=== PATIENT | male | born 1945 | race Caucasian/White ===

== ENCOUNTER 2017-05-12 12:16 | Emergency (ER) | payer MEDICARE, MEDICAID ==
[~2017-05-12] VITALS: Ht 167.6 cm; Wt 90.7 kg
[~2017-05-12 12:16] MED LIST: AMLO5TAB2 PO; CLOP75TA PO; LISI1TAB10 PO; LSNP20T PO; METO100T5 PO; NIA500ERT PO; SIMV40TA4 PO
--- OUTSIDE RECORDS SUMMARY | 2017-05-12 12:23 | XMS REPORT | Continuity of Care Document ---
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 05/07/2008 RHONA PETERSON MD 382.01 OTITIS MEDIA ACUTE WITH SPONTANEOUS RUPTURE EARDRUM 05/07/2008 RHONA PETERSON MD 401.1 ESSENTIAL HYPERTENSION BENIGN 05/07/2008 RHONA PETERSON MD 414.01 CORONARY ARTERY STENOSIS MULTI-VESSEL 05/07/2008 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 05/07/2008 382.01 OTITIS MEDIA ACUTE WITH SPONTANEOUS RUPTURE EARDRUM 05/07/2008 401.1 ESSENTIAL HYPERTENSION BENIGN 05/07/2008 414.01 CORONARY ARTERY STENOSIS MULTI-VESSEL 09/09/2008 RHONA PETERSON MD 703.9 NAIL DISEASE UNSPEC 09/09/2008 RHONA PETERSON MD 786.2 COUGH 09/09/2008 703.9 NAIL DISEASE UNSPEC 09/09/2008 786.2 COUGH 06/19/2009 RHONA PETERSON MD 729.5 PAIN IN LIMB 06/19/2009 RHONA PETERSON MD 735.2 HALLUX RIGIDUS 06/19/2009 729.5 PAIN IN LIMB 06/19/2009 735.2 HALLUX RIGIDUS 11/04/2009 RHONA PETERSON MD 278.00 OBESITY 11/04/2009 278.00 OBESITY 03/24/2010 RHONA PETERSON MD 682.3 OTHER CELLULITIS AND ABSCESS, UPPER ARM AND FOREARM 03/24/2010 682.3 OTHER CELLULITIS AND ABSCESS, UPPER ARM AND FOREARM 03/29/2010 RHONA PETERSON MD 923.20 CONTUSION OF, HAND(S) 03/29/2010 923.20 CONTUSION OF, HAND(S) 12/10/2010 RHONA PETERSON MD 272.4 DYSLIPIDEMIA 12/10/2010 272.4 DYSLIPIDEMIA 10/27/2011 RHONA PETERSON MD 401.9 HYPERTENSION (SYSTEMIC) 10/27/2011 RHONA PETERSON MD 414.00 CORONARY ARTERY DISEASE 10/27/2011 RHONA PETERSON MD 433.10 CAROTID ARTERY STENOSIS 10/27/2011 RHONA PETERSON MD 786.09 difficulty breathing (dyspnea) 10/27/2011 401.9 HYPERTENSION (SYSTEMIC) 10/27/2011 414.00 CORONARY ARTERY DISEASE 10/27/2011 433.10 CAROTID ARTERY STENOSIS 10/27/2011 786.09 difficulty breathing (dyspnea) 12/23/2014 KERON PLAZA PROCESSING SPECIALIST Ot 414.00 12/23/2014 KERON PLAZAP Ot 416.8 12/23/2014 KERON PLAZA Ot 785.1 12/23/2014 KERON PLAZAP Ot 786.05 12/23/2014 CANDICE DOMINGUEZ MD Ot 782.3 12/23/2014 CANDICE DOMINGUEZ MD T Ot 989.5 12/23/2014 CANDICE DOMINGUEZ MD T Ot E000.8 12/23/2014 CANDICE DOMINGUEZ MD T Ot E849.0 12/23/2014 CANDICE DOMINGUEZ MD Ot E905.3 Procedures Results Encounters ACCT No. Visit Date/Time Discharge Status Pt. Type Provider Facility Loc./Unit Complaint [id number] 10/27/2011 15:51:00 10/27/2011 23: 59:59 CLS Outpatient RHONA PETERSON MD [id number] 10/27/2011 15:51:00 10/27/2011 23: 59:59 CLS Outpatient [id number] 12/23/2014 19:13:00 2014 20:47:00 DIS Emergency CANDICE DOMINGUEZ MD [facility] [id number] 09/27/2013 10:36:00 2013 23:59:59 CLS Outpatient KERON PLAZA [facility] CARD
--- NOTE | 2017-05-12 12:40 | ED Lower Extremity ---
General Stated Complaint: FALL/LEFT HIP PAIN Source: patient Exam Limitations: no limitations History of Present Illness Time seen by provider: 12:38 Initial Comments To ER with left hip pain. This began after he fell 2 days ago. Minimal pain initially and was ambulatory the rest of that day and all of yesterday. He states that he did a lot of walking yesterday and cleaned out his truck. This morning he awakened with severe pain to the anterior left hip. He did not injure himself anywhere else during that fall. Primary care is Dr. Hernan Cunningham in [place] and outdoor adventure instructor Dr. Santana. 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 He does drink 3-4 beers per night. Onset: other Severity: moderate Pain/Injury Location: left hip Method of Injury: fell Modifying Factors: Worse With Movement Allergies and Home Medications Allergies Coded Allergies: No Known Drug Allergies (Unverified , 12/23/14) Home Medications Amlodipine Besylate 5 Mg Tablet, 5 MG PO DAILY, (Reported) Clopidogrel Bisulfate 75 Mg Tablet, 1 EACH PO DAILY, (Reported) Hctz/Lisinopril 1 Tab Tablet, 1 EACH PO DAILY, (Reported) Hydrocodone/Acetaminophen 1 Each Tablet, 1 EACH PO Q4H PRN for PAIN-MODERATE TO SEVERE, #20 Prescribed by: ESA MORRIS on 05/12/17 1413 Lisinopril 20 Mg Tab, 20 MG PO DAILY, (Reported) Metoprolol Succinate 100 Mg Tab.sr.24h, 1 EACH PO BID, (Reported) Niacin 500 Mg Tablet.sa, 500 MG PO DAILY, (Reported) Simvastatin 40 Mg Tablet, 40 MG PO DAILY, (Reported) Constitutional: see HPI EENTM: see HPI Respiratory: no symptoms reported Cardiovascular: no symptoms reported Genitourinary: no symptoms reported Musculoskeletal: no symptoms reported Skin: no symptoms reported Psychiatric/Neurological: No Symptoms Reported Past Qdplvsw-Swvcit-Ukuiwz Hx Patient Social History Recent Foreign Travel: No Contact w/Someone Who Travel: No Immunizations Up To Date Tetanus Booster (TDap): Unknown Surgeries Surgeries: CABG, Vascular Surgery Cardiovascular Cardiac Disorders: Coronary Artery Disease, Heart Attack, Hypertension Reproductive System Hx Reproductive Disorders: No Sexually Transmitted Disease: No HIV/AIDS: No Blood Transfusions Adverse Reaction to a Blood Tr: No Physical Exam Vital Signs Vital Sign - Last 12Hours 05/12/17 12:30 Temp 98.4 Pulse 74 Resp 20 B/P (MAP) 151/111 Pulse Ox 98 O2 Delivery Room Air Capillary Refill : General Appearance: WD/WN, no apparent distress HEENT: PERRL/EOMI, normal ENT inspection Neck: non-tender, full range of motion Respiratory: no respiratory distress, no accessory muscle use Gastrointestinal: normal bowel sounds, non tender Hips: right hip non-tender, left hip normal inspection, left hip normal range of motion, left hip pain Legs: bilateral leg non-tender, bilateral leg normal inspection, bilateral leg normal range of motion Knees: bilateral knee non-tender, bilateral knee normal inspection, bilateral knee normal range of motion Ankles: bilateral ankle non-tender, bilateral ankle normal inspection, bilateral ankle normal range of motion Feet: bilateral foot non-tender, bilateral foot normal inspection, bilateral foot normal range of motion Neurologic/Psychiatric: alert, normal mood/affect, oriented x 3 Skin: normal color, warm/dry Progress/Results/Core Measures Results/Orders Lab Results Laboratory Tests Test 05/12/17 13:28 Range/Units White Blood Count 11.6 H 4.3-11.0 10^3/uL Red Blood Count 3.93 L 4.35-5.85 10^6/uL Hemoglobin 12.3 L 13.3-17.7 G/DL Hematocrit 37 L 40-54 % Mean Corpuscular Volume 93 80-99 FL Mean Corpuscular Hemoglobin 31 25-34 PG Mean Corpuscular Hemoglobin Concent 34 32-36 G/DL Red Cell Distribution Width 13.0 10.0-14.5 % Platelet Count 294 130-400 10^3/uL Mean Platelet Volume 9.5 7.4-10.4 FL Neutrophils (%) (Auto) 83 H 42-75 % Lymphocytes (%) (Auto) 8 L 12-44 % Monocytes (%) (Auto) 9 0-12 % Eosinophils (%) (Auto) 0 0-10 % Basophils (%) (Auto) 0 0-10 % Neutrophils # (Auto) 9.7 H 1.8-7.8 X 10^3 Lymphocytes # (Auto) 0.9 L 1.0-4.0 X 10^3 Monocytes # (Auto) 1.0 0.0-1.0 X 10^3 Eosinophils # (Auto) 0.0 0.0-0.3 10^3/uL Basophils # (Auto) 0.0 0.0-0.1 10^3/uL Prothrombin Time 13.2 12.2-14.7 SEC INR Comment 1.0 0.8-1.4 Sodium Level 133 L 135-145 MMOL/L Potassium Level 3.9 3.6-5.0 MMOL/L Chloride Level 99 98-107 MMOL/L Carbon Dioxide Level 23 21-32 MMOL/L Anion Gap 11 5-14 MMOL/L Blood Urea Nitrogen 9 7-18 MG/DL Creatinine 0.84 0.60-1.30 MG/DL Estimat Glomerular Filtration Rate > 60 BUN/Creatinine Ratio 11 Glucose Level 96 70-105 MG/DL Calcium Level 9.0 8.5-10.1 MG/DL Total Bilirubin 0.8 0.1-1.0 MG/DL Aspartate Amino Transf (AST/SGOT) 28 5-34 U/L Alanine Aminotransferase (ALT/SGPT) 16 0-55 U/L Alkaline Phosphatase 73 40-136 U/L B-Type Natriuretic Peptide 280.5 H <100.0 PG/ML Total Protein 6.8 6.4-8.2 GM/DL Albumin 4.0 3.2-4.5 GM/DL My Orders Orders - ESA MORRIS APRN Cbc With Automated Diff (05/12/17 12:37) Comprehensive Metabolic Panel (05/12/17 12:37) Chest 1 View, Ap/Pa Only (05/12/17 12:37) BNP (05/12/17 12:37) Hip, Left, 2 Views (05/12/17 12:37) Ct Extremity Lower Left Wo (05/12/17 12:37) Saline Lock/Iv-Start (05/12/17 12:37) Protime With Inr (05/12/17 12:37) Fentanyl Injection (Sublimaze Injection (05/12/17 12:45) Ketorolac Injection (Toradol Injection) (05/12/17 12:45) Lorazepam Injection (Ativan Injection) (05/12/17 13:30) Ketorolac Injection (Toradol Injection) (05/12/17 14:15) Medications Given in ED Current Medications Medications Dose Ordered Sig/Mary Route Start Time Stop Time Status Last Admin Dose Admin Fentanyl Citrate 50 mcg ONCE ONCE IVP 05/12/17 12:45 05/12/17 12:46 DC 05/12/17 13:30 50 MCG Vital Signs/I&O Vital Sign - Last 12Hours 05/12/17 12:30 Temp 98.4 Pulse 74 Resp 20 B/P (MAP) 151/111 Pulse Ox 98 O2 Delivery Room Air Diagnostic Imaging Diagonstic Imaging: Xray, CT Comments NAME: CARLOS [facility] REC#: [id number] PT STATUS: REG ER : 1945 PHYSICIAN: ESA MORRIS APRN ADMIT DATE: 05/12/17/ER Draft Date of Exam:05/12/17 HIP, LEFT, 2 VIEWS INDICATION: Left hip pain. AP and oblique views of the left hip are obtained. FINDINGS: There is an advanced degenerative change of the left hip with severe joint space narrowing with ikkb-zw-myyq contact and some subchondral sclerosis as well as subchondral geode formation. There is chronic deformity of the femoral head and neck. There is no acute fracture visualized. IMPRESSION: Advanced degenerative change of the left hip joint as described above with no acute-appearing bony abnormality. Dictated on workstation # [id number] Dict: 05/12/17 1406 Trans: 05/12/17 1409 [facility] [id number] Interpreted by: DENA CHICAS MD Electronically signed by: Departure Communication (Admissions) Progress Notes After a few moments in the room patient felt as though he wasn't doing x-rays quickly enough and demanded to leave. He called his son. His son showed up and convince him to stay. Patient states "my nerves can't handle sitting here doing nothing". NAME: CARLOS ADDISON [facility] REC#: [id number] PT STATUS: REG ER : 1945 PHYSICIAN: ESA MORRIS APRN ADMIT DATE: 05/12/17/ER Draft Date of Exam:05/12/17 CT EXTREMITY LOWER LEFT WO INDICATION: Left hip pain. CT of the left hip obtained with axial slices without contrast and sagittal and coronal reconstructions. Soft tissue windows demonstrated no overt mass or hematoma. There are some vascular calcifications noted in the common femoral artery. There are degenerative changes in the facets in the lower lumbar spine as visualized. There is some degenerative change of the left SI joint. There is advanced degenerative change of the left hip joint with severe joint space narrowing and subchondral geode formation on both sides of the joint. There is chronic left femoral head deformity. There is no acute fracture visualized. IMPRESSION: Advanced degenerative change in the left hip joint with severe joint space narrowing with kibc-bb-lzkn contact and subchondral geode formation on both sides of the joint space. There is underlying chronic deformity of the femoral neck and head. There is no acute fracture visualized. There is no other acute finding. Dictated on workstation # [id number] Dict: 05/12/17 1423 Trans: 05/12/17 1429 [id number] Interpreted by: DENA CHICAS MD Electronically signed by: Impression Impression: Primary Impression: Arthritis of left hip Disposition: 01 HOME, SELF-CARE Condition: Stable Departure-Patient Inst. Decision time for Depature: 14:11 Referrals: HERNAN CUNNINGHAM DO (PCP/Family) Primary Care Physician Patient Instructions: Arthritis and Exercise Add. Discharge Instructions: 1. Call orthopedic surgeon of your choosing for follow-up to further evaluate the left hip. This is rather advanced appearing arthritis of the hip and at some point you may benefit from a hip replacement. This would be worth discussing with orthopedic surgeon 2. Return to ER for any intolerable pain or other concerns 3. Take pain medication as directed. Beware this may be a little sedating and it may constipate use a do not drive after taking it and take an over-the- counter stool softener such as Colace as needed. Scripts Hydrocodone/Acetaminophen ([place] 5-325 Tablet) 1 Each Tablet 1 EACH PO Q4H Y for PAIN-MODERATE TO SEVERE, #20 TAB Prov: ESA MORRIS [facility] PRESIDENT 05/12/17 ESA MORRIS APRN May 12, 2017 12:40
[2017-05-12] MEDS ORDERED: KETOROLAC 60 MG/2 ML VIAL IM ONE (12:45)
[2017-05-12] MEDS ORDERED: fentaNYL INJECTION 100 MCG/2 ML AMP IVP ONE (12:45)
[2017-05-12] MEDS ORDERED: LORazepam INJ 2 MG/ML (ATIVAN) VIAL IVP ONE (13:30)
[2017-05-12 13:48] LABS: BASOPHILS % (AUTO) 0 % (0-10); EOSINOPHILS % (AUTO) 0 % (0-10); LYMPHOCYTES # (AUTO) 0.9 X 10^3 (1.0-4.0); LYMPHOCYTES % (AUTO) 8 % (12-44); MEAN CORPUSCULAR HEMOGLOBIN 31 PG (25-34); MEAN CORPUSCULAR HGB CONC 34 G/DL (32-36); MEAN CORPUSCULAR VOLUME 93 FL (80-99); MEAN PLATELET VOLUME 9.5 FL (7.4-10.4); MONOCYTES % (AUTO) 9 % (0-12); NEUTROPHILS # (AUTO) 9.7 X 10^3 (1.8-7.8); NEUTROPHILS % (AUTO) 83 % (42-75); PLATELET COUNT 294 10^3/uL (130-400); RED BLOOD COUNT 3.93 10^6/uL (4.35-5.85); WHITE BLOOD COUNT 11.6 10^3/uL (4.3-11.0)
[2017-05-12 13:58] LABS: PROTHROMBIN TIME PATIENT 13.2 SEC (12.2-14.7)
[2017-05-12 14:09] LABS: ALANINE AMINOTRANSFERASE 16 U/L (0-55); ANION GAP 11 MMOL/L (5-14); ASPARTATE AMINO TRANSFERASE 28 U/L (5-34); BILIRUBIN,TOTAL 0.8 MG/DL (0.1-1.0); BLOOD UREA NITROGEN 9 MG/DL (7-18); BUN/CREATININE RATIO 11; CARBON DIOXIDE 23 MMOL/L (21-32); CHLORIDE 99 MMOL/L (98-107); CREATININE SERUM 0.84 MG/DL (0.60-1.30); GFR ESTIMATED > 60; GLUCOSE 96 MG/DL (70-105); POTASSIUM 3.9 MMOL/L (3.6-5.0); SODIUM 133 MMOL/L (135-145); TOTAL PROTEIN 6.8 GM/DL (6.4-8.2)
--- NOTE | 2017-05-12 14:09 | Diagnostic Imaging Report ---
INDICATION: Left hip pain. AP and oblique views of the left hip are obtained. FINDINGS: There is an advanced degenerative change of the left hip with severe joint space narrowing with xhep-cl-koqi contact and some subchondral sclerosis as well as subchondral geode formation. There is chronic deformity of the femoral head and neck. There is no acute fracture visualized. IMPRESSION: Advanced degenerative change of the left hip joint as described above with no acute-appearing bony abnormality. Dictated by: Dictated on workstation # [id number]
[2017-05-12] MEDS ORDERED: HYDR-757 PO (14:13)
[2017-05-12] MEDS ORDERED: KETOROLAC 30 MG/ML VIAL IVP ONE (14:15)
--- NOTE | 2017-05-12 14:15 | Diagnostic Imaging Report ---
INDICATION: Fall. Shortness of air. No priors. FINDINGS: Lungs are free of infiltrate although hyperexpanded suggestive of air trapping. Some chronic osseous and soft tissue calcifications about the presumed chronically right AC joint noted. An acute chest wall abnormality is not found. Sternal wires midline. No failure, effusion, or pneumothorax. 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 Clear hyperexpanded lungs with no acute chest pathology evident. Dictated by: Dictated on workstation # [id number]
--- NOTE | 2017-05-12 14:30 | Diagnostic Imaging Report ---
INDICATION: Left hip pain. CT of the left hip obtained with axial slices without contrast and sagittal and coronal reconstructions. Soft tissue windows demonstrated no overt mass or hematoma. There are some vascular calcifications noted in the common femoral artery. There are degenerative changes in the facets in the lower lumbar spine as visualized. There is some degenerative change of the left SI joint. There is advanced degenerative change of the left hip joint with severe joint space narrowing and subchondral geode formation on both sides of the joint. There is chronic left femoral head deformity. There is no acute fracture visualized. IMPRESSION: Advanced degenerative change in the left hip joint with severe joint space narrowing with dwjo-ns-uwyi contact and subchondral geode formation on both sides of the joint space. There is underlying chronic deformity of the femoral neck and head. There is no acute fracture visualized. There is no other acute finding. Dictated by: Dictated on workstation # [id number]
[2017-05-12 15:05] VITALS: BP 151/111
== END 2017-05-12 15:05 | disposition home or self-care (01) ==
LOC: EDUNIT# 12:16 → ER 12:20
DX: M16.12 Unilateral primary osteoarthritis, left hip (principal); I25.10 Atherosclerotic heart disease of native coronary artery without angina pectoris; I25.2 Old myocardial infarction; I10 Essential (primary) hypertension; Z95.1 Presence of aortocoronary bypass graft; Z79.82 Long term (current) use of aspirin; Z79.02 Long term (current) use of antithrombotics/antiplatelets
CPT/HCPCS: 36415; 71010; 73502; 73700; 80053; 83880; 85025; 85610

== ENCOUNTER 2017-11-28 10:23 | Emergency (ER) | payer MEDICARE, MEDICAID ==
[~2017-11-28] VITALS: Ht 170.2 cm; Wt 77.1 kg
[~2017-11-28 10:23] MED LIST changes: +HYDR-757 PO
--- NOTE | 2017-11-28 11:46 | Diagnostic Imaging Report ---
INDICATION: Chest pain. COMPARISON: 05/12/2017 FINDINGS: Single frontal radiographic view of the chest was obtained and demonstrates interval development of moderate enlargement of the cardiac silhouette. Pulmonary vasculature, however, is within normal limits. Sternotomy wires and calcified aortic atherosclerosis are noted. Lungs are clear and show no focal consolidations, large effusion, nor pneumothoraces. Bony structures show no gross acute abnormalities. IMPRESSION: 1. Interval development of moderate enlargement of the cardiac silhouette. While findings may be on the basis of interval development of cardiomegaly, underlying pericardial effusion should also be considered. 2. No evidence of failure or focal infiltrate. Dictated by: Dictated on workstation # [id number]
[2017-11-28] MEDS ORDERED: NS IV 1000 ML 1,000 ML IV ONE (11:58)
[2017-11-28] MEDS ORDERED: ASPIRIN 81 MG CHEW (CHILDREN'S ASA) PO ONE (12:00)
[2017-11-28] MEDS ORDERED: LORazepam INJ 2 MG/ML (ATIVAN) VIAL IVP ONE ×2 (12:00→16:30)
[2017-11-28 12:05] LABS: BASOPHILS % (AUTO) 0 % (0-10); EOSINOPHILS % (AUTO) 1 % (0-10); HEMATOCRIT 37 % (40-54); HEMOGLOBIN 12.1 G/DL (13.3-17.7); LYMPHOCYTES # (AUTO) 0.7 X 10^3 (1.0-4.0); LYMPHOCYTES % (AUTO) 13 % (12-44); MEAN CORPUSCULAR HEMOGLOBIN 31 PG (25-34); MEAN CORPUSCULAR HGB CONC 33 G/DL (32-36); MEAN CORPUSCULAR VOLUME 96 FL (80-99); MEAN PLATELET VOLUME 9.4 FL (7.4-10.4); MONOCYTES # (AUTO) 0.6 X 10^3 (0.0-1.0); MONOCYTES % (AUTO) 10 % (0-12); NEUTROPHILS # (AUTO) 4.4 X 10^3 (1.8-7.8); NEUTROPHILS % (AUTO) 76 % (42-75); PLATELET COUNT 220 10^3/uL (130-400); RED BLOOD COUNT 3.87 10^6/uL (4.35-5.85); RED CELL DISTRIBUTION WIDTH 13.7 % (10.0-14.5); WHITE BLOOD COUNT 5.8 10^3/uL (4.3-11.0)
[2017-11-28 12:17] LABS: INR 1.1 (0.8-1.4); PROTHROMBIN TIME PATIENT 14.7 SEC (12.2-14.7)
[2017-11-28 12:25] LABS: ALANINE AMINOTRANSFERASE 22 U/L (0-55); ALBUMIN 3.6 GM/DL (3.2-4.5); ALKALINE PHOSPHATASE 58 U/L (40-136); BILIRUBIN,TOTAL 0.5 MG/DL (0.1-1.0); BUN/CREATININE RATIO 15; CALCIUM 8.5 MG/DL (8.5-10.1); CARBON DIOXIDE 25 MMOL/L (21-32); CHLORIDE 105 MMOL/L (98-107); CREATINE KINASE 104 U/L (30-200); CREATININE SERUM 0.86 MG/DL (0.60-1.30); GFR ESTIMATED > 60; GLUCOSE 91 MG/DL (70-105); MAGNESIUM 1.6 MG/DL (1.8-2.4); POTASSIUM 3.7 MMOL/L (3.6-5.0); SODIUM 140 MMOL/L (135-145); TOTAL PROTEIN 6.1 GM/DL (6.4-8.2)
[2017-11-28 12:32] LABS: CREATINE KINASE MB 3.1 NG/ML (<6.6); MYOGLOBIN SERUM 58.1 NG/ML (10.0-92.0)
--- NOTE | 2017-11-28 12:52 | ED Cardiac General ---
History of Present Illness General Chief Complaint: Cardiac/General Problems Stated Complaint: CP,ANKLES SWELLING Nursing Triage Note: PT STATES HE HAS BEEN HAVING SOB THAT COMES AND GOES AND EDEMA TO BOTH ANKLES. PT IS UNSURE HOW LONG HE HAS BEEN EXPERIENCING SYMPTOMS. PT CAME TO ED TODAY BECAUSE SYMPTOMS HAVE BECOME WORSE. Source: patient Exam Limitations: no limitations History of Present Illness Date Seen by Provider: November 28, 2017 Time Seen by Provider: 12:52 Allergies and Home Medications Allergies Coded Allergies: No Known Drug Allergies (Unverified , 12/23/14) Home Medications Amlodipine Besylate 5 Mg Tablet, 5 MG PO DAILY, (Reported) Clopidogrel Bisulfate 75 Mg Tablet, 1 EACH PO DAILY, (Reported) Clopidogrel Bisulfate 75 Mg Tablet, 75 MG PO DAILY Prescribed by: MARI TABOR on 11/28/171917 Furosemide 40 Mg Tablet, 40 MG PO BID Prescribed by: MARI TABOR on 11/28/171919 Hctz/Lisinopril 1 Tab Tablet, 1 EACH PO DAILY, (Reported) Hydrocodone/Acetaminophen 1 Each Tablet, 1 EACH PO Q4H PRN for PAIN-MODERATE TO SEVERE Prescribed by: ESA MORRIS on 05/12/17 1413 Lisinopril 20 Mg Tab, 20 MG PO DAILY, (Reported) Magnesium Oxide 500 Mg Capsule, 500 MG PO BID Prescribed by: MARI TABOR on 11/28/171919 Metoprolol Succinate 100 Mg Tab.sr.24h, 1 EACH PO BID, (Reported) Metoprolol Tartrate 100 Mg Tablet, 100 MG PO BID Prescribed by: MARI TABOR on 11/28/171917 Niacin 500 Mg Tablet.sa, 500 MG PO DAILY, (Reported) Nitroglycerin 0.4 Mg Tab.subl, 0.4 MG SL UD PRN for CHEST PAIN 1 tab SL q5 min prn chest pain (max 3 doses). Prescribed by: MARI TABOR on 11/28/171917 Potassium Chloride 20 Meq Tablet.er, 20 MEQ PO BID Prescribed by: MARI TABOR on 11/28/171919 Simvastatin 40 Mg Tablet, 40 MG PO DAILY, (Reported) Tamsulosin HCl 0.4 Mg Cap.er.24h, 0.4 MG PO DAILY Prescribed by: MARI TABOR on 11/28/171917 Past Fllrxze-Tafzep-Zhqvfe Hx Patient Social History Alcohol Use: Occasionally Uses Number of Drinks Today: AA Alcohol Beverage of Choice: Beer Recreational Drug Use: No Smoking Status: Former Smoker Type Used: Cigarettes 2nd Hand Smoke Exposure: No Recent Foreign Travel: No Contact w/Someone Who Travel: No Recent Infectious Disease Expo: No Recent Hopitalizations: No Physical Abuse: No Sexual Abuse: No Immunizations Up To Date Tetanus Booster (TDap): Unknown Seasonal Allergies Seasonal Allergies: No Past Medical History Surgeries: Yes (BYPASS, CAROTID ARTERY.) CABG, Vascular Surgery Respiratory: Yes (Chronic shortness of air) Cardiac: Yes Coronary Artery Disease, Heart Attack, Hypertension Neurological: No Reproductive Disorders: No Sexually Transmitted Disease: No HIV/AIDS: No Gastrointestinal: No Musculoskeletal: No Endocrine: No Cancer: No Psychosocial: No Nursing Suicide Risk Score: 0 Integumentary: No Blood Disorders: No Adverse Reaction/Blood Tranf: No Physical Exam Vital Signs Vital Signs - First Documented 11/28/17 10:25 Temp 98.4 Pulse 83 Resp 18 B/P (MAP) 168/99 (122) O2 Delivery Room Air Capillary Refill : Greater Than 3 Seconds Progress/Results/Core Measures Results/Orders Lab Results Laboratory Tests Test 11/28/17 11:57 11/28/17 14:30 11/28/17 17:14 Range/Units White Blood Count 5.8 4.3-11.0 10^3/uL Red Blood Count 3.87 L 4.35-5.85 10^6/uL Hemoglobin 12.1 L 13.3-17.7 G/DL Hematocrit 37 L 40-54 % Mean Corpuscular Volume 96 80-99 FL Mean Corpuscular Hemoglobin 31 25-34 PG Mean Corpuscular Hemoglobin Concent 33 32-36 G/DL Red Cell Distribution Width 13.7 10.0-14.5 % Platelet Count 220 130-400 10^3/uL Mean Platelet Volume 9.4 7.4-10.4 FL Neutrophils (%) (Auto) 76 H 42-75 % Lymphocytes (%) (Auto) 13 12-44 % Monocytes (%) (Auto) 10 0-12 % Eosinophils (%) (Auto) 1 0-10 % Basophils (%) (Auto) 0 0-10 % Neutrophils # (Auto) 4.4 1.8-7.8 X 10^3 Lymphocytes # (Auto) 0.7 L 1.0-4.0 X 10^3 Monocytes # (Auto) 0.6 0.0-1.0 X 10^3 Eosinophils # (Auto) 0.0 0.0-0.3 10^3/uL Basophils # (Auto) 0.0 0.0-0.1 10^3/uL Prothrombin Time 14.7 12.2-14.7 SEC INR Comment 1.1 0.8-1.4 Activated Partial Thromboplast Time 28 24-35 SEC D-Dimer 2.33 H 0.00-0.49 UG/ML Sodium Level 140 135-145 MMOL/L Potassium Level 3.7 3.6-5.0 MMOL/L Chloride Level 105 98-107 MMOL/L Carbon Dioxide Level 25 21-32 MMOL/L Anion Gap 10 5-14 MMOL/L Blood Urea Nitrogen 13 7-18 MG/DL Creatinine 0.86 0.60-1.30 MG/DL Estimat Glomerular Filtration Rate > 60 BUN/Creatinine Ratio 15 Glucose Level 91 70-105 MG/DL Calcium Level 8.5 8.5-10.1 MG/DL Magnesium Level 1.6 L 1.8-2.4 MG/DL Total Bilirubin 0.5 0.1-1.0 MG/DL Aspartate Amino Transf (AST/SGOT) 34 5-34 U/L Alanine Aminotransferase (ALT/SGPT) 22 0-55 U/L Alkaline Phosphatase 58 40-136 U/L Total Creatine Kinase 104 30-200 U/L Creatine Kinase MB 3.1 <6.6 NG/ML Myoglobin 58.1 10.0-92.0 NG/ML Troponin I < 0.30 < 0.30 <0.30 NG/ML B-Type Natriuretic Peptide 1247.3 H <100.0 PG/ML Total Protein 6.1 L 6.4-8.2 GM/DL Albumin 3.6 3.2-4.5 GM/DL TSH [place] Testing 1.13 0.35-4.94 UIU/ML Serum Alcohol < 10 <10 MG/DL Urine Color YELLOW Urine Clarity CLEAR Urine pH 6.5 5-9 Urine Specific [place] 1.010 L 1.016-1.022 Urine Protein NEGATIVE NEGATIVE Urine Glucose (UA) NEGATIVE NEGATIVE Urine Ketones NEGATIVE NEGATIVE Urine Nitrite NEGATIVE NEGATIVE Urine Bilirubin NEGATIVE NEGATIVE Urine Urobilinogen NORMAL NORMAL MG/DL Urine Leukocyte Esterase NEGATIVE NEGATIVE Urine RBC (Auto) NEGATIVE NEGATIVE Urine RBC RARE /HPF Urine WBC NONE /HPF Urine Squamous Epithelial Cells NONE /HPF Urine Crystals NONE /LPF Urine Bacteria NEGATIVE /HPF Urine Casts NONE /LPF Urine Mucus NEGATIVE /LPF Urine Culture Indicated NO Urine Opiates Screen NEGATIVE NEGATIVE Urine Oxycodone Screen NEGATIVE NEGATIVE Urine Methadone Screen NEGATIVE NEGATIVE Urine Propoxyphene Screen NEGATIVE NEGATIVE Urine Barbiturates Screen NEGATIVE NEGATIVE Ur Tricyclic Antidepressants Screen NEGATIVE NEGATIVE Urine Phencyclidine Screen NEGATIVE NEGATIVE Urine Amphetamines Screen NEGATIVE NEGATIVE Urine Methamphetamines Screen NEGATIVE NEGATIVE Urine Benzodiazepines Screen NEGATIVE NEGATIVE Urine Cocaine Screen NEGATIVE NEGATIVE Urine Cannabinoids Screen NEGATIVE NEGATIVE My Orders Orders - MARI TABOR PA Cbc With Automated Diff (11/28/17 11:22) Magnesium (11/28/17 11:22) Chest 1 View, Ap/Pa Only (11/28/17 11:22) Ekg Tracing (11/28/17 11:22) Cardiac Profile 1 (11/28/17 11:22) Comprehensive Metabolic Panel (11/28/17 11:22) Myoglobin Serum (11/28/17 11:22) Protime With Inr (11/28/17 11:22) Partial Thromboplastin Time (11/28/17 11:22) O2 (11/28/17 11:22) Monitor-Rhythm Ecg Trace Only (11/28/17 11:22) Lipid Panel (11/29/17 06:00) Saline Lock/Iv-Start (11/28/17 11:22) Creatine Kinase (11/28/17 11:22) Creatine Kinase Mb (11/28/17 11:22) BNP (11/28/17 11:22) Fibrin Degradation Products (11/28/17 11:22) Lorazepam Injection (Ativan Injection) (11/28/17 12:00) Ns Iv 1000 Ml (Sodium Chloride 0.9%) (11/28/17 11:58) Aspirin Chewable Tablet (Baby Aspirin Ch (11/28/17 12:00) Ct Angio Chest W (11/28/17 12:40) Iohexol Injection (Omnipaque 350 Mg/Ml 1 (11/28/17 13:00) Ns (Ivpb) (Sodium Chloride 0.9%) (11/28/17 13:00) Alcohol (11/28/17 14:32) Drug Screen Stat (Urine) (11/28/17 14:32) Thyroid Analyzer (11/28/17 14:32) Ua Culture If Indicated (11/28/17 14:32) Furosemide Injection (Lasix Injection) (11/28/17 14:45) Troponin I (11/28/17 16:24) Ekg Tracing (11/28/17 16:24) Lorazepam Injection (Ativan Injection) (11/28/17 16:30) Metoprolol Tartrate (Ir) Tab (Lopressor (11/28/17 16:30) Medications Given in ED Current Medications Medications Dose Ordered Sig/Mary Route Start Time Stop Time Status Last Admin Dose Admin Aspirin 324 mg ONCE ONCE PO 11/28/17 12:00 11/28/17 12:01 DC 11/28/17 12:25 324 MG Furosemide 40 mg ONCE ONCE IVP 11/28/17 14:45 11/28/17 14:46 DC 11/28/17 14:51 40 MG Lorazepam 1 mg ONCE ONCE IVP 11/28/17 12:00 11/28/17 12:01 DC 11/28/17 12:20 1 MG Lorazepam 1 mg ONCE ONCE IVP 11/28/17 16:30 11/28/17 16:31 DC 11/28/17 16:55 1 MG Metoprolol Tartrate 100 mg ONCE ONCE PO 11/28/17 16:30 11/28/17 16:31 DC 11/28/17 17:11 100 MG Sodium Chloride 1,000 ml @ 0 mls/hr Q0M ONCE IV 11/28/17 11:58 11/28/17 12:01 DC 11/28/17 12:25 1,000 MLS/HR Vital Signs/I&O 11/28/17 10:25 Temp 98.4 Pulse 83 Resp 18 B/P (MAP) 168/99 (122) O2 Delivery Room Air Blood Pressure Mean: 122 Diagnostic Imaging Diagonstic Imaging: Xray Plain Films/CT/US/NM/MRI: chest Comments CHEST 1 VIEW, AP/PA ONLY INDICATION: Chest pain. COMPARISON: 05/12/2017 FINDINGS : Single frontal radiographic view of the chest was obtained and demonstrates interval development of moderate enlargement of the cardiac silhouette. Pulmonary vasculature, however, is within normal limits. Sternotomy wires and calcified aortic atherosclerosis are noted. Lungs are clear and show no focal consolidations, large effusion, nor pneumothoraces. Bony structures show no gross acute abnormalities. IMPRESSION: 1. Interval development of moderate enlargement of the cardiac silhouette. While findings may be on the basis of interval development of cardiomegaly, underlying pericardial effusion should also be considered. 2. No evidence of failure or focal infiltrate. Dictated on workstation # [id number] Reviewed: Reviewed by Me (radiology report reviewed by me) Diagonstic Imaging: CT Comments CT ANGIO CHEST W PROCEDURE: CT angiography of the chest with contrast. TECHNIQUE : Multiple contiguous axial images were obtained through the chest after uneventful bolus administration of intravenous contrast. Reconstructed CTA MIP acquisitions were also performed. INDICATION: Shortness of breath, intermittent , edema in the bilateral lower extremities. COMPARISON: None. FINDINGS: The pulmonary arteries are diagnostic to the segmental level. No pulmonary emboli are seen. The heart is upper normal in size. There is calcification of the aortic valve. Coronary atherosclerosis is present. There is mild aortic atherosclerosis. There is groundglass and interstitial opacity in the lung bases bilaterally. Similar findings are seen in the anterior left upper lobe. There is a 6 mm nodule in the right middle lobe which appears to have solid and groundglass components (image 81 series 2). No pleural effusion or pneumothorax is seen. The mediastinum demonstrates an enlarged right lower paratracheal lymph node measuring 1.2 cm in short axis. There is also an enlarged left paratracheal lymph node measuring 1.4 x 1.4 cm in size. No acute osseous abnormality is seen. There are degenerative changes in the spine. No acute abnormality is seen in the upper abdomen. IMPRESSION: 1. No pulmonary embolus seen. 2. Part solid and groundglass 6 mm nodule in the right middle lobe. Consider CT followup in 3-6 months. 3. Groundglass and interstitial opacities in the lung bases and the anterior left upper lobe may represent an atypical infectious or inflammatory process. Dictated on workstation # [id number] Reviewed: Reviewed by Me (radiology report reviewed by me) Departure Impression Primary Impression: New onset atrial fibrillation Additional Impressions: Congestive heart failure Hypomagnesemia Depression Alcohol dependence Disposition: 07 AGAINST MEDICAL ADVICE Condition: Against Medical Advice Departure-Patient Inst. Decision time for Depature: 19:10 Referrals: HERNAN CUNNINGHAM DO (PCP) Primary Care Physician SHERRY RODRIGUEZ MD FACP FAC CCDS Long MCCARTY MD, BASHAR J MD Patient Instructions: Alcohol Abuse and Alcoholism (DC), Alcohol Use - When Is Drinking a Problem?, Alcohol Withdrawal, Atrial Fibrillation (DC), Chest Pain ( DC), Heart Failure, Adult (DC) Add. Discharge Instructions: All discharge instructions reviewed with patient and/or family. Voiced understanding. -Medications as instructed. -Continue usual home medications. -You do need anticoagulation for the atrial fibrillation. Due to not being monitored in the hospital, we are unable to start the anticoagulation at this time. -Continue the plavix and aspirin as instructed by Dr. Santana and Dr. Cunningham at [place]. -Follow-up with Dr. Cunningham this week as an outpatient for recheck and for discussion of alcohol detox/rehab. -Follow-up with Dr. Santana at [facility] or the after school program coordinator of your choice as an outpatient within the next 2-3 days for recheck and further evaluation/management of the atrial fibrillation and CHF. Call tomorrow morning for appointment time. -Return immediately to the emergency department for worsened symptoms, chest pain, shortness of air, dizziness, changes in behavior, headache, numbness, weakness, facial droop, slurred speech, or any other concerns. -For any thoughts of harming yourself or others contact the Crisis line ([phone]), call [phone], contact the police department, or return to the emergency department immediately. -Follow-up with mental health this week for intake and treatment. Call for an appointment time tomorrow morning. Scripts Potassium Chloride (Potassium Chloride) 20 Meq Tablet.er 20 MEQ PO BID, #6 TAB 0 Refills Prov: MARI TABOR 11/28/17 Furosemide (Lasix) 40 Mg Tablet 40 MG PO BID, #6 TAB 0 Refills Prov: MARI TABOR 11/28/17 Magnesium Oxide (Magnesium Oxide) 500 Mg Capsule 500 MG PO BID, #14 CAP 0 Refills Prov: MARI TABOR 11/28/17 Clopidogrel Bisulfate (Clopidogrel) 75 Mg Tablet 75 MG PO DAILY, #30 TAB 0 Refills Prov: MARI TABOR 11/28/17 Metoprolol Tartrate (Metoprolol Tartrate) 100 Mg Tablet 100 MG PO BID, #60 TAB 0 Refills Prov: MARI TABOR 11/28/17 Nitroglycerin (Nitroglycerin) 0.4 Mg Tab.subl 0.4 MG SL UD PRN for CHEST PAIN, #30 TAB 0 Refills 1 tab SL q5 min prn chest pain (max 3 doses). Prov: MARI TABOR 11/28/17 Tamsulosin HCl (Tamsulosin HCl) 0.4 Mg Cap.er.24h 0.4 MG PO DAILY, #30 CAP 0 Refills Prov: MARI TABOR 11/28/17 Work/School Note: Local [employer] Listing MARI TABOR November 28, 2017 12:52
[2017-11-28] MEDS ORDERED: IOHEXOL 350 MG/ML 150 ML (OMNIPAQUE 350) VIAL IV ONE (13:00)
[2017-11-28] MEDS ORDERED: NS 250 ML (IVPB) BAG IV ONE (13:00)
--- NOTE | 2017-11-28 13:32 | Diagnostic Imaging Report ---
PROCEDURE: CT angiography of the chest with contrast. TECHNIQUE: Multiple contiguous axial images were obtained through the chest after uneventful bolus administration of intravenous contrast. Reconstructed CTA MIP acquisitions were also performed. INDICATION: Shortness of breath, intermittent, edema in the bilateral lower extremities. COMPARISON: None. FINDINGS: The pulmonary arteries are diagnostic to the segmental level. No pulmonary emboli are seen. The heart is upper normal in size. There is calcification of the aortic valve. Coronary atherosclerosis is present. There is mild aortic atherosclerosis. There is groundglass and interstitial opacity in the lung bases bilaterally. Similar findings are seen in the anterior left upper lobe. There is a 6 mm nodule in the right middle lobe which appears to have solid and groundglass components (image 81 series 2). No pleural effusion or pneumothorax is seen. The mediastinum demonstrates an enlarged right lower paratracheal lymph node measuring 1.2 cm in short axis. There is also an enlarged left paratracheal lymph node measuring 1.4 x 1.4 cm in size. No acute osseous abnormality is seen. There are degenerative changes in the spine. No acute abnormality is seen in the upper abdomen. IMPRESSION: 1. No pulmonary embolus seen. 2. Part solid and groundglass 6 mm nodule in the right middle lobe. Consider CT followup in 3-6 months. 3. Groundglass and interstitial opacities in the lung bases and the anterior left upper lobe may represent an atypical infectious or inflammatory process. Dictated by: Dictated on workstation # [id number]
[2017-11-28 14:43] LABS: BILIRUBIN,URINE NEGATIVE (NEGATIVE); CLARITY,URINE CLEAR; COLOR,URINE YELLOW; GLUCOSE, URINE (UA) NEGATIVE (NEGATIVE); KETONES,URINE NEGATIVE (NEGATIVE); LEUKOCYTE ESTERASE ,URINE NEGATIVE (NEGATIVE); NITRITE,URINE NEGATIVE (NEGATIVE); PH,URINE 6.5 (5-9); PROTEIN,URINE NEGATIVE (NEGATIVE); UROBILINOGEN,URINE NORMAL (NORMAL)
[2017-11-28] MEDS ORDERED: FUROSEMIDE 40 MG/4 ML INJ (LASIX) IVP ONE (14:45)
[2017-11-28 14:50] LABS: BACTERIA,URINE NEGATIVE /HPF; RBC,URINE RARE /HPF
[2017-11-28 14:55] LABS: AMPHETAMINE SCREEN, URINE NEGATIVE (NEGATIVE); BARBITURATE SCREEN URINE NEGATIVE (NEGATIVE); BENZODIAZEPINES SCREEN URINE NEGATIVE (NEGATIVE); CANNABINOID SCREEN, URINE NEGATIVE (NEGATIVE); COCAINE SCREEN URINE NEGATIVE (NEGATIVE); METHADONE STAT NEGATIVE (NEGATIVE); METHAMPHETAMINE SCREEN URINE S NEGATIVE (NEGATIVE); OPIATE SCREEN URINE NEGATIVE (NEGATIVE); OXYCODONE STAT NEGATIVE (NEGATIVE); PROPOXYPHENE STAT NEGATIVE (NEGATIVE); TRICYCLIC ANTIDEPRESSANTS SCRE NEGATIVE (NEGATIVE)
[2017-11-28 15:33] LABS: TSH (THYROID ANALYZER) 1.13 UIU/ML (0.35-4.94)
[2017-11-28] MEDS ORDERED: meTOprolol TARTRATE 50 MG (LOPRESSOR) TAB PO ONE (16:30)
[2017-11-28] MEDS ORDERED: NITR0.4T39 SL ×2 (19:18→19:32)
[2017-11-28] MEDS ORDERED: TAMS0.4C2 PO ×2 (19:18→19:32)
[2017-11-28] MEDS ORDERED: METO100T12 PO ×2 (19:18→19:32)
[2017-11-28] MEDS ORDERED: CLOP75TA28 PO ×2 (19:18→19:32)
[2017-11-28] MEDS ORDERED: POTA-51 PO ×2 (19:20→19:32)
[2017-11-28] MEDS ORDERED: FURO-124 PO ×2 (19:20→19:32)
[2017-11-28] MEDS ORDERED: MAGN500C16 PO ×2 (19:20→19:32)
[2017-11-28 19:50] VITALS: BP 116/99
== END 2017-11-28 19:50 | disposition left against medical advice (07) ==
LOC: EDUNIT# 10:23 → ER 10:25
DX: I48.91 Unspecified atrial fibrillation (principal); I11.0 Hypertensive heart disease with heart failure; I50.9 Heart failure, unspecified; F32.9 Major depressive disorder, single episode, unspecified; F10.20 Alcohol dependence, uncomplicated; E83.42 Hypomagnesemia; I25.10 Atherosclerotic heart disease of native coronary artery without angina pectoris; I25.2 Old myocardial infarction; Z79.02 Long term (current) use of antithrombotics/antiplatelets; Z87.891 Personal history of nicotine dependence; Z95.1 Presence of aortocoronary bypass graft
CPT/HCPCS: 36415; 71045; 71275; 80053; 80306; 80320; 81000; 82550; 82553; 83735; 83874; 83880; 84443; 84484; 85025; 85379; 85610; 85730; 93005; 93041; 96361; 96374; 96375; 96376

== ENCOUNTER 2018-01-14 12:51 | Emergency (ER) | payer MEDICARE, MEDICAID ==
[~2018-01-14] VITALS: Ht 170.2 cm; Wt 68.0 kg
[~2018-01-14 12:51] MED LIST changes: +CLOP75TA28 PO; +FURO-124 PO; +MAGN500C16 PO; +METO100T12 PO; +NITR0.4T39 SL; +POTA-51 PO; +TAMS0.4C2 PO
[2018-01-14 13:05] VITALS: BP 133/75
[2018-01-14] MEDS ORDERED: LIDOCAINE 1% INJ 20 ML 20 ML VIAL ONE (13:05)
--- NOTE | 2018-01-14 13:25 | ED Upper Extremity ---
General Chief Complaint: Laceration Stated Complaint: CUT RIGHT ELBOW ON GLASS THIS AM Source: patient Exam Limitations: no limitations History of Present Illness Date Seen by Provider: Jan 14, 2018 Time Seen by Provider: 13:19 Initial Comments The patient is a 72-year-old white male who presents with a complaint of a laceration over his right elbow. This was inflicted when he knelt down on the carpet and placed his elbow on the floor. He had previously broken a jar a week or 2 ago and apparently had missed some of the shards. This bled vigorously. Onset: just prior to arrival Pain/Injury Location: right elbow Method of Injury: incised Allergies and Home Medications Allergies Coded Allergies: No Known Drug Allergies (Unverified , 12/23/14) Home Medications Amlodipine Besylate 5 Mg Tablet, 5 MG PO DAILY, (Reported) Clopidogrel Bisulfate 75 Mg Tablet, 1 EACH PO DAILY, (Reported) Clopidogrel Bisulfate 75 Mg Tablet, 75 MG PO DAILY Prescribed by: MARI TABOR on 11/28/171931 Furosemide 40 Mg Tablet, 40 MG PO BID Prescribed by: MARI TABOR on 11/28/171931 Hctz/Lisinopril 1 Tab Tablet, 1 EACH PO DAILY, (Reported) Hydrocodone/Acetaminophen 1 Each Tablet, 1 EACH PO Q4H PRN for PAIN-MODERATE TO SEVERE Prescribed by: ESA MORRIS on 05/12/17 141 Lisinopril 20 Mg Tab, 20 MG PO DAILY, (Reported) Magnesium Oxide 500 Mg Capsule, 500 MG PO BID Prescribed by: MARI TABOR on 11/28/171931 Metoprolol Succinate 100 Mg Tab.sr.24h, 1 EACH PO BID, (Reported) Metoprolol Tartrate 100 Mg Tablet, 100 MG PO BID Prescribed by: MARI TABOR on 11/28/171931 Niacin 500 Mg Tablet.sa, 500 MG PO DAILY, (Reported) Nitroglycerin 0.4 Mg Tab.subl, 0.4 MG SL UD PRN for CHEST PAIN 1 tab SL q5 min prn chest pain (max 3 doses). Prescribed by: MARI TABOR on 11/28/171931 Potassium Chloride 20 Meq Tablet.er, 20 MEQ PO BID Prescribed by: MARI TABOR on 11/28/171931 Simvastatin 40 Mg Tablet, 40 MG PO DAILY, (Reported) Tamsulosin HCl 0.4 Mg Cap.er.24h, 0.4 MG PO DAILY Prescribed by: MARI TABOR on 11/28/171931 Patient Home Medication List Home Medication List Reviewed: Yes Constitutional: see HPI EENTM: no symptoms reported Respiratory: no symptoms reported Cardiovascular: no symptoms reported Gastrointestinal: no symptoms reported Genitourinary: no symptoms reported Musculoskeletal: no symptoms reported Skin: see HPI Psychiatric/Neurological: No Symptoms Reported Past Gbuicpg-Axxmhx-Srfqyd Hx Patient Social History Alcohol Use: Occasionally Uses Number of Drinks Today: AA Alcohol Beverage of Choice: Beer Recreational Drug Use: No Type Used: Cigarettes 2nd Hand Smoke Exposure: No Recent Foreign Travel: No Contact w/Someone Who Travel: No Recent Hopitalizations: No Physical Abuse: No Sexual Abuse: No Immunizations Up To Date Tetanus Booster (TDap): Unknown Seasonal Allergies Seasonal Allergies: No Past Medical History Surgeries: Yes (BYPASS, CAROTID ARTERY.) CABG, Vascular Surgery Respiratory: Yes (Chronic shortness of air) Cardiac: Yes Coronary Artery Disease, Heart Attack, Hypertension Neurological: No Reproductive Disorders: No Sexually Transmitted Disease: No HIV/AIDS: No Genitourinary: No Gastrointestinal: No Musculoskeletal: No Endocrine: No HEENT: No Cancer: No Psychosocial: No Nursing Suicide Risk Score: 0 Integumentary: No Blood Disorders: No Adverse Reaction/Blood Tranf: No Physical Exam Vital Signs Vital Signs - First Documented 01/14/18 13:05 Temp 99.5 Pulse 107 Resp 16 B/P (MAP) 133/75 (94) Pulse Ox 94 O2 Delivery Room Air Capillary Refill : Less Than 3 Seconds General Appearance: WD/WN, no apparent distress, other (garrulous) HEENT: normal ENT inspection Neck: non-tender, full range of motion, supple, normal inspection Cardiovascular: normal peripheral pulses, regular rate, rhythm, no edema, no gallop, no JVD, no murmur Respiratory: chest non-tender, lungs clear, normal breath sounds, no respiratory distress, no accessory muscle use Comments There is a 5 cm slightly arcuate laceration with some under catch to the proximal direction. This is just distal to the olecranon Procedures/Interventions Wound Location: Upper Extremities Wound Length (cm): 5 Wound's Depth, Shape: flap Betadine Prep?: Yes Wound Debrided: the wound was slightly undercut. The border was elevated with a tweezer and the wound explored. There is no evidence of retained foreign bodies Staple Repair: Stapler 35W, Stapler Skin Precise Sterile Dressing Applied?: Yes Progress/Results/Core Measures Results/Orders My Orders Orders - SHANKAR KAUR MD Lidocaine 1% Inj 20 Ml (Xylocaine 1% Inj (01/14/18 13:05) Vital Signs/I&O 01/14/18 13:05 Temp 99.5 Pulse 107 Resp 16 B/P (MAP) 133/75 (94) Pulse Ox 94 O2 Delivery Room Air Blood Pressure Mean: 94 Departure Impression Primary Impression: laceration right elbow Disposition: 01 HOME, SELF-CARE Condition: Stable/Unchanged Departure-Patient Inst. Decision time for Depature: 13:26 Referrals: HERNAN MONIQUE DO (PCP) Primary Care Physician Patient Instructions: Laceration Repair With Amadeo (DC) Add. Discharge Instructions: All discharge instructions reviewed with patient and/or family. Voiced understanding. Keep elbow clean and dry. Avoid full flexion of the elbow Return in 10-14 days for staple removal SHANKAR KAUR MD Jan 14, 2018 13:25
[2018-01-14] MEDS ORDERED: TETANUS,DIPTH,PERTUSS P/F (BOOSTRIX) 0.5 ML VIAL IM ONE (13:30)
[2018-01-14 13:45] VITALS: BP 133/75
== END 2018-01-14 13:57 | disposition home or self-care (01) ==
LOC: EDUNIT# 12:51 → ER 12:54
DX: S51.011A Laceration without foreign body of right elbow, initial encounter (principal); I25.10 Atherosclerotic heart disease of native coronary artery without angina pectoris; I25.2 Old myocardial infarction; I10 Essential (primary) hypertension; Z79.02 Long term (current) use of antithrombotics/antiplatelets; Z91.5 Personal history of self-harm; W26.8XXA Contact with other sharp object(s), not elsewhere classified, initial encounter
CPT/HCPCS: 12002; 90471; 90715

== ENCOUNTER 2018-01-18 10:47 | Emergency (ER) | payer MEDICARE, MEDICAID ==
[~2018-01-18] VITALS: Ht 170.2 cm; Wt 68.0 kg
[2018-01-18 11:12] VITALS: BP 160/104
== END 2018-01-18 11:09 | disposition home or self-care (01) ==
LOC: EDUNIT# 10:47 → ER 10:49
DX: S51.011D Laceration without foreign body of right elbow, subsequent encounter (principal); X58.XXXD Exposure to other specified factors, subsequent encounter

== ENCOUNTER 2018-01-29 14:42 | Emergency (ER) | payer MEDICARE, MEDICAID ==
[~2018-01-29] VITALS: Ht 165.1 cm; Wt 65.8 kg
--- NOTE | 2018-01-29 15:19 | ED Upper Extremity ---
General Chief Complaint: Upper Extremity Stated Complaint: LEFT THUMB INJURY Source: patient Exam Limitations: no limitations History of Present Illness Date Seen by Provider: Jan 29, 2018 Time Seen by Provider: 15:17 Initial Comments to [facility] private vehicle with reports of left thumb pain that began 2 days ago. No known injury, he believes he may have jammed it but does not recall any particular injury that would've caused this. He denies fevers or chills. He notices some swelling and pain over the thenar eminence of the left hand Onset: other Severity: moderate Pain/Injury Location: left hand Modifying Factors: Worse With Movement Allergies and Home Medications Allergies Coded Allergies: No Known Drug Allergies (Unverified , 12/23/14) Home Medications Amlodipine Besylate 5 Mg Tablet, 5 MG PO DAILY, (Reported) Clopidogrel Bisulfate 75 Mg Tablet, 1 EACH PO DAILY, (Reported) Clopidogrel Bisulfate 75 Mg Tablet, 75 MG PO DAILY Prescribed by: MARI TABOR on 11/28/171931 Furosemide 40 Mg Tablet, 40 MG PO BID Prescribed by: MARI TABOR on 11/28/171931 Hctz/Lisinopril 1 Tab Tablet, 1 EACH PO DAILY, (Reported) Hydrocodone/Acetaminophen 1 Each Tablet, 1 EACH PO Q4H PRN for PAIN-MODERATE TO SEVERE Prescribed by: ESA MORRIS on 05/12/17 1413 Lisinopril 20 Mg Tab, 20 MG PO DAILY, (Reported) Magnesium Oxide 500 Mg Capsule, 500 MG PO BID Prescribed by: MARI TABOR on 11/28/171931 Metoprolol Succinate 100 Mg Tab.sr.24h, 1 EACH PO BID, (Reported) Metoprolol Tartrate 100 Mg Tablet, 100 MG PO BID Prescribed by: MARI TABOR on 11/28/171931 Niacin 500 Mg Tablet.sa, 500 MG PO DAILY, (Reported) Nitroglycerin 0.4 Mg Tab.subl, 0.4 MG SL UD PRN for CHEST PAIN 1 tab SL q5 min prn chest pain (max 3 doses). Prescribed by: MARI TABOR on 11/28/171931 Potassium Chloride 20 Meq Tablet.er, 20 MEQ PO BID Prescribed by: MARI TABOR on 11/28/171931 Simvastatin 40 Mg Tablet, 40 MG PO DAILY, (Reported) Tamsulosin HCl 0.4 Mg Cap.er.24h, 0.4 MG PO DAILY Prescribed by: MARI TABOR on 11/28/171931 Patient Home Medication List Home Medication List Reviewed: Yes Constitutional: see HPI; No chills EENTM: see HPI Respiratory: no symptoms reported Cardiovascular: no symptoms reported Genitourinary: no symptoms reported Musculoskeletal: no symptoms reported Skin: no symptoms reported Psychiatric/Neurological: No Symptoms Reported Past Nzbjndp-Qkgypk-Ttpttf Hx Patient Social History Alcohol Beverage of Choice: Beer Type Used: Cigarettes 2nd Hand Smoke Exposure: No Recent Foreign Travel: No Contact w/Someone Who Travel: No Recent Hopitalizations: No Immunizations Up To Date Tetanus Booster (TDap): Unknown Seasonal Allergies Seasonal Allergies: No Past Medical History Surgeries: Yes (BYPASS, CAROTID ARTERY.) CABG, Vascular Surgery Respiratory: Yes (Chronic shortness of air) Cardiac: Yes Coronary Artery Disease, Heart Attack, Hypertension Neurological: No Reproductive Disorders: No Sexually Transmitted Disease: No HIV/AIDS: No Genitourinary: No Gastrointestinal: No Musculoskeletal: No Endocrine: No HEENT: No Cancer: No Psychosocial: No Integumentary: No Blood Disorders: No Adverse Reaction/Blood Tranf: No Physical Exam Vital Signs Vital Signs - First Documented 01/29/18 15:05 Temp 98.0 Pulse 96 Resp 18 B/P (MAP) 148/85 (106) Pulse Ox 97 Capillary Refill : Height, Weight, BMI Height: 5'7.00" Weight: 150lbs. oz. 68.431262rp; 21.09 BMI Method:Stated General Appearance: WD/WN, no apparent distress HEENT: PERRL/EOMI, normal ENT inspection Neck: non-tender, full range of motion Respiratory: no respiratory distress, no accessory muscle use Gastrointestinal: normal bowel sounds, non tender Shoulder: normal inspection, non-tender Elbow/Forearm: normal inspection, non-tender Wrist: Yes normal inspection, Yes non-tender Hand: Left, soft tissue tenderness, swelling (there is some erythema over the thenar eminence of the hand and first metacarpal..There is some lymphangitis extending proximally up the radial side of the arm terminating at the elbow) Neurologic/Psychiatric: alert, normal mood/affect, oriented x 3 Skin: normal color, warm/dry Progress/Results/Core Measures Results/Orders Lab Results Laboratory Tests Test 01/29/18 15:35 Range/Units White Blood Count 10.0 4.3-11.0 10^3/uL Red Blood Count 3.59 L 4.35-5.85 10^6/uL Hemoglobin 11.7 L 13.3-17.7 G/DL Hematocrit 34 L 40-54 % Mean Corpuscular Volume 96 80-99 FL Mean Corpuscular Hemoglobin 33 25-34 PG Mean Corpuscular Hemoglobin Concent 34 32-36 G/DL Red Cell Distribution Width 13.4 10.0-14.5 % Platelet Count 235 130-400 10^3/uL Mean Platelet Volume 9.5 7.4-10.4 FL Neutrophils (%) (Auto) 85 H 42-75 % Lymphocytes (%) (Auto) 5 L 12-44 % Monocytes (%) (Auto) 9 0-12 % Eosinophils (%) (Auto) 0 0-10 % Basophils (%) (Auto) 0 0-10 % Neutrophils # (Auto) 8.6 H 1.8-7.8 X 10^3 Lymphocytes # (Auto) 0.5 L 1.0-4.0 X 10^3 Monocytes # (Auto) 0.9 0.0-1.0 X 10^3 Eosinophils # (Auto) 0.0 0.0-0.3 10^3/uL Basophils # (Auto) 0.0 0.0-0.1 10^3/uL Neutrophils % (Manual) 83 % Lymphocytes % (Manual) 10 % Monocytes % (Manual) 7 % Eosinophils % (Manual) 0 % Basophils % (Manual) 0 % Band Neutrophils 0 % Blood Morphology Comment NORMAL Sodium Level 132 L 135-145 MMOL/L Potassium Level 3.8 3.6-5.0 MMOL/L Chloride Level 100 98-107 MMOL/L Carbon Dioxide Level 23 21-32 MMOL/L Anion Gap 9 5-14 MMOL/L Blood Urea Nitrogen 11 7-18 MG/DL Creatinine 0.86 0.60-1.30 MG/DL Estimat Glomerular Filtration Rate > 60 BUN/Creatinine Ratio 13 Glucose Level 131 H 70-105 MG/DL Calcium Level 9.0 8.5-10.1 MG/DL C-Reactive Protein High Sensitivity 7.73 H 0.00-0.50 MG/DL My Orders Orders - ESA MORRIS APRN Cbc With Automated Diff (01/29/18 15:16) Basic Metabolic Panel (01/29/18 15:16) Hs C Reactive Protein (01/29/18 15:16) Hand, Left, 3 Views (01/29/18 15:16) Manual Differential (01/29/18 15:35) Ceftriaxone Injection (Rocephin Injectio (01/29/18 16:15) Vital Signs/I&O 01/29/18 15:05 Temp 98.0 Pulse 96 Resp 18 B/P (MAP) 148/85 (106) Pulse Ox 97 Diagnostic Imaging Diagonstic Imaging: Xray Comments NAME: CARLOS ADDISON [facility] REC#: [id number] PT STATUS: REG ER : 1945 PHYSICIAN: ESA MORRIS APRN ADMIT DATE: 01/29/18/ER Draft Date of Exam:01/29/18 HAND, LEFT, 3 VIEWS INDICATION: Left hand and thumb pain. TECHNIQUE: AP, oblique, and lateral views of the left hand were obtained. COMPARISON: 08/24/2007. FINDINGS: There is no acute fracture or acute bony abnormality. There is advanced osteoarthritic change of the first carpal/metacarpal joint with joint space narrowing, subchondral sclerosis, and heterotopic bone formation. There is diffuse degenerative change throughout the interphalangeal joints as well as of the first through fourth MCP joints. There are vascular calcifications noted. IMPRESSION: Multifocal osteoarthritic changes as described above, most prominent at the first carpal/metacarpal joint. There is no acute fracture or acute bony abnormality. The arthritic changes have progressed compared to 08/24/2007. Dictated on workstation # [id number] Dict: 01/29/18 1613 Trans: 01/29/18 1617 [id number] Interpreted by: DENA CHICAS MD Electronically signed by: Departure Impression Primary Impression: Cellulitis of right hand excluding fingers and thumb Additional Impression: Lymphangitis Disposition: 01 HOME, SELF-CARE Condition: Stable Departure-Patient Inst. Decision time for Depature: 16:39 Referrals: NO,LOCAL PHYSICIAN (PCP/Family) Primary Care Physician Patient Instructions: Cellulitis (Skin Infection), Adult (DC) Add. Discharge Instructions: 1. Return to ER for any concerns 2.All discharge instructions reviewed with patient and/or family. Voiced understanding. Scripts Amoxicillin/Potassium Clav (Augmentin 875-125 Tablet) 1 Each Tablet 1 EACH PO BID, #14 TAB Prov: ESA MORRIS APRN 01/29/18 ESA MORRIS APRN Jan 29, 2018 15:19
[2018-01-29 15:40] LABS: BASOPHILS % (AUTO) 0 % (0-10); EOSINOPHILS % (AUTO) 0 % (0-10); HEMATOCRIT 34 % (40-54); HEMOGLOBIN 11.7 G/DL (13.3-17.7); LYMPHOCYTES # (AUTO) 0.5 X 10^3 (1.0-4.0); LYMPHOCYTES % (AUTO) 5 % (12-44); MEAN CORPUSCULAR HEMOGLOBIN 33 PG (25-34); MEAN CORPUSCULAR HGB CONC 34 G/DL (32-36); MEAN CORPUSCULAR VOLUME 96 FL (80-99); MEAN PLATELET VOLUME 9.5 FL (7.4-10.4); MONOCYTES # (AUTO) 0.9 X 10^3 (0.0-1.0); MONOCYTES % (AUTO) 9 % (0-12); NEUTROPHILS # (AUTO) 8.6 X 10^3 (1.8-7.8); NEUTROPHILS % (AUTO) 85 % (42-75); PLATELET COUNT 235 10^3/uL (130-400); RED BLOOD COUNT 3.59 10^6/uL (4.35-5.85); RED CELL DISTRIBUTION WIDTH 13.4 % (10.0-14.5)
[2018-01-29 15:54] LABS: BAND NEUTROPHILS 0 %; BASOPHILS % (MANUAL) 0 %; EOSINOPHILS % (MANUAL) 0 %; LYMPHOCYTES % (MANUAL) 10 %; MONOCYTES % (MANUAL) 7 %; NEUTROPHILS % (MANUAL) 83 %; RBC MORPH NORMAL
[2018-01-29 15:59] LABS: BUN/CREATININE RATIO 13; CARBON DIOXIDE 23 MMOL/L (21-32); CHLORIDE 100 MMOL/L (98-107); CREATININE SERUM 0.86 MG/DL (0.60-1.30); GFR ESTIMATED > 60; GLUCOSE 131 MG/DL (70-105); POTASSIUM 3.8 MMOL/L (3.6-5.0); SODIUM 132 MMOL/L (135-145)
[2018-01-29] MEDS ORDERED: cefTRIAXone INJECTION 1,000 MG in NS (IVPB) 50 ML IV ONE (16:15)
--- NOTE | 2018-01-29 16:17 | Diagnostic Imaging Report ---
INDICATION: Left hand and thumb pain. TECHNIQUE: AP, oblique, and lateral views of the left hand were obtained. COMPARISON: 08/24/2007. FINDINGS: There is no acute fracture or acute bony abnormality. There is advanced osteoarthritic change of the first carpal/metacarpal joint with joint space narrowing, subchondral sclerosis, and heterotopic bone formation. There is diffuse degenerative change throughout the interphalangeal joints as well as of the first through fourth MCP joints. There are vascular calcifications noted. IMPRESSION: Multifocal osteoarthritic changes as described above, most prominent at the first carpal/metacarpal joint. There is no acute fracture or acute bony abnormality. The arthritic changes have progressed compared to 08/24/2007. Dictated by: Dictated on workstation # [id number]
[2018-01-29] MEDS ORDERED: AMOX-358 PO (16:42)
[2018-01-29] MEDS ORDERED: cefTRIAXone 1 GM (ROCEPHIN) VIAL IM ONE (16:45)
[2018-01-29] MEDS ORDERED: LIDOCAINE 1% INJ 20 ML 20 ML VIAL INJ ONE (16:45)
[2018-01-29 17:00] VITALS: BP 148/85
== END 2018-01-29 17:00 | disposition home or self-care (01) ==
LOC: EDUNIT# 14:42 → ER 14:45
DX: L03.113 Cellulitis of right upper limb (principal); I89.1 Lymphangitis; I25.10 Atherosclerotic heart disease of native coronary artery without angina pectoris; I25.2 Old myocardial infarction; I10 Essential (primary) hypertension; Z95.1 Presence of aortocoronary bypass graft
CPT/HCPCS: 36415; 73130; 80048; 85007; 85025; 85027; 86141; 96372

== ENCOUNTER 2018-03-20 12:27 | Emergency (ER) | payer MEDICARE, MEDICAID ==
[~2018-03-20] VITALS: Ht 165.1 cm; Wt 72.6 kg
[~2018-03-20 12:27] MED LIST changes: +AMOX-358 PO; +HYDR-4226 PO; -HYDR-757 PO
--- OUTSIDE RECORDS SUMMARY | 2018-03-20 12:33 | XMS REPORT | Continuity of Care Document ---
Author Author [facility] Address Unknown Phone Unavailable Allergies Active Description Code Type Severity Reaction Onset Reported/Identified Relationship to Patient Clinical Status Yes No Known Drug Allergies [id number] Drug Allergy Unknown N/A 12/23/2014 Medications There is no data. Problems Date Dx Coded Attending Type Code [...] 923.20 CONTUSION OF, HAND(S) 03/29/2010 923.20 CONTUSION OF , HAND(S) 12/10/2010 RHONA PETERSON MD 272.4 DYSLIPIDEMIA 12/10/2010 272.4 DYSLIPIDEMIA 10/27/2011 RHONA PETERSON MD 401.9 HYPERTENSION (SYSTEMIC) 10/27/2011 RHONA PETERSON MD 414.00 CORONARY ARTERY DISEASE 10/27/2011 RHONA PETERSON MD 433.10 CAROTID ARTERY STENOSIS 10/27/2011 RHONA PETERSON MD 786.09 difficulty breathing (dyspnea) 10/27/2011 401.9 HYPERTENSION ( SYSTEMIC) 10/27/2011 414.00 CORONARY ARTERY DISEASE 10/27/2011 433.10 CAROTID ARTERY STENOSIS 10/27/2011 786.09 difficulty breathing (dyspnea) 12/23/2014 KERON PLAZA Ot 414.00 12/23/2014 KERON PLAZA Ot 416.8 12/23/2014 KERON PLAZA Ot 785.1 12/23/2014 KERON PLAZAP Ot 786.05 12/23/2014 CANDICE DOMINGUEZ MD Ot 782.3 EDEMA 12/23/2014 CANDICE DOMINGUEZ MD Ot 989.5 TOXIC EFFECT VENOM 12/23/2014 CANDICE DOMINGUEZ MD Ot E000.8 OTHER EXTERNAL CAUSE STATUS 12/23/2014 CANDICE DOMINGUEZ MD Ot E849.0 ACCIDENT IN HOME 12/23/2014 CANDICE DOMINGUEZ MD Ot E905.3 HORNET/WASP/BEE STING 05/12/2017 KERON PLAZA Ot 414.00 CORON ATHEROSCLER NOS TYPE VESSEL, NATIV 05/12/2017 KERON PLAZA Ot 416.8 CHR PULMON HEART DIS NEC 05/12/2017 KERON PLAZA Ot 785.1 PALPITATIONS 05/12/2017 KERON PLAZA Ot 786.05 SHORTNESS OF BREATH 05/12/2017 ESA MORRIS APRN Ot I10 ESSENTIAL (PRIMARY) HYPERTENSION 05/12/2017 ESA MORRIS APRN Ot I25.10 ATHSCL HEART DISEASE OF [place] CORONARY 05/12/2017 ESA MORRIS APRN Ot I25.2 OLD MYOCARDIAL INFARCTION 05/12/2017 ESA MORRIS APRN Ot M16.12 UNILATERAL PRIMARY OSTEOARTHRITIS, LEFT 05/12/2017 ESA MORRIS APRN Ot M25.552 PAIN IN LEFT HIP 05/12/2017 ESA MORRIS APRN Ot Z79.02 ORDER DETAILER (CURRENT) USE OF ANTITHROMBOTI 05/12/2017 ESA MORRIS STOCK HANGER Ot Z79.82 CUSTODIAL (CURRENT) USE OF ASPIRIN 05/12/2017 ESA MORRIS APRN Ot Z95.1 PRESENCE OF AORTOCORONARY BYPASS GRAFT 05/15/2017 ESA MORRIS APRN Ot I10 ESSENTIAL (PRIMARY) HYPERTENSION 05/15/2017 ESA MORRIS APRN Ot I25.10 ATHSCL HEART DISEASE OF [place] CORONARY 05/15/2017 ESA MORRIS APRN Ot I25.2 OLD MYOCARDIAL INFARCTION 05/15/2017 ESA MORRIS APRN Ot M16.12 UNILATERAL PRIMARY OSTEOARTHRITIS, LEFT 05/15/2017 ESA MORRIS APRN Ot M25.552 PAIN IN LEFT HIP 05/15/2017 ESA MORRIS APRN Ot Z79.02 CUSTODIAL (CURRENT) USE OF ANTITHROMBOTI 05/15/2017 ESA MORRIS APRN Ot Z79.82 CUSTODIAL (CURRENT) USE OF ASPIRIN 05/15/2017 ESA MORRIS APRN Ot Z95.1 PRESENCE OF AORTOCORONARY BYPASS GRAFT 11/28/2017 KERON PLAZA PAIRING MACHINE OPERATOR Ot 414.00 CORON ATHEROSCLER NOS TYPE VESSEL, NATIV 11/28/2017 KERON PLAZA PAIRING MACHINE OPERATOR Ot 416.8 CHR PULMON HEART DIS NEC 11/28/2017 KERON PLAZA PAIRING MACHINE OPERATOR Ot 785.1 PALPITATIONS 11/28/2017 KERON PLAZA PAIRING MACHINE OPERATOR Ot 786.05 SHORTNESS OF BREATH 11/28/2017 MARI DRAPER Ot E83.42 HYPOMAGNESEMIA 11/28/2017 MARI DRAPER Ot F10.20 ALCOHOL DEPENDENCE, UNCOMPLICATED 11/28/2017 MARI DRAPER Ot F32.9 MAJOR DEPRESSIVE DISORDER, SINGLE EPISOD 11/28/2017 MARI DRAPER Ot I11.0 HYPERTENSIVE HEART DISEASE WITH HEART FA 11/28/2017 MARI DRAPER Ot I25.10 ATHSCL HEART DISEASE OF [place] CORONARY 11/28/2017 MARI DRAPER Ot I25.2 OLD MYOCARDIAL INFARCTION 11/28/2017 MARI DRAPER Ot I48.91 UNSPECIFIED ATRIAL FIBRILLATION 11/28/2017 MARI DRAPER Ot I50.9 HEART FAILURE, UNSPECIFIED 11/28/2017 MARI DRAPER Ot R06.02 SHORTNESS OF BREATH 11/28/2017 MARI DRAPER Ot Z79.02 ORDER DETAILER (CURRENT) USE OF ANTITHROMBOTI 11/28/2017 MARI DRAPER Ot Z87.891 PERSONAL HISTORY OF NICOTINE DEPENDENCE 11/28/2017 MARI DRAPER Ot Z95.1 PRESENCE OF AORTOCORONARY BYPASS GRAFT 11/30/2017 MARI DRAPER Ot E83.42 HYPOMAGNESEMIA 11/30/2017 MARI DRAPER Ot F10.20 ALCOHOL DEPENDENCE, UNCOMPLICATED 11/30/2017 MARI DRAPER Ot F32.9 MAJOR DEPRESSIVE DISORDER, SINGLE EPISOD 11/30/2017 MARI DRAPER Ot I11.0 HYPERTENSIVE HEART DISEASE WITH HEART FA 11/30/2017 MARI DRAPER Ot I25.10 ATHSCL HEART DISEASE OF [place] CORONARY 11/30/2017 MARI DRAPER Ot I25.2 OLD MYOCARDIAL INFARCTION 11/30/2017 MARI DRAPER Ot I48.91 UNSPECIFIED ATRIAL FIBRILLATION 11/30/2017 MARI DRAPER Ot I50.9 HEART FAILURE, UNSPECIFIED 11/30/2017 MARI DRAPER Ot R06.02 SHORTNESS OF BREATH 11/30/2017 MARI DRAPER Ot Z79.02 CUSTODIAL (CURRENT) USE OF ANTITHROMBOTI 11/30/2017 MARI DRAPER Ot Z87.891 PERSONAL HISTORY OF NICOTINE DEPENDENCE 11/30/2017 MARI DRAPER Ot Z95.1 PRESENCE OF AORTOCORONARY BYPASS GRAFT 01/14/2018 SHANKAR KAUR MD Ot I10 ESSENTIAL (PRIMARY) HYPERTENSION 01/14/2018 SHANKAR KAUR MD Ot I25.10 ATHSCL HEART DISEASE OF [place] CORONARY 01/14/2018 SHANKAR KAUR MD Ot I25.2 OLD MYOCARDIAL INFARCTION 01/14/2018 ODGERS MD, SHANKAR K Ot S51.011A LACERATION WITHOUT FOREIGN BODY OF RIGHT 01/14/2018 SHANKAR KAUR MD Ot W26.8XXA CONTACT WITH OTHER SHARP OBJECT(S), NEC, 01/14/2018 SHANKAR KAUR MD Ot Z79.02 CUSTODIAL (CURRENT) USE OF ANTITHROMBOTI 01/14/2018 SHANKAR KAUR MD Ot Z91.5 PERSONAL HISTORY OF SELF-HARM 01/16/2018 SHANKAR KAUR MD Ot I10 ESSENTIAL (PRIMARY) HYPERTENSION 01/16/2018 SHANKAR KAUR MD Ot I25.10 ATHSCL HEART DISEASE OF [place] CORONARY 01/16/2018 SHANKAR KAUR MD Ot I25.2 OLD MYOCARDIAL INFARCTION 01/16/2018 SHANKAR KAUR MD Ot S51.011A LACERATION WITHOUT FOREIGN BODY OF RIGHT 01/16/2018 SHANKAR KAUR MD Ot W26.8XXA CONTACT WITH OTHER SHARP OBJECT(S), NEC, 01/16/2018 SHANKAR KAUR MD Ot Z79.02 CUSTODIAL (CURRENT) USE OF ANTITHROMBOTI 01/16/2018 SHANKAR KAUR MD Ot Z91.5 PERSONAL HISTORY OF SELF-HARM 01/16/2018 SHANKAR KAUR MD Ot I10 ESSENTIAL (PRIMARY) HYPERTENSION 01/16/2018 SHANKAR KAUR MD Ot I25.10 ATHSCL HEART DISEASE OF [place] CORONARY 01/16/2018 SHANKAR KAUR MD Ot I25.2 OLD MYOCARDIAL INFARCTION 01/16/2018 SHANKAR KAUR MD Ot S51.011A LACERATION WITHOUT FOREIGN BODY OF RIGHT 01/16/2018 SHANKAR KAUR MD Ot W26.8XXA CONTACT WITH OTHER SHARP OBJECT(S), NEC, 01/16/2018 SHANKAR KAUR MD Ot Z79.02 CUSTODIAL (CURRENT) USE OF ANTITHROMBOTI 01/16/2018 SHANKAR KAUR MD Ot Z91.5 PERSONAL HISTORY OF SELF-HARM 01/18/2018 KERON PLAZA Ot 414.00 CORON ATHEROSCLER NOS TYPE VESSEL, NATIV 01/18/2018 KERON PLAZAP Ot 416.8 CHR PULMON HEART DIS NEC 01/18/2018 KERON PLAZAP Ot 785.1 PALPITATIONS 01/18/2018 KERON PLAZA PAIRING MACHINE OPERATOR Ot 786.05 SHORTNESS OF BREATH 01/22/2018 SHANKAR KAUR MD Ot S51.011D LACERATION WITHOUT FOREIGN BODY OF RIGHT 01/22/2018 SHANKAR KAUR MD Ot X58.XXXD EXPOSURE TO OTHER SPECIFIED FACTORS, SUB 01/31/2018 ESA MORRIS APRN Ot I10 ESSENTIAL (PRIMARY) HYPERTENSION 01/31/2018 ESA MORRIS APRN Ot I25.10 ATHSCL HEART DISEASE OF [place] CORONARY 01/31/2018 ESA MORRIS APRN Ot I25.2 OLD MYOCARDIAL INFARCTION 01/31/2018 ESA MORRIS APRN Ot I89.1 LYMPHANGITIS 01/31/2018 ESA MORRIS APRN Ot L03.113 CELLULITIS OF RIGHT UPPER LIMB 01/31/2018 ESA MORRIS APRN Ot M79.642 PAIN IN LEFT HAND 01/31/2018 ESA MORRIS APRN Ot Z95.1 PRESENCE OF AORTOCORONARY BYPASS GRAFT Procedures There is no data. Results Test Result Range Complete blood count (CBC) with automated white blood cell (WBC) differential - 05/12/17 13:28 Blood leukocytes automated count (number/volume) 11.6 10*3/uL 4.3-11.0 Blood erythrocytes automated count (number/volume) 3.93 10*6/uL 4.35-5.85 Venous blood hemoglobin measurement (mass/volume) 12.3 g/dL 13.3-17.7 Blood hematocrit (volume fraction) 37 % 40-54 Automated erythrocyte mean corpuscular volume 93 [foz_us] 80-99 Automated erythrocyte mean corpuscular hemoglobin (mass per erythrocyte) 31 pg 25-34 Automated erythrocyte mean corpuscular hemoglobin concentration measurement ( mass/volume) 34 g/dL 32-36 Automated erythrocyte distribution width ratio 13.0 % 10.0-14.5 Automated blood platelet count (count/volume) 294 10*3/uL 130-400 Automated blood platelet mean volume measurement 9.5 [foz_us] 7.4-10.4 Automated blood neutrophils/100 leukocytes 83 % 42-75 Automated blood lymphocytes/100 leukocytes 8 % 12-44 Blood monocytes/100 leukocytes 9 % 0-12 Automated blood eosinophils/100 leukocytes 0 % 0-10 Automated blood basophils/100 leukocytes 0 % 0-10 Blood neutrophils automated count (number/volume) 9.7 10*3 1.8-7.8 Blood lymphocytes automated count (number/volume) 0.9 10*3 1.0-4.0 Blood monocytes automated count (number/volume) 1.0 10*3 0.0-1.0 Automated eosinophil count 0.0 10*3/uL 0.0-0.3 Automated blood basophil count (count/volume) 0.0 10*3/uL 0.0-0.1 PT panel in platelet poor plasma by coagulation assay - 05/12/17 13:28 Prothrombin time (PT) in platelet poor plasma by coagulation assay 13.2 s 12.2-14.7 INR in platelet poor plasma or blood by coagulation assay 1.0 0.8-1.4 Comprehensive metabolic panel - 05/12/17 13:28 Serum or plasma sodium measurement (moles/volume) 133 mmol/L 135-145 Serum or plasma potassium measurement (moles/volume) 3.9 mmol/L 3.6-5.0 Serum or plasma chloride measurement (moles/volume) 99 mmol/L 98-107 Carbon dioxide 23 mmol/L 21-32 Serum or plasma anion gap determination (moles/volume) 11 mmol/L 5-14 Serum or plasma urea nitrogen measurement (mass/volume) 9 mg/dL 7-18 Serum or plasma creatinine measurement (mass/volume) 0.84 mg/dL 0.60-1.30 Serum or plasma urea nitrogen/creatinine mass ratio 11 NRG Serum or plasma creatinine measurement with calculation of estimated glomerular filtration rate > NRG Serum or plasma glucose measurement (mass/volume) 96 mg/dL 70-105 Serum or plasma calcium measurement (mass/volume) 9.0 mg/dL 8.5-10.1 Serum or plasma total bilirubin measurement (mass/volume) 0.8 mg/dL 0.1-1.0 Serum or plasma alkaline phosphatase measurement (enzymatic activity/volume) 73 U/L 40-136 Serum or plasma aspartate aminotransferase measurement (enzymatic activity/ volume) 28 U/L 5-34 Serum or plasma alanine aminotransferase measurement (enzymatic activity/volume ) 16 U/L 0-55 Serum or plasma protein measurement (mass/volume) 6.8 g/dL 6.4-8.2 Serum or plasma albumin measurement (mass/volume) 4.0 g/dL 3.2-4.5 Serum or plasma lithium measurement (moles/volume) - 05/12/17 13:28 BNP level 280.5 pg/mL <100.0 Complete blood count (CBC) with automated white blood cell (WBC) differential - 11/28/17 11:57 Blood leukocytes automated count (number/volume) 5.8 10*3/uL 4.3-11.0 Blood erythrocytes automated count (number/volume) 3.87 10*6/uL 4.35-5.85 Venous blood hemoglobin measurement (mass/volume) 12.1 g/dL 13.3-17.7 Blood hematocrit (volume fraction) 37 % 40-54 Automated erythrocyte mean corpuscular volume 96 [foz_us] 80-99 Automated erythrocyte mean corpuscular hemoglobin (mass per erythrocyte) 31 pg 25-34 Automated erythrocyte mean corpuscular hemoglobin concentration measurement ( mass/volume) 33 g/dL 32-36 Automated erythrocyte distribution width ratio 13.7 % 10.0-14.5 Automated blood platelet count (count/volume) 220 10*3/uL 130-400 Automated blood platelet mean volume measurement 9.4 [foz_us] 7.4-10.4 Automated blood neutrophils/100 leukocytes 76 % 42-75 Automated blood lymphocytes/100 leukocytes 13 % 12-44 Blood monocytes/100 leukocytes 10 % 0-12 Automated blood eosinophils/100 leukocytes 1 % 0-10 Automated blood basophils/100 leukocytes 0 % 0-10 Blood neutrophils automated count (number/volume) 4.4 10*3 1.8-7.8 Blood lymphocytes automated count (number/volume) 0.7 10*3 1.0-4.0 Blood monocytes automated count (number/volume) 0.6 10*3 0.0-1.0 Automated eosinophil count 0.0 10*3/uL 0.0-0.3 Automated blood basophil count (count/volume) 0.0 10*3/uL 0.0-0.1 PT panel in platelet poor plasma by coagulation assay - 11/28/17 11:57 Prothrombin time (PT) in platelet poor plasma by coagulation assay 14.7 s 12.2-14.7 INR in platelet poor plasma or blood by coagulation assay 1.1 0.8-1.4 Activated partial thromboplastin time (aPTT) in platelet poor plasma bycoagulation assay - 11/28/17 11:57 Activated partial thromboplastin time (aPTT) in platelet poor plasma bycoagulation assay 28 s 24-35 Fibrin D-dimer FEU measurement in platelet poor plasma (mass/volume) - 11:57 Fibrin D-dimer FEU measurement in platelet poor plasma (mass/volume) 2.33 ug/mL 0.00-0.49 Comprehensive metabolic panel - 11/28/17 11:57 Serum or plasma sodium measurement (moles/volume) 140 mmol/L 135-145 Serum or plasma potassium measurement (moles/volume) 3.7 mmol/L 3.6-5.0 Serum or plasma chloride measurement (moles/volume) 105 mmol/L 98-107 Carbon dioxide 25 mmol/L 21-32 Serum or plasma anion gap determination (moles/volume) 10 mmol/L 5-14 Serum or plasma urea nitrogen measurement (mass/volume) 13 mg/dL 7-18 Serum or plasma creatinine measurement (mass/volume) 0.86 mg/dL 0.60-1.30 Serum or plasma urea nitrogen/creatinine mass ratio 15 NRG Serum or plasma creatinine measurement with calculation of estimated glomerular filtration rate > NRG Serum or plasma glucose measurement (mass/volume) 91 mg/dL 70-105 Serum or plasma calcium measurement (mass/volume) 8.5 mg/dL 8.5-10.1 Serum or plasma total bilirubin measurement (mass/volume) 0.5 mg/dL 0.1-1.0 Serum or plasma alkaline phosphatase measurement (enzymatic activity/volume) 58 U/L 40-136 Serum or plasma aspartate aminotransferase measurement (enzymatic activity/ volume) 34 U/L 5-34 Serum or plasma alanine aminotransferase measurement (enzymatic activity/volume ) 22 U/L 0-55 Serum or plasma protein measurement (mass/volume) 6.1 g/dL 6.4-8.2 Serum or plasma albumin measurement (mass/volume) 3.6 g/dL 3.2-4.5 Magnesium - 11/28/17 11:57 Magnesium 1.6 mg/dL 1.8-2.4 Serum or plasma creatine kinase measurement (enzymatic activity/volume) - 11/28 11:57 Serum or plasma creatine kinase measurement (enzymatic activity/volume) 104 U/L 30-200 Serum or plasma creatine kinase MB measurement (enzymatic activity/volume) - 11:57 Serum or plasma creatine kinase MB measurement (enzymatic activity/volume) 3.1 ng/mL <6.6 Serum or plasma troponin i.cardiac measurement (mass/volume) - 11/28/17 11:57 Serum or plasma troponin i.cardiac measurement (mass/volume) < ng/ mL <0.30 Serum or plasma lithium measurement (moles/volume) - 11/28/17 11:57 BNP level 1247.3 pg/mL <100.0 Myoglobin, serum - 11/28/17 11:57 Myoglobin, serum 58.1 ng/mL 10.0-92.0 Serum or plasma thyrotropin measurement by detection limit <=0.05 miu/l (units/ volume) - 11/28/17 11:57 Serum or plasma thyrotropin measurement by detection limit <=0.05 miu/l (units/ volume) 1.13 u[iU]/mL 0.35-4.94 Serum or plasma ethanol measurement (mass/volume) - 11/28/17 11:57 Serum or plasma ethanol measurement (mass/volume) < mg/dL <10 Complete urinalysis with reflex to culture - 11/28/17 14:30 Urine color determination YELLOW NRG Urine clarity determination CLEAR NRG Urine pH measurement by test strip 6.5 5-9 Specific gravity of urine by test strip 1.010 1.016- 1.022 Urine protein assay by test strip, semi-quantitative NEGATIVE NEGATIVE Urine glucose detection by automated test strip NEGATIVE NEGATIVE Erythrocytes detection in urine sediment by light microscopy NEGATIVE NEGATIVE Urine ketones detection by automated test strip NEGATIVE NEGATIVE Urine nitrite detection by test strip NEGATIVE NEGATIVE Urine total bilirubin detection by test strip NEGATIVE NEGATIVE Urine urobilinogen measurement by automated test strip (mass/volume) NORMAL NORMAL Urine leukocyte esterase detection by dipstick NEGATIVE NEGATIVE Automated urine sediment erythrocyte count by microscopy (number/high power field) RARE NRG Automated urine sediment leukocyte count by microscopy (number/high power field ) NONE NRG Bacteria detection in urine sediment by light microscopy NEGATIVE NRG Squamous epithelial cells detection in urine sediment by light microscopy NONE NRG Crystals detection in urine sediment by light microscopy NONE NRG Casts detection in urine sediment by light microscopy NONE NRG Mucus detection in urine sediment by light microscopy NEGATIVE NRG Complete urinalysis with reflex to culture NO NRG Urine drug screening test - 11/28/17 14:30 Urine phencyclidine detection by screening method NEGATIVE NEGATIVE Urine benzodiazepines detection by screening method NEGATIVE NEGATIVE Urine cocaine detection NEGATIVE NEGATIVE Urine amphetamines detection by screening method NEGATIVE NEGATIVE Urine methamphetamine detection by screening method NEGATIVE NEGATIVE Urine cannabinoids detection by screening method NEGATIVE NEGATIVE Urine opiates detection by screening method NEGATIVE NEGATIVE Urine barbiturates detection NEGATIVE NEGATIVE Screening urine tricyclic antidepressants detection NEGATIVE NEGATIVE Urine methadone detection by screening method NEGATIVE NEGATIVE Urine oxycodone detection NEGATIVE NEGATIVE Urine propoxyphene detection NEGATIVE NEGATIVE Serum or plasma troponin i.cardiac measurement (mass/volume) - 11/28/17 17:14 Serum or plasma troponin i.cardiac measurement (mass/volume) < ng/ mL <0.30 Complete blood count (CBC) with automated white blood cell (WBC) differential - 01/29/18 15:35 Blood leukocytes automated count (number/volume) 10.0 10*3/uL 4.3-11.0 Blood erythrocytes automated count (number/volume) 3.59 10*6/uL 4.35-5.85 Venous blood hemoglobin measurement (mass/volume) 11.7 g/dL 13.3-17.7 Blood hematocrit (volume fraction) 34 % 40-54 Automated erythrocyte mean corpuscular volume 96 [foz_us] 80-99 Automated erythrocyte mean corpuscular hemoglobin (mass per erythrocyte) 33 pg 25-34 Automated erythrocyte mean corpuscular hemoglobin concentration measurement ( mass/volume) 34 g/dL 32-36 Automated erythrocyte distribution width ratio 13.4 % 10.0-14.5 Automated blood platelet count (count/volume) 235 10*3/uL 130-400 Automated blood platelet mean volume measurement 9.5 [foz_us] 7.4-10.4 Automated blood neutrophils/100 leukocytes 85 % 42-75 Automated blood lymphocytes/100 leukocytes 5 % 12-44 Blood monocytes/100 leukocytes 9 % 0-12 Automated blood eosinophils/100 leukocytes 0 % 0-10 Automated blood basophils/100 leukocytes 0 % 0-10 Blood neutrophils automated count (number/volume) 8.6 10*3 1.8-7.8 Blood lymphocytes automated count (number/volume) 0.5 10*3 1.0-4.0 Blood monocytes automated count (number/volume) 0.9 10*3 0.0-1.0 Automated eosinophil count 0.0 10*3/uL 0.0-0.3 Automated blood basophil count (count/volume) 0.0 10*3/uL 0.0-0.1 Blood manual differential performed detection - 01/29/18 15:35 Blood monocytes/100 leukocytes 7 % NRG Manual blood segmented neutrophils/100 leukocytes 83 % NRG Blood band neutrophils/100 leukocytes 0 % NRG Manual blood lymphocytes/100 leukocytes 10 % NRG Manual eosinophils/100 leukocytes in nose 0 % NRG Manual blood basophils/100 leukocytes 0 % NRG Blood erythrocyte morphology finding identification NORMAL NRG Whole blood basic metabolic panel - 01/29/18 15:35 Serum or plasma sodium measurement (moles/volume) 132 mmol/L 135-145 Serum or plasma potassium measurement (moles/volume) 3.8 mmol/L 3.6-5.0 Serum or plasma chloride measurement (moles/volume) 100 mmol/L 98-107 Carbon dioxide 23 mmol/L 21-32 Serum or plasma anion gap determination (moles/volume) 9 mmol/L 5-14 Serum or plasma urea nitrogen measurement (mass/volume) 11 mg/dL 7-18 Serum or plasma creatinine measurement (mass/volume) 0.86 mg/dL 0.60-1.30 Serum or plasma urea nitrogen/creatinine mass ratio 13 NRG Serum or plasma creatinine measurement with calculation of estimated glomerular filtration rate > NRG Serum or plasma glucose measurement (mass/volume) 131 mg/dL 70-105 Serum or plasma calcium measurement (mass/volume) 9.0 mg/dL 8.5-10.1 Serum or plasma C reactive protein measurement (mass/volume) - 01/29/18 15:35 Serum or plasma C reactive protein measurement (mass/volume) 7.73 mg /dL 0.00-0.50 Encounters ACCT No. Visit Date/Time Discharge Status Pt. Type Provider Facility Loc./Unit Complaint [id number] 10/27/2011 15:51:00 10/27/2011 23:59:59 CLS Outpatient RHONA PETERSON MD [id number] 10/27/2011 15:51:00 10/27/2011 23:59:59 CLS Outpatient [id number] 01/29/2018 14:45:00 01/29/2018 17:00:00 DIS Outpatient ESA MORRIS APRN [facility] ER LEFT THUMB INJURY [id number] 01/18/2018 10:49:00 01/18/2018 11:09:00 DIS Outpatient NATASHA YANCEY, SHANKAR Becerril [facility] ER STAPLE REMOVAL [id number] 01/14/2018 12:54:00 01/14/2018 13:57:00 DIS Emergency NATASHA YANCEY, SHANKAR Becerril [facility] ER CUT RIGHT ELBOW ON GLASS THIS AM [id number] 11/28/2017 10:25:00 11/28/2017 19:50:00 DIS Emergency MARI DRAPER [facility] ER CP,ANKLES SWELLING [id number] 05/12/2017 12:20:00 05/12/2017 15:05:00 DIS Emergency ESA MORRIS APRN [facility] ER FALL/LEFT HIP PAIN [id number] 12/23/2014 19:13:00 12/23/2014 20:47:00 DIS Emergency ALBERTO YANCEY, CANDICE Tovar [facility] ER ALLERGIC REACTION WASP STING,FACIAL SWELLING [id number] 09/27/2013 10:36:00 09/27/2013 23:59:59 CLS Outpatient KERON PLAZA [facility] CARD CAD,PALPITATIONS, SOB
--- NOTE | 2018-03-20 12:48 | ED Fall/Injury ---
General Chief Complaint: Trauma-Non Activation Stated Complaint: FALL-LEFT RIB PAIN Source: patient Exam Limitations: no limitations History of Present Illness Date Seen by Provider: Mar 20, 2018 Time Seen by Provider: 12:39 Initial Comments Patient presents to ER by private conveyance with chief complaint that just prior to arrival he was walking out of the diner and tripped on a bit of sidewalk that was sticking out of the ground and landed with his left wrist against the left anterior rib cage. He does not really having any pain in his left wrist is having pain in his left ribs. No difficulty breathing coughing hemoptysis nausea vomiting. He does have a history of 5 bypasses and is on blood thinners. He did not strike his head nor lose consciousness is not having any nausea. He is not any fevers or chills. No pain anywhere else. Prior to coming in he had to ibuprofen. He can tolerate the pain now. Allergies and Home Medications Allergies Coded Allergies: No Known Drug Allergies (Unverified , 12/23/14) Home Medications Amlodipine Besylate 5 Mg Tablet, 5 MG PO DAILY, (Reported) Clopidogrel Bisulfate 75 Mg Tablet, 1 EACH PO DAILY, (Reported) Clopidogrel Bisulfate 75 Mg Tablet, 75 MG PO DAILY Prescribed by: MARI TABOR on 11/28/171931 Furosemide 40 Mg Tablet, 40 MG PO BID Prescribed by: MARI TABOR on 11/28/171931 Hctz/Lisinopril 1 Tab Tablet, 1 EACH PO DAILY, (Reported) Hydrocodone/Acetaminophen 1 Each Tablet, 1 EACH PO Q4H PRN for PAIN-MODERATE TO SEVERE Prescribed by: ESA MORRIS on 05/12/17 1413 Lisinopril 20 Mg Tab, 20 MG PO DAILY, (Reported) Magnesium Oxide 500 Mg Capsule, 500 MG PO BID Prescribed by: MARI TABOR on 11/28/171931 Metoprolol Succinate 100 Mg Tab.sr.24h, 1 EACH PO BID, (Reported) Metoprolol Tartrate 100 Mg Tablet, 100 MG PO BID Prescribed by: MARI TABOR on 11/28/171931 Niacin 500 Mg Tablet.sa, 500 MG PO DAILY, (Reported) Nitroglycerin 0.4 Mg Tab.subl, 0.4 MG SL UD PRN for CHEST PAIN 1 tab SL q5 min prn chest pain (max 3 doses). Prescribed by: MARI TABOR on 11/28/171931 Potassium Chloride 20 Meq Tablet.er, 20 MEQ PO BID Prescribed by: MARI TABOR on 11/28/171931 Simvastatin 40 Mg Tablet, 40 MG PO DAILY, (Reported) Tamsulosin HCl 0.4 Mg Cap.er.24h, 0.4 MG PO DAILY Prescribed by: MARI TABOR on 11/28/171931 Patient Home Medication List Home Medication List Reviewed: Yes Review of Systems Review of Systems Constitutional: No chills, No diaphoresis Eyes: Denies Blindness, Denies Blurred Vision Ears, Nose, Mouth, Throat: denies ear pain, denies ear discharge Respiratory: No cough, No dyspnea on exertion Cardiovascular: No chest pain; Hx of Intervention Gastrointestinal: No abdominal pain, No nausea Past Zdjsgkg-Tcwqho-Hswqpn Hx Patient Social History Alcohol Use: Occasionally Uses Number of Drinks Today: AA Alcohol Beverage of Choice: Beer Recreational Drug Use: No Smoking Status: Former Smoker Type Used: Cigarettes 2nd Hand Smoke Exposure: No Recent Foreign Travel: No Contact w/Someone Who Travel: No Recent Hopitalizations: No Immunizations Up To Date Tetanus Booster (TDap): Unknown Seasonal Allergies Seasonal Allergies: No Past Medical History Surgeries: Yes (BYPASS, CAROTID ARTERY.) CABG, Vascular Surgery Respiratory: Yes (Chronic shortness of air) Cardiac: Yes Coronary Artery Disease, Heart Attack, Hypertension Neurological: No Reproductive Disorders: No Sexually Transmitted Disease: No HIV/AIDS: No Genitourinary: No Gastrointestinal: No Musculoskeletal: No Endocrine: No HEENT: No Cancer: No Psychosocial: No Integumentary: No Blood Disorders: No Adverse Reaction/Blood Tranf: No Physical Exam Vital Signs Vital Signs - First Documented 03/20/18 12:31 Temp 98.0 Pulse 81 Resp 18 B/P (MAP) 114/92 (99) Pulse Ox 99 O2 Delivery Room Air Capillary Refill : Height, Weight, BMI Height: 5'5.00" Weight: 145lbs. 0oz. 65.836472pv; 21.09 BMI Method:Stated General Appearance: WD/WN, no apparent distress HEENT: PERRL/EOMI, normal ENT inspection, TMs normal, pharynx normal, other ( atraumatic head without Calix sign, raccoon eyes or hemotympanum) Neck: non-tender, full range of motion, normal inspection Cardiovascular: normal peripheral pulses, regular rate, rhythm Respiratory: lungs clear, normal breath sounds, no respiratory distress, no accessory muscle use, other (tenderness to anterior left ribs.) Gastrointestinal: normal bowel sounds, non tender, soft Progress/Results/Core Measures Results/Orders My Orders Orders - MAUREEN DAS Ct Head Wo (03/20/18 12:45) Ribs, Left 2-3 Views (03/20/18 12:45) Vital Signs/I&O 03/20/18 12:31 Temp 98.0 Pulse 81 Resp 18 B/P (MAP) 114/92 (99) Pulse Ox 99 O2 Delivery Room Air Progress Progress Note : Time: 12:47 Progress Note We discussed the workup and the patient has agreed to do CT of the head to rule out intracranial hemorrhage and x-ray of the rib cage. His wrist is nontender full range of motion. Diagnostic Imaging Diagonstic Imaging: Xray Plain Films/CT/US/NM/MRI: chest (ribs left) Comments No acute cardiopulmonary processes. No rib fractures noted. [facility] [place] [place] NAME[facility] REC#: [id number] PT STATUS: REG ER : 1945 PHYSICIAN: MAUREEN DAS MD ADMIT DATE: 03/20/18/ER Draft Date of Exam:03/20/18 RIBS, LEFT 2-3 VIEWS INDICATION: Fall with left rib pain. TIME OF EXAM: 01:52 p.m. FINDINGS: Three views of the left ribs were obtained. No displaced rib fracture is identified. No definite parenchymal contusion, effusion, or pneumothorax is seen. IMPRESSION: No displaced rib fracture is detected. Dictated on workstation # [id number] Dict: 03/20/18 1343 Trans: 03/20/18 1347 [id number] Interpreted by: VADIM GARCIA MD Electronically signed by: Reviewed: Reviewed by Me Diagonstic Imaging: CT Plain Films/CT/US/NM/MRI: head (C/O) Comments No acute intracranial hemorrhage or fracture. [facility] [place] [place] NAME: CARLOS [facility] REC#: [id number] PT STATUS: REG ER : 1945 PHYSICIAN: MAUREEN DAS MD ADMIT DATE: 03/20/18/ER Draft Date of Exam:03/20/18 CT HEAD WO PROCEDURE: CT head without contrast. TECHNIQUE: Multiple contiguous axial images were obtained through the brain without the use of intravenous contrast. INDICATION: Fall. COMPARISON: Comparison is made with prior head CT from 10/29/2008. FINDINGS: Ventricles and sulci appear stable and consistent with the patient's age. No sulcal effacement, midline shift or hemorrhage is detected. The cisterns are patent. The visualized paranasal sinuses are clear. IMPRESSION: No acute intracranial process is detected. Dictated on workstation # [id number] Dict: 03/20/18 1353 Trans: 03/20/18 1358 [facility] [id number] Interpreted by: VADIM GARCIA MD Electronically signed by: Reviewed: Reviewed by Me Departure Impression Primary Impression: Fall Qualified Codes: W19.XXXA - Unspecified fall, initial encounter Additional Impression: Rib sprain Qualified Codes: S23.41XA - Sprain of ribs, initial encounter Disposition: 01 HOME, SELF-CARE Condition: Stable Departure-Patient Inst. Decision time for Depature: 14:11 Referrals: NO,LOCAL PHYSICIAN (PCP/Family) Primary Care Physician Patient Instructions: RIB CONTUSION Add. Discharge Instructions: Ice pack every 4 hours as needed for the first 3 days. You can use heating pads as well as muscle rub such as icy hot or Biofreeze. Tylenol 1000 mg every 8 hours as needed for pain. All discharge instructions reviewed with patient and/or family. Voiced understanding. MAUREEN DAS Mar 20, 2018 12:48
--- NOTE | 2018-03-20 13:47 | Diagnostic Imaging Report ---
INDICATION: Fall with left rib pain. TIME OF EXAM: 01:52 p.m. FINDINGS: Three views of the left ribs were obtained. No displaced rib fracture is identified. No definite parenchymal contusion, effusion, or pneumothorax is seen. IMPRESSION: No displaced rib fracture is detected. Dictated by: Dictated on workstation # [id number]
--- NOTE | 2018-03-20 13:59 | Diagnostic Imaging Report ---
PROCEDURE: CT head without contrast. TECHNIQUE: Multiple contiguous axial images were obtained through the brain without the use of intravenous contrast. INDICATION: Fall. COMPARISON: Comparison is made with prior head CT from 10/29/2008. FINDINGS: Ventricles and sulci appear stable and consistent with the patient's age. No sulcal effacement, midline shift or hemorrhage is detected. The cisterns are patent. The visualized paranasal sinuses are clear. IMPRESSION: No acute intracranial process is detected. Dictated by: Dictated on workstation # [id number]
[2018-03-20 14:15] VITALS: BP 114/92
== END 2018-03-20 14:16 | disposition home or self-care (01) ==
LOC: EDUNIT# 12:27 → ER 12:29
DX: S23.41XA Sprain of ribs, initial encounter (principal); R07.81 Pleurodynia; I25.10 Atherosclerotic heart disease of native coronary artery without angina pectoris; I25.2 Old myocardial infarction; I10 Essential (primary) hypertension; Z79.02 Long term (current) use of antithrombotics/antiplatelets; Z87.891 Personal history of nicotine dependence; Z95.1 Presence of aortocoronary bypass graft; W01.0XXA Fall on same level from slipping, tripping and stumbling without subsequent striking against object, initial encounter
CPT/HCPCS: 70450; 71100

== ENCOUNTER → 2018-05-17 | Outpatient (CLI) | payer MEDICARE, MEDICAID ==
--- NOTE | 2018-05-17 14:09 | Diagnostic Imaging Report ---
PROCEDURE: CT head without contrast. TECHNIQUE: Multiple contiguous axial images were obtained through the brain without the use of intravenous contrast. INDICATION: Dementia. COMPARISON: Comparison is made with prior CT from 03/20/2018. FINDINGS: Ventricles and sulci are prominent and similar to prior exam suggestive of cerebral atrophy. No sulcal effacement is seen. There is no midline shift. No acute intra-axial or extra-axial hemorrhage is seen. The cisterns are patent. The visualized paranasal sinuses are clear. IMPRESSION: Stable noncontrast head CT demonstrating cerebral atrophy. No acute intracranial process is detected. Dictated by: Dictated on workstation # [id number]
== END ==
LOC: RAD 13:40
PROVIDERS: ATTEND Family Medicine
DX: F03.90 Unspecified dementia, unspecified severity, without behavioral disturbance, psychotic disturbance, mood disturbance, and anxiety (principal)
CPT/HCPCS: 70450

== ENCOUNTER 2018-08-19 10:57 | Emergency (ER) | payer MEDICARE, MEDICAID ==
[~2018-08-19] VITALS: Ht 162.6 cm; Wt 77.1 kg
--- OUTSIDE RECORDS SUMMARY | 2018-08-19 11:03 | XMS REPORT | Continuity of Care Document ---
Author Author [facility] Address Unknown Phone Unavailable Allergies Active Description Code Type Severity Reaction Onset Reported/Identified Relationship to Patient Clinical Status Yes No Known Drug Allergies [id number] Drug Allergy Unknown N/A 12/23/2014 Medications There [...] APRN Ot I25.10 ATHSCL HEART DISEASE OF [place] CORONARY 05/12/2017 ESA MORRIS APRN Ot I25.2 OLD MYOCARDIAL INFARCTION 05/12/2017 ESA MORRIS APRN Ot M16.12 UNILATERAL PRIMARY OSTEOARTHRITIS, LEFT 05/12/2017 ESA MORRIS APRN Ot M25.552 PAIN IN LEFT HIP 05/12/2017 ESA MORRIS APRN Ot Z79.02 WANIGAN CLERK (CURRENT) USE OF ANTITHROMBOTI 05/12/2017 ESA MORRIS CONTINUOUS CONVEYOR SCREEN DRIER Ot Z79.82 HALF-WAY (CURRENT) USE OF ASPIRIN 05/12/2017 ESA MORRIS APRN Ot Z95.1 PRESENCE OF AORTOCORONARY BYPASS GRAFT 05/15/2017 ESA MORRIS APRN Ot I10 ESSENTIAL (PRIMARY) HYPERTENSION 05/15/2017 ESA MORRIS APRN Ot I25.10 ATHSCL HEART DISEASE OF [place] CORONARY 05/15/2017 ESA MORRIS APRN Ot I25.2 OLD MYOCARDIAL INFARCTION 05/15/2017 ESA MORRIS APRN Ot M16.12 UNILATERAL PRIMARY OSTEOARTHRITIS, LEFT 05/15/2017 ESA MORRIS APRN Ot M25.552 PAIN IN LEFT HIP 05/15/2017 ESA MORRIS APRN Ot Z79.02 HALF-WAY (CURRENT) USE OF ANTITHROMBOTI 05/15/2017 ESA MORRIS APRN Ot Z79.82 HALF-WAY (CURRENT) USE OF ASPIRIN 05/15/2017 ESA MORRIS APRN Ot Z95.1 PRESENCE OF AORTOCORONARY BYPASS GRAFT 11/28/2017 KERON PLAZA RANCH HELPER Ot 414.00 CORON ATHEROSCLER NOS TYPE VESSEL, NATIV 11/28/2017 KERON PLAZA RANCH HELPER Ot 416.8 CHR PULMON HEART DIS NEC 11/28/2017 KERON PLAZA RANCH HELPER Ot 785.1 PALPITATIONS 11/28/2017 KERON PLAZA RANCH HELPER Ot 786.05 SHORTNESS OF BREATH 11/28/2017 MARI DRAPER Ot E83.42 HYPOMAGNESEMIA 11/28/2017 MARI DRAPER Ot F10.20 ALCOHOL DEPENDENCE, UNCOMPLICATED 11/28/2017 MARI DRAPER Ot F32.9 MAJOR DEPRESSIVE DISORDER, SINGLE EPISOD 11/28/2017 MARI DRAPER Ot I11.0 HYPERTENSIVE HEART DISEASE WITH HEART FA 11/28/2017 MARI DRAPER Ot I25.10 ATHSCL HEART DISEASE OF [place] CORONARY 11/28/2017 MARI DRAPER Ot I25.2 OLD MYOCARDIAL INFARCTION 11/28/2017 MARI DRAPER Ot I48.91 UNSPECIFIED ATRIAL FIBRILLATION 11/28/2017 MARI DRAPER Ot I50.9 HEART FAILURE, UNSPECIFIED 11/28/2017 MARI DRAPER Ot R06.02 SHORTNESS OF BREATH 11/28/2017 MARI DRAPER Ot Z79.02 WANIGAN CLERK (CURRENT) USE OF ANTITHROMBOTI 11/28/2017 MRAI DRAPER Ot Z87.891 PERSONAL HISTORY OF NICOTINE DEPENDENCE 11/28/2017 MARI DRAPER Ot Z95.1 PRESENCE OF AORTOCORONARY BYPASS GRAFT 11/30/2017 MARI DRAPER Ot E83.42 HYPOMAGNESEMIA 11/30/2017 MARI DRAPER Ot F10.20 ALCOHOL DEPENDENCE, UNCOMPLICATED 11/30/2017 MARI DRAPER Ot F32.9 MAJOR DEPRESSIVE DISORDER, SINGLE EPISOD 11/30/2017 MARI DRAPER Ot I11.0 HYPERTENSIVE HEART DISEASE WITH HEART FA 11/30/2017 MARI DRAPER Ot I25.10 ATHSCL HEART DISEASE OF [place] CORONARY 11/30/2017 MARI DRAPER Ot I25.2 OLD MYOCARDIAL INFARCTION 11/30/2017 MARI DRAPER Ot I48.91 UNSPECIFIED ATRIAL FIBRILLATION 11/30/2017 MARI DRAPER Ot I50.9 HEART FAILURE, UNSPECIFIED 11/30/2017 MARI DRAPER Ot R06.02 SHORTNESS OF BREATH 11/30/2017 MARI DRAPER Ot Z79.02 HALF-WAY (CURRENT) USE OF ANTITHROMBOTI 11/30/2017 MARI DRAPER Ot Z87.891 PERSONAL HISTORY OF NICOTINE DEPENDENCE 11/30/2017 MARI DRAPER Ot Z95.1 PRESENCE OF AORTOCORONARY BYPASS GRAFT 01/14/2018 SHANKAR KAUR MD Ot I10 ESSENTIAL (PRIMARY) HYPERTENSION 01/14/2018 SHANKAR KAUR MD Ot I25.10 ATHSCL HEART DISEASE OF [place] CORONARY 01/14/2018 SHANKAR KAUR MD Ot I25.2 OLD MYOCARDIAL INFARCTION 01/14/2018 ODGERS MD, SHANKAR K Ot S51.011A LACERATION WITHOUT FOREIGN BODY OF RIGHT 01/14/2018 SHANKAR KAUR MD Ot W26.8XXA CONTACT WITH OTHER SHARP OBJECT(S), NEC, 01/14/2018 SHANKAR KAUR MD Ot Z79.02 HALF-WAY (CURRENT) USE OF ANTITHROMBOTI 01/14/2018 SHANKAR KAUR MD Ot Z91.5 PERSONAL HISTORY OF SELF-HARM 01/16/2018 SHANKAR KAUR MD Ot I10 ESSENTIAL (PRIMARY) HYPERTENSION 01/16/2018 SHANKAR KAUR MD Ot I25.10 ATHSCL HEART DISEASE OF [place] CORONARY 01/16/2018 SHANKAR KAUR MD Ot I25.2 OLD MYOCARDIAL INFARCTION 01/16/2018 SHANKAR KAUR MD Ot S51.011A LACERATION WITHOUT FOREIGN BODY OF RIGHT 01/16/2018 SHANKAR KAUR MD Ot W26.8XXA CONTACT WITH OTHER SHARP OBJECT(S), NEC, 01/16/2018 SHANKAR KAUR MD Ot Z79.02 HALF-WAY (CURRENT) USE OF ANTITHROMBOTI 01/16/2018 SHANKAR KAUR MD Ot Z91.5 PERSONAL HISTORY OF SELF-HARM 01/16/2018 SHANKAR KAUR MD Ot I10 ESSENTIAL (PRIMARY) HYPERTENSION 01/16/2018 SHANKAR KAUR MD Ot I25.10 ATHSCL HEART DISEASE OF [place] CORONARY 01/16/2018 SHANKAR KAUR MD Ot I25.2 OLD MYOCARDIAL INFARCTION 01/16/2018 SHANKAR KAUR MD Ot S51.011A LACERATION WITHOUT FOREIGN BODY OF RIGHT 01/16/2018 SHANKAR KAUR MD Ot W26.8XXA CONTACT WITH OTHER SHARP OBJECT(S), NEC, 01/16/2018 SHANKAR KAUR MD Ot Z79.02 HALF-WAY (CURRENT) USE OF ANTITHROMBOTI 01/16/2018 SHANKAR KAUR MD Ot Z91.5 PERSONAL HISTORY OF SELF-HARM 01/18/2018 KERON PLAZA Ot 414.00 CORON ATHEROSCLER NOS TYPE VESSEL, NATIV 01/18/2018 KERON PLAZAP Ot 416.8 CHR PULMON HEART DIS NEC 01/18/2018 PLAZA, KERON M RANCH HELPER Ot 785.1 PALPITATIONS 01/18/2018 KERON PLAZA RANCH HELPER Ot 786.05 SHORTNESS OF BREATH 01/18/2018 SHANKAR KAUR MD Ot S51.011D LACERATION WITHOUT FOREIGN BODY OF RIGHT 01/18/2018 SHANKAR KAUR MD Ot X58.XXXD EXPOSURE TO OTHER SPECIFIED FACTORS, SUB 01/22/2018 SHANKAR KAUR MD Ot S51.011D LACERATION WITHOUT FOREIGN BODY OF RIGHT 01/22/2018 SHANKAR KAUR MD Ot X58.XXXD EXPOSURE TO OTHER SPECIFIED FACTORS, SUB 01/29/2018 ESA MORRIS APRN Ot I10 ESSENTIAL (PRIMARY) HYPERTENSION 01/29/2018 ESA MORRIS APRN Ot I25.10 ATHSCL HEART DISEASE OF [place] CORONARY 01/29/2018 ESA MORRIS APRN Ot I25.2 OLD MYOCARDIAL INFARCTION 01/29/2018 ESA MORRIS APRN Ot I89.1 LYMPHANGITIS 01/29/2018 ESA MORRIS APRN Ot L03.113 CELLULITIS OF RIGHT UPPER LIMB 01/29/2018 ESA MORRIS APRN Ot M79.642 PAIN IN LEFT HAND 01/29/2018 ESA MORRIS APRN Ot Z95.1 PRESENCE OF AORTOCORONARY BYPASS GRAFT 01/31/2018 ESA MORRIS APRN Ot I10 ESSENTIAL (PRIMARY) HYPERTENSION 01/31/2018 ESA MORRIS APRN Ot I25.10 ATHSCL HEART DISEASE OF [place] CORONARY 01/31/2018 ESA MORRIS APRN Ot I25.2 OLD MYOCARDIAL INFARCTION 01/31/2018 ESA MORRIS APRN Ot I89.1 LYMPHANGITIS 01/31/2018 ESA MORRIS APRN Ot L03.113 CELLULITIS OF RIGHT UPPER LIMB 01/31/2018 ESA MORRIS APRN Ot M79.642 PAIN IN LEFT HAND 01/31/2018 ESA MORRIS APRN Ot Z95.1 PRESENCE OF AORTOCORONARY BYPASS GRAFT 03/20/2018 MAUREEN DAS MD Ot I10 ESSENTIAL (PRIMARY) HYPERTENSION 03/20/2018 MAUREEN DAS MD Ot I25.10 ATHSCL HEART DISEASE OF [place] CORONARY 03/20/2018 MAUREEN DAS MD Ot I25.2 OLD MYOCARDIAL INFARCTION 03/20/2018 MAUREEN DAS MD Ot R07.81 PLEURODYNIA 03/20/2018 MAUREEN DAS MD Ot S23.41XA SPRAIN OF RIBS, INITIAL ENCOUNTER 03/20/2018 MAUREEN DAS MD Ot W01.0XXA FALL SAME LEV FROM SLIP/TRIP W/O STRIKE 03/20/2018 MAUREEN DAS MD Ot Z79.02 HALF-WAY (CURRENT) USE OF ANTITHROMBOTI 03/20/2018 MAUREEN DAS MD Ot Z87.891 PERSONAL HISTORY OF NICOTINE DEPENDENCE 03/20/2018 MAUREEN DAS MD Ot Z95.1 PRESENCE OF AORTOCORONARY BYPASS GRAFT 03/22/2018 MAUREEN DAS MD Ot I10 ESSENTIAL (PRIMARY) HYPERTENSION 03/22/2018 MAUREEN DAS MD Ot I25.10 ATHSCL HEART DISEASE OF [place] CORONARY 03/22/2018 MAUREEN DAS MD Ot I25.2 OLD MYOCARDIAL INFARCTION 03/22/2018 MAUREEN DAS MD Ot R07.81 PLEURODYNIA 03/22/2018 MAUREEN DAS MD Ot S23.41XA SPRAIN OF RIBS, INITIAL ENCOUNTER 03/22/2018 MAUREEN DAS MD Ot W01.0XXA FALL SAME LEV FROM SLIP/TRIP W/O STRIKE 03/22/2018 MAUREEN DAS MD Ot Z79.02 HALF-WAY (CURRENT) USE OF ANTITHROMBOTI 03/22/2018 MAUREEN DAS MD Ot Z87.891 PERSONAL HISTORY OF NICOTINE DEPENDENCE 03/22/2018 MAUREEN DAS MD Ot Z95.1 PRESENCE OF AORTOCORONARY BYPASS GRAFT 05/17/2018 KERON PLAZA Ot 414.00 CORON ATHEROSCLER NOS TYPE VESSEL, NATIV 05/17/2018 KERON PLAZA Ot 416.8 CHR PULMON HEART DIS NEC 05/17/2018 KERON PLAZA Ot 785.1 PALPITATIONS 05/17/2018 KERON PLAZA Ot 786.05 SHORTNESS OF BREATH 06/11/2018 PRO ALLAN DO Ot F03.90 UNSPECIFIED DEMENTIA WITHOUT BEHAVIORAL Procedures There is no data. Results Test [...] NRG Blood erythrocyte morphology finding identification [facility] Whole blood basic metabolic panel - 01/29/18 [...] Status Pt. Type Provider Facility Loc./Unit Complaint [id number] 10/27/2011 15:51:00 10/27/2011 23:59:59 CLS Outpatient RHONA PETERSON MD [id number] 10/27/2011 15:51:00 10/27/2011 23:59:59 CLS Outpatient [id number] 05/17/2018 13:40:00 05/17/2018 23:59:59 CLS Outpatient PRO ALLAN DO [facility] RAD DEMENTIA [id number] 03/20/2018 12:29:00 03/20/2018 14:16:00 DIS Emergency MAUREEN DAS MD [facility] ER FALL-LEFT RIB PAIN [id number] 01/29/2018 14:45:00 01/29/2018 17:00:00 DIS Emergency ESA MORRIS CONTINUOUS CONVEYOR SCREEN DRIER [facility] ER LEFT THUMB INJURY [id number] 01/18/2018 10:49:00 01/18/2018 11:09:00 DIS Emergency SHANKAR KAUR MD [facility] ER STAPLE REMOVAL [id number] 01/14/2018 12:54:00 01/14/2018 13:57:00 DIS Emergency SHANKAR KAUR MD [facility] ER CUT RIGHT ELBOW ON GLASS THIS AM [id number] 11/28/2017 10:25:00 11/28/2017 19:50:00 DIS Emergency MARI DRAPER [facility] ER CP,ANKLES SWELLING [id number] 05/12/2017 12:20:00 05/12/2017 15:05:00 DIS Emergency ESA MORRIS APRN [facility] ER FALL/LEFT HIP PAIN [id number] 12/23/2014 19:13:00 12/23/2014 20:47:00 DIS Emergency ALBERTO YANCEY, CANDICE Tovar [facility] ER ALLERGIC REACTION WASP STING,FACIAL SWELLING [id number] 09/27/2013 10:36:00 09/27/2013 23:59:59 CLS Outpatient KERON PLAZA [facility] CARD CAD,PALPITATIONS, SOB
[2018-08-19] MEDS ORDERED: ASPIRIN 81 MG CHEW (CHILDREN'S ASA) PO ONE (11:30)
[2018-08-19 11:32] LABS: BASOPHILS % (AUTO) 1 % (0-10); EOSINOPHILS # (AUTO) 0.1 10^3/uL (0.0-0.3); EOSINOPHILS % (AUTO) 1 % (0-10); HEMATOCRIT 40 % (40-54); HEMOGLOBIN 13.2 G/DL (13.3-17.7); LYMPHOCYTES % (AUTO) 19 % (12-44); MEAN CORPUSCULAR HEMOGLOBIN 31 PG (25-34); MEAN CORPUSCULAR HGB CONC 33 G/DL (32-36); MEAN CORPUSCULAR VOLUME 94 FL (80-99); MEAN PLATELET VOLUME 9.6 FL (7.4-10.4); MONOCYTES # (AUTO) 0.4 X 10^3 (0.0-1.0); MONOCYTES % (AUTO) 7 % (0-12); NEUTROPHILS # (AUTO) 3.7 X 10^3 (1.8-7.8); NEUTROPHILS % (AUTO) 72 % (42-75); PLATELET COUNT 301 10^3/uL (130-400); RED CELL DISTRIBUTION WIDTH 13.5 % (10.0-14.5); WHITE BLOOD COUNT 5.1 10^3/uL (4.3-11.0)
--- NOTE | 2018-08-19 11:37 | ED Chest Pain ---
General Chief Complaint: Chest Pain Stated Complaint: CP/SOB Nursing Triage Note: PT PRESENTS TO ED WITH COMPLAINTS OF SOA AND CP STARTIGN YESTERDAY. PT REPORT PAIN IS INTERMITTENT AND HE IS NOT CURRENTLY HAVING ANY. Nursing Sepsis Screen: No Definite Risk Source: patient Exam Limitations: no limitations History of Present Illness Date Seen by Provider: Aug 19, 2018 Time Seen by Provider: 11:15 Initial Comments Here with report of pains of chest pain that are intermittent and short-lived that started yesterday and repeated today. He told his son about it who then told him to come to the emergency department. His son brought him to the emergency department for evaluation. Does have significant cardiac history including 5 way bypass as well as well as previous stents. Does have history of carotid blockage that he does not want to get stented and history of dementia. Patient reports that he is not taking any medicines now but family reports that they actually give him his medicine every morning and evening and he is taking them as he is posterior. Patient denies nausea, vomiting, breathing problems or weakness. Timing/Duration: 24 hours, intermittent, gone now Severity/Quality: moderate, other (electric) Location: central Radiation: no radiation Activities at Onset: none Prior CP/Workup: cardiac cath, echocardiography, heart attack Modifying Factors: improves with rest ASA po INORGANIC CHEMIST: No NTG SL INORGANIC CHEMIST: No Associated Symptoms: No abdominal pain, No back pain, No diaphoresis, No edema ; fatigue; No fever/chills, No nausea/vomiting, No shortness of breath, No weakness Allergies and Home Medications Allergies Coded Allergies: No Known Drug Allergies (Unverified , 12/23/14) Home Medications Amlodipine Besylate 5 Mg Tablet, 5 MG PO DAILY, (Reported) Clopidogrel Bisulfate 75 Mg Tablet, 1 EACH PO DAILY, (Reported) Clopidogrel Bisulfate 75 Mg Tablet, 75 MG PO DAILY Prescribed by: MARI TABOR on 11/28/171931 Furosemide 40 Mg Tablet, 40 MG PO BID Prescribed by: MARI TABOR on 11/28/171931 Hctz/Lisinopril 1 Tab Tablet, 1 EACH PO DAILY, (Reported) Hydrocodone/Acetaminophen 1 Each Tablet, 1 EACH PO Q4H PRN for PAIN-MODERATE TO SEVERE Prescribed by: ESA MORRIS on 05/12/17 1413 Lisinopril 20 Mg Tab, 20 MG PO DAILY, (Reported) Magnesium Oxide 500 Mg Capsule, 500 MG PO BID Prescribed by: MARI TABOR on 11/28/171931 Metoprolol Succinate 100 Mg Tab.sr.24h, 1 EACH PO BID, (Reported) Metoprolol Tartrate 100 Mg Tablet, 100 MG PO BID Prescribed by: MARI TABOR on 11/28/171931 Niacin 500 Mg Tablet.sa, 500 MG PO DAILY, (Reported) Nitroglycerin 0.4 Mg Tab.subl, 0.4 MG SL UD PRN for CHEST PAIN 1 tab SL q5 min prn chest pain (max 3 doses). Prescribed by: MARI TABOR on 11/28/171931 Potassium Chloride 20 Meq Tablet.er, 20 MEQ PO BID Prescribed by: MARI TABOR on 11/28/171931 Simvastatin 40 Mg Tablet, 40 MG PO DAILY, (Reported) Tamsulosin HCl 0.4 Mg Cap.er.24h, 0.4 MG PO DAILY Prescribed by: MARI TABOR on 11/28/171931 Patient Home Medication List Home Medication List Reviewed: Yes Review of Systems Review of Systems Constitutional: see HPI; No chills, No fever EENTM: No Symptoms Reported Respiratory: No Symptoms Reported Cardiovascular: See HPI, Chest Pain; Denies Edema, Denies Irregular Heart Rate Gastrointestinal: No Symptoms Reported Genitourinary: No Symptoms Reported Psychiatric/Neurological: No Symptoms Reported All Other Systems Reviewed Negative Unless Noted: Yes Past Aexipdz-Tsmxrd-Xxtqws Hx Past Med/Social Hx: Reviewed Nursing Past Med/Soc Hx Patient Social History Alcohol Use: Occasionally Uses Number of Drinks Today: AA Alcohol Beverage of Choice: Beer Recreational Drug Use: No Smoking Status: Former Smoker Type Used: Cigarettes Former Smoker, Quit: Aug 29, 2000 2nd Hand Smoke Exposure: No Recent Foreign Travel: No Contact w/Someone Who Travel: No Recent Infectious Disease Expo: No Recent Hopitalizations: No Physical Abuse: No Sexual Abuse: No Mistreated: No Fear: No Immunizations Up To Date Tetanus Booster (TDap): Unknown Seasonal Allergies Seasonal Allergies: No Past Medical History Surgeries: Yes (BYPASS, CAROTID ARTERY.) Cardiac, CABG, Coronary Stent, Vascular Surgery Respiratory: Yes (Chronic shortness of air) Cardiac: Yes Coronary Artery Disease, Heart Attack, Hypertension Neurological: No Reproductive Disorders: No Sexually Transmitted Disease: No HIV/AIDS: No Genitourinary: No Gastrointestinal: No Musculoskeletal: No Endocrine: No HEENT: No Cancer: No Psychosocial: No Integumentary: No Blood Disorders: No Adverse Reaction/Blood Tranf: No Family Medical History Reviewed Nursing Family Hx No Pertinent Family Hx Physical Exam Vital Signs Vital Signs - First Documented 08/19/18 11:10 Pulse Ox 97 O2 Delivery Room Air Capillary Refill : Less Than 3 Seconds Height, Weight, BMI Height: 5'4.00" Weight: 170lbs. 0oz. 77.706276mf; 21.09 BMI Method:Estimated General Appearance: No Apparent Distress, WD/WN HEENT: PERRL/EOMI, Pharynx Normal Neck: Non Tender, Supple Respiratory: Lungs Clear, Normal Breath Sounds Cardiovascular: Regular Rate, Rhythm, No Murmur Gastrointestinal: Non Tender, Soft Extremity: Normal Range of Motion, Non Tender Neurologic/Psychiatric: Alert, Oriented x3 Skin: Normal Color, Warm/Dry Progress/Results/Core Measures Results/Orders Lab Results Laboratory Tests Test 08/19/18 11:19 Range/Units White Blood Count 5.1 4.3-11.0 10^3/uL Red Blood Count 4.26 L 4.35-5.85 10^6/uL Hemoglobin 13.2 L 13.3-17.7 G/DL Hematocrit 40 40-54 % Mean Corpuscular Volume 94 80-99 FL Mean Corpuscular Hemoglobin 31 25-34 PG Mean Corpuscular Hemoglobin Concent 33 32-36 G/DL Red Cell Distribution Width 13.5 10.0-14.5 % Platelet Count 301 130-400 10^3/uL Mean Platelet Volume 9.6 7.4-10.4 FL Neutrophils (%) (Auto) 72 42-75 % Lymphocytes (%) (Auto) 19 12-44 % Monocytes (%) (Auto) 7 0-12 % Eosinophils (%) (Auto) 1 0-10 % Basophils (%) (Auto) 1 0-10 % Neutrophils # (Auto) 3.7 1.8-7.8 X 10^3 Lymphocytes # (Auto) 1.0 1.0-4.0 X 10^3 Monocytes # (Auto) 0.4 0.0-1.0 X 10^3 Eosinophils # (Auto) 0.1 0.0-0.3 10^3/uL Basophils # (Auto) 0.0 0.0-0.1 10^3/uL Prothrombin Time 13.8 12.2-14.7 SEC INR Comment 1.1 0.8-1.4 Activated Partial Thromboplast Time 29 24-35 SEC D-Dimer 1.44 H 0.00-0.49 UG/ML Sodium Level 143 135-145 MMOL/L Potassium Level 3.9 3.6-5.0 MMOL/L Chloride Level 108 H 98-107 MMOL/L Carbon Dioxide Level 24 21-32 MMOL/L Anion Gap 11 5-14 MMOL/L Blood Urea Nitrogen 13 7-18 MG/DL Creatinine 1.05 0.60-1.30 MG/DL Estimat Glomerular Filtration Rate > 60 BUN/Creatinine Ratio 12 Glucose Level 109 H 70-105 MG/DL Calcium Level 8.9 8.5-10.1 MG/DL Corrected Calcium 9.1 8.5-10.1 MG/DL Magnesium Level 2.3 1.8-2.4 MG/DL Total Bilirubin 0.4 0.1-1.0 MG/DL Aspartate Amino Transf (AST/SGOT) 28 5-34 U/L Alanine Aminotransferase (ALT/SGPT) 24 0-55 U/L Alkaline Phosphatase 71 40-136 U/L Myoglobin 67.4 10.0-92.0 NG/ML Troponin I 0.039 <0.028 NG/ML B-Type Natriuretic Peptide 886.3 H <100.0 PG/ML Total Protein 6.7 6.4-8.2 GM/DL Albumin 3.7 3.2-4.5 GM/DL Lipase 81 H 8-78 U/L My Orders Orders - PA ROJAS MD Cbc With Automated Diff (08/19/18 11:21) Magnesium (08/19/18 11:21) Chest 1 View, Ap/Pa Only (08/19/18 11:21) Ekg Tracing (08/19/18 11:21) Cardiac Profile 1 (08/19/18 11:21) Comprehensive Metabolic Panel (08/19/18 11:21) Myoglobin Serum (08/19/18 11:21) Protime With Inr (08/19/18 11:21) Partial Thromboplastin Time (08/19/18 11:21) O2 (08/19/18 11:21) Monitor-Rhythm Ecg Trace Only (08/19/18 11:21) Lipid Panel (08/20/18 06:00) Aspirin Chewable Tablet (Baby Aspirin Ch (08/19/18 11:30) Saline Lock/Iv-Start (08/19/18 11:21) Lipase (08/19/18 11:21) BNP (08/19/18 11:21) Fibrin Degradation Products (08/19/18 11:19) Lorazepam Injection (Ativan Injection) (08/19/18 13:00) Ct Angio Chest W (08/19/18 12:58) Ns Iv 1000 Ml (Sodium Chloride 0.9%) (08/19/18 12:58) Iohexol Injection (Omnipaque 350 Mg/Ml 1 (08/19/18 13:15) Contrast Received (Contrast Received) (08/19/18 13:15) Sodium Chloride Flush (Catheter Flush Sy (08/19/18 13:15) Ns (Ivpb) (Sodium Chloride 0.9% Ivpb Bag (08/19/18 13:15) Medications Given in ED Current Medications Medications Dose Ordered Sig/Mary Route Start Time Stop Time Status Last Admin Dose Admin Aspirin 324 mg ONCE ONCE PO 08/19/18 11:30 08/19/18 11:31 DC 08/19/18 11:43 324 MG Iohexol 100 ml ONCE ONCE IV 08/19/18 13:15 08/19/18 13:16 DC 08/19/18 13:17 100 ML Lorazepam 1 mg ONCE ONCE IVP 08/19/18 13:00 08/19/18 13:01 DC 08/19/18 13:07 1 MG Sodium Chloride 10 ml NEEDED PRN IV 08/19/18 13:15 08/19/18 13:17 10 ML Sodium Chloride 100 ml ONCE ONCE IV 08/19/18 13:15 08/19/18 13:16 DC 08/19/18 13:17 80 ML Sodium Chloride 1,000 ml @ 0 mls/hr Q0M ONCE IV 08/19/18 12:58 08/19/18 13:01 DC 08/19/18 13:40 0 MLS/HR Vital Signs/I&O 08/19/18 08/19/18 08/19/18 08/19/18 11:10 11:24 11:24 13:56 Temp 97.2 Pulse 80 62 Resp 16 18 B/P (MAP) 119/68 (85) 124/96 (105) Pulse Ox 97 97 98 O2 Delivery Room Air Room Air Blood Pressure Mean: 85 Progress Progress Note : Progress Note Seen and evaluated. IV, labs, EKG and chest x-ray ordered. ASA 324 mg by mouth ordered. Monitor patient. Labs negative except for d-dimer. Patient does have complex history. He did not want to get CT and really does not want to stay because he is very anxious. Ativan 1 mg IV ordered. Normal saline 1 L bolus. He has agreed to CT scan and son who is the POA and guardian is also requesting CT angiogram. Patient agrees. CT angiogram of the chest ordered. Monitor patient. 1420: Patient resting peacefully. CT scan completed and shows no acute findings. Overall no significant concerns. Patient does have issues that he needs to follow-up on the son is working with him to get that done. Discharged home with return precautions. Patient family verbalized understanding instructions and agreement with plan. Initial ECG Impression Date: Aug 19, 2018 Initial ECG Impression Time: 11:22 Initial ECG Rate: 79 Initial ECG Rhythm: A Fib/Flutter Initial ECG Impression: Atrial Fibrillation Comment Atrial fibrillation with premature ventricular complexes. No evidence of ST elevation MS. Normal axis. Similar to previous of 11/28/17. Interpreted by me. Diagnostic Imaging Diagonstic Imaging: Xray Plain Films/CT/US/NM/MRI: chest Comments NAME: CARLOS ADDISON [facility] REC#: [id number] PT STATUS: REG ER : 1945 PHYSICIAN: PA ROJAS MD ADMIT DATE: 08/19/18/ER Signed Date of Exam: 08/19/18 CHEST 1 VIEW, AP/PA ONLY INDICATION: Shortness of breath. COMPARISON: 10/23/2017. FINDINGS: Single view of the chest demonstrates stable cardiac enlargement. Lungs are clear. There is no pneumothorax. Osseous structures are age appropriate. Sternal wires are midline. IMPRESSION: Stable cardiac enlargement without pulmonary edema or infiltrate. Dictated by: Dictated on workstation # [id number] Dict: 08/19/18 1140 Trans: 08/19/18 1225 Interpreted by: KELLY LOPEZ Electronically signed by: KELLY LOPEZ 08/19/18 1225 Diagonstic Imaging: CT Plain Films/CT/US/NM/MRI: abdomen, pelvis Comments Draft Date of Exam:08/19/18 CT ANGIO CHEST W PROCEDURE: CT angiography of the chest with contrast. TECHNIQUE: Multiple contiguous axial images were obtained through the chest after uneventful bolus administration of intravenous contrast. 3D reconstructed CTA MIP acquisitions were also performed. INDICATION: Episode of shortness of air and chest pain since yesterday. CORRELATION STUDY: 11/28/2017. FINDINGS: The patient is post sternotomy. There is noted non-bony fusion across the sternotomy. Heart size is enlarged. Scattered coronary artery calcification is present. The thoracic aorta demonstrates normal contour. No aneurysm or evidence for dissection. Scattered calcified plaque is present. The pulmonary arteries demonstrate no significant filling defect to reflect pulmonary embolism. No pathologically enlarged mediastinal and/or hilar lymph nodes. Lung parenchyma demonstrates likely areas of fibrosis along the anterior paramediastinal region. No infiltrate. Visualized portion of the upper abdomen appearing unremarkable. Advanced degenerative changes about the thoracic spine. Mild rightward curvature. IMPRESSION: 1. No CT evidence for pulmonary embolism. Negative for acute abnormality in the chest. 2. Post-sternotomy changes with presence of coronary artery calcification. Dictated on workstation # [id number] Dict: 08/19/18 1342 Trans: 08/19/18 1350 [id number] Interpreted by: RODRI PATEL DO Electronically signed by: Departure Impression Primary Impression: Chest pain Qualified Codes: R07.9 - Chest pain, unspecified Disposition: 01 HOME, SELF-CARE Condition: Stable Departure-Patient Inst. Decision time for Depature: 14:35 Referrals: PRO ALLAN DO (PCP/Family) Primary Care Physician Patient Instructions: Chest Pain (DC) Add. Discharge Instructions: All discharge instructions reviewed with patient and/or family. Voiced understanding. Continue home medications as previously prescribed. Follow-up with your doctor this week for recheck and further evaluation. Call tomorrow for appointment. Return for worse pain, fever, vomiting, weakness, breathing problems or other concerns as needed. PA ROJAS MD Aug 19, 2018 11:37
--- NOTE | 2018-08-19 11:44 | Diagnostic Imaging Report ---
INDICATION: Shortness of breath. COMPARISON: 10/23/2017. FINDINGS: Single view of the chest demonstrates stable cardiac enlargement. Lungs are clear. There is no pneumothorax. Osseous structures are age appropriate. Sternal wires are midline. IMPRESSION: Stable cardiac enlargement without pulmonary edema or infiltrate. Dictated by: Dictated on workstation # [id number]
[2018-08-19 11:54] LABS: FIBRIN DEGRADATION PRODUCTS 1.44 UG/ML (0.00-0.49); INR 1.1 (0.8-1.4); PROTHROMBIN TIME PATIENT 13.8 SEC (12.2-14.7)
[2018-08-19 12:00] LABS: ALANINE AMINOTRANSFERASE 24 U/L (0-55); ALBUMIN 3.7 GM/DL (3.2-4.5); ALKALINE PHOSPHATASE 71 U/L (40-136); BILIRUBIN,TOTAL 0.4 MG/DL (0.1-1.0); BUN/CREATININE RATIO 12; CALCIUM 8.9 MG/DL (8.5-10.1); CARBON DIOXIDE 24 MMOL/L (21-32); CHLORIDE 108 MMOL/L (98-107); CREATININE SERUM 1.05 MG/DL (0.60-1.30); GFR ESTIMATED > 60; GLUCOSE 109 MG/DL (70-105); LIPASE 81 U/L (8-78); MAGNESIUM 2.3 MG/DL (1.8-2.4); POTASSIUM 3.9 MMOL/L (3.6-5.0); SODIUM 143 MMOL/L (135-145); TOTAL PROTEIN 6.7 GM/DL (6.4-8.2)
[2018-08-19 12:10] LABS: MYOGLOBIN SERUM 67.4 NG/ML (10.0-92.0)
[2018-08-19] MEDS ORDERED: NS IV 1000 ML 1,000 ML IV ONE (12:58)
[2018-08-19] MEDS ORDERED: LORazepam INJ 2 MG/ML (ATIVAN) VIAL IVP ONE (13:00)
[2018-08-19] MEDS ORDERED: CATHETER FLUSH 10 ML SYR IV PRN (13:15)
[2018-08-19] MEDS ORDERED: IOHEXOL 350 MG/ML 100 ML (OMNIPAQUE 350) VIAL IV ONE (13:15)
[2018-08-19] MEDS ORDERED: RECEIVED CONTRAST (Hold Metformin) IV SCH (13:15)
[2018-08-19] MEDS ORDERED: NS 100 ML (IVPB) BAG IV ONE (13:15)
--- NOTE | 2018-08-19 13:50 | Diagnostic Imaging Report ---
PROCEDURE: CT angiography of the chest with contrast. TECHNIQUE: Multiple contiguous axial images were obtained through the chest after uneventful bolus administration of intravenous contrast. 3D reconstructed CTA MIP acquisitions were also performed. INDICATION: Episode of shortness of air and chest pain since yesterday. CORRELATION STUDY: 11/28/2017. FINDINGS: The patient is post sternotomy. There is noted non-bony fusion across the sternotomy. Heart size is enlarged. Scattered coronary artery calcification is present. The thoracic aorta demonstrates normal contour. No aneurysm or evidence for dissection. Scattered calcified plaque is present. The pulmonary arteries demonstrate no significant filling defect to reflect pulmonary embolism. No pathologically enlarged mediastinal and/or hilar lymph nodes. Lung parenchyma demonstrates likely areas of fibrosis along the anterior paramediastinal region. No infiltrate. Visualized portion of the upper abdomen appearing unremarkable. Advanced degenerative changes about the thoracic spine. Mild rightward curvature. IMPRESSION: 1. No CT evidence for pulmonary embolism. Negative for acute abnormality in the chest. 2. Post-sternotomy changes with presence of coronary artery calcification. Dictated by: Dictated on workstation # [id number]
[2018-08-19 13:56] VITALS: BP 124/96
[2018-08-19 15:06] VITALS: BP 125/91
== END 2018-08-19 15:06 | disposition home or self-care (01) ==
LOC: EDUNIT# 10:57 → ER 10:58
DX: R07.89 Other chest pain (principal); F03.90 Unspecified dementia, unspecified severity, without behavioral disturbance, psychotic disturbance, mood disturbance, and anxiety; I25.10 Atherosclerotic heart disease of native coronary artery without angina pectoris; I25.2 Old myocardial infarction; I10 Essential (primary) hypertension; Z79.02 Long term (current) use of antithrombotics/antiplatelets; Z87.891 Personal history of nicotine dependence; Z95.1 Presence of aortocoronary bypass graft; Z95.5 Presence of coronary angioplasty implant and graft
CPT/HCPCS: 36415; 71045; 71275; 80053; 83690; 83735; 83874; 83880; 84484; 85025; 85379; 85610; 85730; 93005; 93041

== ENCOUNTER 2018-10-26 00:49 | Emergency (ER) | payer MEDICARE, MEDICAID ==
[~2018-10-26] VITALS: Ht 165.1 cm; Wt 74.8 kg
[2018-10-26 00:50] VITALS: BP 125/92
--- OUTSIDE RECORDS SUMMARY | 2018-10-26 00:54 | XMS REPORT ---
Author Author Migration, Doctor Organization [facility] Address Unknown Phone Unavailable Care Team Providers Care Rope Walker Name Role Phone Migration, Doctor Unavailable Unavailable PROBLEMS Type Condition ICD9-CM Code BRA68-MD Code Onset Dates Condition Status SNOMED Code Problem Coronary atherosclerosis of unspecified type of vessel, [place] or graft 414.00 Active 159214039 Problem Unspecified essential hypertension 401.9 Active 80475575 Problem Other dyspnea and respiratory abnormalities 786.09 Active 127996504 Problem Occlusion and stenosis of carotid artery without mention of cerebral infarction 433.10 Active [id number] ALLERGIES No Information ENCOUNTERS Encounter Location Date Diagnosis [facility] [id number] [place] [phone] Sep, Paronychia of right thumb L03.011 [facility] [id number] [place] [phone] Oct, [facility] [id number] [place] [phone] Oct, [id number] [place] [id number] Sep, [id number] [place] [id number] Jun, [facility] [id number] [place] [phone] Jun, [id number] [place] [phone] May, [facility] [address] [address] May, [facility] [id number] [place] [phone] May, [facility] [address] [address] May, [facility] [address] [id number] [place] [id number] May, [facility] [address] [facility] [id number] [place] [phone] May, [facility] [address] [id number] [place] [id number] Feb, [facility] [address] [id number] [place] [id number] Jan, [facility] [address] [facility] [id number] [address] November, [facility] [address] [id number] [place] [id number] Oct, [facility] [address] [id number] [place] [id number] Oct, [facility] [address] [id number] [place] [id number] Oct, [facility] [address] [id number] [place] [id number] Oct, [facility] [address] [id number] [place] [id number] Oct, [facility] [address] [id number] [place] [id number] Sep, [facility] [address] [id number] [place] [id number] Sep, [facility] [address] [id number] [place] [id number] Sep, [facility] [address] [id number] [place] [id number] Sep, [facility] [address] [id number] [place] [id number] Jul, [facility] [address] [facility] [id number] [address] Jun, [facility] [address] [facility] [id number] [address] Mar, [facility] [id number] [address] 15 Apr, 2010 [facility] [address] [facility] [id number] [place] [address] 13 Mar, 2010 [facility] [address] [id number] [address] 04 Jun, 2009 [facility] [address] [id number] [address] Apr, [facility] [address] [id number] [address] Apr, [facility] [address] [id number] [address] Oct, [facility] [address] [id number] [address] Apr, IMMUNIZATIONS No Known Immunizations SOCIAL HISTORY Never Assessed REASON FOR VISIT [facility] PLAN OF CARE VITAL SIGNS MEDICATIONS Medication Instructions Dosage Frequency Start Date End Date Duration Status Simvastatin 40 mg take 1 tablet by Oral route 1 time per day in the eveningneeds seen prior to anymore refills May, Active metoprolol 100 mg take 1 tablet by Oral route with meals 2 times per dayneeds seen prior to anymore refills May, Active amlodipine 5 mg take 1 tablet (5 mg) by oral route once daily May, Active Lisinopril 20 mg take 1 tablet by Oral route 1 time per dayNeeds seen prior to anymore refills May, Active hydrochlorothiazide-lisinopril 20-25 mg take 1 tablet by Oral route 1 time per dayNeeds seen prior to anymore refills May, Active Plavix 75 mg take 1 tablet by Oral route 1 time per dayNeeds seen prior to anymore refills May, Active RESULTS No Results PROCEDURES No Known procedures INSTRUCTIONS MEDICATIONS ADMINISTERED No Known Medications MEDICAL (GENERAL) HISTORY Type Description Date Medical History by pass Surgical History Pt states that he has five by pass surgeries Hospitalization History Surgeries
--- OUTSIDE RECORDS SUMMARY | 2018-10-26 00:55 | XMS REPORT | Continuity of Care Document ---
Author Organization Unknown Address Unknown Allergies Active Description Code Type Severity Reaction Onset Reported/Identified Relationship to Patient Clinical Status Yes No Known Drug Allergies [id number] Drug Allergy Unknown N/A 12/23/2014 Medications There [...] 10/27/2011 786.09 difficulty breathing (dyspnea) 12/23/2014 KERON PLAZAP Ot 414.00 12/23/2014 KERON PLAZAP Ot 416.8 12/23/2014 KERON PLAZAP Ot 785.1 12/23/2014 KERON PLAZAP Ot 786.05 12/23/2014 CANDICE DOMINGUEZ MD Ot 782.3 EDEMA 12/23/2014 CANDICE DOMINGUEZ MD Ot 989.5 TOXIC EFFECT VENOM 12/23/2014 CANDICE DOMINGUEZ MD Ot E000.8 OTHER EXTERNAL CAUSE STATUS 12/23/2014 CANDICE DOMINGUEZ MD Ot E849.0 ACCIDENT IN HOME 12/23/2014 CANDICE DOMINGUEZ MD Ot E905.3 HORNET/WASP/BEE STING 05/12/2017 KERON PLAZAP Ot 414.00 CORON ATHEROSCLER NOS TYPE VESSEL, NATIV 05/12/2017 KERON PLAZAP Ot 416.8 CHR PULMON HEART DIS NEC 05/12/2017 KERON PLAZAP Ot 785.1 PALPITATIONS 05/12/2017 KERON PLAZAP Ot 786.05 SHORTNESS OF BREATH 05/12/2017 ESA MORRIS APRN Ot I10 ESSENTIAL (PRIMARY) HYPERTENSION 05/12/2017 ESA MORRIS APRN Ot I25.10 ATHSCL HEART DISEASE OF [place] CORONARY 05/12/2017 ESA MORRIS APRN Ot I25.2 OLD MYOCARDIAL INFARCTION 05/12/2017 ESA MORRIS APRN Ot M16.12 UNILATERAL PRIMARY OSTEOARTHRITIS, LEFT 05/12/2017 MORRIS, PETER J PROJECT INTERN Ot M25.552 PAIN IN LEFT HIP 05/12/2017 ESA MORRIS APRN Ot Z79.02 [facility] (CURRENT) USE OF ANTITHROMBOTI 05/12/2017 ESA MORRIS APRN Ot Z79.82 [facility] (CURRENT) USE OF ASPIRIN 05/12/2017 ESA MORRIS APRN Ot Z95.1 PRESENCE OF AORTOCORONARY BYPASS GRAFT 05/15/2017 ESA MORRIS APRN Ot I10 ESSENTIAL (PRIMARY) HYPERTENSION 05/15/2017 ESA MORRIS APRN Ot I25.10 ATHSCL HEART DISEASE OF [place] CORONARY 05/15/2017 ESA MORRIS APRN Ot I25.2 OLD MYOCARDIAL INFARCTION 05/15/2017 ESA MORRIS APRN Ot M16.12 UNILATERAL PRIMARY OSTEOARTHRITIS, LEFT 05/15/2017 ESA MORRIS APRN Ot M25.552 PAIN IN LEFT HIP 05/15/2017 ESA MORRIS APRN Ot Z79.02 [facility] (CURRENT) USE OF ANTITHROMBOTI 05/15/2017 ESA MORRIS APRN Ot Z79.82 [facility] (CURRENT) USE OF ASPIRIN 05/15/2017 ESA MORRIS APRN Ot Z95.1 PRESENCE OF AORTOCORONARY BYPASS GRAFT 11/28/2017 KERON PLAZA RECORD RETRIEVAL SPECIALIST Ot 414.00 CORON ATHEROSCLER NOS TYPE VESSEL, NATIV 11/28/2017 KERON PLAZA RECORD RETRIEVAL SPECIALIST Ot 416.8 CHR PULMON HEART DIS NEC 11/28/2017 KERON PLAZA RECORD RETRIEVAL SPECIALIST Ot 785.1 PALPITATIONS 11/28/2017 KERON PLAZA RECORD RETRIEVAL SPECIALIST Ot 786.05 SHORTNESS OF BREATH 11/28/2017 MARI DRAPER Ot E83.42 HYPOMAGNESEMIA 11/28/2017 MARI DRAPER Ot F10.20 ALCOHOL DEPENDENCE, UNCOMPLICATED 11/28/2017 MARI DRAPER Ot F32.9 MAJOR DEPRESSIVE DISORDER, SINGLE EPISOD 11/28/2017 MARI DRAPER Ot I11.0 HYPERTENSIVE HEART DISEASE WITH HEART FA 11/28/2017 MARI DRAPER Ot I25.10 ATHSCL HEART DISEASE OF [place] CORONARY 11/28/2017 MARI DRAPER Ot I25.2 OLD MYOCARDIAL INFARCTION 11/28/2017 MARI DRAPER Ot I48.91 UNSPECIFIED ATRIAL FIBRILLATION 11/28/2017 MARI DRAPER Ot I50.9 HEART FAILURE, UNSPECIFIED 11/28/2017 MARI DRAPER Ot R06.02 SHORTNESS OF BREATH 11/28/2017 MARI DRAPER Ot Z79.02 [facility] (CURRENT) USE OF ANTITHROMBOTI 11/28/2017 MARI DRAPER [...] DRAPER Ot I25.10 ATHSCL HEART DISEASE OF [place] CORONARY 11/30/2017 MARI DRAPER Ot I25.2 OLD MYOCARDIAL INFARCTION 11/30/2017 MARI DRAPER Ot I48.91 UNSPECIFIED ATRIAL FIBRILLATION 11/30/2017 MARI DRAPER Ot I50.9 HEART FAILURE, UNSPECIFIED 11/30/2017 MARI DRAPER Ot R06.02 SHORTNESS OF BREATH 11/30/2017 MARI DRAPER Ot Z79.02 [facility] (CURRENT) USE OF ANTITHROMBOTI 11/30/2017 MARI DRAPER Ot Z87.891 PERSONAL HISTORY OF NICOTINE DEPENDENCE 11/30/2017 MARI DRAPER Ot Z95.1 PRESENCE OF AORTOCORONARY BYPASS GRAFT 01/14/2018 SHANKAR KAUR MD Ot I10 ESSENTIAL (PRIMARY) HYPERTENSION 01/14/2018 SHANKAR KAUR MD Ot I25.10 ATHSCL HEART DISEASE OF [place] CORONARY 01/14/2018 SHANKAR KAUR MD Ot I25.2 OLD MYOCARDIAL INFARCTION 01/14/2018 SHANKAR KAUR MD Ot S51.011A LACERATION WITHOUT FOREIGN BODY OF RIGHT 01/14/2018 SHANKAR KAUR MD Ot W26.8XXA CONTACT WITH OTHER SHARP OBJECT(S), NEC, 01/14/2018 SHANKAR KAUR MD Ot Z79.02 BRONC BREAKER (CURRENT) USE OF ANTITHROMBOTI 01/14/2018 SHANKAR KAUR MD Ot Z91.5 PERSONAL HISTORY OF SELF-HARM 01/16/2018 SHANKAR KAUR MD Ot I10 ESSENTIAL (PRIMARY) HYPERTENSION 01/16/2018 SHANKAR KAUR MD Ot I25.10 ATHSCL HEART DISEASE OF [place] CORONARY 01/16/2018 SHANKAR KAUR MD Ot I25.2 OLD MYOCARDIAL INFARCTION 01/16/2018 SHANKAR KAUR MD Ot S51.011A LACERATION WITHOUT FOREIGN BODY OF RIGHT 01/16/2018 SHANKAR KAUR MD Ot W26.8XXA CONTACT WITH OTHER SHARP OBJECT(S), NEC, 01/16/2018 SHANKAR KAUR MD Ot Z79.02 BRONC BREAKER (CURRENT) USE OF ANTITHROMBOTI 01/16/2018 SHANKAR KAUR MD Ot Z91.5 PERSONAL HISTORY OF SELF-HARM 01/16/2018 SHANKAR KAUR MD Ot I10 ESSENTIAL (PRIMARY) HYPERTENSION 01/16/2018 SHANKAR KAUR MD Ot I25.10 ATHSCL HEART DISEASE OF [place] CORONARY 01/16/2018 SHANKAR KAUR MD Ot I25.2 OLD MYOCARDIAL INFARCTION 01/16/2018 SHANKAR KAUR MD Ot S51.011A LACERATION WITHOUT FOREIGN BODY OF RIGHT 01/16/2018 SHANKAR KAUR MD Ot W26.8XXA CONTACT WITH OTHER SHARP OBJECT(S), NEC, 01/16/2018 SHANKAR KAUR MD Ot Z79.02 [facility] (CURRENT) USE OF ANTITHROMBOTI 01/16/2018 SHANKAR KAUR MD Ot Z91.5 PERSONAL HISTORY OF SELF-HARM 01/18/2018 KERON PLAZAP Ot 414.00 CORON ATHEROSCLER NOS TYPE VESSEL, NATIV 01/18/2018 KERON PLAZA RECORD RETRIEVAL SPECIALIST Ot 416.8 CHR PULMON HEART DIS NEC 01/18/2018 KERON PLAZA RECORD RETRIEVAL SPECIALIST Ot 785.1 PALPITATIONS 01/18/2018 PLAZAKERON PERRY Long RECORD RETRIEVAL SPECIALIST Ot 786.05 SHORTNESS OF BREATH 01/18/2018 SHANKAR [...] APRN Ot I25.10 ATHSCL HEART DISEASE OF [place] CORONARY 01/29/2018 ESA MORRIS APRN Ot I25.2 [...] APRN Ot I25.10 ATHSCL HEART DISEASE OF [place] CORONARY 01/31/2018 ESA MRORIS APRN Ot I25.2 OLD MYOCARDIAL INFARCTION 01/31/2018 ESA MORRIS APRN Ot I89.1 LYMPHANGITIS 01/31/2018 ESA MORRIS PROJECT INTERN Ot L03.113 CELLULITIS OF RIGHT UPPER LIMB 01/31/2018 ESA MORRIS APRN Ot M79.642 PAIN IN LEFT HAND 01/31/2018 ESA MORRIS APRN Ot Z95.1 PRESENCE OF AORTOCORONARY BYPASS GRAFT 03/20/2018 MAUREEN DAS MD Ot I10 ESSENTIAL (PRIMARY) HYPERTENSION 03/20/2018 MAUREEN DAS MD Ot I25.10 ATHSCL HEART DISEASE OF [place] CORONARY 03/20/2018 MAUREEN DAS MD Ot I25.2 OLD MYOCARDIAL INFARCTION 03/20/2018 MAUREEN DAS MD Ot R07.81 PLEURODYNIA 03/20/2018 MAUREEN DAS MD Ot S23.41XA SPRAIN OF RIBS, INITIAL ENCOUNTER 03/20/2018 MAUREEN DAS MD Ot W01.0XXA FALL SAME LEV FROM SLIP/TRIP W/O STRIKE 03/20/2018 MAUREEN DAS MD Ot Z79.02 BRONC BREAKER (CURRENT) USE OF ANTITHROMBOTI 03/20/2018 MAUREEN DAS MD Ot Z87.891 PERSONAL HISTORY OF NICOTINE DEPENDENCE 03/20/2018 MAUREEN DAS MD Ot Z95.1 PRESENCE OF AORTOCORONARY BYPASS GRAFT 03/22/2018 MAUREEN DAS MD Ot I10 ESSENTIAL (PRIMARY) HYPERTENSION 03/22/2018 MAUREEN DAS MD Ot I25.10 ATHSCL HEART DISEASE OF [place] CORONARY 03/22/2018 MAUREEN DAS MD Ot I25.2 OLD MYOCARDIAL INFARCTION 03/22/2018 MAUREEN DAS MD Ot R07.81 PLEURODYNIA 03/22/2018 MAUREEN DAS MD Ot S23.41XA SPRAIN OF RIBS, INITIAL ENCOUNTER 03/22/2018 MAUREEN DAS MD Ot W01.0XXA FALL SAME LEV FROM SLIP/TRIP W/O STRIKE 03/22/2018 MAUREEN DAS MD Ot Z79.02 MCFP (CURRENT) USE OF ANTITHROMBOTI 03/22/2018 MAUREEN DAS MD Ot Z87.891 PERSONAL HISTORY OF NICOTINE DEPENDENCE 03/22/2018 MAUREEN DAS MD Ot Z95.1 PRESENCE OF AORTOCORONARY BYPASS GRAFT 05/17/2018 KERON PLAZA Ot 414.00 CORON ATHEROSCLER NOS TYPE VESSEL, NATIV 05/17/2018 KERON PLAZAP Ot 416.8 CHR PULMON HEART DIS NEC 05/17/2018 KERON PLAZA Ot 785.1 PALPITATIONS 05/17/2018 KERON PLAZA Ot 786.05 SHORTNESS OF BREATH 06/11/2018 PRO ALLAN DO Ot F03.90 UNSPECIFIED DEMENTIA WITHOUT BEHAVIORAL 08/19/2018 PRO ALLAN DO Ot F03.90 UNSPECIFIED DEMENTIA WITHOUT BEHAVIORAL 08/19/2018 PA ROJAS MD, Ot F03.90 UNSPECIFIED DEMENTIA WITHOUT BEHAVIORAL 08/19/2018 PA ROJAS MD, Ot I10 ESSENTIAL (PRIMARY) HYPERTENSION 08/19/2018 PA ROJAS MD, Ot I25.10 ATHSCL HEART DISEASE OF [place] CORONARY 08/19/2018 PA ROJAS MD, Ot I25.2 OLD MYOCARDIAL INFARCTION 08/19/2018 PA ROJAS MD, Ot R07.89 OTHER CHEST PAIN 08/19/2018 PA ROJAS MD, Ot Z79.02 [facility] (CURRENT) USE OF ANTITHROMBOTI 08/19/2018 PA ROJAS MD, Ot Z87.891 PERSONAL HISTORY OF NICOTINE DEPENDENCE 08/19/2018 PA ROJAS MD, Ot Z95.1 PRESENCE OF AORTOCORONARY BYPASS GRAFT 08/19/2018 PA ROJAS MD, Ot Z95.5 PRESENCE OF CORONARY ANGIOPLASTY IMPLANT Procedures There is no data. Results Test [...] protein measurement (mass/volume) 7.73 mg /dL 0.00-0.50 Complete blood count (CBC) with automated white blood cell (WBC) differential - 08/19/18 11:19 Blood leukocytes automated count (number/volume) 5.1 10*3/uL 4.3-11.0 Blood erythrocytes automated count (number/volume) 4.26 10*6/uL 4.35-5.85 Venous blood hemoglobin measurement (mass/volume) 13.2 g/dL 13.3-17.7 Blood hematocrit (volume fraction) 40 % 40-54 Automated erythrocyte mean corpuscular volume 94 [foz_us] 80-99 Automated erythrocyte mean corpuscular hemoglobin (mass per erythrocyte) 31 pg 25-34 Automated erythrocyte mean corpuscular hemoglobin concentration measurement ( mass/volume) 33 g/dL 32-36 Automated erythrocyte distribution width ratio 13.5 % 10.0-14.5 Automated blood platelet count (count/volume) 301 10*3/uL 130-400 Automated blood platelet mean volume measurement 9.6 [foz_us] 7.4-10.4 Automated blood neutrophils/100 leukocytes 72 % 42-75 Automated blood lymphocytes/100 leukocytes 19 % 12-44 Blood monocytes/100 leukocytes 7 % 0-12 Automated blood eosinophils/100 leukocytes 1 % 0-10 Automated blood basophils/100 leukocytes 1 % 0-10 Blood neutrophils automated count (number/volume) 3.7 10*3 1.8-7.8 Blood lymphocytes automated count (number/volume) 1.0 10*3 1.0-4.0 Blood monocytes automated count (number/volume) 0.4 10*3 0.0-1.0 Automated eosinophil count 0.1 10*3/uL 0.0-0.3 Automated blood basophil count (count/volume) 0.0 10*3/uL 0.0-0.1 PT panel in platelet poor plasma by coagulation assay - 08/19/18 11:19 Prothrombin time (PT) in platelet poor plasma by coagulation assay 13.8 s 12.2-14.7 INR in platelet poor plasma or blood by coagulation assay 1.1 0.8-1.4 Activated partial thromboplastin time (aPTT) in platelet poor plasma bycoagulation assay - 08/19/18 11:19 Activated partial thromboplastin time (aPTT) in platelet poor plasma bycoagulation assay 29 s 24-35 Fibrin D-dimer FEU measurement in platelet poor plasma (mass/volume) - 11:19 Fibrin D-dimer FEU measurement in platelet poor plasma (mass/volume) 1.44 ug/mL 0.00-0.49 Comprehensive metabolic panel - 08/19/18 11:19 Serum or plasma sodium measurement (moles/volume) 143 mmol/L 135-145 Serum or plasma potassium measurement (moles/volume) 3.9 mmol/L 3.6-5.0 Serum or plasma chloride measurement (moles/volume) 108 mmol/L 98-107 Carbon dioxide 24 mmol/L 21-32 Serum or plasma anion gap determination (moles/volume) 11 mmol/L 5-14 Serum or plasma urea nitrogen measurement (mass/volume) 13 mg/dL 7-18 Serum or plasma creatinine measurement (mass/volume) 1.05 mg/dL 0.60-1.30 Serum or plasma urea nitrogen/creatinine mass ratio 12 NRG Serum or plasma creatinine measurement with calculation of estimated glomerular filtration rate > NRG Serum or plasma glucose measurement (mass/volume) 109 mg/dL 70-105 Serum or plasma calcium measurement (mass/volume) 8.9 mg/dL 8.5-10.1 Serum or plasma total bilirubin measurement (mass/volume) 0.4 mg/dL 0.1-1.0 Serum or plasma alkaline phosphatase measurement (enzymatic activity/volume) 71 U/L 40-136 Serum or plasma aspartate aminotransferase measurement (enzymatic activity/ volume) 28 U/L 5-34 Serum or plasma alanine aminotransferase measurement (enzymatic activity/volume ) 24 U/L 0-55 Serum or plasma protein measurement (mass/volume) 6.7 g/dL 6.4-8.2 Serum or plasma albumin measurement (mass/volume) 3.7 g/dL 3.2-4.5 CALCIUM CORRECTED 9.1 mg/dL 8.5-10.1 Magnesium - 08/19/18 11:19 Magnesium 2.3 mg/dL 1.8-2.4 Serum or plasma troponin i.cardiac measurement (mass/volume) - 08/19/18 11:19 Serum or plasma troponin i.cardiac measurement (mass/volume) 0.039 ng/mL <0.028 Serum or plasma lithium measurement (moles/volume) - 08/19/18 11:19 BNP level 886.3 pg/mL <100.0 Myoglobin, serum - 08/19/18 11:19 Myoglobin, serum 67.4 ng/mL 10.0-92.0 Lipase - 08/19/18 11:19 Lipase 81 U/L 8-78 Encounters ACCT No. Visit Date/Time Discharge Status Pt. Type Provider Facility Loc./Unit Complaint [id number] 10/27/2011 15:51:00 10/27/2011 23:59:59 CLS Outpatient RHONA PETERSON MD [id number] 10/27/2011 15:51:00 10/27/2011 23:59:59 CLS Outpatient [id number] 08/19/2018 10:58:00 08/19/2018 15:06:00 DIS Emergency CRYSTAL YANCEY, PA Salazar [facility] ER CP/SOB [id number] 05/17/2018 13:40:00 05/17/2018 23:59:59 CLS Outpatient PRO ALLAN DO [facility] RAD DEMENTIA [id number] 03/20/2018 12:29:00 03/20/2018 14:16:00 DIS Emergency MAUREEN DAS MD [facility] ER FALL-LEFT RIB PAIN [id number] 01/29/2018 14:45:00 01/29/2018 17:00:00 DIS Emergency ESA MORRIS PROJECT INTERN [facility] ER LEFT THUMB INJURY [id number] 01/18/2018 10:49:00 01/18/2018 11:09:00 DIS Emergency SHANKAR KAUR MD [facility] ER STAPLE REMOVAL [id number] 01/14/2018 12:54:00 01/14/2018 13:57:00 DIS Emergency SHANKAR KAUR MD [facility] ER CUT RIGHT ELBOW ON GLASS THIS AM [id number] 11/28/2017 10:25:00 11/28/2017 19:50:00 DIS Emergency MARI DRAPER [facility] ER CP,ANKLES SWELLING [id number] 05/12/2017 12:20:00 05/12/2017 15:05:00 DIS Emergency ESA MORRIS PROJECT INTERN [facility] ER FALL/LEFT HIP PAIN [id number] 12/23/2014 19:13:00 12/23/2014 20:47:00 DIS Emergency ALBERTO YANCEY, CANDICE Tovar [facility] ER ALLERGIC REACTION WASP STING,FACIAL SWELLING [id number] 09/27/2013 10:36:00 09/27/2013 23:59:59 CLS Outpatient KERON PLAZA [facility] CARD CAD,PALPITATIONS, SOB [id number] 10/26/2018 00:51:00 ACT Emergency MAUREEN DAS MD [facility] ER FALL
[2018-10-26] MEDS ORDERED: THIAMINE INJECTION 100 MG, FOLIC ACID INJECTION 1 MG, VITAMIN MULTI INJECTION 10 ML, MA... IV STA ×5 (01:05)
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
[2018-10-26 01:16] LABS: BASOPHILS % (AUTO) 0 % (0-10); EOSINOPHILS % (AUTO) 1 % (0-10); HEMATOCRIT 38 % (40-54); LYMPHOCYTES # (AUTO) 0.9 X 10^3 (1.0-4.0); LYMPHOCYTES % (AUTO) 16 % (12-44); MEAN CORPUSCULAR HEMOGLOBIN 33 PG (25-34); MEAN CORPUSCULAR HGB CONC 35 G/DL (32-36); MEAN CORPUSCULAR VOLUME 95 FL (80-99); MEAN PLATELET VOLUME 9.7 FL (7.4-10.4); MONOCYTES # (AUTO) 0.5 X 10^3 (0.0-1.0); MONOCYTES % (AUTO) 10 % (0-12); NEUTROPHILS # (AUTO) 3.9 X 10^3 (1.8-7.8); NEUTROPHILS % (AUTO) 73 % (42-75); PLATELET COUNT 223 10^3/uL (130-400); RED CELL DISTRIBUTION WIDTH 13.6 % (10.0-14.5); WHITE BLOOD COUNT 5.4 10^3/uL (4.3-11.0)
[2018-10-26 01:31] LABS: ALANINE AMINOTRANSFERASE 17 U/L (0-55); ALBUMIN 3.5 GM/DL (3.2-4.5); ALKALINE PHOSPHATASE 66 U/L (40-136); BILIRUBIN,TOTAL 0.3 MG/DL (0.1-1.0); BUN/CREATININE RATIO 13; CALCIUM 8.5 MG/DL (8.5-10.1); CARBON DIOXIDE 19 MMOL/L (21-32); CHLORIDE 102 MMOL/L (98-107); CREATININE SERUM 0.82 MG/DL (0.60-1.30); GFR ESTIMATED > 60; GLUCOSE 112 MG/DL (70-105); MAGNESIUM 2.2 MG/DL (1.8-2.4); SODIUM 136 MMOL/L (135-145); TOTAL PROTEIN 6.8 GM/DL (6.4-8.2)
[2018-10-26] MEDS ORDERED: MAGNESIUM SULFATE 1 GM/2 ML VIAL ONE (01:35)
[2018-10-26] MEDS ORDERED: THIAMINE 100 MG/ML 2 ML (VITAMIN B-1) VIAL ONE (01:35)
[2018-10-26] MEDS ORDERED: VITAMIN MULTI- 12 INJECTION 10 ML VIAL IV ONE (01:36)
[2018-10-26] MEDS ORDERED: NS W/KCL 20 MEQ/L 1,000 ML IV ONE (01:40)
[2018-10-26] MEDS ORDERED: FOLIC ACID 1 MG TAB PO ONE (01:45)
[2018-10-26] MEDS ORDERED: ASPIRIN 81 MG CHEW (CHILDREN'S ASA) PO ONE (02:15)
[2018-10-26] MEDS ORDERED: THIAMINE 100 MG/ML 2 ML (VITAMIN B-1) VIAL IV ONE (02:30)
[2018-10-26 02:42] LABS: PROTHROMBIN TIME PATIENT 13.9 SEC (12.2-14.7)
--- NOTE | 2018-10-26 06:45 | Diagnostic Imaging Report ---
PROCEDURE: CT head and CT cervical spine without contrast. TECHNIQUE: Multiple contiguous axial images were obtained through the brain and cervical spine without the use of intravenous contrast. Sagittal and coronal reformations through the cervical spine were then performed. Auto Exposure Controls were utilized during the CT exam to meet ALARA standards for radiation dose reduction. INDICATION: Fall, head and neck injury. COMPARISON: 05/17/2018 FINDINGS: CT head: The ventricles and cortical sulci are diffusely prominent. There is no midline shift or significant mass effect. No acute intracranial hemorrhage is seen. There is no CT evidence of acute territorial ischemia. There appears to be mild encephalomalacia in the left occipital lobe which may be from old infarct. The calvarium appears intact. The visualized paranasal sinuses are clear. There is hardware noted at the right mandible. CT cervical spine: There is straightening of the cervical lordosis without significant spondylolisthesis. There are severe degenerative changes at C4-C5, C5-C6, C6-C7 and C7-T1. There is marked multilevel facet arthropathy. Vertebral body heights are preserved. No acute fracture is seen. There is bilateral foraminal stenosis at C3-C4, C4-C5, C5-C6, C6-C7 on the left. There is likely spinal canal stenosis at C4-C5, C5-C6, C6-C7 and C7-T1. There is calcific atherosclerosis. IMPRESSION: 1. No acute intracranial hemorrhage or calvarium fracture is seen. 2. Generalized parenchymal volume loss with findings of chronic microvascular disease. There may be old infarct in the left occipital region. 3. Severe multilevel degenerative changes in the cervical spine with multilevel spinal canal and foraminal stenosis. No acute fracture is seen. Dictated by: Dictated on workstation # [id number]
--- NOTE | 2018-10-26 06:52 | Diagnostic Imaging Report ---
INDICATION: Fall, pain in left knee. TECHNIQUE: 3 views of the left knee. COMPARISON: None FINDINGS: No acute fracture or dislocation is seen in the left knee. Alignment appears normal. There are tricompartmental degenerative changes present, which are most pronounced in the medial and patellofemoral compartments. Most significant left knee joint effusion is not seen, however the lateral view is suboptimal for evaluation. There is extensive calcific atherosclerosis. Multiple surgical clips are seen in the medial leg. 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 Dictated by: Dictated on workstation # [id number]
--- NOTE | 2018-10-26 06:53 | Diagnostic Imaging Report ---
INDICATION: Chest injury from a fall Portable chest 1:24 AM There are postop changes from a median sternotomy. Heart size and pulmonary vascularity is normal. Lungs are clear. There are no effusions or pneumothoraces. IMPRESSION: No acute abnormalities in the chest. Several of the wire sutures in the sternum are fractured. Dictated by: Dictated on workstation # [id number]
== END 2018-10-26 04:06 | disposition left against medical advice (07) ==
LOC: EDUNIT# 00:49 → ER 00:51
DX: S06.0X1A Concussion with loss of consciousness of 30 minutes or less, initial encounter (principal); R07.9 Chest pain, unspecified; R79.89 Other specified abnormal findings of blood chemistry; F10.10 Alcohol abuse, uncomplicated; I25.10 Atherosclerotic heart disease of native coronary artery without angina pectoris; I25.2 Old myocardial infarction; I10 Essential (primary) hypertension; Z79.82 Long term (current) use of aspirin; Z98.61 Coronary angioplasty status; Z87.891 Personal history of nicotine dependence; Z95.1 Presence of aortocoronary bypass graft; Z95.5 Presence of coronary angioplasty implant and graft; Z79.02 Long term (current) use of antithrombotics/antiplatelets; W18.39XA Other fall on same level, initial encounter
CPT/HCPCS: 36415; 70450; 71045; 72125; 73562; 80053; 80320; 83735; 84484; 85025; 85610; 85730; 93005

== ENCOUNTER 2019-01-14 09:50 | Emergency (ER) | payer MEDICARE, MEDICAID ==
[~2019-01-14] VITALS: Ht 162.6 cm; Wt 74.8 kg
[2019-01-14] MEDS ORDERED: LIDOCAINE 2% 20 ML (XYLOCAINE) VIAL INJ ONE (10:45)
--- NOTE | 2019-01-14 11:04 | Diagnostic Imaging Report ---
INDICATION: Left foot pain post injury. AP, oblique, and lateral views of left foot are obtained. FINDINGS: There appears to be advanced degenerative change of first MTP joint with hallux valgus deformity. There is focal irregularity and deformity of the distal aspect of the first proximal phalanx near the interphalangeal joint, suspicious for an acute fracture in this location. Correlate for point tenderness in this area. There is no other suspicious finding. There is plantar and posterior calcaneal spurring. 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 Focal deformity and irregularity in the distal aspect of the first proximal phalanx near the interphalangeal joint, suspicious for an acute fracture. Dictated by: Dictated on workstation # [id number]
--- NOTE | 2019-01-14 11:34 | NUR ---
PT AMBULATED TO NURSES STATION AND STATED THAT HE HAS BEEN HERE A WHILE AND WANTED TO KNOW WHAT WE WERE WAITING ON. AFTER COMMUNICATING THAT WE WERE WAITING FOR THE RESULTS OF HIS SCAN HE STATED IN 5 MINUTES HES LEAVING IF PHYSICIAN DOESNT COME INTO ROOM.
[2019-01-14] MEDS ORDERED: CEPH-507 PO (12:00)
--- NOTE | 2019-01-14 12:01 | ED General ---
General Chief Complaint: Lower Extremity Stated Complaint: ANKLE/FOOT PAIN Nursing Triage Note: TO ED PER W/C C/O PAIN IN L ANKLE FOR SEVERAL DAYS. REPORTS JUMPED OFF A PLATFORM SEVERAL DAYS AGO. . PAIN ONLY WHEN WALKING. Nursing Sepsis Screen: No Definite Risk Source of Information: Patient Exam Limitations: No Limitations History of Present Illness Date Seen by Provider: Jan 14, 2019 Time Seen by Provider: 10:21 Initial Comments This 73-year-old male patient presents to the emergency room with complaints of pain at the lateral aspect of the left MTP joint of the foot. He noticed the pain started couple days ago after jumping down off a platform. The area is inflamed with erythema and is tender to the touch. There is a discrete mass that feels fluid-filled, possibly a ganglion cyst in that area. Patient denies any fever. He thinks he may have had this problem once before in the same location. Allergies and Home Medications Allergies Coded Allergies: No Known Drug Allergies (Unverified , 12/23/14) Home Medications Amlodipine Besylate 5 Mg Tablet, 5 MG PO DAILY, (Reported) Cephalexin 500 Mg Capsule, 500 MG PO QID Prescribed by: CANDIEC WOODRUFF on 01/14/19 1200 Clopidogrel Bisulfate 75 Mg Tablet, 1 EACH PO DAILY, (Reported) Clopidogrel Bisulfate 75 Mg Tablet, 75 MG PO DAILY Prescribed by: MARI TABOR on 11/28/171931 Furosemide 40 Mg Tablet, 40 MG PO BID Prescribed by: MARI TABOR on 11/28/171931 Hctz/Lisinopril 1 Tab Tablet, 1 EACH PO DAILY, (Reported) Hydrocodone/Acetaminophen 1 Each Tablet, 1 EACH PO Q4H PRN for PAIN-MODERATE TO SEVERE Prescribed by: ESA MORRIS on 05/12/17 1413 Lisinopril 20 Mg Tab, 20 MG PO DAILY, (Reported) Magnesium Oxide 500 Mg Capsule, 500 MG PO BID Prescribed by: MARI TABOR on 11/28/171931 Metoprolol Succinate 100 Mg Tab.sr.24h, 1 EACH PO BID, (Reported) Metoprolol Tartrate 100 Mg Tablet, 100 MG PO BID Prescribed by: MRAI TABOR on 11/28/171931 Niacin 500 Mg Tablet.sa, 500 MG PO DAILY, (Reported) Nitroglycerin 0.4 Mg Tab.subl, 0.4 MG SL UD PRN for CHEST PAIN 1 tab SL q5 min prn chest pain (max 3 doses). Prescribed by: MARI TABOR on 11/28/171931 Potassium Chloride 20 Meq Tablet.er, 20 MEQ PO BID Prescribed by: MARI TABOR on 11/28/171931 Simvastatin 40 Mg Tablet, 40 MG PO DAILY, (Reported) Tamsulosin HCl 0.4 Mg Cap.er.24h, 0.4 MG PO DAILY Prescribed by: MARI TABOR on 11/28/171931 Patient Home Medication List Home Medication List Reviewed: Yes Review of Systems Review of Systems Constitutional: no symptoms reported EENTM: no symptoms reported Respiratory: no symptoms reported Cardiovascular: no symptoms reported Gastrointestinal: no symptoms reported Genitourinary: no symptoms reported Musculoskeletal: see HPI Skin: see HPI Psychiatric/Neurological: No Symptoms Reported Hematologic/Lymphatic: No Symptoms Reported Past Powgnnx-Psixvf-Wmyode Hx Patient Social History Alcohol Use: Occasionally Uses Number of Drinks Today: AA Alcohol Beverage of Choice: Beer Recreational Drug Use: No Smoking Status: Current Everyday Smoker Type Used: Cigarettes Former Smoker, Quit: Aug 29, 2000 2nd Hand Smoke Exposure: No Recent Foreign Travel: No Contact w/Someone Who Travel: No Recent Infectious Disease Expo: No Recent Hopitalizations: No Immunizations Up To Date Tetanus Booster (TDap): Unknown Seasonal Allergies Seasonal Allergies: No Past Medical History Surgeries: Yes (BYPASS X5, CAROTID ARTERY.) Cardiac, CABG, Coronary Stent, Vascular Surgery Respiratory: Yes (Chronic shortness of air) Cardiac: Yes Coronary Artery Disease, Heart Attack, Hypertension Neurological: No Reproductive Disorders: No Sexually Transmitted Disease: No HIV/AIDS: No Genitourinary: No Gastrointestinal: No Musculoskeletal: No Endocrine: No HEENT: No Cancer: No Psychosocial: No Integumentary: No Blood Disorders: No Adverse Reaction/Blood Tranf: No Family Medical History No Pertinent Family Hx Physical Exam Vital Signs Vital Signs - First Documented 01/14/19 10:13 Temp 98.0 Pulse 78 Resp 18 B/P (MAP) 127/91 (103) Pulse Ox 98 O2 Delivery Room Air Capillary Refill : Less Than 3 Seconds Height, Weight, BMI Height: 5'4.00" Weight: 165lbs. 0oz. 74.092658tr; 21.09 BMI Method:Stated General Appearance: No Apparent Distress, WD/WN HEENT: Normal ENT Inspection Extremity: Other (there is a subcentimeter discrete swelling over the medial aspect of the MTP joint of the left foot. 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 It could be a larger ganglion cyst versus a discrete abscess. I discussed options with the patient which included antibiotic therapy versus drainage. Patient initially thought he wanted to do drainage but then he decided he did not want to wait. Keflex was prescribed and he was advised to follow-up with a primary care provider or an orthopedic surgeon. X-ray of the foot showed no traumatic injuries at the location in question. The IP deformity described on the x-ray did not correlate with an area of complaint or tenderness on exam. By my assessment I believe it is most likely patient has an irritated ganglion cyst that is rubbing on his shoes with possible overlying cellulitis. Diagnostic Imaging Diagonstic Imaging: Xray Plain Films/CT/US/NM/MRI: other (left foot) Comments Foot x-ray viewed by me and report reviewed. See report below: NAME: CARLOS ADDISON [facility] REC#: [id number] PT STATUS: DEP ER : 1945 PHYSICIAN: CANDICE DOMINGUEZ MD ADMIT DATE: 01/14/19/ER Signed Date of Exam: 01/14/19 FOOT, LEFT, 3 VIEWS INDICATION: Left foot pain post injury. AP, oblique, and lateral views of left foot are obtained. FINDINGS: There appears to be advanced degenerative change of first MTP joint with hallux valgus deformity. There is focal irregularity and deformity of the distal aspect of the first proximal phalanx near the interphalangeal joint, suspicious for an acute fracture in this location. Correlate for point tenderness in this area. There is no other suspicious finding. There is plantar and posterior calcaneal spurring. 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 Focal deformity and irregularity in the distal aspect of the first proximal phalanx near the interphalangeal joint, suspicious for an acute fracture. Dictated by: Dictated on workstation # [id number] Dict: 01/14/19 1057 Trans: 01/14/19 1315 Interpreted by: DENA CHICAS MD Electronically signed by: DENA CHICAS MD 01/14/19 1315 Departure Impression Primary Impression: Bone cyst of left foot Additional Impression: Cellulitis Qualified Codes: L03.116 - Cellulitis of left lower limb Disposition: HOME, SELF-CARE Condition: Stable Departure-Patient Inst. Decision time for Depature: 11:56 Referrals: PRO ALLAN DO (PCP/Family) Primary Care Physician Patient Instructions: Cellulitis and Erysipelas (Skin Infections), Ganglion Cyst Add. Discharge Instructions: Complete your antibiotics as prescribed. Follow-up with a primary care provider as soon as possible. Return to emergency room if you have worsening symptoms. Elevate your foot toward the level of your heart is much as possible. Avoid footwear that rubs on the cyst elevation. All discharge instructions reviewed with patient and/or family. Voiced understanding. Scripts Cephalexin (Keflex) 500 Mg Capsule 500 MG PO QID, #28 CAP Prov: CANDICE DOMINGUEZ MD 01/14/19 CANDICE DOMINGUEZ MD Jan 14, 2019 12:01
[2019-01-14 12:05] VITALS: BP 127/91
--- OUTSIDE RECORDS SUMMARY | 2019-01-15 00:57 | XMS REPORT ---
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 Name Role Phone Migration, Doctor Unavailable Unavailable PROBLEMS Type Condition ICD9-CM Code JJS31-ON Code Onset Dates Condition Status SNOMED Code Problem Coronary atherosclerosis of unspecified type of vessel, [place] or graft 414.00 Active 356771659 Problem Unspecified essential hypertension 401.9 Active 39553396 Problem Other dyspnea and respiratory abnormalities 786.09 Active 828462005 Problem Occlusion and stenosis of carotid artery without mention of cerebral infarction 433.10 Active [id number] ALLERGIES No Information ENCOUNTERS Encounter Location Date Diagnosis [facility] [id number] [place] [phone] Sep, Paronychia of right thumb L03.011 [facility] [id number] [place] [phone] Oct, [facility] [id number] [place] [phone] Oct, [id number] [place] [id number] Sep, [id number] [place] [id number] Jun, [facility] [id number] [place] [phone] Jun, [id number] [place] [id number] May, [facility] [address] [id number] May, [facility] [id number] [place] [phone] May, [facility] [address] [address] May, [facility] [address] [id number] [place] [id number] May, [facility] [address] [facility] [id number] [place] [phone] May, [facility] [address] [id number] [place] [id number] Feb, [facility] [address] [id number] [place] [id number] Jan, [facility] [address] [facility] [id number], [place] [address] November, [facility] [address] [id number] [place] [id number] Oct, [facility] [address] [id number] [place] [id number] Oct, [facility] [address] [id number] [place] [id number] Oct, [facility] [address] [id number] [place] [id number] Oct, [facility] [address] [id number] [place] [id number] Oct, [facility] [address] [id number] [place] [id number] Sep, [facility] [address] [id number] [place] [id number] Sep, [facility] [address] [id number] [place] [id number] Sep, [facility] [address] [id number] [place] [id number] Sep, [facility] [address] [id number] [place] [id number] Jul, [facility] [address] [facility] [id number], [place] [address] Jun, [facility] [address] [facility] [id number], [place] [address] Mar, [facility] [address] [id number] [address] 15 Apr, 2010 [facility] [address] [id number] [address] 13 Mar, 2010 [facility] [address] [id number], [place] [address] 04 Jun, 2009 [facility] [address] [id number], [place] [address] Apr, [facility] [address] [place] [address] Apr, [facility] [address] [id number], [place] [address] Oct, [facility] [address] [id number], [place] [address] 22 Apr, 2008 IMMUNIZATIONS No Known Immunizations SOCIAL HISTORY Never Assessed REASON FOR VISIT [facility] PLAN OF CARE VITAL SIGNS MEDICATIONS No Known Medications RESULTS No Results PROCEDURES No Known procedures INSTRUCTIONS MEDICATIONS ADMINISTERED No Known Medications MEDICAL (GENERAL) HISTORY Type Description Date Medical History by pass Surgical History Pt states that he has five by pass surgeries Hospitalization History Surgeries
--- OUTSIDE RECORDS SUMMARY | 2019-01-15 00:58 | XMS REPORT | Continuity of Care Document ---
Author Organization Unknown Address Unknown Allergies Active Description Code Type Severity Reaction Onset Reported/Identified Relationship to Patient Clinical Status Yes No Known Drug Allergies [id number] Drug Allergy Unknown N/A 12/23/2014 Medications There [...] APRN Ot I25.10 ATHSCL HEART DISEASE OF [place] CORONARY 05/12/2017 ESA MORRIS APRN Ot I25.2 OLD MYOCARDIAL INFARCTION 05/12/2017 ESA MORRIS APRN Ot M16.12 UNILATERAL PRIMARY OSTEOARTHRITIS, LEFT 05/12/2017 MORRIS, PETER J SALES COACH Ot M25.552 PAIN IN LEFT HIP 05/12/2017 ESA MORIRS APRN Ot Z79.02 NIGHT SUPERVISOR (CURRENT) USE OF ANTITHROMBOTI 05/12/2017 ESA MORRIS APRN Ot Z79.82 NIGHT SUPERVISOR (CURRENT) USE OF ASPIRIN 05/12/2017 ESA MORRIS APRN Ot Z95.1 PRESENCE OF AORTOCORONARY BYPASS GRAFT 05/15/2017 ESA MORRIS APRN Ot I10 ESSENTIAL (PRIMARY) HYPERTENSION 05/15/2017 ESA MORRIS APRN Ot I25.10 ATHSCL HEART DISEASE OF [place] CORONARY 05/15/2017 ESA MORRIS APRN Ot I25.2 OLD MYOCARDIAL INFARCTION 05/15/2017 ESA MORRIS APRN Ot M16.12 UNILATERAL PRIMARY OSTEOARTHRITIS, LEFT 05/15/2017 ESA MORRIS APRN Ot M25.552 PAIN IN LEFT HIP 05/15/2017 ESA MORRIS APRN Ot Z79.02 NIGHT SUPERVISOR (CURRENT) USE OF ANTITHROMBOTI 05/15/2017 ESA MORRIS APRN Ot Z79.82 NIGHT SUPERVISOR (CURRENT) USE OF ASPIRIN 05/15/2017 ESA MORRIS APRN Ot Z95.1 PRESENCE OF AORTOCORONARY BYPASS GRAFT 11/28/2017 KERON PLAZA CREATIVE ART DIRECTOR Ot 414.00 CORON ATHEROSCLER NOS TYPE VESSEL, NATIV 11/28/2017 KERON PLAZA CREATIVE ART DIRECTOR Ot 416.8 CHR PULMON HEART DIS NEC 11/28/2017 KERON PLAZA CREATIVE ART DIRECTOR Ot 785.1 PALPITATIONS 11/28/2017 KERON PLAZA CREATIVE ART DIRECTOR Ot 786.05 SHORTNESS OF BREATH 11/28/2017 MARI DRAPER Ot E83.42 HYPOMAGNESEMIA 11/28/2017 MARI DRAPER Ot F10.20 ALCOHOL DEPENDENCE, UNCOMPLICATED 11/28/2017 MARI DRAPER Ot F32.9 MAJOR DEPRESSIVE DISORDER, SINGLE EPISOD 11/28/2017 MARI DRAPER Ot I11.0 HYPERTENSIVE HEART DISEASE WITH HEART FA 11/28/2017 MARI DRAPER Ot I25.10 ATHSCL HEART DISEASE OF [place] CORONARY 11/28/2017 MARI DRAPER Ot I25.2 OLD MYOCARDIAL INFARCTION 11/28/2017 MARI DRAPER Ot I48.91 UNSPECIFIED ATRIAL FIBRILLATION 11/28/2017 MARI DRAPER Ot I50.9 HEART FAILURE, UNSPECIFIED 11/28/2017 MARI DRAPER Ot R06.02 SHORTNESS OF BREATH 11/28/2017 MARI DRAPER Ot Z79.02 NIGHT SUPERVISOR (CURRENT) USE OF ANTITHROMBOTI 11/28/2017 MARI DRAPER [...] DRAPER Ot I25.10 ATHSCL HEART DISEASE OF [place] CORONARY 11/30/2017 MARI DRAPER Ot I25.2 OLD MYOCARDIAL INFARCTION 11/30/2017 MARI DRAPER Ot I48.91 UNSPECIFIED ATRIAL FIBRILLATION 11/30/2017 MARI DRAPER Ot I50.9 HEART FAILURE, UNSPECIFIED 11/30/2017 MARI DRAPER Ot R06.02 SHORTNESS OF BREATH 11/30/2017 MARI DRAPER Ot Z79.02 NURSING HOME (CURRENT) USE OF ANTITHROMBOTI 11/30/2017 MARI DRAPER Ot Z87.891 PERSONAL HISTORY OF NICOTINE DEPENDENCE 11/30/2017 MARI DRAPER Ot Z95.1 PRESENCE OF AORTOCORONARY BYPASS GRAFT 01/14/2018 SHANKAR KAUR MD Ot I10 ESSENTIAL (PRIMARY) HYPERTENSION 01/14/2018 SHANKAR KAUR MD Ot I25.10 ATHSCL HEART DISEASE OF [place] CORONARY 01/14/2018 SHANKAR KAUR MD Ot I25.2 OLD MYOCARDIAL INFARCTION 01/14/2018 SHANKAR KAUR MD Ot S51.011A LACERATION WITHOUT FOREIGN BODY OF RIGHT 01/14/2018 SHANKAR KAUR MD Ot W26.8XXA CONTACT WITH OTHER SHARP OBJECT(S), NEC, 01/14/2018 SHANKAR KAUR MD Ot Z79.02 NIGHT SUPERVISOR (CURRENT) USE OF ANTITHROMBOTI 01/14/2018 SHANKAR KAUR MD Ot Z91.5 PERSONAL HISTORY OF SELF-HARM 01/16/2018 SHANKAR KAUR MD Ot I10 ESSENTIAL (PRIMARY) HYPERTENSION 01/16/2018 SHANKAR KAUR MD Ot I25.10 ATHSCL HEART DISEASE OF [place] CORONARY 01/16/2018 SHANKAR KAUR MD Ot I25.2 OLD MYOCARDIAL INFARCTION 01/16/2018 SHANKAR KAUR MD Ot S51.011A LACERATION WITHOUT FOREIGN BODY OF RIGHT 01/16/2018 SHANKAR KAUR MD Ot W26.8XXA CONTACT WITH OTHER SHARP OBJECT(S), NEC, 01/16/2018 SHANKAR KAUR MD Ot Z79.02 NURSING HOME (CURRENT) USE OF ANTITHROMBOTI 01/16/2018 SHANKAR KAUR MD Ot Z91.5 PERSONAL HISTORY OF SELF-HARM 01/16/2018 SHANKAR KAUR MD Ot I10 ESSENTIAL (PRIMARY) HYPERTENSION 01/16/2018 SHANKAR KAUR MD Ot I25.10 ATHSCL HEART DISEASE OF [place] CORONARY 01/16/2018 SHANKAR KAUR MD Ot I25.2 OLD MYOCARDIAL INFARCTION 01/16/2018 SHANKAR KAUR MD Ot S51.011A LACERATION WITHOUT FOREIGN BODY OF RIGHT 01/16/2018 SHANKAR KAUR MD Ot W26.8XXA CONTACT WITH OTHER SHARP OBJECT(S), NEC, 01/16/2018 SHANKAR KAUR MD Ot Z79.02 NURSING HOME (CURRENT) USE OF ANTITHROMBOTI 01/16/2018 SHANKAR KAUR MD Ot Z91.5 PERSONAL HISTORY OF SELF-HARM 01/18/2018 KERON PLAZAP Ot 414.00 CORON ATHEROSCLER NOS TYPE VESSEL, NATIV 01/18/2018 KERON PLAZA CREATIVE ART DIRECTOR Ot 416.8 CHR PULMON HEART DIS NEC 01/18/2018 KERON PLAZA CREATIVE ART DIRECTOR Ot 785.1 PALPITATIONS 01/18/2018 PLAZAKERON PERRY Long CREATIVE ART DIRECTOR Ot 786.05 SHORTNESS OF BREATH 01/18/2018 SHANKAR [...] APRN Ot I25.10 ATHSCL HEART DISEASE OF [place] CORONARY 01/29/2018 ESA MORRIS APRN Ot I25.2 [...] APRN Ot I25.10 ATHSCL HEART DISEASE OF [place] CORONARY 01/31/2018 ESA MORRIS APRN Ot I25.2 OLD MYOCARDIAL INFARCTION 01/31/2018 ESA MORRIS APRN Ot I89.1 LYMPHANGITIS 01/31/2018 ESA MORRIS SALES COACH Ot L03.113 CELLULITIS OF RIGHT UPPER LIMB 01/31/2018 ESA MORRIS APRN Ot M79.642 PAIN IN LEFT HAND 01/31/2018 ESA MORRIS APRN Ot Z95.1 PRESENCE OF AORTOCORONARY BYPASS GRAFT 03/20/2018 MAUREEN DAS MD Ot I10 ESSENTIAL (PRIMARY) HYPERTENSION 03/20/2018 MAUREEN DAS MD Ot I25.10 ATHSCL HEART DISEASE OF [place] CORONARY 03/20/2018 MAUREEN DAS MD Ot I25.2 OLD MYOCARDIAL INFARCTION 03/20/2018 MAUREEN DAS MD Ot R07.81 PLEURODYNIA 03/20/2018 MAUREEN DAS MD Ot S23.41XA SPRAIN OF RIBS, INITIAL ENCOUNTER 03/20/2018 MAUREEN DAS MD Ot W01.0XXA FALL SAME LEV FROM SLIP/TRIP W/O STRIKE 03/20/2018 MAUREEN DAS MD Ot Z79.02 NIGHT SUPERVISOR (CURRENT) USE OF ANTITHROMBOTI 03/20/2018 MAUREEN DAS MD Ot Z87.891 PERSONAL HISTORY OF NICOTINE DEPENDENCE 03/20/2018 MAUREEN DAS MD Ot Z95.1 PRESENCE OF AORTOCORONARY BYPASS GRAFT 03/22/2018 MAUREEN DAS MD Ot I10 ESSENTIAL (PRIMARY) HYPERTENSION 03/22/2018 MAUREEN DAS MD Ot I25.10 ATHSCL HEART DISEASE OF [place] CORONARY 03/22/2018 MAUREEN DAS MD Ot I25.2 OLD MYOCARDIAL INFARCTION 03/22/2018 MAUREEN DAS MD Ot R07.81 PLEURODYNIA 03/22/2018 MAUREEN DAS MD Ot S23.41XA SPRAIN OF RIBS, INITIAL ENCOUNTER 03/22/2018 MAUREEN DAS MD Ot W01.0XXA FALL SAME LEV FROM SLIP/TRIP W/O STRIKE 03/22/2018 MAUREEN DAS MD Ot Z79.02 NIGHT SUPERVISOR (CURRENT) USE OF ANTITHROMBOTI 03/22/2018 MAUREEN DAS [...] UNSPECIFIED DEMENTIA WITHOUT BEHAVIORAL 08/19/2018 PA ROJAS MD Ot F03.90 UNSPECIFIED DEMENTIA WITHOUT BEHAVIORAL 08/19/2018 PA ROJAS MD Ot I10 ESSENTIAL (PRIMARY) HYPERTENSION 08/19/2018 PA ROJAS MD Ot I25.10 ATHSCL HEART DISEASE OF [place] CORONARY 08/19/2018 PA ROJAS MD Ot I25.2 OLD MYOCARDIAL INFARCTION 08/19/2018 PA ROJAS MD Ot R07.89 OTHER CHEST PAIN 08/19/2018 PA ROJAS MD Ot Z79.02 NIGHT SUPERVISOR (CURRENT) USE OF ANTITHROMBOTI 08/19/2018 PA ROJAS MD, Ot Z87.891 PERSONAL HISTORY OF NICOTINE DEPENDENCE 08/19/2018 PA ROJAS MD Ot Z95.1 PRESENCE OF AORTOCORONARY BYPASS GRAFT 08/19/2018 PA ROJAS MD Ot Z95.5 PRESENCE OF CORONARY ANGIOPLASTY IMPLANT 10/26/2018 KERON PLAZA CREATIVE ART DIRECTOR Ot 414.00 CORON ATHEROSCLER NOS TYPE VESSEL, NATIV 10/26/2018 KERON PLAZA CREATIVE ART DIRECTOR Ot 416.8 CHR PULMON HEART DIS NEC 10/26/2018 KERON PLAZA CREATIVE ART DIRECTOR Ot 785.1 PALPITATIONS 10/26/2018 KERON PLAZA CREATIVE ART DIRECTOR Ot 786.05 SHORTNESS OF BREATH 10/26/2018 PRO ALLAN DO Ot F03.90 UNSPECIFIED DEMENTIA WITHOUT BEHAVIORAL 10/26/2018 MAUREEN DAS MD Ot F10.10 ALCOHOL ABUSE, UNCOMPLICATED 10/26/2018 MAUREEN DAS MD Ot I10 ESSENTIAL (PRIMARY) HYPERTENSION 10/26/2018 MAUREEN DAS MD Ot I25.10 ATHSCL HEART DISEASE OF [place] CORONARY 10/26/2018 MAUREEN DAS MD Ot I25.2 OLD MYOCARDIAL INFARCTION 10/26/2018 MAUREEN DAS MD Ot R07.9 CHEST PAIN, UNSPECIFIED 10/26/2018 MAUREEN DAS MD Ot R51 HEADACHE 10/26/2018 MAUREEN DAS MD Ot R79.89 OTHER SPECIFIED ABNORMAL FINDINGS OF BLO 10/26/2018 MAUREEN DAS MD Ot S06.0X1A CONCUSSION W LOC OF 30 MINUTES OR LESS, 10/26/2018 MAUREEN DAS MD Ot W18.39XA OTHER FALL ON SAME LEVEL, INITIAL ENCOUN 10/26/2018 MAUREEN DAS MD Ot Z79.02 NURSING HOME (CURRENT) USE OF ANTITHROMBOTI 10/26/2018 MAUREEN DAS MD Ot Z79.82 NURSING HOME (CURRENT) USE OF ASPIRIN 10/26/2018 MAUREEN DAS MD Ot Z87.891 PERSONAL HISTORY OF NICOTINE DEPENDENCE 10/26/2018 MAUREEN DAS MD Ot Z95.1 PRESENCE OF AORTOCORONARY BYPASS GRAFT 10/26/2018 MAUREEN DAS MD Ot Z95.5 PRESENCE OF CORONARY ANGIOPLASTY IMPLANT 10/26/2018 MAUREEN DAS MD Ot Z98.61 CORONARY ANGIOPLASTY STATUS 10/29/2018 MAUREEN DAS MD Ot F10.10 ALCOHOL ABUSE, UNCOMPLICATED 10/29/2018 MAUREEN DAS MD Ot I10 ESSENTIAL (PRIMARY) HYPERTENSION 10/29/2018 MAUREEN DAS MD Ot I25.10 ATHSCL HEART DISEASE OF [place] CORONARY 10/29/2018 MAUREEN DAS MD Ot I25.2 OLD MYOCARDIAL INFARCTION 10/29/2018 MAUREEN DAS MD Ot R07.9 CHEST PAIN, UNSPECIFIED 10/29/2018 MAUREEN DAS MD Ot R51 HEADACHE 10/29/2018 MAUREEN DAS MD Ot R79.89 OTHER SPECIFIED ABNORMAL FINDINGS OF BLO 10/29/2018 MAUREEN DAS MD Ot S06.0X1A CONCUSSION W LOC OF 30 MINUTES OR LESS, 10/29/2018 MAUREEN DAS MD Ot W18.39XA OTHER FALL ON SAME LEVEL, INITIAL ENCOUN 10/29/2018 MAUREEN DAS MD Ot Z79.02 NURSING HOME (CURRENT) USE OF ANTITHROMBOTI 10/29/2018 MAUREEN DAS MD Ot Z79.82 NIGHT SUPERVISOR (CURRENT) USE OF ASPIRIN 10/29/2018 MAUREEN DAS MD Ot Z87.891 PERSONAL HISTORY OF NICOTINE DEPENDENCE 10/29/2018 MAUREEN DAS MD Ot Z95.1 PRESENCE OF AORTOCORONARY BYPASS GRAFT 10/29/2018 MAUREEN DAS MD Ot Z95.5 PRESENCE OF CORONARY ANGIOPLASTY IMPLANT 10/29/2018 MAUREEN DAS MD, Ot Z98.61 CORONARY ANGIOPLASTY STATUS 11/01/2018 BIBIANA YANCEY, Long HECTOR Ot I65.23 OCCLUSION AND STENOSIS OF [place]ILATERAL [place] 11/01/2018 Long MCCARTY MD, Ot I65.23 OCCLUSION AND STENOSIS OF [place]AL [place] 11/01/2018 Long MCCARTY MD, Ot I65.23 OCCLUSION AND STENOSIS OF [place] Procedures There is no data. Results Test [...] Automated erythrocyte mean corpuscular hemoglobin concentration measurement (mass/volume) 34 g/dL 32-36 Automated erythrocyte distribution width ratio 13.0 % 10.0- 14.5 Automated blood platelet count (count/volume) 294 10*3/uL [...] Blood monocytes automated count (number/volume) 1.0 10*3 0.0- 1.0 Automated eosinophil count 0.0 10*3/uL 0.0-0.3 Automated [...] Serum or plasma aspartate aminotransferase measurement (enzymatic activity/volume) 28 U/L 5-34 Serum or plasma alanine aminotransferase measurement (enzymatic activity/volume) 16 U/L 0-55 Serum or plasma protein [...] Automated erythrocyte mean corpuscular hemoglobin concentration measurement (mass/volume) 33 g/dL 32-36 Automated erythrocyte distribution width ratio 13.7 % 10.0- 14.5 Automated blood platelet count (count/volume) 220 10*3/uL [...] Blood monocytes automated count (number/volume) 0.6 10*3 0.0- 1.0 Automated eosinophil count 0.0 10*3/uL 0.0-0.3 Automated [...] measurement in platelet poor plasma (mass/volume) - 11/28/17 11:57 Fibrin D-dimer FEU measurement in platelet [...] Serum or plasma aspartate aminotransferase measurement (enzymatic activity/volume) 34 U/L 5-34 Serum or plasma alanine aminotransferase measurement (enzymatic activity/volume) 22 U/L 0-55 Serum or plasma protein measurement (mass/volume) 6.1 g/dL 6.4-8.2 Serum or plasma albumin measurement (mass/volume) 3.6 g/dL 3.2-4.5 Magnesium - 11/28/17 11:57 Magnesium 1.6 mg/dL 1.8-2.4 Serum or plasma creatine kinase measurement (enzymatic activity/volume) - 11/28/17 11:57 Serum or plasma creatine kinase measurement (enzymatic activity/volume) 104 U/L 30-200 Serum or plasma creatine kinase MB measurement (enzymatic activity/volume) - 11/28/17 11:57 Serum or plasma creatine kinase MB measurement (enzymatic activity/volume) 3.1 ng/mL <6.6 Serum or plasma troponin i.cardiac measurement (mass/volume) - 11/28/17 11:57 Serum or plasma troponin i.cardiac measurement (mass/volume) < ng/mL <0.30 Serum or plasma lithium measurement (moles/volume) - 11/28/17 11:57 BNP level 1247.3 pg/mL <100.0 Myoglobin, serum - 11/28/17 11:57 Myoglobin, serum 58.1 ng/mL 10.0-92.0 Serum or plasma thyrotropin measurement by detection limit <=0.05 miu/l (units/volume) - 11/28/17 11:57 Serum or plasma thyrotropin measurement by detection limit <=0.05 miu/l (units/volume) 1.13 u[iU]/mL 0.35-4.94 Serum or plasma ethanol measurement (mass/volume) - 11/28/17 11:57 Serum or plasma ethanol measurement (mass/volume) < mg/dL <10 Complete urinalysis with reflex to culture - 11/28/17 14:30 Urine color determination YELLOW NRG Urine clarity determination CLEAR NRG Urine pH measurement by test strip 6.5 5-9 Specific gravity of urine by test strip 1.010 1.016-1.022 Urine protein assay by test strip, semi-quantitative [...] sediment leukocyte count by microscopy (number/high power field) NONE NRG Bacteria detection in urine sediment [...] or plasma troponin i.cardiac measurement (mass/volume) < ng/mL <0.30 Complete blood count (CBC) with automated [...] Automated erythrocyte mean corpuscular hemoglobin concentration measurement (mass/volume) 34 g/dL 32-36 Automated erythrocyte distribution width ratio 13.4 % 10.0- 14.5 Automated blood platelet count (count/volume) 235 10*3/uL [...] Blood monocytes automated count (number/volume) 0.9 10*3 0.0- 1.0 Automated eosinophil count 0.0 10*3/uL 0.0-0.3 Automated [...] plasma C reactive protein measurement (mass/volume) 7.73 mg/dL 0.00-0.50 Complete blood count (CBC) with automated [...] Automated erythrocyte mean corpuscular hemoglobin concentration measurement (mass/volume) 33 g/dL 32-36 Automated erythrocyte distribution width ratio 13.5 % 10.0- 14.5 Automated blood platelet count (count/volume) 301 10*3/uL [...] Blood monocytes automated count (number/volume) 0.4 10*3 0.0- 1.0 Automated eosinophil count 0.1 10*3/uL 0.0-0.3 Automated [...] measurement in platelet poor plasma (mass/volume) - 08/19/18 11:19 Fibrin D-dimer FEU measurement in platelet [...] Serum or plasma aspartate aminotransferase measurement (enzymatic activity/volume) 28 U/L 5-34 Serum or plasma alanine aminotransferase measurement (enzymatic activity/volume) 24 U/L 0-55 Serum or plasma protein [...] - 08/19/18 11:19 Lipase 81 U/L 8-78 Comprehensive metabolic panel - 10/26/18 01:00 Serum or plasma sodium measurement (moles/volume) 136 mmol/L 135-145 Serum or plasma potassium measurement (moles/volume) 4.0 mmol/L 3.6-5.0 Serum or plasma chloride measurement (moles/volume) 102 mmol/L 98-107 Carbon dioxide 19 mmol/L 21-32 Serum or plasma anion gap determination (moles/volume) 15 mmol/L 5-14 Serum or plasma urea nitrogen measurement (mass/volume) 11 mg/dL 7-18 Serum or plasma creatinine measurement (mass/volume) 0.82 mg/dL 0.60-1.30 Serum or plasma urea nitrogen/creatinine mass ratio 13 NRG Serum or plasma creatinine measurement with calculation of estimated glomerular filtration rate > NRG Serum or plasma glucose measurement (mass/volume) 112 mg/dL 70-105 Serum or plasma calcium measurement (mass/volume) 8.5 mg/dL 8.5-10.1 Serum or plasma total bilirubin measurement (mass/volume) 0.3 mg/dL 0.1-1.0 Serum or plasma alkaline phosphatase measurement (enzymatic activity/volume) 66 U/L 40-136 Serum or plasma aspartate aminotransferase measurement (enzymatic activity/volume) 31 U/L 5-34 Serum or plasma alanine aminotransferase measurement (enzymatic activity/volume) 17 U/L 0-55 Serum or plasma protein measurement (mass/volume) 6.8 g/dL 6.4-8.2 Serum or plasma albumin measurement (mass/volume) 3.5 g/dL 3.2-4.5 CALCIUM CORRECTED 8.9 mg/dL 8.5-10.1 Magnesium - 10/26/18 01:00 Magnesium 2.2 mg/dL 1.8-2.4 Complete blood count (CBC) with automated white blood cell (WBC) differential - 10/26/18 01:00 Blood leukocytes automated count (number/volume) 5.4 10*3/uL 4.3-11.0 Blood erythrocytes automated count (number/volume) 3.99 10*6/uL 4.35-5.85 Venous blood hemoglobin measurement (mass/volume) 13.0 g/dL 13.3-17.7 Blood hematocrit (volume fraction) 38 % 40-54 Automated erythrocyte mean corpuscular volume 95 [foz_us] 80-99 Automated erythrocyte mean corpuscular hemoglobin (mass per erythrocyte) 33 pg 25-34 Automated erythrocyte mean corpuscular hemoglobin concentration measurement (mass/volume) 35 g/dL 32-36 Automated erythrocyte distribution width ratio 13.6 % 10.0- 14.5 Automated blood platelet count (count/volume) 223 10*3/uL 130-400 Automated blood platelet mean volume measurement 9.7 [foz_us] 7.4-10.4 Automated blood neutrophils/100 leukocytes 73 % 42-75 Automated blood lymphocytes/100 leukocytes 16 % 12-44 Blood monocytes/100 leukocytes 10 % 0-12 Automated blood eosinophils/100 leukocytes 1 % 0-10 Automated blood basophils/100 leukocytes 0 % 0-10 Blood neutrophils automated count (number/volume) 3.9 10*3 1.8-7.8 Blood lymphocytes automated count (number/volume) 0.9 10*3 1.0-4.0 Blood monocytes automated count (number/volume) 0.5 10*3 0.0- 1.0 Automated eosinophil count 0.0 10*3/uL 0.0-0.3 Automated blood basophil count (count/volume) 0.0 10*3/uL 0.0-0.1 Serum or plasma ethanol measurement (mass/volume) - 10/26/18 01:00 Serum or plasma ethanol measurement (mass/volume) < mg/dL <10 Serum or plasma troponin i.cardiac measurement (mass/volume) - 10/26/18 01:00 Serum or plasma troponin i.cardiac measurement (mass/volume) 0.049 ng/mL <0.028 PT panel in platelet poor plasma by coagulation assay - 10/26/18 02:23 Prothrombin time (PT) in platelet poor plasma by coagulation assay 13.9 s 12.2-14.7 INR in platelet poor plasma or blood by coagulation assay 1.0 0.8-1.4 Activated partial thromboplastin time (aPTT) in platelet poor plasma bycoagulation assay - 10/26/18 02:23 Activated partial thromboplastin time (aPTT) in platelet poor plasma bycoagulation assay 27 s 24-35 Serum or plasma troponin i.cardiac measurement (mass/volume) - 10/26/18 03:04 Serum or plasma troponin i.cardiac measurement (mass/volume) 0.273 ng/mL <0.028 Encounters ACCT No. Visit Date/Time Discharge Status Pt. Type Provider Facility Loc./Unit Complaint [id number] 10/27/2011 15:51:00 10/27/2011 23:59:59 CLS Outpatient RHONA PETERSON MD [id number] 10/27/2011 15:51:00 10/27/2011 23:59:59 CLS Outpatient [id number] 01/14/2019 09:51:00 01/14/2019 12:05:00 DIS Emergency CANDICE DOMINGUEZ MD [facility] ER ANKLE/FOOT PAIN [id number] 11/01/2018 07:53:00 11/01/2018 23:59:59 CLS Preadmit Long MCCARTY MD [facility] CARD SOB,CAD,HTN,CAROTID ARTERY ARTERY STENOSIS [id number] 11/01/2018 07:45:00 11/01/2018 23:59:59 CLS Long Spence MD [facility] CARD PALPITATIONS [id number] 11/01/2018 07:40:00 11/01/2018 23:59:59 CLS Preadmit BIBIANA YANCEY, Long HECTOR [facility] CARD CAD,HTN,SOB,PALPITATIONS [id number] 11/01/2018 07:38:00 11/01/2018 23:59:59 CLS Preadmit Long MCCARTY MD [facility] RAD CAROTID ARTERY STENOSIS [id number] 10/26/2018 00:51:00 10/26/2018 04:06:00 DIS Emergency MAUREEN DAS MD [facility] ER FALL [id number] 08/19/2018 10:58:00 08/19/2018 15:06:00 DIS Emergency PA ROJAS MD [facility] ER CP/SOB [id number] 05/17/2018 13:40:00 05/17/2018 23:59:59 CLS Outpatient PRO ALLAN DO [facility] RAD DEMENTIA [id number] 03/20/2018 12:29:00 03/20/2018 14:16:00 DIS Emergency MAUREEN DAS MD [facility] ER FALL-LEFT RIB PAIN [id number] 01/29/2018 14:45:00 01/29/2018 17:00:00 DIS Emergency ESA MORRIS SALES COACH [facility] ER LEFT THUMB INJURY [id number] 01/18/2018 10:49:00 01/18/2018 11:09:00 DIS Emergency SHANKAR KAUR MD [facility] ER STAPLE REMOVAL [id number] 01/14/2018 12:54:00 01/14/2018 13:57:00 DIS Emergency SHANKAR KAUR MD [facility] ER CUT RIGHT ELBOW ON GLASS THIS AM [id number] 11/28/2017 10:25:00 11/28/2017 19:50:00 DIS Emergency MARI DRAPER [facility] ER CP,ANKLES SWELLING [id number] 05/12/2017 12:20:00 05/12/2017 15:05:00 DIS Emergency ESA MORRIS APRN [facility] ER FALL/LEFT HIP PAIN [id number] 12/23/2014 19:13:00 12/23/2014 20:47:00 DIS Emergency ALBERTO YANCEY, CANDICE Tovar [facility] ER ALLERGIC REACTION WASP STING,FACIAL SWELLING [id number] 09/27/2013 10:36:00 09/27/2013 23:59:59 CLS Outpatient KERON PLAZA [facility] CARD CAD,PALPITATIONS,SOB
== END 2019-01-14 12:05 | disposition home or self-care (01) ==
LOC: EDUNIT# 09:50 → ER 09:51
DX: M85.672 Other cyst of bone, left ankle and foot (principal); L03.116 Cellulitis of left lower limb; I10 Essential (primary) hypertension; I25.2 Old myocardial infarction; I25.10 Atherosclerotic heart disease of native coronary artery without angina pectoris; F17.210 Nicotine dependence, cigarettes, uncomplicated; Z79.02 Long term (current) use of antithrombotics/antiplatelets; Z95.1 Presence of aortocoronary bypass graft
CPT/HCPCS: 73630

== ENCOUNTER → 2019-09-24 | Outpatient (CLI) | payer MEDICARE, MEDICAID ==
[~2019-09-24] MED LIST changes: +CEPH-507 PO
--- NOTE | 2019-09-24 14:47 | Diagnostic Imaging Report ---
INDICATION: SOB WITH WALKING PAST 5 DAYS. COMPARISON: 10/26/2018 FINDINGS: Frontal and lateral views of the chest demonstrate normal heart size and pulmonary vascularity. The lungs are clear. There are no signs of infiltrate, pleural effusions or pneumothoraces. The visualized osseous structures show suspicious lucency of the distal left clavicle measuring approximately 1.3 cm in diameter. Sternotomy wires are noted. IMPRESSION: 1. No acute process. No signs of infiltrates, effusions or pneumothoraces. 2. Suspicious lucency involving the distal left clavicle, concern for osteolytic lesion. Correlation with CT is advised. Dictated by: Dictated on workstation # [id number]
--- NOTE | 2019-09-24 14:48 | Diagnostic Imaging Report ---
PROCEDURE: CT head without contrast. TECHNIQUE: Multiple contiguous axial images were obtained through the brain without the use of intravenous contrast. Auto Exposure Controls were utilized during the CT exam to meet ALARA standards for radiation dose reduction. INDICATION: Left arm paralysis. Evaluate for stroke. COMPARISON: 10/26/2018. FINDINGS: No large acute territorial ischemia, mass, or hemorrhage. Chronic encephalomalacia seen in the left occipital lobe. No midline shift or mass effect. Decreased attenuation is seen in the periventricular and subcortical white matter. The ventricles and cortical sulci are prominent. The basilar cisterns are patent and unremarkable. The calvarium is intact. The visualized paranasal sinuses are clear. IMPRESSION: 1. No large acute territorial ischemia, mass, or hemorrhage. 2. 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 This is stable compared to the prior exam. 3. Scattered chronic microvascular disease with generalized parenchymal volume loss. Dictated by: Dictated on workstation # [id number]
--- NOTE | 2019-09-24 15:19 | Diagnostic Imaging Report ---
INDICATION: Soft tissue growth. COMPARISON: None. FINDINGS: Three radiographic views of the right fourth finger were obtained. There is soft tissue masslike prominence of the fourth digit epicentered about the proximal interphalangeal joint space. No underlying osseous destruction is seen. No acute osseous abnormality is identified. Note is also made of prominent ellipsoid nodular opacity interposed between the fourth and fifth metacarpals. It measures approximately 1.5 x 0.7 cm. Again, there is no underlying appreciable osseous erosion or other acute bony abnormality. Note is also made of widening of the scapholunate joint space suggestive of previous ligamentous injury. 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 IMPRESSION: 1. Soft tissue appearing masses of the right hand as described above. Correlation with postcontrast MRI is recommended. 2. Probable underlying tear of the scapholunate ligament. Dictated by: Dictated on workstation # [id number]
== END ==
LOC: CARD 13:21
PROVIDERS: ATTEND Family Medicine
DX: G83.24 Monoplegia of upper limb affecting left nondominant side (principal); R40.20 Unspecified coma; G93.89 Other specified disorders of brain; R22.31 Localized swelling, mass and lump, right upper limb; Z98.890 Other specified postprocedural states
CPT/HCPCS: 36415; 70450; 71046; 73140; 83880; 93005

== ENCOUNTER 2019-12-17 15:03 | Inpatient (IN) | payer MEDICARE, MEDICAID ==
[~2019-12-17] VITALS: Ht 172 cm; Wt 91.3 kg
--- NOTE | 2019-12-17 15:10 | NUR ---
Note kylee in EDM - 12/17/19 at [address] ZULUAGA TO ROOM TALKED WITH PATIENT ABOUT CARDIOVERSION CONSENT SIGNED. 02 PLACED. 1542 2.5 MG OF VERSED GIVEN WITH 50MCG OF FENTENYL 1543 CONVERSION DID AT 120 J CONVERTED TO SR WITH HR OF 83 B/P 99/85 1544 T0 SENIOR DATA ANALYST
[2019-12-17] MEDS ORDERED: NS IV 1000 ML 1,000 ML IV SCH (15:30)
[2019-12-17] MEDS ORDERED: ACETAMINOPHEN 500 MG TAB (TYLENOL) PO ONE (15:30)
[2019-12-17 15:47] LABS: BASOPHILS % (AUTO) 0 % (0-10); EOSINOPHILS % (AUTO) 0 % (0-10); HEMATOCRIT 39 % (40-54); HEMOGLOBIN 13.5 G/DL (13.3-17.7); LYMPHOCYTES # (AUTO) 0.3 X 10^3 (1.0-4.0); LYMPHOCYTES % (AUTO) 3 % (12-44); MEAN CORPUSCULAR HEMOGLOBIN 31 PG (25-34); MEAN CORPUSCULAR HGB CONC 35 G/DL (32-36); MEAN CORPUSCULAR VOLUME 90 FL (80-99); MEAN PLATELET VOLUME 9.9 FL (7.4-10.4); MONOCYTES % (AUTO) 8 % (0-12); NEUTROPHILS # (AUTO) 10.8 X 10^3 (1.8-7.8); NEUTROPHILS % (AUTO) 89 % (42-75); PLATELET COUNT 272 10^3/uL (130-400); RED CELL DISTRIBUTION WIDTH 13.1 % (10.0-14.5); WHITE BLOOD COUNT 12.1 10^3/uL (4.3-11.0)
[2019-12-17 16:19] LABS: ALBUMIN 3.6 GM/DL (3.2-4.5)
[2019-12-17 16:22] LABS: TOTAL PROTEIN 6.4 GM/DL (6.4-8.2)
[2019-12-17 16:24] LABS: BILIRUBIN,TOTAL 0.5 MG/DL (0.1-1.0)
[2019-12-17 16:25] LABS: CREATININE SERUM 1.43 MG/DL (0.60-1.30)
--- NOTE | 2019-12-17 16:33 | Diagnostic Imaging Report ---
INDICATION: Patient found down. Frontal chest obtained at 04:11 p.m. and is compared to 09/24/2019. Heart is significantly increased in size compared to the prior study. This may in part be due to portable technique. There is mild central vascular congestion with some infiltrate in the right medial base. There is no pneumothorax or pleural fluid. IMPRESSION: Cardiomegaly, this may in part be due to portable technique. There is central vascular congestion. There is some new infiltrate in the right medial base. Dictated by: Dictated on workstation # [id number]
[2019-12-17 16:34] LABS: INR 1.4 (0.8-1.4); PROTHROMBIN TIME PATIENT 17.5 SEC (12.2-14.7)
[2019-12-17 16:34] LABS: LYMPHOCYTES % (MANUAL) 3 %; MONOCYTES % (MANUAL) 9 %; NEUTROPHILS % (MANUAL) 88 %
[2019-12-17 16:35] LABS: RBC MORPH NORMAL
--- OUTSIDE RECORDS SUMMARY | 2019-12-17 16:40 | XMS REPORT ---
Author Author Martin FLOYD Organization [facility] Address [address] [place] [address] Care Team Providers Care Tab Card Press Operator Name Role Phone DAVIAN FLOYD Unavailable PROBLEMS Unknown Problems ALLERGIES No Known Allergies ENCOUNTERS Encounter Location Date Diagnosis [facility] [address] [address] Feb, Onychomycosis B35.1 [facility] [address] [address] Jan, Finger pain M79.646 and Othe r specified soft tissue disorders M79.89 [facility] [address] [address] Sep, Paronychia of right thumb L0 3.011 [facility] [address] [address] Oct, [facility] [address] [address] Oct, [facility] [id number] [place] [address], [place] [id number] Sep, [facility] [address] [place] [id number] [place] [address], [place] [id number] Jun, [facility] [address] [place] [id number] [address] [place] [phone] Jun, [place] [id number] [place] [address], [place] [id number] May, [facility] [address] [address] May, [facility] [address] [address] May, [facility] [address] [id number] [address] [place] [phone] May, [facility] [place] [address] [id number] [place] [id number] May, [facility] [address] [facility] [id number] [address] [place] [phone] May, [facility] [place] [address] [id number] [place] [id number] Feb, [facility] [place] [address] [id number] [place] [id number] Jan, [facility] [address] [id number] [address] [place] [phone] November, [facility] [place] [address] [id number] [place] [id number] Oct, [facility] [place] [address] [id number] [place] [id number] Oct, [facility] [place] [address] [id number] [place] [id number] Oct, [facility] [place] [address] [id number] [place] [id number] Oct, [facility] [place] [address] [id number] [place] [id number] Oct, [facility] [place] [address] [id number] [place] [id number] Sep, [facility] [place] [address] [id number] [place] [id number] Sep, [facility] [place] [address] [id number] [place] [id number] Sep, [facility] [place] [address] [id number] [place] [id number] Sep, [facility] [place] [address] [id number] [place] [id number] Jul, [facility] [address] [id number] [address] [place] [phone] Jun, [facility] [address] [id number] [address] [place] [phone] 13 Mar, 2011 [facility] [address] [id number] [address] [place] [phone] 15 Apr, 2010 [facility] [address] [id number] [address] [place] [phone] Mar, [facility] [address] [id number] [address] [place] [phone] Jun, [facility] [address] [id number] [address] [place] [phone] Apr, [facility] [address] [id number] [address] [place] [phone] Apr, [facility] [address] [id number] [address] [place] [phone] Oct, [facility] [address] [id number] [address] [place] [phone] Apr, IMMUNIZATIONS No Known Immunizations SOCIAL HISTORY Never Assessed REASON FOR VISIT finger pain. Thumb is oozing. -Hilary GALLARDO PLAN OF CARE Activity Details Follow Up if not improving with PCP or reg follow up Reason: VITAL SIGNS Height 68 in 2018-10-04 Weight 164 lbs 2018-10-04 Temperature 98 degrees Fahrenheit 2018-10-04 Heart Rate 80 bpm 2018-10-04 Respiratory Rate 20 2018-10-04 BMI 24.93 kg/m2 2018-10-04 Blood pressure systolic 132 mmHg 2018-10-04 Blood pressure diastolic 64 mmHg 2018-10-04 MEDICATIONS Medication Instructions Dosage Frequency Start Date End Date Duration S seng Sulfamethoxazole-Trimethoprim 800-160 MG Orally Twice a day 1 table t 12h Sep, 10 day(s) Active RESULTS No Results PROCEDURES Procedure Date Ordered Result Body Site PENDING SALE TO [facility] VISIT ESTABLISHED PATIENT October 04, 2018 INSTRUCTIONS MEDICATIONS ADMINISTERED No Known Medications MEDICAL (GENERAL) HISTORY Type Description Date Medical History 5 by pass Medical History Stroke Medical History dementia Surgical History Pt states that he has five by pass surge shadi Hospitalization History Surgeries Hospitalization History stroke Hospitalization History heart related Hospitalization History bypass 1996
--- OUTSIDE RECORDS SUMMARY | 2019-12-17 16:40 | XMS REPORT ---
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 [id number] ALLERGIES No Information ENCOUNTERS Encounter Location Date Diagnosis [place] [address] [address] Feb, [facility] [address] [address] Jan, Finger pain M79.646 and Othe r specified soft tissue disorders M79.89 [facility] [address] [address] Sep, Paronychia of right thumb L0 3.011 [place] [address] [address] Oct, [facility] [place] [address] [address] Oct, [facility] [address] [facility] [id number] [place] [id number] Sep, [facility] 120 [facility] [id number] [place] [id number] Jun, [facility] [place] [address] [place] [id number] [address] [place] [phone] Jun, [facility] 120 [facility] [id number] [place] [id number] May, [facility] [address] [id number] [address] [place] [phone] May, [facility] [address] [facility] [id number] [address] [place] [phone] May, [facility] [address] [facility] [id number] [address] [place] [phone] May, [facility] [place] [address] [id number] [place] [id number] May, [facility] [address] [id number] [address] [place] [phone] May, [facility] [place] [address] [id number] [place] [id number] Feb, [facility] [place] [address] [id number] [place] [id number] Jan, [facility] [address] [facility] [id number] [address] [place] [phone] November, [facility] [place] [address] [id number] [place] [id number] Oct, [facility] [place] [address] [id number] [place] [id number] Oct, [facility] [place] [address] [id number] [place] [id number] Oct, [facility] [place] [address] [id number] [place] [id number] Oct, [facility] [place] [address] [id number] [place] [id number] Oct, [facility] [place] [address] [id number] [place] [id number] Sep, [facility] [place] [address] [id number] [place] [id number] Sep, [facility] [place] [address] [id number] [place] [id number] Sep, [facility] [place] [address] [id number] [place] [id number] Sep, [facility] [address] [id number] [place] [id number] Jul, [facility] [place] [address] [id number] [address] [place] [phone] Jun, [facility] [place] [address] [id number] [address] [place] [phone] 13 Mar, 2011 [facility] [place] [address] [id number] [address] [place] [phone] 15 Apr, 2010 [facility] [place] [address] [id number] [address] [place] [phone] Mar, [facility] [place] [address] [id number] [address] [place] [phone] Jun, [facility] [place] [address] [id number] [address] [place] [phone] Apr, [facility] [place] [address] [id number] [address] [place] [phone] Apr, [facility] [place] [address] [id number] [address] [place] [phone] Oct, [facility] [place] [address] [id number] [address] [place] [phone] Apr, IMMUNIZATIONS No Known Immunizations SOCIAL HISTORY Never Assessed REASON FOR VISIT PLAN OF CARE VITAL SIGNS MEDICATIONS Unknown Medications RESULTS No Results PROCEDURES Procedure Date Ordered Result Body Site EXTRACRANIAL STUDY November 03, 2011 INSTRUCTIONS MEDICATIONS ADMINISTERED No Known Medications MEDICAL (GENERAL) HISTORY Type Description Date Medical History 5 by pass Medical History Stroke Medical History dementia Surgical History Pt states that he has five by pass surge shadi Hospitalization History Surgeries Hospitalization History stroke Hospitalization History heart related Hospitalization History bypass
--- OUTSIDE RECORDS SUMMARY | 2019-12-17 16:40 | XMS REPORT ---
Author Author Martin Bradley Doctor Organization [facility] Address Unknown Phone Unavailable Care Team Providers Care Insurance Advisor Name Role Phone Migration, Doctor Unavailable Unavailable PROBLEMS Unknown Problems ALLERGIES No Information ENCOUNTERS Encounter Location Date Diagnosis [facility] [address] [place] [phone] Feb, Onychomycosis B35.1 [facility] [address] [place] [id number] [address] [place] [phone] Jan, Finger pain M79.646 and Othe r specified soft tissue disorders M79.89 [facility] [address] [place] [id number] [address] [place] [phone] Sep, Paronychia of right thumb L0 3.011 [facility] [address] [facility] [id number] [address] [place] [phone] Oct, [facility] [address] [place] [id number] [address] [place] [phone] Oct, [facility] 120 [facility] [id number] [place] [id number] Sep, [address] [id number] [place] [id number] Jun, [facility] [address] [place] [id number] [place] [phone] Jun, [facility] 120 [facility] [id number] [place] [id number] May, [facility] [address] [place] [id number] [address] [place] [phone] May, [facility] [address] [place] [id number] [address] [place] [phone] May, [facility] [address] [place] [id number] [place] [phone] May, [facility] [place] [address] [id number] [place] [id number] May, [facility] [address] [facility] [id number] [address] [place] [phone] May, [facility] [place] [address] [id number] [place] [id number] Feb, [facility] [place] [address] [id number] [place] [id number] Jan, [facility] [address] [facility] [id number] [address] [place] [phone] November, [facility] [place] [address] [id number] [place] [id number] Oct, [facility] [place] [address] [id number] [place] [id number] Oct, [facility] [place] [address] [id number] [place] [id number] Oct, [facility] [place] [address] [id number] [place] [id number] Oct, [facility] [place] [address] [id number] [place] [id number] Oct, [facility] [place] [address] [id number] [place] [id number] Sep, [facility] [place] [address] [id number] [place] [id number] Sep, [facility] [place] [address] [id number] [place] [id number] Sep, [facility] [place] [address] [id number] [place] [id number] Sep, [facility] [place] [address] [id number] [place], [place] [id number] Jul, [facility] [address] [facility] [id number] [address] [place] [phone] Jun, [facility] [address] [facility] [id number] [address] [place] [phone] 13 Mar, 2011 [facility] [address] [id number] [address] [place] [phone] 15 Apr, 2010 [facility] [address] [id number] [address] [place] [phone] 13 Mar, 2010 [facility] [address] [id number] [address] [place] [phone] Jun, [facility] [address] [id number] [address] [place] [phone] Apr, [facility] [address] [id number] [address] [place] [phone] Apr, [facility] [address] [id number] [address] [place] [phone] Oct, [facility] [address] [facility] [id number] [address] [place] [phone] Apr, IMMUNIZATIONS No Known Immunizations SOCIAL HISTORY Never Assessed REASON FOR VISIT PLAN OF CARE VITAL SIGNS MEDICATIONS No Known Medications RESULTS No Results PROCEDURES No Known procedures INSTRUCTIONS MEDICATIONS ADMINISTERED No Known Medications MEDICAL (GENERAL) HISTORY Type Description Date Medical History 5 by pass Medical History Stroke Medical History dementia Surgical History Pt states that he has five by pass [facility] Hospitalization History Surgeries Hospitalization History stroke Hospitalization History heart related Hospitalization History bypass 1996
[2019-12-17] MEDS ORDERED: NS IV 1000 ML 1,000 ML IV ONE ×2 (16:41→22:05)
--- OUTSIDE RECORDS SUMMARY | 2019-12-17 16:41 | XMS REPORT | Continuity of Care Document ---
Author Organization Unknown Address Unknown Phone Unavailable Allergies Active Description Code Type Severity Reaction Onset Reported/Identified Relationship to Patient Clinical Status Yes No Known Drug Allergies [id number] Drug Allergy Unknown N/A 12/23/2014 Medications There is no data. Problems Date Dx Coded Attending Type Code Diagnosis Diagnosed By 05/07/2008 RHONA PETERSON MD 110. 1 DERMATOPHYTOSIS ONYCHOMYCOSIS TOENAILS 05/07/2008 RHONA PETERSON MD 382. 01 OTITIS MEDIA ACUTE WITH SPONTANEOUS RUPTURE EARDRUM 05/07/2008 RHONA PETERSON MD 401. 1 ESSENTIAL HYPERTENSION BENIGN 05/07/2008 RHONA PETERSON MD 414. 01 CORONARY ARTERY STENOSIS MULTI-VESSEL 05/07/2008 110.1 DERM ATOPHYTOSIS ONYCHOMYCOSIS TOENAILS 05/07/2008 382.01 AUGUSTO TIS MEDIA ACUTE WITH SPONTANEOUS RUPTURE EARDRUM 05/07/2008 401.1 ESSE NTIAL HYPERTENSION BENIGN 05/07/2008 414.01 COR ONARY ARTERY STENOSIS MULTI-VESSEL 09/09/2008 RHONA PETERSON MD 703. 9 NAIL DISEASE UNSPEC 09/09/2008 RHONA PETERSON MD 786. 2 COUGH 09/09/2008 703.9 NAIL DISEASE UNSPEC 09/09/2008 786.2 COUGH 06/19/2009 RHONA PETERSON MD 729. 5 PAIN IN LIMB 06/19/2009 RHONA PETERSON MD 735. 2 HALLUX RIGIDUS 06/19/2009 729.5 PAIN IN LIMB 06/19/2009 735.2 KWONG UX RIGIDUS 11/04/2009 RHONA PETERSON MD 278. 00 OBESITY 11/04/2009 278.00 OBESITY 03/24/2010 RHONA PETERSON MD 682. 3 OTHER CELLULITIS AND ABSCESS, UPPER ARM AND FOREARM 03/24/2010 682.3 OTHE R CELLULITIS AND ABSCESS, UPPER ARM AND FOREARM 03/29/2010 RHONA PETERSON MD 923. 20 CONTUSION OF, HAND(S) 03/29/2010 923.20 CON TUSION OF, HAND(S) 12/10/2010 RHONA PETERSON MD 272. 4 DYSLIPIDEMIA 12/10/2010 272.4 DYSL IPIDEMIA 10/27/2011 RHONA PETERSON MD 401. 9 HYPERTENSION (SYSTEMIC) 10/27/2011 RHONA PETERSON MD 414. 00 CORONARY ARTERY DISEASE 10/27/2011 RHONA PETERSON MD 433. 10 CAROTID ARTERY STENOSIS 10/27/2011 RHONA PETERSON MD 786. 09 difficulty breathing (dyspnea) 10/27/2011 401.9 HYPE RTENSION (SYSTEMIC) 10/27/2011 414.00 COR ONARY ARTERY DISEASE 10/27/2011 433.10 CAR OTID ARTERY STENOSIS 10/27/2011 786.09 dif ficulty breathing (dyspnea) 12/23/2014 KERON PLAZA Ot 414.00 12/23/2014 KERON PLAZA Ot 416.8 12/23/2014 KERON PLAZA Ot 785.1 12/23/2014 KERON [address]ZA Ot 786.05 12/23/2014 CANDICE DOMINGUEZ MD Ot [...] Ot I25.10 ATHSCL HEART DISEASE OF [place] CORONARY 05/12/2017 ESA MORRIS APRN Ot I25 .2 OLD MYOCARDIAL INFARCTION 05/12/2017 ESA MORRIS APRN Ot M16.12 UNILATERAL PRIMARY OSTEOARTHRITIS, LEFT 05/12/2017 ESA MORRIS APRN Ot M25.552 PAIN IN LEFT HIP 05/12/2017 ESA MORRIS APRN Ot Z79.02 NEMATOLOGY TEACHER (CURRENT) USE OF ANTITHROMBOTI 05/12/2017 ESA MORRIS APRN Ot Z79.82 SHELTER (CURRENT) USE OF ASPIRIN 05/12/2017 ESA MORRIS APRN Ot Z95 .1 PRESENCE OF AORTOCORONARY BYPASS GRAFT 05/15/2017 ESA MORRIS APRN Ot I10 ESSENTIAL (PRIMARY) HYPERTENSION 05/15/2017 ESA MORRIS APRN Ot I25.10 ATHSCL HEART DISEASE OF [place] CORONARY 05/15/2017 ESA MORRIS APRN Ot I25 .2 OLD MYOCARDIAL INFARCTION 05/15/2017 ESA MORRIS APRN Ot M16.12 UNILATERAL PRIMARY OSTEOARTHRITIS, LEFT 05/15/2017 ESA MORRIS APRN Ot M25.552 PAIN IN LEFT HIP 05/15/2017 ESA MORRIS APRN Ot Z79.02 NEMATOLOGY TEACHER (CURRENT) USE OF ANTITHROMBOTI 05/15/2017 ESA MORRIS APRN Ot Z79.82 NEMATOLOGY TEACHER (CURRENT) USE OF ASPIRIN 05/15/2017 ESA MORRIS APRN Ot Z95 .1 PRESENCE OF AORTOCORONARY BYPASS GRAFT 11/28/2017 KERON [address]ZA OFFICE SWEEPER Ot 414.00 CORON ATHEROSCLER NOS TYPE VESSEL, NATIV 11/28/2017 K[place]ON [address] OFFICE SWEEPER Ot 416.8 CHR PULMON HEART DIS NEC 11/28/2017 KERON [address]ZA OFFICE SWEEPER Ot 785.1 PALPITATIONS 11/28/2017 KERON PLAZA OFFICE SWEEPER Ot 786.05 SHORTNESS OF BREATH 11/28/2017 MARI DRAPER Ot E83.42 HYPOMAGNESEMIA 11/28/2017 MARI DRAPER Ot F10.20 ALCOHOL DEPENDENCE, UNCOMPLICATED 11/28/2017 MARI DRAPER Ot F32.9 MAJOR DEPRESSIVE DISORDER, SINGLE EPISOD 11/28/2017 MARI DRAPER Ot I11.0 HYPERTENSIVE HEART DISEASE WITH HEART FA 11/28/2017 MARI DRAPER Ot I25.10 ATHSCL HEART DISEASE OF [place] CORONARY 11/28/2017 MARI DRAPER Ot I25.2 OLD MYOCARDIAL INFARCTION 11/28/2017 MARI DRAPER Ot I48.91 UNSPECIFIED ATRIAL FIBRILLATION 11/28/2017 MARI DRAPER Ot I50.9 HEART FAILURE, UNSPECIFIED 11/28/2017 MARI DARPER Ot R06.02 SHORTNESS OF BREATH 11/28/2017 MARI DRAPER Ot Z79.02 SHELTER (CURRENT) USE OF ANTITHROMBOTI 11/28/2017 MARI DRAPER [...] Ot I25.10 ATHSCL HEART DISEASE OF [place] CORONARY 11/30/2017 MARI DRAPER Ot I25.2 OLD MYOCARDIAL INFARCTION 11/30/2017 MARI DRAPER Ot I48.91 UNSPECIFIED ATRIAL FIBRILLATION 11/30/2017 MARI DRAPER Ot I50.9 HEART FAILURE, UNSPECIFIED 11/30/2017 MARI DRAPER Ot R06.02 SHORTNESS OF BREATH 11/30/2017 MARI DRAPER Ot Z79.02 SHELTER (CURRENT) USE OF ANTITHROMBOTI 11/30/2017 MARI DRAPER Ot Z87.891 PERSONAL HISTORY OF NICOTINE DEPENDENCE 11/30/2017 MARI DRAPER Ot Z95.1 PRESENCE OF AORTOCORONARY BYPASS GRAFT 01/14/2018 SHANKAR KAUR MD Ot I10 ESSENTIAL (PRIMARY) HYPERTENSION 01/14/2018 SHANKAR KAUR MD Ot I25.10 ATHSCL HEART DISEASE OF [place] CORONARY 01/14/2018 SHANKAR KAUR MD Ot I25 .2 OLD MYOCARDIAL INFARCTION 01/14/2018 SHANKAR KAUR MD Ot S51.011A LACERATION WITHOUT FOREIGN BODY OF RIGHT 01/14/2018 SHANKAR KAUR MD Ot W26.8XXA CONTACT WITH OTHER SHARP OBJECT(S), NEC, 01/14/2018 SHANKAR KAUR MD Ot Z79.02 NEMATOLOGY TEACHER (CURRENT) USE OF ANTITHROMBOTI 01/14/2018 SHANKAR KAUR MD Ot Z91 .5 PERSONAL HISTORY OF SELF-HARM 01/16/2018 SHANKAR KAUR MD Ot I10 ESSENTIAL (PRIMARY) HYPERTENSION 01/16/2018 SHANKAR KAUR MD Ot I25.10 ATHSCL HEART DISEASE OF [place] CORONARY 01/16/2018 SHANKAR KAUR MD Ot I25 .2 OLD MYOCARDIAL INFARCTION 01/16/2018 SHANKAR KAUR MD Ot S51.011A LACERATION WITHOUT FOREIGN BODY OF RIGHT 01/16/2018 SHANKAR KAUR MD Ot W26.8XXA CONTACT WITH OTHER SHARP OBJECT(S), NEC, 01/16/2018 SHANKAR KAUR MD Ot Z79.02 NEMATOLOGY TEACHER (CURRENT) USE OF ANTITHROMBOTI 01/16/2018 SHANKAR KAUR MD Ot Z91 .5 PERSONAL HISTORY OF SELF-HARM 01/16/2018 SHANKAR KAUR MD Ot I10 ESSENTIAL (PRIMARY) HYPERTENSION 01/16/2018 SHANKAR KAUR MD Ot I25.10 ATHSCL HEART DISEASE OF [place] CORONARY 01/16/2018 SHANKAR KAUR MD Ot I25 .2 OLD MYOCARDIAL INFARCTION 01/16/2018 SHANKAR KAUR MD Ot S51.011A LACERATION WITHOUT FOREIGN BODY OF RIGHT 01/16/2018 SHANKAR KAUR MD Ot W26.8XXA CONTACT WITH OTHER SHARP OBJECT(S), NEC, 01/16/2018 SHANKAR KAUR MD Ot Z79.02 NEMATOLOGY TEACHER (CURRENT) USE OF ANTITHROMBOTI 01/16/2018 SHANKAR KAUR MD Ot Z91 .5 PERSONAL HISTORY OF SELF-HARM 01/18/2018 KERON PLAZAP Ot 414.00 CORON ATHEROSCLER NOS TYPE VESSEL, NATIV 01/18/2018 KERON [facility]ZA OFFICE SWEEPER Ot 416.8 CHR PULMON HEART DIS NEC 01/18/2018 K[facility] OFFICE SWEEPER Ot 785.1 PALPITATIONS 01/18/2018 K[facility]ON [facility] OFFICE SWEEPER Ot 786.05 SHORTNESS OF BREATH 01/18/2018 SHANKAR [...] Ot I25.10 ATHSCL HEART DISEASE OF [place] CORONARY 01/29/2018 ESA MORRIS APRN Ot I25 .2 OLD MYOCARDIAL INFARCTION 01/29/2018 ESA MORRIS APRN Ot I89 .1 LYMPHANGITIS 01/29/2018 ESA MORRIS APRN Ot L03.113 CELLULITIS OF RIGHT UPPER LIMB 01/29/2018 ESA MORRIS APRN Ot M79.642 PAIN IN LEFT HAND 01/29/2018 ESA MORRIS APRN Ot Z95 .1 PRESENCE OF AORTOCORONARY BYPASS GRAFT 01/31/2018 ESA MORRIS SENIOR TREASURY CONSULTANT Ot I10 ESSENTIAL (PRIMARY) HYPERTENSION 01/31/2018 ESA MORRIS SENIOR TREASURY CONSULTANT Ot I25.10 ATHSCL HEART DISEASE OF [place] CORONARY 01/31/2018 ESA MORRIS SENIOR TREASURY CONSULTANT Ot I25 .2 OLD MYOCARDIAL INFARCTION 01/31/2018 ESA MORRIS SENIOR TREASURY CONSULTANT Ot I89 .1 LYMPHANGITIS 01/31/2018 ESA MORRIS SENIOR TREASURY CONSULTANT Ot L03.113 CELLULITIS OF RIGHT UPPER LIMB 01/31/2018 ESA MORRIS SENIOR TREASURY CONSULTANT Ot M79.642 PAIN IN LEFT HAND 01/31/2018 ESA MORRIS SENIOR TREASURY CONSULTANT Ot Z95 .1 PRESENCE OF AORTOCORONARY BYPASS GRAFT 03/20/2018 MAUREEN DAS MD Ot I10 ESSENTIAL (PRIMARY) HYPERTENSION 03/20/2018 MAUREEN DAS MD Ot I25. 10 ATHSCL HEART DISEASE OF [place] CORONARY 03/20/2018 MAUREEN DAS MD Ot I25. 2 OLD MYOCARDIAL INFARCTION 03/20/2018 MAUREEN DAS MD Ot R07. 81 PLEURODYNIA 03/20/2018 MAUREEN DAS MD Ot S23.41XA SPRAIN OF RIBS, INITIAL ENCOUNTER 03/20/2018 MAUREEN DAS MD Ot W01.0XXA FALL SAME LEV FROM SLIP/TRIP W/O STRIKE 03/20/2018 MAUREEN DAS MD Ot Z79. 02 NEMATOLOGY TEACHER (CURRENT) USE OF ANTITHROMBOTI 03/20/2018 MAUREEN DAS MD Ot Z87.891 PERSONAL HISTORY OF NICOTINE DEPENDENCE 03/20/2018 MAUREEN DAS MD Ot Z95. 1 PRESENCE OF AORTOCORONARY BYPASS GRAFT 03/22/2018 MAUREEN DAS MD Ot I10 ESSENTIAL (PRIMARY) HYPERTENSION 03/22/2018 MAUREEN DAS MD Ot I25. 10 ATHSCL HEART DISEASE OF [place] CORONARY 03/22/2018 MAUREEN DAS MD Ot I25. 2 OLD MYOCARDIAL INFARCTION 03/22/2018 MAUREEN DAS MD Ot R07. 81 PLEURODYNIA 03/22/2018 MAUREEN DAS MD Ot S23.41XA SPRAIN OF RIBS, INITIAL ENCOUNTER 03/22/2018 MAUREEN DAS MD Ot W01.0XXA FALL SAME LEV FROM SLIP/TRIP W/O STRIKE 03/22/2018 MAUREEN DAS MD Ot Z79. 02 NEMATOLOGY TEACHER (CURRENT) USE OF ANTITHROMBOTI 03/22/2018 MAUREEN DAS MD Ot Z87.891 PERSONAL HISTORY OF NICOTINE DEPENDENCE 03/22/2018 MAUREEN DAS MD Ot Z95. 1 PRESENCE OF AORTOCORONARY BYPASS GRAFT 05/17/2018 KERON [address] Ot 414.00 CORON ATHEROSCLER NOS TYPE VESSEL, NATIV 05/17/2018 KERON PLAZA Ot 416.8 CHR PULMON HEART DIS NEC 05/17/2018 KERON PLAZA Ot 785.1 PALPITATIONS 05/17/2018 KERON PLAZA Ot 786.05 SHORTNESS OF BREATH 06/11/2018 PRO ALLAN DO Ot F03.90 UNSPECIFIED DEMENTIA WITHOUT BEHAVIORAL 08/19/2018 JERRELL SMITH PRO Landin Ot F03.90 UNSPECIFIED DEMENTIA WITHOUT BEHAVIORAL 08/19/2018 PA ROJAS MD Ot F03.90 UNSPECIFIED DEMENTIA WITHOUT BEHAVIORAL 08/19/2018 PA ROJAS MD, Ot I10 ESSENTIAL (PRIMARY) HYPERTENSION 08/19/2018 PA ROJAS MD Ot I25.10 ATHSCL HEART DISEASE OF [place] CORONARY 08/19/2018 PA ROJAS MD, Ot I25.2 OLD MYOCARDIAL INFARCTION 08/19/2018 PA ROJAS MD Ot R07.89 OTHER CHEST PAIN 08/19/2018 PA ROJAS MD Ot Z79.02 SHELTER (CURRENT) USE OF ANTITHROMBOTI 08/19/2018 PA ROJAS MD, Ot Z87.891 PERSONAL HISTORY OF NICOTINE DEPENDENCE 08/19/2018 PA ROJAS MD Ot Z95.1 PRESENCE OF AORTOCORONARY BYPASS GRAFT 08/19/2018 PA ROJAS MD, Ot Z95.5 PRESENCE OF CORONARY ANGIOPLASTY IMPLANT 10/26/2018 [facility] OFFICE SWEEPER Ot 414.00 CORON ATHEROSCLER NOS TYPE VESSEL, NATIV 10/26/2018 [facility] OFFICE SWEEPER Ot 416.8 CHR PULMON HEART DIS NEC 10/26/2018 [facility] OFFICE SWEEPER Ot 785.1 PALPITATIONS 10/26/2018 [facility] OFFICE SWEEPER Ot 786.05 SHORTNESS OF BREATH 10/26/2018 JERRELL SMITH PRO Landin Ot F03.90 UNSPECIFIED DEMENTIA WITHOUT BEHAVIORAL 10/26/2018 MAUREEN DAS MD Ot F10. 10 ALCOHOL ABUSE, UNCOMPLICATED 10/26/2018 MAUREEN DAS MD Ot I10 ESSENTIAL (PRIMARY) HYPERTENSION 10/26/2018 MAUREEN DAS MD Ot I25. 10 ATHSCL HEART DISEASE OF [place] CORONARY 10/26/2018 MAUREEN DAS MD Ot I25. 2 OLD MYOCARDIAL INFARCTION 10/26/2018 MAUREEN DAS MD Ot R07. 9 CHEST PAIN, UNSPECIFIED 10/26/2018 MAUREEN DAS MD Ot R51 HEADACHE 10/26/2018 MAUREEN DAS MD Ot R79. 89 OTHER SPECIFIED ABNORMAL FINDINGS OF BLO 10/26/2018 PIPPA MD, MAUREEN J Ot S06.0X1A CONCUSSION W LOC OF 30 MINUTES OR LESS, 10/26/2018 MAUREEN DAS MD Ot W18.39XA OTHER FALL ON SAME LEVEL, INITIAL ENCOUN 10/26/2018 MAUREEN DAS MD Ot Z79. 02 NEMATOLOGY TEACHER (CURRENT) USE OF ANTITHROMBOTI 10/26/2018 MAUREEN DAS MD Ot Z79. 82 NEMATOLOGY TEACHER (CURRENT) USE OF ASPIRIN 10/26/2018 MAUREEN DAS MD Ot Z87.891 PERSONAL HISTORY OF NICOTINE DEPENDENCE 10/26/2018 MAUREEN DAS MD Ot Z95. 1 PRESENCE OF AORTOCORONARY BYPASS GRAFT 10/26/2018 MAUREEN DAS MD Ot Z95. 5 PRESENCE OF CORONARY ANGIOPLASTY IMPLANT 10/26/2018 MAUREEN DAS MD Ot Z98. 61 CORONARY ANGIOPLASTY STATUS 10/29/2018 MAUREEN DAS MD Ot F10. 10 ALCOHOL ABUSE, UNCOMPLICATED 10/29/2018 MAUREEN DAS MD Ot I10 ESSENTIAL (PRIMARY) HYPERTENSION 10/29/2018 MAUREEN DAS MD Ot I25. 10 ATHSCL HEART DISEASE OF [place] CORONARY 10/29/2018 MAUREEN DAS MD Ot I25. 2 OLD MYOCARDIAL INFARCTION 10/29/2018 MAUREEN DAS MD Ot R07. 9 CHEST PAIN, UNSPECIFIED 10/29/2018 MAUREEN DAS MD Ot R51 HEADACHE 10/29/2018 MAUREEN DAS MD Ot R79. 89 OTHER SPECIFIED ABNORMAL FINDINGS OF BLO 10/29/2018 MAUREEN DAS MD Ot S06.0X1A CONCUSSION W LOC OF 30 MINUTES OR LESS, 10/29/2018 MAUREEN DAS MD Ot W18.39XA OTHER FALL ON SAME LEVEL, INITIAL ENCOUN 10/29/2018 MAUREEN DAS MD Ot Z79. 02 SHELTER (CURRENT) USE OF ANTITHROMBOTI 10/29/2018 MAUREEN DAS MD Ot Z79. 82 NEMATOLOGY TEACHER (CURRENT) USE OF ASPIRIN 10/29/2018 MAUREEN DAS MD Ot Z87.891 PERSONAL HISTORY OF NICOTINE DEPENDENCE 10/29/2018 MAUREEN DAS MD Ot Z95. 1 PRESENCE OF AORTOCORONARY BYPASS GRAFT 10/29/2018 MAUREEN DAS MD Ot Z95. 5 PRESENCE OF CORONARY ANGIOPLASTY IMPLANT 10/29/2018 PIPPA YACNEY, MAUREEN William Ot Z98. 61 CORONARY ANGIOPLASTY STATUS 11/01/2018 [place] YANCEY, Long HECTOR Ot I65.23 OCCLUSION AND STENOSIS OF [place]ILATERAL [place] 11/01/2018 Long MCCARTY MD Ot I65.23 OCCLUSION AND STENOSIS OF [place]ATERAL [place] 11/01/2018 Long MCCARTY MD Ot I65.23 OCCLUSION AND STENOSIS OF [place]AL [place] 01/14/2019 CANDICE DOMINGUEZ MD, Ot F17.210 NICOTINE DEPENDENCE, CIGARETTES, UNCOMPL 01/14/2019 CANDICE DOMINGUEZ MD, Ot I10 ESSENTIAL (PRIMARY) HYPERTENSION 01/14/2019 CANDICE DOMINGUEZ MD, Ot I25.10 ATHSCL HEART DISEASE OF [place] CORONARY 01/14/2019 ACNDICE DOMINGUEZ MD, Ot I25.2 OLD MYOCARDIAL INFARCTION 01/14/2019 CANDICE DOMINGUEZ MD Ot L03.116 CELLULITIS OF LEFT LOWER LIMB 01/14/2019 CANDICE DOMINGUEZ MD Ot M25.572 PAIN IN LEFT ANKLE AND JOINTS OF LEFT FO 01/14/2019 CANDICE DOMINGUEZ MD Ot M85.672 OTHER CYST OF BONE, LEFT ANKLE AND FOOT 01/14/2019 CANDICE DOMINGUEZ MD, Ot Z79.02 NEMATOLOGY TEACHER (CURRENT) USE OF ANTITHROMBOTI 01/14/2019 CANDICE DOMINGUEZ MD Ot Z95.1 PRESENCE OF AORTOCORONARY BYPASS GRAFT 01/16/2019 CANDICE DOMINGUEZ MD, Ot F17.210 NICOTINE DEPENDENCE, CIGARETTES, UNCOMPL 01/16/2019 CANDICE DOMINGUEZ MD Ot I10 ESSENTIAL (PRIMARY) HYPERTENSION 01/16/2019 CANDICE DOMINGUEZ MD Ot I25.10 ATHSCL HEART DISEASE OF [place] CORONARY 01/16/2019 CANDICE DOMINGUEZ MD Ot I25.2 OLD MYOCARDIAL INFARCTION 01/16/2019 CANDICE DOMINGUEZ MD Ot L03.116 CELLULITIS OF LEFT LOWER LIMB 01/16/2019 CANDICE DOMINGUEZ MD, Ot M25.572 PAIN IN LEFT ANKLE AND JOINTS OF LEFT FO 01/16/2019 ALBERTO YANCEY, CANDICE Tovar Ot M85.672 OTHER CYST OF BONE, LEFT ANKLE AND FOOT 01/16/2019 ALBERTO YANCEY, CANDICE Tovar Ot Z79.02 NEMATOLOGY TEACHER (CURRENT) USE OF ANTITHROMBOTI 01/16/2019 ALBERTO YANCEY, CANDICE Tovar Ot Z95.1 PRESENCE OF AORTOCORONARY BYPASS GRAFT 09/24/2019 GELLENDER DO, PRO Landin Ot F03.90 UNSPECIFIED DEMENTIA WITHOUT BEHAVIORAL 09/27/2019 GELLENDER DO, PRO Landin Ot G83.24 MONOPLEGIA OF UPPER LIMB AFFECTING LEFT 09/27/2019 GELLENDER DO, PRO Landin Ot G93.89 OTHER SPECIFIED DISORDERS OF BRAIN 09/27/2019 GELLENDER DO, PRO Landin Ot R22.31 LOCALIZED SWELLING, MASS AND LUMP, RIGHT 09/27/2019 GELLENDER DO, PRO Landin Ot R40.20 UNSPECIFIED COMA 09/27/2019 GELLENDER DO, PRO Landin Ot Z98.890 OTHER SPECIFIED POSTPROCEDURAL STATES 10/15/2019 GELLENDER DO, PRO Landin Ot G83.24 MONOPLEGIA OF UPPER LIMB AFFECTING LEFT 10/15/2019 GELLENDER DO, PRO Landin Ot G93.89 OTHER SPECIFIED DISORDERS OF BRAIN 10/15/2019 GELLENDER DO, PRO Landin Ot R22.31 LOCALIZED SWELLING, MASS AND LUMP, RIGHT 10/15/2019 GELLENDER DO, PRO Landin Ot R40.20 UNSPECIFIED COMA 10/15/2019 GELLENDER DO, PRO Landin Ot Z98.890 OTHER SPECIFIED POSTPROCEDURAL STATES Procedures There is no data. Results Test Result Range CBC with Auto Diff - 03/23/16 15:00 Baso% 0.30 % 0.00-2.50 Eos 0.1 K/uL 0.0-0.7 Eos% 2.4 % 0.0-7.0 Hct 37.9 % 42.0-52.0 Hgb 12.4 g/dL 14.0-17.0 Lym 1.15 K/uL 0.60-3.40 Lym% 19.8 % 10.0-50.0 MCH 31.0 pg 27.0-31.2 MCHC 32.7 g/dL 32.0-36.0 MCV 94.8 fL 80.0-97.0 [place]% 9.6 % 0.0-12.0 MPV 10.2 fL 7.4-10.0 [place]% 67.9 % 37.0-80.0 Plt 256 K/uL 150-400 RBC 4.00 M/uL 4.20-5.40 RDW 12.7 % 11.6-14.8 WBC 5.82 K/uL 5.00-10.00 Tara 3.95 K/uL 2.00-6.90 [place] 0.6 K/uL 0.0-0.9 Baso 0.0 K/uL 0.0-0.2 Complete blood count (CBC) with automate d white blood cell (WBC) differential - 05/12/17 13:28 Blood leukocytes automated count (number/volume) 11.6 10*3/uL 4.3-11.0 Blood erythrocytes automated count (number/volume) 3.93 10*6/uL 4.35-5.85 Venous blood hemoglobin measurement (mass/volume) 12.3 g/dL 13.3-17.7 Blood hematocrit (volume fraction) 37 % 40-54 Automated erythrocyte mean corpuscular volume 93 [ foz_us] 80-99 Automated erythrocyte mean corpuscular h emoglobin (mass per erythrocyte) 31 pg 25-34 Automated erythrocyte mean corpuscular h emoglobin concentration measurement (mass/volume) 34 g/dL 32-36 Automated erythrocyte distribution width ratio 13. 0 % 10.0- 14.5 Automated blood platelet count [...] 10*3 1.0-4.0 Blood monocytes automated count (number/volume) 1. 0 10*3 0.0-1.0 Automated eosinophil count 0.0 10*3/uL 0 .0-0.3 Automated blood basophil count (count/volume) 0.0 10*3/uL 0.0-0.1 PT panel in platelet poor plasma by coag ulation assay - 05/12/17 13:28 Prothrombin time (PT) in platelet poor plasma by coagu lation assay 13.2 s 12.2-14.7 INR in platelet poor plasma or blood by coagulation as say 1.0 0.8-1.4 Comprehensive metabolic panel - 05/12/17 13:28 Serum or plasma sodium measurement (moles/volume) 133 mmol/L 135-145 Serum or plasma potassium measurement (moles/volume) 3.9 mmol/L 3.6-5.0 Serum or plasma chloride measurement (moles/volume) 99 mmol/L 98-107 Carbon dioxide 23 mmol/L 21-32 Serum or plasma anion gap determination (moles/volume) 11 mmol/L 5-14 Serum or plasma urea nitrogen measurement (mass/volume ) 9 mg/dL 7-18 Serum or plasma creatinine measurement (mass/volume) 0.84 mg/dL 0.60-1.30 Serum or plasma urea nitrogen/creatinine mass ratio 11 NRG Serum or plasma creatinine measurement w ith calculation of estimated glomerular filtration rate > NRG Serum or plasma glucose measurement (mass/volume) 96 mg/dL 70-105 Serum or plasma calcium measurement (mass/volume) 9.0 mg/dL 8.5-10.1 Serum or plasma total bilirubin measurement (mass/volu me) 0.8 mg/dL 0.1-1.0 Serum or plasma alkaline phosphatase fan surement (enzymatic activity/volume) 73 U/L 40-136 Serum or plasma aspartate aminotransfera se measurement (enzymatic activity/volume) 28 U/L 5-34 Serum or plasma alanine aminotransferase measurement (enzymatic activity/volume) 16 U/L 0-55 Serum or plasma protein measurement (mass/volume) 6.8 g/dL 6.4-8.2 Serum or plasma albumin measurement (mass/volume) 4.0 g/dL 3.2-4.5 Serum or plasma lithium measurement (mol es/volume) - 05/12/17 13:28 BNP level 280.5 pg/mL <100.0 Complete blood count (CBC) with automate d white blood cell (WBC) differential - 11/28/17 11:57 Blood leukocytes automated count (number/volume) 5.8 10*3/uL 4.3-11.0 Blood erythrocytes automated count (number/volume) 3.87 10*6/uL 4.35-5.85 Venous blood hemoglobin measurement (mass/volume) 12.1 g/dL 13.3-17.7 Blood hematocrit (volume fraction) 37 % 40-54 Automated erythrocyte mean corpuscular volume 96 [ foz_us] 80-99 Automated erythrocyte mean corpuscular h emoglobin (mass per erythrocyte) 31 pg 25-34 Automated erythrocyte mean corpuscular h emoglobin concentration measurement (mass/volume) 33 g/dL 32-36 Automated erythrocyte distribution width ratio 13. 7 % 10.0- 14.5 Automated blood platelet count [...] 10*3 1.0-4.0 Blood monocytes automated count (number/volume) 0. 6 10*3 0.0-1.0 Automated eosinophil count 0.0 10*3/uL 0 .0-0.3 Automated blood basophil count (count/volume) 0.0 10*3/uL 0.0-0.1 PT panel in platelet poor plasma by coag ulation assay - 11/28/17 11:57 Prothrombin time (PT) in platelet poor plasma by coagu lation assay 14.7 s 12.2-14.7 INR in platelet poor plasma or blood by coagulation as say 1.1 0.8-1.4 Activated partial thromboplastin time (a PTT) in platelet poor plasma bycoagulation assay - 11/28/17 11:57 Activated partial thromboplastin time (a PTT) in platelet poor plasma bycoagulation assay 28 s 24-35 Fibrin D-dimer FEU measurement in platel et poor plasma (mass/volume) - 11/28/17 11:57 Fibrin [...] 5-14 Serum or plasma urea nitrogen measurement (mass/volume ) 13 mg/dL 7-18 Serum or plasma creatinine measurement (mass/volume) 0.86 mg/dL 0.60-1.30 Serum or plasma urea nitrogen/creatinine mass ratio 15 NRG Serum or plasma creatinine measurement w ith calculation of estimated glomerular filtration rate > NRG Serum or plasma glucose measurement (mass/volume) 91 mg/dL 70-105 Serum or plasma calcium measurement (mass/volume) 8.5 mg/dL 8.5-10.1 Serum or plasma total bilirubin measurement (mass/volu me) 0.5 mg/dL 0.1-1.0 Serum or plasma alkaline phosphatase fan surement (enzymatic activity/volume) 58 U/L 40-136 Serum or plasma aspartate aminotransfera se measurement (enzymatic activity/volume) 34 U/L 5-34 Serum or plasma alanine aminotransferase measurement (enzymatic activity/volume) 22 U/L 0-55 Serum or plasma protein measurement (mass/volume) 6.1 g/dL 6.4-8.2 Serum or plasma albumin measurement (mass/volume) 3.6 g/dL 3.2-4.5 Magnesium - 11/28/17 11:57 Magnesium 1.6 mg/dL 1.8-2.4 Serum or plasma creatine kinase measurem ent (enzymatic activity/volume) - 11/28/17 11:57 Serum or plasma creatine kinase measurem ent (enzymatic activity/volume) 104 U/L 30-200 Serum or plasma creatine kinase MB measu rement (enzymatic activity/volume) - 11/28/17 11:57 Serum or plasma creatine kinase MB measu rement (enzymatic activity/volume) 3.1 ng/mL <6.6 Serum or plasma troponin i.cardiac measu rement (mass/volume) - 11/28/17 11:57 Serum or plasma troponin i.cardiac measurement (mass/v olume) < ng/mL <0.30 Serum or plasma lithium measurement (mol es/volume) - 11/28/17 11:57 BNP level 1247.3 pg/mL <100.0 Myoglobin, serum - 11/28/17 11:57 Myoglobin, serum 58.1 ng/mL 10.0-92.0 Serum or plasma thyrotropin measurement by detection limit <=0.05 miu/l (units/volume) - 11/28/17 11:57 Serum or plasma thyrotropin measurement by detection limit <=0.05 miu/l (units/volume) 1.13 u[iU]/mL 0.35-4.94 Serum or plasma ethanol measurement (mas s/volume) - 11/28/17 11:57 Serum or plasma ethanol measurement (mass/volume) < mg/dL <10 Complete urinalysis with reflex to cultu re - 11/28/17 14:30 Urine color determination YELLOW NRG Urine clarity determination CLEAR NR G Urine pH measurement by test strip 6.5 5-9 Specific gravity of urine by test strip 1.010 1.016-1.022 Urine protein assay by test strip, semi-quantitative NEGATIVE NEGATIVE Urine glucose detection by automated test strip NE GATIVE NEGATIVE Erythrocytes detection in urine sediment by light micr oscopy NEGATIVE NEGATIVE Urine ketones detection by automated test strip NE GATIVE NEGATIVE Urine nitrite detection by test strip NEGATIVE NEGATIVE Urine total bilirubin detection by test strip NEGA TIVE NEGATIVE Urine urobilinogen measurement by automated test strip (mass/volume) NORMAL NORMAL Urine leukocyte esterase detection by dipstick NEG ATIVE NEGATIVE Automated urine sediment erythrocyte cou nt by microscopy (number/high power field) RARE NRG Automated urine sediment leukocyte count by microscopy (number/high power field) NONE NRG Bacteria detection in urine sediment by light microsco py NEGATIVE NRG Squamous epithelial cells detection in u rine sediment by light microscopy NONE NRG Crystals detection in urine sediment by light microsco py NONE NRG Casts detection in urine sediment by light microscopy NONE NRG Mucus detection in urine sediment by light microscopy NEGATIVE NRG Complete urinalysis with reflex to culture NO NRG Urine drug screening test - 11/28/17 14: 30 Urine phencyclidine detection by screening method NEGATIVE NEGATIVE Urine benzodiazepines detection by screening method NEGATIVE NEGATIVE Urine cocaine detection NEGATIVE NEGATI VE Urine amphetamines detection by screening method N EGATIVE NEGATIVE Urine methamphetamine detection by screening method NEGATIVE NEGATIVE Urine cannabinoids detection by screening method N EGATIVE NEGATIVE Urine opiates detection by screening method NEGATI VE NEGATIVE Urine barbiturates detection NEGATIVE N EGATIVE Screening urine tricyclic antidepressants detection NEGATIVE NEGATIVE Urine methadone detection by screening method NEGA TIVE NEGATIVE Urine oxycodone detection NEGATIVE NEGA TIVE Urine propoxyphene detection NEGATIVE N EGATIVE Serum or plasma troponin i.cardiac measu rement (mass/volume) - 11/28/17 17:14 Serum or plasma troponin i.cardiac measurement (mass/v olume) < ng/mL <0.30 Complete blood count (CBC) with automate d white blood cell (WBC) differential - 01/29/18 15:35 Blood leukocytes automated count (number/volume) 10.0 10*3/uL 4.3-11.0 Blood erythrocytes automated count (number/volume) 3.59 10*6/uL 4.35-5.85 Venous blood hemoglobin measurement (mass/volume) 11.7 g/dL 13.3-17.7 Blood hematocrit (volume fraction) 34 % 40-54 Automated erythrocyte mean corpuscular volume 96 [ foz_us] 80-99 Automated erythrocyte mean corpuscular h emoglobin (mass per erythrocyte) 33 pg 25-34 Automated erythrocyte mean corpuscular h emoglobin concentration measurement (mass/volume) 34 g/dL 32-36 Automated erythrocyte distribution width ratio 13. 4 % 10.0- 14.5 Automated blood platelet count [...] 10*3 1.0-4.0 Blood monocytes automated count (number/volume) 0. 9 10*3 0.0-1.0 Automated eosinophil count 0.0 10*3/uL 0 .0-0.3 Automated blood basophil count (count/volume) 0.0 10*3/uL 0.0-0.1 Blood manual differential performed dete ction - 01/29/18 15:35 Blood monocytes/100 leukocytes 7 % NRG Manual blood segmented neutrophils/100 leukocytes 83 % NRG Blood band neutrophils/100 leukocytes 0 % NRG Manual blood lymphocytes/100 leukocytes 10 % NRG Manual eosinophils/100 leukocytes in nose 0 % NRG Manual blood basophils/100 leukocytes 0 % NRG Blood erythrocyte morphology finding identification NORMAL NRG Whole blood basic metabolic panel - 01/14 01/01 15:35 Serum or plasma sodium measurement (moles/volume) 132 mmol/L 135-145 Serum or plasma potassium measurement (moles/volume) 3.8 mmol/L 3.6-5.0 Serum or plasma chloride measurement (moles/volume) 100 mmol/L 98-107 Carbon dioxide 23 mmol/L 21-32 Serum or plasma anion gap determination (moles/volume) 9 mmol/L 5-14 Serum or plasma urea nitrogen measurement (mass/volume ) 11 mg/dL 7-18 Serum or plasma creatinine measurement (mass/volume) 0.86 mg/dL 0.60-1.30 Serum or plasma urea nitrogen/creatinine mass ratio 13 NRG Serum or plasma creatinine measurement w ith calculation of estimated glomerular filtration rate > NRG Serum or plasma glucose measurement (mass/volume) 131 mg/dL 70-105 Serum or plasma calcium measurement (mass/volume) 9.0 mg/dL 8.5-10.1 Serum or plasma C reactive protein measu rement (mass/volume) - 01/29/18 15:35 Serum or plasma C reactive protein measurement (mass/v olume) 7.73 mg/dL 0.00-0.50 Complete blood count (CBC) with automate d white blood cell (WBC) differential - 08/19/18 11:19 Blood leukocytes automated count (number/volume) 5.1 10*3/uL 4.3-11.0 Blood erythrocytes automated count (number/volume) 4.26 10*6/uL 4.35-5.85 Venous blood hemoglobin measurement (mass/volume) 13.2 g/dL 13.3-17.7 Blood hematocrit (volume fraction) 40 % 40-54 Automated erythrocyte mean corpuscular volume 94 [ foz_us] 80-99 Automated erythrocyte mean corpuscular h emoglobin (mass per erythrocyte) 31 pg 25-34 Automated erythrocyte mean corpuscular h emoglobin concentration measurement (mass/volume) 33 g/dL 32-36 Automated erythrocyte distribution width ratio 13. 5 % 10.0- 14.5 Automated blood platelet count [...] 10*3 1.0-4.0 Blood monocytes automated count (number/volume) 0. 4 10*3 0.0-1.0 Automated eosinophil count 0.1 10*3/uL 0 .0-0.3 Automated blood basophil count (count/volume) 0.0 10*3/uL 0.0-0.1 PT panel in platelet poor plasma by coag ulation assay - 08/19/18 11:19 Prothrombin time (PT) in platelet poor plasma by coagu lation assay 13.8 s 12.2-14.7 INR in platelet poor plasma or blood by coagulation as say 1.1 0.8-1.4 Activated partial thromboplastin time (a PTT) in platelet poor plasma bycoagulation assay - 08/19/18 11:19 Activated partial thromboplastin time (a PTT) in platelet poor plasma bycoagulation assay 29 s 24-35 Fibrin D-dimer FEU measurement in platel et poor plasma (mass/volume) - 08/19/18 11:19 Fibrin [...] 5-14 Serum or plasma urea nitrogen measurement (mass/volume ) 13 mg/dL 7-18 Serum or plasma creatinine measurement (mass/volume) 1.05 mg/dL 0.60-1.30 Serum or plasma urea nitrogen/creatinine mass ratio 12 NRG Serum or plasma creatinine measurement w ith calculation of estimated glomerular filtration rate > NRG Serum or plasma glucose measurement (mass/volume) 109 mg/dL 70-105 Serum or plasma calcium measurement (mass/volume) 8.9 mg/dL 8.5-10.1 Serum or plasma total bilirubin measurement (mass/volu me) 0.4 mg/dL 0.1-1.0 Serum or plasma alkaline phosphatase fan surement (enzymatic activity/volume) 71 U/L 40-136 Serum or plasma aspartate aminotransfera se measurement (enzymatic activity/volume) 28 U/L 5-34 Serum or plasma alanine aminotransferase measurement (enzymatic activity/volume) 24 U/L 0-55 Serum or plasma protein measurement (mass/volume) 6.7 g/dL 6.4-8.2 Serum or plasma albumin measurement (mass/volume) 3.7 g/dL 3.2-4.5 CALCIUM CORRECTED 9.1 mg/dL 8.5-10.1 Magnesium - 08/19/18 11:19 Magnesium 2.3 mg/dL 1.8-2.4 Serum or plasma troponin i.cardiac measu rement (mass/volume) - 08/19/18 11:19 Serum or plasma troponin i.cardiac measurement (mass/v olume) 0.039 ng/mL <0.028 Serum or plasma lithium measurement (mol es/volume) - 08/19/18 11:19 BNP level 886.3 pg/mL [...] 5-14 Serum or plasma urea nitrogen measurement (mass/volume ) 11 mg/dL 7-18 Serum or plasma creatinine measurement (mass/volume) 0.82 mg/dL 0.60-1.30 Serum or plasma urea nitrogen/creatinine mass ratio 13 NRG Serum or plasma creatinine measurement w ith calculation of estimated glomerular filtration rate > NRG Serum or plasma glucose measurement (mass/volume) 112 mg/dL 70-105 Serum or plasma calcium measurement (mass/volume) 8.5 mg/dL 8.5-10.1 Serum or plasma total bilirubin measurement (mass/volu me) 0.3 mg/dL 0.1-1.0 Serum or plasma alkaline phosphatase fan surement (enzymatic activity/volume) 66 U/L 40-136 Serum or plasma aspartate aminotransfera se measurement (enzymatic activity/volume) 31 U/L 5-34 Serum or plasma alanine aminotransferase measurement (enzymatic activity/volume) 17 U/L 0-55 Serum or plasma protein measurement (mass/volume) 6.8 g/dL 6.4-8.2 Serum or plasma albumin measurement (mass/volume) 3.5 g/dL 3.2-4.5 CALCIUM CORRECTED 8.9 mg/dL 8.5-10.1 Magnesium - 10/26/18 01:00 Magnesium 2.2 mg/dL 1.8-2.4 Complete blood count (CBC) with automate d white blood cell (WBC) differential - 10/26/18 01:00 Blood leukocytes automated count (number/volume) 5.4 10*3/uL 4.3-11.0 Blood erythrocytes automated count (number/volume) 3.99 10*6/uL 4.35-5.85 Venous blood hemoglobin measurement (mass/volume) 13.0 g/dL 13.3-17.7 Blood hematocrit (volume fraction) 38 % 40-54 Automated erythrocyte mean corpuscular volume 95 [ foz_us] 80-99 Automated erythrocyte mean corpuscular h emoglobin (mass per erythrocyte) 33 pg 25-34 Automated erythrocyte mean corpuscular h emoglobin concentration measurement (mass/volume) 35 g/dL 32-36 Automated erythrocyte distribution width ratio 13. 6 % 10.0- 14.5 Automated blood platelet count [...] 10*3 1.0-4.0 Blood monocytes automated count (number/volume) 0. 5 10*3 0.0-1.0 Automated eosinophil count 0.0 10*3/uL 0 .0-0.3 Automated blood basophil count (count/volume) 0.0 10*3/uL 0.0-0.1 Serum or plasma ethanol measurement (mas s/volume) - 10/26/18 01:00 Serum or plasma ethanol measurement (mass/volume) < mg/dL <10 Serum or plasma troponin i.cardiac measu rement (mass/volume) - 10/26/18 01:00 Serum or plasma troponin i.cardiac measurement (mass/v olume) 0.049 ng/mL <0.028 PT panel in platelet poor plasma by coag ulation assay - 10/26/18 02:23 Prothrombin time (PT) in platelet poor plasma by coagu lation assay 13.9 s 12.2-14.7 INR in platelet poor plasma or blood by coagulation as say 1.0 0.8-1.4 Activated partial thromboplastin time (a PTT) in platelet poor plasma bycoagulation assay - 10/26/18 02:23 Activated partial thromboplastin time (a PTT) in platelet poor plasma bycoagulation assay 27 s 24-35 Serum or plasma troponin i.cardiac measu rement (mass/volume) - 10/26/18 03:04 Serum or plasma troponin i.cardiac measurement (mass/v olume) 0.273 ng/mL <0.028 Serum or plasma lithium measurement (mol es/volume) - 09/24/19 13:30 BNP PT 402.9 pg/mL <100.0 Influenza virus A and B antigen detectio n - 12/17/19 15:29 FLU RESULT NEGATIVE FOR INFLUENZA A AND B ANTIGENS BY IA NRG Complete blood count (CBC) with automate d white blood cell (WBC) differential - 12/17/19 15:32 Blood leukocytes automated count (number/volume) 12.1 10*3/uL 4.3-11.0 Blood erythrocytes automated count (number/volume) 4.34 10*6/uL 4.35-5.85 Venous blood hemoglobin measurement (mass/volume) 13.5 g/dL 13.3-17.7 Blood hematocrit (volume fraction) 39 % 40-54 Automated erythrocyte mean corpuscular volume 90 [ foz_us] 80-99 Automated erythrocyte mean corpuscular h emoglobin (mass per erythrocyte) 31 pg 25-34 Automated erythrocyte mean corpuscular h emoglobin concentration measurement (mass/volume) 35 g/dL 32-36 Automated erythrocyte distribution width ratio 13. 1 % 10.0- 14.5 Automated blood platelet count (count/volume) 272 10*3/uL 130-400 Automated blood platelet mean volume measurement 9.9 [foz_us] 7.4-10.4 Automated blood neutrophils/100 leukocytes 89 % 42-75 Automated blood lymphocytes/100 leukocytes 3 % 12-44 Blood monocytes/100 leukocytes 8 % 0-12 Automated blood eosinophils/100 leukocytes 0 % 0-10 Automated blood basophils/100 leukocytes 0 % 0-10 Blood neutrophils automated count (number/volume) 10.8 10*3 1.8-7.8 Blood lymphocytes automated count (number/volume) 0.3 10*3 1.0-4.0 Blood monocytes automated count (number/volume) 1. 0 10*3 0.0-1.0 Automated eosinophil count 0.0 10*3/uL 0 .0-0.3 Automated blood basophil count (count/volume) 0.0 10*3/uL 0.0-0.1 Manual absolute plasma cell count - 09/05 15:32 Blood monocytes/100 leukocytes 9 % NRG Manual blood segmented neutrophils/100 leukocytes 88 % NR Manual blood lymphocytes/100 leukocytes 3 % NR Blood erythrocyte morphology finding identification NORMAL NR Comprehensive metabolic panel - 12/17/19 15:57 Serum or plasma sodium measurement (moles/volume) 127 mmol/L 135-145 Serum or plasma potassium measurement (moles/volume) 3.0 mmol/L 3.6-5.0 Serum or plasma chloride measurement (moles/volume) 97 mmol/L 98-107 Carbon dioxide 17 mmol/L 21-32 Serum or plasma anion gap determination (moles/volume) 13 mmol/L 5-14 Serum or plasma urea nitrogen measurement (mass/volume ) 19 mg/dL 7-18 Serum or plasma creatinine measurement (mass/volume) 1.43 mg/dL 0.60-1.30 Serum or plasma urea nitrogen/creatinine mass ratio 13 NRG Serum or plasma creatinine measurement w ith calculation of estimated glomerular filtration rate 48 NRG Serum or plasma glucose measurement (mass/volume) 137 mg/dL 70-105 Serum or plasma calcium measurement (mass/volume) 8.0 mg/dL 8.5-10.1 Serum or plasma total bilirubin measurement (mass/volu me) 0.5 mg/dL 0.1-1.0 Serum or plasma alkaline phosphatase fan surement (enzymatic activity/volume) 59 U/L 40-136 Serum or plasma aspartate aminotransfera se measurement (enzymatic activity/volume) 41 U/L 5-34 Serum or plasma alanine aminotransferase measurement (enzymatic activity/volume) 14 U/L 0-55 Serum or plasma protein measurement (mass/volume) 6.4 g/dL 6.4-8.2 Serum or plasma albumin measurement (mass/volume) 3.6 g/dL 3.2-4.5 CALCIUM CORRECTED 8.3 mg/dL 8.5-10.1 Blood lactic acid measurement (moles/vol ume) - 12/17/19 15:57 Blood lactic acid measurement (moles/volume) 3.20 mmol/L 0.50-2.00 PT panel in platelet poor plasma by coag ulation assay - 12/17/19 15:57 Prothrombin time (PT) in platelet poor plasma by coagu lation assay 17.5 s 12.2-14.7 INR in platelet poor plasma or blood by coagulation as say 1.4 0.8-1.4 Activated partial thromboplastin time (a PTT) in platelet poor plasma bycoagulation assay - 12/17/19 15:57 Activated partial thromboplastin time (a PTT) in platelet poor plasma bycoagulation assay 30 s 24-35 Encounters ACCT No. Visit Date/Time Discharge Status Pt. Type Provider Facility Loc./Unit Complaint [id number] 10/27/2011 15:51:00 10/27/2011 23:59:5 9 CLS Outpatient RHONA PETERSON MD [id number] 10/27/2011 15:51:00 10/27/2011 23:59: 59 CLS Outpatient [id number] 03/23/2016 14:53:00 Document Registration [id number] 09/24/2019 13:21:00 23:59:59 CLS Outpatient PRO ALLAN DO [facility] [address] CARD NON RESPONSIVE 20 MIN,LT ARM NOT MOVING [id number] 01/14/2019 09:51:00 12:05:00 DIS Emergency CANDICE DOMINGUEZ MD [facility] [address] ER ANKLE/FOOT PAIN [id number] 11/01/2018 07:53:00 23:59:59 CLS Preadmit Long MCCARTY MD [facility] [address] CARD SOB,CAD,HTN,CAROTID ART YOCASTA ARTERY STENOSIS [id number] 11/01/2018 07:45:00 23:59:59 CLS Preadmit Long MCCARTY MD [facility] [address] CARD PALPITATIONS [id number] 11/01/2018 07:40:00 23:59:59 CLS Preadmit Long MCCARTY MD [facility] [address] CARD CAD,HTN,SOB,PALPITATION S [id number] 11/01/2018 07:38:00 23:59:59 CLS Preadmit Long MCCARTY MD [facility] [address] RAD CAROTID ARTERY STENOSIS [id number] 10/26/2018 00:51:00 04:06:00 DIS Emergency MAUREEN DAS MD [facility] [address] ER FALL [id number] 08/19/2018 10:58:00 019 15:06:00 DIS Emergency PA ROJAS MD [facility] [address] ER CP/SOB [id number] 05/17/2018 13:40:00 018 23:59:59 CLS Outpatient PRO ALLAN DO [facility] [address] RAD DEMENTIA [id number] 03/20/2018 12:29:00 018 14:16:00 DIS Emergency MAUREEN DAS MD [facility] [address] ER FALL-LEFT RIB PAIN [id number] 01/29/2018 14:45:00 018 17:00:00 DIS Emergency ESA MORRIS APRN [facility] [address] ER LEFT THUMB INJURY [id number] 01/18/2018 10:49:00 018 11:09:00 DIS Emergency SHANKAR KAUR MD [facility] [address] ER STAPLE REMOVAL [id number] 01/14/2018 12:54:00 018 13:57:00 DIS Emergency SHANKAR KAUR MD [facility] [address] ER CUT RIGHT ELBOW ON GLAS S THIS AM [id number] 11/28/2017 10:25:00 018 19:50:00 DIS Emergency MARI DRAPER [facility] [address] ER CP,ANKLES SWELLING [id number] 05/12/2017 12:20:00 017 15:05:00 DIS Emergency ESA MORRIS APRN [facility] [address] ER FALL/LEFT HIP PAIN [id number] 12/23/2014 19:13:00 015 20:47:00 DIS Emergency CANDICE DOMINGUEZ MD [facility] [address] ER ALLERGIC REACTI ON WASP STING,FACIAL SWELLING [id number] 09/27/2013 10:36:00 014 23:59:59 CLS Outpatient KERON PLAZA [facility] [address] CARD CAD,PALPITATIONS,SOB [id number] 12/17/2019 15:48:00 Document Registration [id number] 02/28/2019 10:40:00 02/28/2019 23:59:5 9 CLS [facility]
--- NOTE | 2019-12-17 16:48 | ED Fall/Injury ---
General Chief Complaint: Chest Wall Stated Complaint: FALL Nursing Triage Note: ARRIVED VIA EMS FROM HOME. PT WAS FOUND ON THE FLOOR BY FAMILY ET PT COMPLAINS OF SEVERE RIGHT RIB PAIN. DOES NOT KNOW IF HE FELL OR NOT. PT ALERT TO NAME AND PLACE BUT CONFUSED WITH CONVERSATION AND UNABLE TO ANSWER SOME QUESTIONS. UPON ASSESSMENT PT TEMP WAS 103.1. EMS REPORTS HOUSE SMELLED OF URINE. Source: patient, EMS Exam Limitations: no limitations (PA ROJAS MD) Source: old records (CANDICE DOMINGUEZ MD) History of Present Illness Date Seen by Provider: Dec 17, 2019 Time Seen by Provider: 15:45 Initial Comments Here by EMS After being found on the floor by family members and complaining of right rib pain. Patient was apparently out this morning. Noted to have fever 103. Patient is somewhat confused and is and difficulty in conversation at times. Does answer some questions and follows simple commands. Arce complains of right rib pain. Does have strong odor of urine on him. Occurred: this afternoon Severity: moderate Injuries/Pain Location: chest Context: unknown Loss of Consciousness: unsure Modifying Factors: Worse With Movement; Improves With Rest Associated Symptoms (Fall): No Abdominal Pain; Chest Pain, Confusion; No Headache, No Muscle Spasms, No Neck Pain, No Shortness of Air (PA ROJAS MD) Allergies and Home Medications Allergies Coded Allergies: No Known Drug Allergies (Unverified , 12/23/14) Home Medications Amlodipine Besylate 5 Mg Tablet, 5 MG PO DAILY, (Reported) Cephalexin 500 Mg Capsule, 500 MG PO QID Prescribed by: CANDICE WOODRUFF on 01/14/19 1200 Clopidogrel Bisulfate 75 Mg Tablet, 1 EACH PO DAILY, (Reported) Clopidogrel Bisulfate 75 Mg Tablet, 75 MG PO DAILY Prescribed by: MARI TABOR on 11/28/171931 Furosemide 40 Mg Tablet, 40 MG PO BID Prescribed by: MARI TABOR on 11/28/171931 Hctz/Lisinopril 1 Tab Tablet, 1 EACH PO DAILY, (Reported) Hydrocodone/Acetaminophen 1 Each Tablet, 1 EACH PO Q4H PRN for PAIN-MODERATE TO SEVERE Prescribed by: ESA MORRIS on 05/12/17 1413 Lisinopril 20 Mg Tab, 20 MG PO DAILY, (Reported) Magnesium Oxide 500 Mg Capsule, 500 MG PO BID Prescribed by: MARI TABOR on 11/28/171931 Metoprolol Succinate 100 Mg Tab.sr.24h, 1 EACH PO BID, (Reported) Metoprolol Tartrate 100 Mg Tablet, 100 MG PO BID Prescribed by: MARI TABOR on 11/28/171931 Niacin 500 Mg Tablet.sa, 500 MG PO DAILY, (Reported) Nitroglycerin 0.4 Mg Tab.subl, 0.4 MG SL UD PRN for CHEST PAIN 1 tab SL q5 min prn chest pain (max 3 doses). Prescribed by: MARI TABOR on 11/28/171931 Potassium Chloride 20 Meq Tablet.er, 20 MEQ PO BID Prescribed by: MARI TABOR on 11/28/171931 Simvastatin 40 Mg Tablet, 40 MG PO DAILY, (Reported) Tamsulosin HCl 0.4 Mg Cap.er.24h, 0.4 MG PO DAILY Prescribed by: MARI TABOR on 11/28/171931 Patient Home Medication List Home Medication List Reviewed: Yes (PA ROJAS MD) Review of Systems Review of Systems Constitutional: see HPI; No chills, No fever Eyes: No Symptoms Reported Ears, Nose, Mouth, Throat: no symptoms reported Respiratory: No cough, No short of breath Cardiovascular: chest pain (right ribs); No palpitations Gastrointestinal: abdominal pain (suprapubic); No nausea, No vomiting Genitourinary: incontinence, other (strong odor of urine) Musculoskeletal: No back pain, No joint pain Skin: No change in color, No lesions Psychiatric/Neurological: Denies Headache; Weakness Review of systems Limited due to confusion (PA ROJAS MD) All Other Systems Reviewed Negative Unless Noted: Yes (PA ROJAS MD) Past Rizvero-Aqrexe-Ijoaod Hx Past Med/Social Hx: Reviewed Nursing Past Med/Soc Hx (PA ROJAS MD) Patient Social History Alcohol Use: Occasionally Uses Alcohol Beverage of Choice: Beer Recreational Drug Use: No Smoking Status: Former Smoker Type Used: Cigarettes Former Smoker, Quit: Aug 29, 2000 2nd Hand Smoke Exposure: No Recent Foreign Travel: No Contact w/Someone Who Travel: No Recent Infectious Disease Expo: No Recent Hopitalizations: No (PA ROJAS MD) Immunizations Up To Date Tetanus Booster (TDap): Unknown (PA ROJAS MD) Seasonal Allergies Seasonal Allergies: No (PA ROJAS MD) Past Medical History Surgeries: Yes (BYPASS X5, CAROTID ARTERY.) Cardiac, CABG, Coronary Stent, Vascular Surgery Respiratory: Yes (Chronic shortness of air) Cardiac: Yes Coronary Artery Disease, Heart Attack, Hypertension Neurological: No Reproductive Disorders: No Sexually Transmitted Disease: No HIV/AIDS: No Genitourinary: No Gastrointestinal: No Musculoskeletal: No Endocrine: No HEENT: No Cancer: No Psychosocial: No Integumentary: No Blood Disorders: No Adverse Reaction/Blood Tranf: No (PA ROJAS MD) Atrial Fibrillation Dementia (CANDICE DOMINGUEZ MD) Family Medical History Reviewed Nursing Family Hx (PA ROJAS MD) No Pertinent Family Hx (PA ROJAS MD) Physical Exam Vital Signs Vital Signs - First Documented 12/17/19 15:03 Temp 39.4 Pulse 116 Resp 16 B/P (MAP) 95/53 (67) Pulse Ox 94 O2 Delivery Nasal Cannula (CANDICE DOMINGUEZ MD) Vital Signs Capillary Refill : Less Than 3 Seconds (PA ROJAS MD) Height, Weight, BMI Height: 5'4.00" Weight: 165lbs. 0oz. 74.548171qu; 23.00 BMI Method:Stated General Appearance: no apparent distress, other (appears ill) HEENT: PERRL/EOMI, other (dry mucous membranes) Neck: non-tender, full range of motion, supple, normal inspection Cardiovascular: no murmur, tachycardia Respiratory: no accessory muscle use, crackles (Few in the right base) Gastrointestinal: non tender, soft, no organomegaly, no pulsatile mass Back: normal inspection, no CVA tenderness, no vertebral tenderness Extremities: non-tender, normal inspection Neurologic/Psychiatric: alert, other (somewhat confused but follows simple commands and answer simple questions) Skin: normal color, warm/dry (PA ROJAS MD) Kumar Coma Score Best Eye Response: (4) Open Spontaneously Best Verbal Response: (4) Confused Conversation Best Motor Response: (6) Obeys Commands (PA ROJAS MD) Progress/Results/Core Measures Results/Orders Lab Results Laboratory Tests Test 12/17/19 15:32 12/17/19 15:57 12/17/19 18:29 12/17/19 19:26 Range/Units White Blood Count 12.1 H 4.3-11.0 10^3/uL Red Blood Count 4.34 L 4.35-5.85 10^6/uL Hemoglobin 13.5 13.3-17.7 G/DL Hematocrit 39 L 40-54 % Mean Corpuscular Volume 90 80-99 FL Mean Corpuscular Hemoglobin 31 25-34 PG Mean Corpuscular Hemoglobin Concent 35 32-36 G/DL Red Cell Distribution Width 13.1 10.0-14.5 % Platelet Count 272 130-400 10^3/uL Mean Platelet Volume 9.9 7.4-10.4 FL Neutrophils (%) (Auto) 89 H 42-75 % Lymphocytes (%) (Auto) 3 L 12-44 % Monocytes (%) (Auto) 8 0-12 % Eosinophils (%) (Auto) 0 0-10 % Basophils (%) (Auto) 0 0-10 % Neutrophils # (Auto) 10.8 H 1.8-7.8 X 10^3 Lymphocytes # (Auto) 0.3 L 1.0-4.0 X 10^3 Monocytes # (Auto) 1.0 0.0-1.0 X 10^3 Eosinophils # (Auto) 0.0 0.0-0.3 10^3/uL Basophils # (Auto) 0.0 0.0-0.1 10^3/uL Neutrophils % (Manual) 88 % Lymphocytes % (Manual) 3 % Monocytes % (Manual) 9 % Blood Morphology Comment NORMAL Smear Scan Prothrombin Time 17.5 H 12.2-14.7 SEC INR Comment 1.4 0.8-1.4 Activated Partial Thromboplast Time 30 24-35 SEC Sodium Level 127 L 135-145 MMOL/L Potassium Level 3.0 L 3.6-5.0 MMOL/L Chloride Level 97 L 98-107 MMOL/L Carbon Dioxide Level 17 L 21-32 MMOL/L Anion Gap 13 5-14 MMOL/L Blood Urea Nitrogen 19 H 7-18 MG/DL Creatinine 1.43 H 0.60-1.30 MG/DL Estimat Glomerular Filtration Rate 48 BUN/Creatinine Ratio 13 Glucose Level 137 H 70-105 MG/DL Lactic Acid Level 3.20 *H 2.29 *H 0.50-2.00 MMOL/L Calcium Level 8.0 L 8.5-10.1 MG/DL Corrected Calcium 8.3 L 8.5-10.1 MG/DL Total Bilirubin 0.5 0.1-1.0 MG/DL Aspartate Amino Transf (AST/SGOT) 41 H 5-34 U/L Alanine Aminotransferase (ALT/SGPT) 14 0-55 U/L Alkaline Phosphatase 59 40-136 U/L C-Reactive Protein High Sensitivity 0.09 0.00-0.50 MG/DL Total Protein 6.4 6.4-8.2 GM/DL Albumin 3.6 3.2-4.5 GM/DL Procalcitonin 0.22 H <0.10 NG/ML Urine Color YELLOW Urine Clarity CLEAR Urine pH 5.5 5-9 Urine Specific [place] 1.025 H 1.016-1.022 Urine Protein 2+ H NEGATIVE Urine Glucose (UA) NEGATIVE NEGATIVE Urine Ketones TRACE H NEGATIVE Urine Nitrite NEGATIVE NEGATIVE Urine Bilirubin NEGATIVE NEGATIVE Urine Urobilinogen 1.0 < = 1.0 MG/DL Urine Leukocyte Esterase NEGATIVE NEGATIVE Urine RBC (Auto) 3+ H NEGATIVE Urine RBC 25-50 H /HPF Urine WBC NONE /HPF Urine Crystals PRESENT H /LPF Urine Amorphous Sediment RARE KATYA URATES H /LPF Urine Bacteria NEGATIVE /HPF Urine Casts NONE /LPF Urine Mucus NEGATIVE /LPF Urine Culture Indicated NO Test 12/17/19 20:30 12/17/19 21:08 Range/Units Lactic Acid Level 2.00 0.50-2.00 MMOL/L Troponin I 2.269 *H <0.028 NG/ML (CANDICE DOMINGUEZ MD) Micro Results Microbiology 12/17/19 Influenza Types A,B Antigen (NORM) - Final, Complete (CANDICE DOMINGUEZ MD) My Orders Orders - CANDICE DOMINGUEZ MD Potassium Chloride (Tablet) (Klor Con Ta (12/17/19 18:45) Fentanyl Injection (Sublimaze Injection (12/17/19 18:45) Lidocaine 2% (Urojet) (Xylocaine Urojet) (12/17/19 18:45) Hs C Reactive Protein (12/17/19 18:58) Piperacillin Sodium/Tazobactam (Zosyn Vi (12/17/19 19:45) Procalcitonin (Pct) (12/17/19 20:14) Troponin I (12/17/19 20:19) Ekg Tracing (12/17/19 20:19) Influenza A And B Antigens (12/17/19 20:19) Coronavirus Sars-Cov-2 So 2018 (12/17/19 20:19) Albuterol Inhaler (Ventolin Hfa) (12/17/19 20:30) Chest 1 View, Ap/Pa Only (12/17/19 20:28) Heparin Drip 38391 Unit/500ml (Heparin (12/17/19 21:05) (CANDICE DOMINGUEZ MD) Medications Given in ED Current Medications Medications Dose Ordered Sig/Mary Route Start Time Stop Time Status Last Admin Dose Admin Acetaminophen 1,000 mg ONCE ONCE PO 12/17/19 15:30 12/17/19 15:31 DC 12/17/19 15:53 1,000 MG Albuterol Sulfate 2 PUFFS RTQ4HR PRN IH 12/17/19 20:30 12/17/19 21:43 8 GM Fentanyl Citrate 50 mcg ONCE ONCE IVP 12/17/19 18:45 12/17/19 18:46 DC 12/17/19 18:52 50 MCG Heparin Sodium/ Dextrose 500 ml @ 0 mls/hr Q0M ONCE IV 12/17/19 21:05 12/17/19 21:07 DC 12/17/19 21:43 16.3 MLS/HR Lidocaine HCl 10 ml ONCE ONCE TOP 12/17/19 18:45 12/17/19 18:46 DC 12/17/19 19:30 10 ML Piperacillin Sod/ Tazobactam Sod 4.5 gm/Sodium Chloride 100 ml @ 200 mls/hr ONCE ONCE IV 12/17/19 19:45 12/17/19 20:14 DC 12/17/19 20:10 200 MLS/HR Potassium Chloride 40 meq ONCE ONCE PO 12/17/19 18:45 12/17/19 18:46 DC 12/17/19 18:52 40 MEQ Sodium Chloride 1,000 ml @ 0 mls/hr Q0M ONCE IV 12/17/19 16:41 12/17/19 16:43 DC 12/17/19 16:45 1,000 MLS/HR (CANDICE DOMINGUEZ MD) Vital Signs/I&O 12/17/19 12/17/19 15:03 17:35 Temp 39.4 36.8 Pulse 116 Resp 16 B/P (MAP) 95/53 (67) Pulse Ox 94 O2 Delivery Nasal Cannula 12/18/19 00:00 Intake Total 3100 ml Balance 3100 ml (CANDICE DOMINGUEZ MD) Blood Pressure Mean: 67 Progress Progress Note : Progress Note Seen and evaluated. IV by EMS. Labs, UA, blood cultures, lactic acid, chest x- ray, CT head as well as chest abdomen and pelvis without contrast due to concerns of kidney dysfunction. Normal saline 1 L bolus ordered and repeated. Monitor patient. (PA ROJAS MD) Progress Note #1: Time: 18:53 Progress Note Care of this patient has been assumed from Dr. Rojas. Sepsis is suspected but no source of infection has yet been found. UA is pending as patient has not allowed a catheter placement. Rib fractures were found and fentanyl has been ordered. Patient has received his third liter of IV fluid. Systolic blood pressure is 104. Empiric antibiotics will be administered. Progress Note #2: Time: 19:32 Progress Note Patient was unable to urinate and finally consented to a straight catheter. 200+ mL of urine was drained from the bladder and sent for urinalysis. Zosyn is being administered for empiric antibiotic therapy. Patient was given potassium chloride 40 mEq by mouth to replace his potassium. I have ordered another 20 mEq to take at 22:00. Progress Note #3: Time: 20:35 Progress Note This gentleman appears short of breath for me on multiple exams now. It was reported to me by staff that he was not particularly short of breath on initial assessment. Shortness of breath may be due to rib fractures. However, a change in pulmonary status should be investigated further. A repeat chest x-ray is being obtained to evaluate for pulmonary edema or pneumothorax. CRP was normal and patient has a relative leukopenia. For this reason we are now swabbing for influenza and jefferson virus. Patient also has a cardiac history so we will obtain a troponin and an EKG. He will receive albuterol MDI treatment as well for shortness of breath. Dr. Baires has been updated. She requested a one-time dose of Lovenox if no other source of his symptoms is identified. I have attempted to contact family but was unable to reach anyone for more information. Patient requests to be a full CODE STATUS. Progress Note #4: Time: 21:07 Progress Note Influenza screen was negative. Troponin is pending. EKG showed atrial fibrillation with possible left bundle branch block. We are going to use a heparin drip for anticoagulation. This would be safer in the context of rib fractures. Because of patient's shortness of breath or repeat chest x-ray was obtained. There did not appear to be any pulmonary edema or pneumothorax pres ent. Progress Note #5: Time: 22:06 Progress Note Patient is ready for admission to the ICU/CSD. The last systolic blood pressure was 90. We are starting another liter of IV fluid. Troponin is still pending. Progress Note #6: Time: 00:50 Progress Note Review of labs after patient was admitted revealed elevated troponin. Dr. Perez was updated. (CANDICE DOMINGUEZ MD) Initial ECG Impression Date: Dec 17, 2019 Initial ECG Impression Time: 20:35 Initial ECG Rate: 109 Initial ECG Rhythm: A Fib/Flutter Initial ECG Impression: Atrial Fibrillation Comment Rate controlled atrial fibrillation with nondiagnostic ST changes. No axis deviation. (CANDICE DOMINGUEZ MD) Diagnostic Imaging Diagonstic Imaging: Xray Plain Films/CT/US/NM/MRI: chest Comments [facility]. [place], [place] NAME: CARLOS ADDISON Zora [facility] REC#: [id number] PT STATUS: REG ER : 1945 PHYSICIAN: RADHA PINTO ADMIT DATE: 12/17/19/ER Draft Date of Exam:12/17/19 CHEST 1 VIEW, AP/PA ONLY INDICATION: Patient found down. Frontal chest obtained at 04:11 p.m. and is compared to 09/24/2019. Heart is significantly increased in size compared to the prior study. This may in part be due to portable technique. There is mild central vascular congestion with some infiltrate in the right medial base. There is no pneumothorax or pleural fluid. IMPRESSION: Cardiomegaly, this may in part be due to portable technique. There is central vascular congestion. There is some new infiltrate in the right medial base. Dictated on workstation # [id number] Dict: 12/17/19 1629 Trans: 12/17/19 1633 [id number] Interpreted by: DENA CHICAS MD Electronically signed by: (PA ROJAS MD) Diagonstic Imaging: CT Plain Films/CT/US/NM/MRI: chest, abdomen, pelvis Comments CT chest, abdomen and pelvis viewed by me and report reviewed. See report below: NAME: CARLOS ADDISON [facility] REC#: [id number] PT STATUS: REG ER : 1945 PHYSICIAN: PA ROJAS MD ADMIT DATE: 12/17/19/ER Draft Date of Exam:12/17/19 CT CHEST/ABDOMEN/PELVIS WO PROCEDURE: CT chest, abdomen, and pelvis without contrast. TECHNIQUE: Multiple contiguous axial images were obtained through the chest, abdomen, and pelvis without the use of intravenous contrast. Auto Exposure Controls were utilized during the CT exam to meet ALARA standards for radiation dose reduction. INDICATION: Found down, right rib pain. COMPARISON: No relevant comparisons. CT CHEST: Acute fractures posterolaterally at the level of the right 8th and 9th ribs are not significantly displaced. There is no lung contusion, pneumothorax, hemothorax or findings of a pulmonary laceration. There is previous sternotomy without bony dehiscence. No lung mass or evidence for aspiration. The atherosclerotic aorta is nonaneurysmal. No evidence for thoracic lymphadenopathy. There is coronary arterial atherosclerotic vascular calcifications. CT ABDOMEN AND PELVIS: There are findings of abdominal pelvic hemoperitoneum. There is no free fluid or free air. No bowel, biliary or urinary tract obstruction. The unopacified solid and hollow viscus appeared nonfocal and nonacute. There are profound degenerative changes to the left hip with joint space obliteration, bulky osteophytes, articular sclerosis and extensive subcortical cystic disease along the acetabular greater than femoral margins. Fracture or acute abdominal pelvic bony abnormality is not appreciable. Degenerative changes throughout the spine present. IMPRESSION: CT CHEST: Right 8th and 9th rib fractures not significantly displaced but do appear acute. However no findings of pulmonary parenchymal or pleural injury. CT ABDOMEN / CT PELVIS: No findings of abdominal pelvic solid or hollow viscus injury and no abdominal pelvic fracture deformity. Dictated on workstation # [id number] Dict: 12/17/191714 Trans: 12/17/191724 [facility] [id number] Interpreted by: LUISITO SIERRA Diagonstic Imaging: CT Plain Films/CT/US/NM/MRI: head Comments NAME: CARLOS ADDISON MED REC#: [id number] PT STATUS: REG ER : 1945 PHYSICIAN: PA ROJAS MD ADMIT DATE: 12/17/19/ER Signed Date of Exam:12/17/19 CT HEAD WO PROCEDURE: CT head without contrast. TECHNIQUE: Multiple contiguous axial images were obtained through the brain without the use of intravenous contrast. Auto Exposure Controls were utilized during the CT exam to meet ALARA standards for radiation dose reduction. INDICATION: Altered mental status There is generalized atrophy. There are no masses or hemorrhages. There are no extra-axial fluid collections. There is encephalomalacic change in the left occipital lobe. IMPRESSION: Diffuse cerebral degeneration. Old left occipital infarct. No acute abnormality seen. Dictated by: Dictated on workstation # [id number] Dict: 12/17/191714 Trans: 12/17/191715 [id number] Interpreted by: PA LOPEZ MD Electronically signed by: PA LOPEZ MD 12/17/191715 Reviewed: Reviewed by Me Diagonstic Imaging: Xray Plain Films/CT/US/NM/MRI: chest Comments Chest x-ray viewed by me and report reviewed. See report below: NAME: CARLOS ADDISON MED REC#: [id number] PT STATUS: REG ER : 1945 PHYSICIAN: CANDICE DOMINGUEZ MD ADMIT DATE: 12/17/19/ER Draft Date of Exam:12/17/19 CHEST 1 VIEW, AP/PA ONLY INDICATION: Shortness of breath EXAM: Portable chest at 8:45 PM FINDINGS: There are postoperative changes from a median sternotomy. Heart size and pulmonary vascularity are normal. Lungs are clear. There are no effusions or pneumothoraces. IMPRESSION: No acute abnormalities in the chest. Dictated on workstation # [id number] Dict: 12/17/192052 Trans: 12/17/192054 [facility] [id number] Interpreted by: PA LOPEZ MD (CANDICE DOMINGUEZ MD) Focused Exam Sepsis Stage: Severe Sepsis Possible Source: Unknown Lactate Level 12/17/19 15:57: Lactic Acid Level 3.20*H 12/17/19 18:29: Lactic Acid Level 2.29*H 12/17/19 21:08: Lactic Acid Level 2.00 (CANDICE DOMINGUEZ MD) Time of Focused Exam: 07:00 Respiratory: Lungs Clear, Normal Breath Sounds, Other (tachypnea, dyspnea) Cardiovascular: Regular Rate, Rhythm, No Edema, No Murmur, Normal Peripheral Pulses Capillary Refill: Less Than 3 Seconds Skin: normal color, warm/dry Lactic Acid Level Laboratory Tests Test 12/17/19 15:57 12/17/19 18:29 12/17/19 21:08 Lactic Acid Level 3.20 MMOL/L (0.50-2.00) *H 2.29 MMOL/L (0.50-2.00) *H 2.00 MMOL/L (0.50-2.00) (CANDICE DOMINGUEZ MD) Within 3hrs of presentation: Admin fluids, Admin 30ml/kg IBW due to BMI>30, Blo od cultures prior to ABX's, Focus exam, Lactate level, Other (antibiotics pending collection of urine culture and identification of bacterial source) (CANDICE DOMINGUEZ MD) Departure Communication (Admissions) Time/Spoke to Admitting Phy: 18:[address] Rojas and [address]. Baires Time/Spoke to Consulting Phy: 19:37 Dr. Aguilar (CANDICE DOMINGUEZ MD) Impression Primary Impression: Sepsis Qualified Codes: A41.9 - Sepsis, unspecified organism; R65.20 - Severe sepsi s without septic shock; N17.9 - Acute kidney failure, unspecified Additional Impressions: Fall on same level Qualified Codes: W18.30XA - Fall on same level, unspecified, initial encounter Rib fractures Qualified Codes: S22.41XA - Multiple fractures of ribs, right side, initial encounter for closed fracture Acute kidney injury Hypokalemia Atrial fibrillation Qualified Codes: I48.91 - Unspecified atrial fibrillation Elevated troponin Disposition: ADMITTED INPATIENT Condition: Improved Admissions Decision to Admit Reason: Admit from ER (General) Decision to Admit/Date: Dec 17, 2019 Time/Decision to Admit Time: 18:00 (CANDICE DOMINGUEZ MD) Departure-Patient Inst. Referrals: PRO ALLAN DO (PCP/Family) Primary Care Physician PA ROJAS MD Dec 17, 2019 16:48 CANDICE DOMINGUEZ MD Dec 17, 2019 18:57
--- NOTE | 2019-12-17 17:18 | Diagnostic Imaging Report ---
PROCEDURE: CT head without contrast. TECHNIQUE: Multiple contiguous axial images were obtained through the brain without the use of intravenous contrast. Auto Exposure Controls were utilized during the CT exam to meet ALARA standards for radiation dose reduction. INDICATION: Altered mental status There is generalized atrophy. There are no masses or hemorrhages. There are no extra-axial fluid collections. There is encephalomalacic change in the left occipital lobe. IMPRESSION: Diffuse cerebral degeneration. Old left occipital infarct. No acute abnormality seen. Dictated by: Dictated on workstation # [id number]
--- NOTE | 2019-12-17 17:21 | NUR ---
FAMILY UPDATED ON PHONE.
--- NOTE | 2019-12-17 17:25 | Diagnostic Imaging Report ---
PROCEDURE: CT chest, abdomen, and pelvis without contrast. TECHNIQUE: Multiple contiguous axial images were obtained through the chest, abdomen, and pelvis without the use of intravenous contrast. Auto Exposure Controls were utilized during the CT exam to meet ALARA standards for radiation dose reduction. INDICATION: Found down, right rib pain. COMPARISON: No relevant comparisons. CT CHEST: Acute fractures posterolaterally at the level of the right 8th and 9th ribs are not significantly displaced. There is no lung contusion, pneumothorax, hemothorax or findings of a pulmonary laceration. There is previous sternotomy without bony dehiscence. No lung mass or evidence for aspiration. The atherosclerotic aorta is nonaneurysmal. No evidence for thoracic lymphadenopathy. There is coronary arterial atherosclerotic vascular calcifications. CT ABDOMEN AND PELVIS: There are findings of abdominal pelvic hemoperitoneum. There is no free fluid or free air. No bowel, biliary or urinary tract obstruction. The unopacified solid and hollow viscus appeared nonfocal and nonacute. There are profound degenerative changes to the left hip with joint space obliteration, bulky osteophytes, articular sclerosis and extensive subcortical cystic disease along the acetabular greater than femoral margins. Fracture or acute abdominal pelvic bony abnormality is not appreciable. Degenerative changes throughout the spine present. IMPRESSION: CT CHEST: Right 8th and 9th rib fractures not significantly displaced but do appear acute. However no findings of pulmonary parenchymal or pleural injury. CT ABDOMEN / CT PELVIS: No findings of abdominal pelvic solid or hollow viscus injury and no abdominal pelvic fracture deformity. Dictated by: Dictated on workstation # [id number]
--- NOTE | 2019-12-17 18:03 | NUR ---
DR ROJAS NOTIFIED OF PT HAVING X3 BAG OF IV FLUIDS, MULTIPLE CUPS OF WATER, BP 96/70, AND TEMP OF 36.8. PT MORE ALERT THEN HE PREVIOUISLY WAS ET ABLE TO HOLD A CONVERSATION.
--- NOTE | 2019-12-17 18:04 | NUR ---
PT CONTINUES NOT TO BE ABLE TO PEE.
--- NOTE | 2019-12-17 18:23 | NUR ---
SAT PT UP AT THE SIDE OF THE BED ET PT UNABLE TO VOID. PT CONTINUES TO REFUSE A CANAS CATH. DR ROJAS NOTIFIED.
--- NOTE | 2019-12-17 18:32 | NUR ---
PT REQUEST PAIN MEDS. NOTIFIED.
[2019-12-17] MEDS ORDERED: fentaNYL INJECTION 100 MCG/2 ML AMP IVP ONE (18:45)
[2019-12-17] MEDS ORDERED: LIDOCAINE UROJET 2% GEL 10 ML PKG TOP ONE (18:45)
[2019-12-17] MEDS ORDERED: KCL 10 MEQ TAB (MICRO K) PO ONE (18:45)
--- NOTE | 2019-12-17 18:59 | NUR ---
REPORT GIVEN TO SABA
[2019-12-17 19:32] LABS: BILIRUBIN,URINE NEGATIVE (NEGATIVE); CLARITY,URINE CLEAR; COLOR,URINE YELLOW; GLUCOSE, URINE (UA) NEGATIVE (NEGATIVE); KETONES,URINE TRACE (NEGATIVE); LEUKOCYTE ESTERASE ,URINE NEGATIVE (NEGATIVE); NITRITE,URINE NEGATIVE (NEGATIVE); PH,URINE 5.5 (5-9); PROTEIN,URINE 2+ (NEGATIVE)
[2019-12-17] MEDS ORDERED: PIPERACILLIN SODIUM/TAZOBACTAM 4.5 GM in NS (IVPB) 100 ML IV ONE (19:45)
[2019-12-17 19:53] LABS: RBC,URINE 25-50 /HPF
[2019-12-17 19:54] LABS: AMORPHOUS SEDIMENT,UR RARE AMOR URATES /LPF; BACTERIA,URINE NEGATIVE /HPF
--- NOTE | 2019-12-17 20:30 | NUR ---
covid swab collected for this patient
--- NOTE | 2019-12-17 20:56 | Diagnostic Imaging Report ---
INDICATION: Shortness of breath EXAM: Portable chest at 8:45 PM FINDINGS: There are postoperative changes from a median sternotomy. Heart size and pulmonary vascularity are normal. Lungs are clear. There are no effusions or pneumothoraces. IMPRESSION: No acute abnormalities in the chest. Dictated by: Dictated on workstation # [id number]
[2019-12-17] MEDS ORDERED: HEParin DRIP 25000 UNIT/500ML 500 ML IV ONE (21:05)
[2019-12-17] MEDS ORDERED: RX-ALBUTEROL INHALER (PROAIR) 8.5 GM IH ONE (21:31)
[2019-12-17] MEDS: RT-ALBUTEROL INHALER HFA (VENTOLIN HFA) 8 GM IH PRN (21:43)
[2019-12-17] MEDS ORDERED: meTOproloL SUCCINATE 50 MG (TOPROL XL) TAB PO SCH (21:45)
--- NOTE | 2019-12-17 21:50 | NUR ---
RECEIVED REPORT FROM DARRYL FRANCISCO.
--- NOTE | 2019-12-17 22:05 | NUR ---
Report given to DARRYL Godinez at this time
--- NOTE | 2019-12-17 23:00 | NUR ---
CARLOS ADDISON SR admitted to room 512-1, with an admitting diagnosis of SEVERE SEPSIS, [place], RIB FRACTURES, COVID RULE OUT, on 12/17/19 from ER via WHEELCHAIR, accompanied by THIS RN AND JENNIFER LAZCANO. CARLOS ADDISON SR introduced to surroundings, call light, bed controls, phone, TV, temperature control, lights, meal times, smoking policy, visitor policy, side rail policy, bathrooms and showers. Patient Rights given to patient in the handbook. CARLOS ADDISON SR verbalizes understanding that [facility] is not responsible for the loss or damage to any personal effects or valuables that are kept in the patients possession during their hospitalization.
[2019-12-17 23:15] VITALS: BP_SYST 83; BP_SYST 95; BP_DIAS 39; BP_DIAS 56
[2019-12-17 23:30] VITALS: BP 99/64
[2019-12-17] MEDS: NS IV 1000 ML 1,000 ML IV SCH (23:30)
[2019-12-17 23:45] VITALS: BP 83/59
[2019-12-17] MEDS ORDERED: ONDANSETRON 4 MG/2 ML (SDV) Z0FRAN IV PRN (23:45)
[2019-12-17] MEDS ORDERED: EPINEPHrine 1 MG INJECTION 2 MG in NS (IVPB) 248 ML IV SCH (23:45)
[2019-12-17] MEDS: VASOPRESSIN INJECTION 20 UNIT in NORMAL SALINE 100 ML IV SCH (23:46)
[2019-12-17] MEDS: NOREPINEPHRINE 4 MG/250 ML 250 ML IV SCH (23:46)
[2019-12-18] VITALS (26 sets, daily range): BP systolic 76–134; BP diastolic 44–105
--- NOTE | 2019-12-18 | NUR ---
THIS RN CALLED DR. CULVER TO NOTIFY HER OF PT BP OF 83/54. THIS RN WAS INSTRUCTED TO MAKE PT ICU STATUS AND START LEVOPHED. NEW ORDERS OBTAINED, SEE ORDER HX.
[2019-12-18] MEDS ORDERED: NS IV 500 ML 500 ML IV SCH (00:15)
[2019-12-18] MEDS: NOREPINEPHRINE 4 MG/250 ML 250 ML IV SCH ×2 (00:58→14:41)
--- NOTE | 2019-12-18 01:00 | NUR ---
PT TRANSFERRED FROM RM 512 TO ICU4 WITHOUT INCIDENT. IV TO RT FA INTACT AND INFUSING.
--- NOTE | 2019-12-18 01:25 | NUR ---
CANAS CATHETER PLACED BY THIS RN.
--- NOTE | 2019-12-18 01:30 | NUR ---
CONSENT SIGNED BY PT FOR CENTRAL LINE PLACEMENT.
[2019-12-18 01:34] LABS: BASOPHILS % (AUTO) 0 % (0-10); EOSINOPHILS % (AUTO) 0 % (0-10); HEMATOCRIT 35 % (40-54); HEMOGLOBIN 12.3 G/DL (13.3-17.7); LYMPHOCYTES # (AUTO) 1.4 X 10^3 (1.0-4.0); LYMPHOCYTES % (AUTO) 14 % (12-44); MEAN CORPUSCULAR HEMOGLOBIN 31 PG (25-34); MEAN CORPUSCULAR HGB CONC 35 G/DL (32-36); MEAN CORPUSCULAR VOLUME 90 FL (80-99); MEAN PLATELET VOLUME 9.7 FL (7.4-10.4); MONOCYTES # (AUTO) 1.1 X 10^3 (0.0-1.0); MONOCYTES % (AUTO) 10 % (0-12); NEUTROPHILS # (AUTO) 7.9 X 10^3 (1.8-7.8); NEUTROPHILS % (AUTO) 76 % (42-75); PLATELET COUNT 239 10^3/uL (130-400); RED CELL DISTRIBUTION WIDTH 12.9 % (10.0-14.5); WHITE BLOOD COUNT 10.3 10^3/uL (4.3-11.0)
[2019-12-18 01:49] LABS: CHLORIDE 99 MMOL/L (98-107); POTASSIUM 3.5 MMOL/L (3.6-5.0); SODIUM 126 MMOL/L (135-145)
[2019-12-18 01:50] LABS: CALCIUM 7.5 MG/DL (8.5-10.1); GLUCOSE 118 MG/DL (70-105)
[2019-12-18 01:52] LABS: CARBON DIOXIDE 16 MMOL/L (21-32)
[2019-12-18 01:54] LABS: CREATININE SERUM 1.06 MG/DL (0.60-1.30); GFR ESTIMATED > 60; LYMPHOCYTES % (MANUAL) 16 %; MONOCYTES % (MANUAL) 11 %; NEUTROPHILS % (MANUAL) 73 %; RBC MORPH NORMAL
[2019-12-18 01:55] LABS: BUN/CREATININE RATIO 15
[2019-12-18] MEDS ORDERED: PIPERACILLIN/TAZO 4.5 GM VIAL (ZOSYN) IV ONE (02:24)
[2019-12-18] MEDS ORDERED: NS (IVPB) 100 ML ONE (02:24)
--- NOTE | 2019-12-18 02:30 | NUR ---
DR. MONGE HERE AT BEDSIDE FOR CENTRAL LINE PLACEMENT. PT TOLERATED PROCEDURE WELL, NO ADVERSE EVENTS NOTED. DR. MONGE INSTRUCTED THIS RN TO USE CENTRAL LINE DUE TO PUTTY MIXER AND APPLIER BEING IN ER AT THE TIME OF CXR ORDER.
--- NOTE | 2019-12-18 02:31 | NUR ---
500ML NS BOLUS ORDERED BY DR. CULVER NON-ADMINISTERED. NO IV ACCESS AT THE TIME OF ORDER. DR. NEGRETE FROM TELE-ICU INSTRUCTED THIS RN NOT TO ADMINISTERED 500ML NS BOLUS.
--- NOTE | 2019-12-18 02:42 | CONSULTATION REPORT ---
DATE OF SERVICE: 12/17/2019 ADMITTING PRIMARY CARE PHYSICIAN: Ilir Doran DO HISTORY OF PRESENT ILLNESS: The patient is a 74-year-old male who was brought in by EMS after his son found him on the floor and on conscious in his home. It appeared that he had fallen. He had complained of right rib pain and was found to have a posterolateral rib fractures of ribs 8 and 9. He also was found to have a fever and did have some consolidation on the chest x-ray consistent with pneumonia. He also was found to have an elevated lactic acid and white count and was also found to be hypotensive consistent with a sepsis. Upon examination, he does have pain. Upon palpation of the right ribs, he does not have any abdominal pain as well as no neck pain. He is confused; however, he is alert to person, place and time. His [place] coma scale of 15. PAST MEDICAL HISTORY: Hypertension, hypercholesterolemia, coronary artery disease, hypercholesterolemia. PAST SURGICAL HISTORY: Coronary artery bypass grafting x5 vessels, carotid endarterectomy. ALLERGIES: No known drug allergies. MEDICATIONS: Amlodipine, cephalexin, Plavix, furosemide, lisinopril, metoprolol, niacin, nitroglycerin, potassium, simvastatin, tamsulosin. SOCIAL HISTORY: Positive smoke 50 pack years, does drink beer daily. VITAL SIGNS: Temperature 36.8, last blood pressure in the ICU 132/103 and on the floor 88/61, pulse 92, respirations 20, pulse ox 98% on 2 liters nasal cannula. REVIEW OF SYSTEMS: Well-nourished male currently in no acute distress. He is awake and alert, does answer majority of questions appropriately; however, does appear to be confused and continues to complain of having to urinate; however, has a Arce catheter in. He is not experiencing any shortness of breath; however, does have a chronic cough. No new sputum production. No hemoptysis. No nausea or vomiting with history of constipation, no red blood per rectum, no dark tarry stools. No fever, chills, no recent inadvertent weight loss. All other review of systems negative. PHYSICAL EXAMINATION: CHEST: Distant breath sounds bilaterally with pain along the right thoracic cage. No crepitance. No flail segment. HEART: Regular, no murmurs. EXTREMITIES: No lower extremity edema. Negative Homans sign. HEENT: No scleral icterus or cervical lymphadenopathy. ABDOMEN: Soft, nontender, nondistended. SKIN: Warm, dry. LABORATORY DATA: WBC 12.1, hemoglobin 13.5, hematocrit 39, platelets 272. BUN 16, creatinine 1.06. Lactic acid 2.29. ASSESSMENT AND PLAN: A 74-year-old male with septicemia, likely secondary to pneumonia as well as possible urinary tract infection. He is also confused with a fall at home with fractures of right ribs 8 and 9. We will recommend a pulmonary support due to his history of COPD with breathing treatments, pulmonary toilet, incentive spirometer and early ambulation as well as adequate pain control, we will also continue with IV antibiotics. He also has poor peripheral venous circulation and is hypotensive and will likely need pressors and will require central venous catheter, which we will also. Job ID: [id number] DocumentID: [id number] Dictated Date: 12/18/2019 02:25:27 Career Transition Specialist Date: 12/18/2019 02:41:53 Dictated By: EDY MONGE MD
[2019-12-18] MEDS: PIPERACILLIN/TAZOBACTAM (BULK) 4.5 GM in NS (IVPB) 100 ML IV SCH ×3 (02:51→19:01)
[2019-12-18 04:03] LABS: ALBUMIN 3.1 GM/DL (3.2-4.5)
[2019-12-18 04:06] LABS: TOTAL PROTEIN 5.6 GM/DL (6.4-8.2)
[2019-12-18 04:08] LABS: BILIRUBIN,TOTAL 0.7 MG/DL (0.1-1.0)
[2019-12-18 04:09] LABS: ALKALINE PHOSPHATASE 58 U/L (40-136)
[2019-12-18 04:12] LABS: ALANINE AMINOTRANSFERASE 27 U/L (0-55)
[2019-12-18] MEDS: HEParin 1000 UNIT/ML (10ML VIAL) FOR BOLUS IV SCH ×2 (04:26→22:15)
--- NOTE | 2019-12-18 04:54 | Pulmonary Consultation ---
History of Present Illness History of Present Illness Date Seen by Provider: Dec 18, 2019 Time Seen by Provider: 04:49 Date of Admission History of Present Illness 74yo presented to ED via EMS secondary to fall. Found to have severe sepsis and admitted to ICU. Allergies and Home Medications Allergies Coded Allergies: No Known Drug Allergies (Unverified , 12/23/14) Home Medications Amlodipine Besylate 5 Mg Tablet, 5 MG PO DAILY, (Reported) Cephalexin 500 Mg Capsule, 500 MG PO QID Prescribed by: CANDICE WOODRUFF on 01/14/19 1200 Clopidogrel Bisulfate 75 Mg Tablet, 1 EACH PO DAILY, (Reported) Clopidogrel Bisulfate 75 Mg Tablet, 75 MG PO DAILY Prescribed by: MARI TABOR on 11/28/171931 Furosemide 40 Mg Tablet, 40 MG PO BID Prescribed by: MARI TABOR on 11/28/171931 Hctz/Lisinopril 1 Tab Tablet, 1 EACH PO DAILY, (Reported) Hydrocodone/Acetaminophen 1 Each Tablet, 1 EACH PO Q4H PRN for PAIN-MODERATE TO SEVERE Prescribed by: ESA MORRIS on 05/12/17 1413 Lisinopril 20 Mg Tab, 20 MG PO DAILY, (Reported) Magnesium Oxide 500 Mg Capsule, 500 MG PO BID Prescribed by: MARI TABOR on 11/28/171931 Metoprolol Succinate 100 Mg Tab.sr.24h, 1 EACH PO BID, (Reported) Metoprolol Tartrate 100 Mg Tablet, 100 MG PO BID Prescribed by: MARI TABOR on 11/28/171931 Niacin 500 Mg Tablet.sa, 500 MG PO DAILY, (Reported) Nitroglycerin 0.4 Mg Tab.subl, 0.4 MG SL UD PRN for CHEST PAIN 1 tab SL q5 min prn chest pain (max 3 doses). Prescribed by: MARI TABOR on 11/28/171931 Potassium Chloride 20 Meq Tablet.er, 20 MEQ PO BID Prescribed by: MARI TABOR on 11/28/171931 Simvastatin 40 Mg Tablet, 40 MG PO DAILY, (Reported) Tamsulosin HCl 0.4 Mg Cap.er.24h, 0.4 MG PO DAILY Prescribed by: MARI TABOR on 11/28/171931 Past Rftaedg-Zhmwwt-Mdvoag Hx Past Med/Social Hx: Reviewed Nursing Past Med/Soc Hx Patient Social History Alcohol Use: Occasionally Uses Alcohol Beverage of Choice: Beer Recreational Drug Use: No Smoking Status: Former Smoker Type Used: Cigarettes Former Smoker, Quit: Aug 29, 2000 2nd Hand Smoke Exposure: No Recent Foreign Travel: No Contact w/Someone Who Travel: No Recent Infectious Disease Expo: No Recent Hopitalizations: No Immunizations Up To Date Tetanus Booster (TDap): Unknown Seasonal Allergies Seasonal Allergies: No Past Medical History Surgeries: Yes (BYPASS X5, CAROTID ARTERY.) Cardiac, CABG, Coronary Stent, Vascular Surgery Respiratory: Yes (Chronic shortness of air) Cardiac: Yes Atrial Fibrillation Neurological: No Dementia Reproductive Disorders: No Sexually Transmitted Disease: No HIV/AIDS: No Genitourinary: No Gastrointestinal: No Musculoskeletal: No Endocrine: No HEENT: No Cancer: No Psychosocial: No Integumentary: No Blood Disorders: No Adverse Reaction/Blood Tranf: No Family Medical History Reviewed Nursing Family Hx No Pertinent Family Hx Review of Systems Time Seen by Provider: 04:57 Sepsis Event Evaluation Height, Weight, BMI Height: 5'4.00" Weight: 165lbs. 0oz. 74.889601um; 26.12 BMI Method:Stated Exam Exam Vital Signs Date Time Temp Pulse Resp B/P (MAP) Pulse Ox O2 Delivery O2 Flow Rate FiO2 12/18/19 04:00 Nasal Cannula 2.00 12/18/19 03:38 Nasal Cannula 2.00 12/18/19 01:47 92 132/103 12/18/19 01:35 89 132/100 12/18/19 01:17 85 128/91 12/18/19 01:00 98 12/18/19 00:58 91 88/61 12/18/19 00:09 Nasal Cannula 2.00 12/18/19 00:00 Nasal Cannula 2.00 12/18/19 00:00 36.7 12/17/19 23:56 98 Nasal Cannula 2.00 12/17/19 23:45 95 20 83/59 (67) 95 Nasal Cannula 2.00 12/17/19 23:30 94 20 99/64 (76) 97 Nasal Cannula 2.00 12/17/19 23:15 36.8 94 20 95/39 98 NIV Bilevel 2.00 12/17/19 23:15 96 20 83/56 (65) 97 Nasal Cannula 2.00 12/17/19 23:05 96 6/2/20 23:00 Nasal Cannula 2.00 12/17/19 22:49 36.8 98 16 93/68 (67) 98 Nasal Cannula 2.00 12/17/19 17:35 36.8 12/17/19 15:03 39.4 116 16 95/53 (67) 94 Nasal Cannula I & O 12/18/19 07:00 Intake Total 6400 ml Output Total 400 ml Balance 6000 ml Height & Weight Height: 5'4.00" Weight: 165lbs. 0oz. 74.143063tz; 26.12 BMI Method:Stated Respiratory: Lungs Clear, Normal Breath Sounds, Other (tachypnea, dyspnea) Cardiovascular: Regular Rate, Rhythm, No Edema, No Murmur, Normal Peripheral Pulses Capillary Refill: Less Than 3 Seconds Gastrointestinal: non tender, soft, no organomegaly, no pulsatile mass Results Lab Laboratory Tests 12/17/19 15:32 12/17/19 15:57 12/18/19 01:17 Assessment/Plan Assessment/Plan Severe sepsis -[place] cultures -[id number] -Continue Zosyn Hyponatremia -Monitor -Continue NS Afib -Currently on Hep gtt -Cardiology following S/p fall -CT head is neg for acute change 8 and 9 rib fractures -pain control -IS FADI NEGRON DO Dec 18, 2019 04:54
[2019-12-18] MEDS: MAGNESIUM 1 GM/100 ML IVPB 100 ML IV SCH ×5 (05:04→11:37)
[2019-12-18] MEDS: POTASSIUM CL 10MEQ/50ML IVPB 50 ML IV SCH ×5 (05:04→11:00)
[2019-12-18] MEDS: KCL 20 MEQ TAB (K-DUR) PO SCH ×2 (05:04→22:15)
--- NOTE | 2019-12-18 05:08 | OPERATIVE REPORT ---
DATE OF SERVICE: 12/18/2019 ATTENDING PRIMARY CARE PHYSICIAN: Ilir Doran DO ADMITTING PHYSICIAN: Dr. Baires. PREOPERATIVE DIAGNOSES: Sepsis secondary to pneumonia, urinary tract infection, symptomatic hypotension with poor peripheral venous circulation. POSTOPERATIVE DIAGNOSES: Sepsis secondary to pneumonia, urinary tract infection, symptomatic hypotension with poor peripheral venous circulation. PROCEDURE: Placement of left subclavian central venous catheter. SURGEON: Edy Monge MD ANESTHESIA: Local. ESTIMATED BLOOD LOSS: Minimal. DISPOSITION: The patient tolerated the procedure well. INDICATIONS: The patient is a 74-year-old male who was brought in by EMS after his son had found him in his home on the floor unconscious and had appeared that he had fallen. He does have a significant past medical history including hypertension, hypercholesterolemia and does have significant vascular disease and is status post coronary artery bypass grafting x5 vessels as well as carotid endarterectomy. He was admitted to the floor, found to be hypotensive and will most likely require vasopressors due to his sepsis. He has poor peripheral venous circulation as well and will require central venous catheter. DESCRIPTION OF PROCEDURE: The chest and neck were prepped and draped in standard surgical fashion. A 1% lidocaine was used to anesthetize the subclavian region. The left subclavian vein was then cannulated with drawing of venous blood. The guidewire was then inserted without any resistance. The cannulating needle removed and a skin incision made using an 11 blade. A venous dilator was then placed and through this tract, a triple lumen central venous catheter was placed over the guidewire using the Seldinger technique and the guidewire was then removed. All three ports arron venous blood and saline pushed in without any resistance. Catheter was then sutured to the skin using 3-0 silk interrupted sutures. Catheter was then cleaned and covered with Op-Site. The patient tolerated the procedure well. We will get a post-procedure chest x-ray to confirm placement. Job ID: [id number] DocumentID: [id number] Dictated Date: 12/18/2019 02:29:18 Receivables Specialist Date: 12/18/2019 05:08:01 Dictated By: EDY MONGE MD
[2019-12-18] MEDS: fentaNYL INJECTION 100 MCG/2 ML AMP IV PRN ×5 (05:35→19:06)
[2019-12-18] MEDS: NS IV 1000 ML 1,000 ML IV SCH ×3 (05:47→19:01)
[2019-12-18 05:57] LABS: BASOPHILS % (AUTO) 0 % (0-10); EOSINOPHILS % (AUTO) 0 % (0-10); HEMATOCRIT 33 % (40-54); HEMOGLOBIN 11.4 G/DL (13.3-17.7); LYMPHOCYTES # (AUTO) 1.3 X 10^3 (1.0-4.0); LYMPHOCYTES % (AUTO) 15 % (12-44); MEAN CORPUSCULAR HEMOGLOBIN 32 PG (25-34); MEAN CORPUSCULAR HGB CONC 35 G/DL (32-36); MEAN CORPUSCULAR VOLUME 91 FL (80-99); MEAN PLATELET VOLUME 9.7 FL (7.4-10.4); MONOCYTES % (AUTO) 12 % (0-12); NEUTROPHILS # (AUTO) 6.3 X 10^3 (1.8-7.8); NEUTROPHILS % (AUTO) 73 % (42-75); PLATELET COUNT 202 10^3/uL (130-400); WHITE BLOOD COUNT 8.7 10^3/uL (4.3-11.0)
[2019-12-18 06:07] LABS: ALBUMIN 2.8 GM/DL (3.2-4.5); CHLORIDE 102 MMOL/L (98-107); POTASSIUM 3.4 MMOL/L (3.6-5.0); SODIUM 127 MMOL/L (135-145)
[2019-12-18 06:08] LABS: CALCIUM 7.4 MG/DL (8.5-10.1)
[2019-12-18 06:09] LABS: GLUCOSE 102 MG/DL (70-105)
[2019-12-18 06:10] LABS: CARBON DIOXIDE 17 MMOL/L (21-32)
[2019-12-18 06:11] LABS: BILIRUBIN,TOTAL 0.7 MG/DL (0.1-1.0)
[2019-12-18 06:12] LABS: PHOSPHORUS 2.3 MG/DL (2.3-4.7)
[2019-12-18 06:13] LABS: ALKALINE PHOSPHATASE 51 U/L (40-136); CREATININE SERUM 0.91 MG/DL (0.60-1.30); GFR ESTIMATED > 60
[2019-12-18 06:14] LABS: BUN/CREATININE RATIO 15
[2019-12-18 06:16] LABS: ALANINE AMINOTRANSFERASE 24 U/L (0-55); MAGNESIUM 1.3 MG/DL (1.6-2.4)
--- NOTE | 2019-12-18 07:53 | Diagnostic Imaging Report ---
INDICATION: Central line placement. Comparison with 12/17/2019. FINDINGS: Left central line is present via subclavian approach. Tip overlies the mid superior vena cava. Lungs are well-aerated and clear. Median sternotomy changes with cardiomegaly. IMPRESSION: Satisfactory left central line placement. Dictated by: Dictated on workstation # [id number]
[2019-12-18] MEDS: ASPIRIN 81 MG CHEW (CHILDREN'S ASA) PO SCH (08:51)
[2019-12-18] MEDS ORDERED: SODIUM PHOSPHATE INJ 30 MM in NS (IVPB) 250 ML IV ONE (09:00)
[2019-12-18] MEDS: meTOproloL SUCCINATE 50 MG (TOPROL XL) TAB PO SCH (09:02)
[2019-12-18] MEDS: VASOPRESSIN INJECTION 20 UNIT in NORMAL SALINE 100 ML IV SCH ×3 (09:08→23:53)
--- NOTE | 2019-12-18 09:08 | History & Physical-Hospitalist ---
History of Present Illness HPI/Chief Complaint Pt is a 74yoCM with a PMH of HTN, HLD, CAD, CHF, a-fib who presented to the ER due to a fall. He is unable to tell me any details regarding what brought him to the ER. Reportedly he fell at some point . ER note states he was brought in by family after being found on the floor. He was incidentally found to have a fever of 103 and leukocytosis. No direct source of infection could be found and he was not a reliable historian so COVID testing was done. He has no new complaints this morning other than rib pain. Overnight he became hypotensive and was transferred to the ICU as he necessitated pressors. Source: patient Date Seen 12/18/19 Time Seen by a Provider: 09:01 Attending Physician Jay Baires MD PCP Ilir Doran DO Referring Physician Date of Admission Dec 17, 2019 at 21:27 Home Medications & Allergies Home Medications Reviewed patient Home Medication Reconciliation performed by pharmacy medication reconciliations technician chemical cleaning and/or nursing. Patients Allergies have been reviewed. Allergies Allergies Coded Allergies No Known Drug Allergies (Unverified12/23/14) Past Scjwhha-Xamlpp-Yacius Hx Past Med/Social Hx: Reviewed Nursing Past Med/Soc Hx Patient Social History Alcohol Use: Occasionally Uses Alcohol Beverage of Choice: Beer Recreational Drug Use: No Smoking Status: Former Smoker Former Smoker, Quit: Aug 29, 2000 Type Used: Cigarettes 2nd Hand Smoke Exposure: No Recent Foreign Travel: No Contact w/other who traveled: No Recent Hopitalizations: No Recent Infectious Disease Expo: No Immunizations Up To Date Tetanus Booster (TDap): Unknown Seasonal Allergies Seasonal Allergies: No Past Medical History Surgeries: Cardiac, CABG, Coronary Stent, Vascular Surgery Cardiac: Atrial Fibrillation Neurological: Dementia Reproductive: No Sexually Transmitted Disease: No HIV/AIDS: No History of Blood Disorders: No Adverse Reaction to Blood Barrera: No Family History Reviewed Nursing Family Hx No Pertinent Family Hx Review of Systems ROS-Unable to Obtain: due to confusion, see HPI Constitutional: see HPI Physical Exam Physical Exam Vital Signs Vital Signs - First Documented 12/17/19 12/17/19 15:03 22:49 Temp 39.4 Pulse 116 Resp 16 B/P (MAP) 95/53 (67) Pulse Ox 94 O2 Delivery Nasal Cannula O2 Flow Rate 2.00 Capillary Refill : Less Than 3 SecondsLess Than 3 Seconds Height, Weight, BMI Height: 5'4.00" Weight: 165lbs. 0oz. 74.478024qr; 26.12 BMI Method:Stated General Appearance: No Apparent Distress, WD/WN HEENT: PERRL/EOMI, Moist Mucous Membranes; No Scleral Icterus (L), No Scleral Icterus (R) Neck: Normal Inspection, Supple Respiratory: Lungs Clear, No Respiratory Distress Cardiovascular: Regular Rate, Rhythm, No Murmur Gastrointestinal: Normal Bowel Sounds, Non Tender, Soft Extremity: No Calf Tenderness, No Pedal Edema Neurologic/Psychiatric: Alert, Other (oriented to person and place mostly) Results Results/Procedures Labs Laboratory Tests 12/17/19 15:32 12/17/19 15:57 12/18/19 01:17 12/18/19 05:40 Patient resulted labs reviewed. Imaging: Reviewed Imaging Report Assessment/Plan Admission Diagnosis Septic Shock Admission Status: Inpatient Order (span 2 midnights) Reason for Inpatient Admission: on pressors, septic shock Assessment and Plan Septic Shock Presented as severe sepsis but progressed overnight to shock Source unclear at this time Continue abx COVID testing pending, leukopenia noted Wean levophed as able [place] Hyponatremia Hypokalemia hypomagnesemia Improved with IVF Replace electrolytes trend A-fib Elevated troponin CAD CHF Continue heparin gtt Cardiology consulted, appreciate recs repeat troponin Falls and Debility Rib Fractures IS PT/OT Trauma surgery consulted Clinical Quality Measures DVT/VTE Risk/Contraindication: Risk Factor Score Per Nursin RFS Level Per Nursing on Admit: 4+=Very High JAY BAIRES MD Dec 18, 2019 09:08
--- NOTE | 2019-12-18 13:35 | Progress Note ---
Subjective Date Seen by a Provider: Dec 18, 2019 Time Seen by a Provider: 09:00 Subjective/Events-last exam doing ok. does not report any pain issues. no SOB. covarrubias cath in. required small amount vasopressors overnight. pain controlled right ribs. tolerating clears. Focused Exam Lactate Level 12/17/19 18:29: Lactic Acid Level 2.29*H 12/17/19 21:08: Lactic Acid Level 2.00 12/18/19 05:40: Lactic Acid Level 0.97 Time of Focused Exam: 07:00 Objective Exam Vital Signs Date Time Temp Pulse Resp B/P (MAP) Pulse Ox O2 Delivery O2 Flow Rate FiO2 12/18/19 11:14 100 Nasal Cannula 2.00 12/18/19 10:00 85 16 76/44 (55) 100 Nasal Cannula 2.00 12/18/19 09:00 76 10 112/78 (89) 100 Nasal Cannula 2.00 12/18/19 08:00 80 11 108/88 (95) 99 Nasal Cannula 2.00 12/18/19 08:00 Nasal Cannula 2.00 12/18/19 08:00 37.1 12/18/19 08:00 Nasal Cannula 2.00 12/18/19 07:00 81 17 108/78 (88) 99 Nasal Cannula 2.00 12/18/19 07:00 97 12/18/19 06:00 97 17 117/87 (97) 99 Nasal Cannula 2.00 12/18/19 05:51 36.6 12/18/19 05:00 78 21 117/76 (90) 100 Nasal Cannula 2.00 12/18/19 04:00 Nasal Cannula 2.00 12/18/19 04:00 98 21 104/85 (91) Nasal Cannula 2.00 12/18/19 03:38 Nasal Cannula 2.00 12/18/19 03:14 84 31 129/86 (100) 100 Nasal Cannula 2.00 12/18/19 02:00 96 33 120/88 (99) Nasal Cannula 2.00 12/18/19 01:47 92 132/103 12/18/19 01:45 85 28 132/103 (113) Nasal Cannula 2.00 12/18/19 01:35 89 132/100 12/18/19 01:33 97 19 132/100 (111) Nasal Cannula 2.00 12/18/19 01:17 98 23 128/91 (103) Nasal Cannula 2.00 12/18/19 01:17 85 128/91 12/18/19 01:10 101 127/87 (100) Nasal Cannula 2.00 12/18/19 01:00 98 12/18/19 00:58 91 88/61 12/18/19 00:09 Nasal Cannula 2.00 12/18/19 00:00 Nasal Cannula 2.00 12/18/19 00:00 36.7 12/17/19 23:56 98 Nasal Cannula 2.00 12/17/19 23:45 95 20 83/59 (67) 95 Nasal Cannula 2.00 12/17/19 23:30 94 20 99/64 (76) 97 Nasal Cannula 2.00 12/17/19 23:15 36.8 94 20 95/39 98 NIV Bilevel 2.00 12/17/19 23:15 96 20 83/56 (65) 97 Nasal Cannula 2.00 12/17/19 23:05 96 12/17/19 23:00 Nasal Cannula 2.00 12/17/19 22:49 36.8 98 16 93/68 (67) 98 Nasal Cannula 2.00 12/17/19 17:35 36.8 12/17/19 15:03 39.4 116 16 95/53 (67) 94 Nasal Cannula I & O 12/18/19 07:00 Intake Total 7525 ml Output Total 540 ml Balance 6985 ml Capillary Refill : Less Than 3 SecondsLess Than 3 Seconds General Appearance: No Apparent Distress HEENT: PERRL/EOMI Neck: Full Range of Motion Respiratory: Chest Non Tender, Normal Breath Sounds, Rhonci Gastrointestinal: normal bowel sounds, non tender, soft Extremity: Normal Capillary Refill Neurologic/Psychiatric: Alert, Abnormal Cerebellar Tests Lymphatic: No Adenopathy Results Lab Laboratory Tests 12/17/19 15:32: White Blood Count 12.1H, Red Blood Count 4.34L, Hemoglobin 13.5, Hematocrit 39L, Mean Corpuscular Volume 90, Mean Corpuscular Hemoglobin 31, Mean Corpuscular Hemoglobin Concent 35, Red Cell Distribution Width 13.1, Platelet Count 272, Mean Platelet Volume 9.9, Neutrophils (%) (Auto) 89H, Lymphocytes (%) (Auto) 3L, Monocytes (%) (Auto) 8, Eosinophils (%) (Auto) 0, Basophils (%) (Auto) 0, Neutrophils # (Auto) 10.8H, Lymphocytes # (Auto) 0.3L, Monocytes # (Auto) 1.0, Eosinophils # (Auto) 0.0, Basophils # (Auto) 0.0, Neutrophils % (Manual) 88, Lymphocytes % (Manual) 3, Monocytes % (Manual) 9, Blood Morphology Comment NORMAL, Smear Scan 12/17/19 15:57: Prothrombin Time 17.5H, INR Comment 1.4, Activated Partial Thromboplast Time 30, Sodium Level 127L, Potassium Level 3.0L, Chloride Level 97L, Carbon Dioxide Level 17L, Anion Gap 13, Blood Urea Nitrogen 19H, Creatinine 1.43H, Estimat Glomerular Filtration Rate 48, BUN/Creatinine Ratio 13, Glucose Level 137H, Lactic Acid Level 3.20*H, Calcium Level 8.0L, Corrected Calcium 8.3L, Total Bilirubin 0.5, Aspartate Amino Transf (AST/SGOT) 41H, Alanine Aminotransferase (ALT/SGPT) 14, Alkaline Phosphatase 59, C-Reactive Protein High Sensitivity 0.09, Total Protein 6.4, Albumin 3.6, Procalcitonin 0.22H 12/17/19 18:29: Lactic Acid Level 2.29*H 12/17/19 19:26: Urine Color YELLOW, Urine Clarity CLEAR, Urine pH 5.5, Urine Specific [place] 1.025H, Urine Protein 2+H, Urine Glucose (UA) NEGATIVE, Urine Ketones TRACEH, Urine Nitrite NEGATIVE, Urine Bilirubin NEGATIVE, Urine Urobilinogen 1.0, Urine Leukocyte Esterase NEGATIVE, Urine RBC (Auto) 3+H, Urine RBC 25-50H, Urine WBC NONE, Urine Crystals PRESENTH, Urine Amorphous Sediment RARE KATYA URATESH, Urine Bacteria NEGATIVE, Urine Casts NONE, Urine Mucus NEGATIVE, Urine Culture Indicated NO 12/17/19 20:30: 12/17/19 21:08: Lactic Acid Level 2.00, Troponin I 2.269*H 12/18/19 01:17: White Blood Count 10.3, Red Blood Count 3.93L, Hemoglobin 12.3L, Hematocrit 35L, Mean Corpuscular Volume 90, Mean Corpuscular Hemoglobin 31, Mean Corpuscular Hemoglobin Concent 35, Red Cell Distribution Width 12.9, Platelet Count 239, Mean Platelet Volume 9.7, Neutrophils (%) (Auto) 76H, Lymphocytes (%) (Auto) 14, Monocytes (%) (Auto) 10, Eosinophils (%) (Auto) 0, Basophils (%) (Auto) 0, Neutrophils # (Auto) 7.9H, Lymphocytes # (Auto) 1.4, Monocytes # (Auto) 1.1H, Eosinophils # (Auto) 0.0, Basophils # (Auto) 0.0, Neutrophils % (Manual) 73, Ly mphocytes % (Manual) 16, Monocytes % (Manual) 11, Blood Morphology Comment NORMAL, Activated Partial Thromboplast Time 37H, Sodium Level 126L, Potassium Level 3.5L, Chloride Level 99, Carbon Dioxide Level 16L, Anion Gap 11, Blood Urea Nitrogen 16, Creatinine 1.06, Estimat Glomerular Filtration Rate > 60, BUN/Creatinine Ratio 15, Glucose Level 118H, Calcium Level 7.5L, Corrected Calcium 8.2L, Total Bilirubin 0.7, Aspartate Amino Transf (AST/SGOT) 70H, Alanine Aminotransferase (ALT/SGPT) 27, Alkaline Phosphatase 58, C-Reactive Protein High Sensitivity 0.16, B-Type Natriuretic Peptide 2848.2H, Total Protein 5.6L, Albumin 3.1L 12/18/19 05:40: Lactic Acid Level 0.97, White Blood Count 8.7, Red Blood Count 3.62L, Hemoglobin 11.4L, Hematocrit 33L, Mean Corpuscular Volume 91, Mean Corpuscular Hemoglobin 32, Mean Corpuscular Hemoglobin Concent 35, Red Cell Distribution Width 13.0, Platelet Count 202, Mean Platelet Volume 9.7, Neutrophils (%) (Auto) 73, Lymphocytes (%) (Auto) 15, Monocytes (%) (Auto) 12, Eosinophils (%) (Auto) 0, Basophils (%) (Auto) 0, Neutrophils # (Auto) 6.3, Lymphocytes # (Auto) 1.3, Mon ocytes # (Auto) 1.0, Eosinophils # (Auto) 0.0, Basophils # (Auto) 0.0, Sodium Level 127L, Potassium Level 3.4L, Chloride Level 102, Carbon Dioxide Level 17L, Anion Gap 8, Blood Urea Nitrogen 14, Creatinine 0.91, Estimat Glomerular Filtration Rate > 60, BUN/Creatinine Ratio 15, Glucose Level 102, Calcium Level 7.4L, Corrected Calcium 8.4L, Total Bilirubin 0.7, Aspartate Amino Transf (AST/SGOT) 63H, Alanine Aminotransferase (ALT/SGPT) 24, Alkaline Phosphatase 51, Total Protein 5.0L, Albumin 2.8L, Phosphorus Level 2.3, Magnesium Level 1.3L 12/18/19 09:25: Troponin I 1.237*H 12/18/19 10:50: Activated Partial Thromboplast Time > 200*H Microbiology 12/17/19 Influenza Types A,B Antigen (NORM) - Final, Complete Assessment/Plan Assessment/Plan Assess & Plan/Chief Complaint symptomatic hypotension with s/p fall at home with fx right rib 8 and 9. diet as tolerated. await cultures. await cardiology input. Clinical Quality Measures DVT/VTE Risk/Contraindication: Risk Factor Score Per Nursin RFS Level Per Nursing on Admit: 4+=Very High EDY MONGE MD Dec 18, 2019 13:35
[2019-12-18] MEDS: HEParin DRIP 25000 UNIT/500ML 500 ML IV SCH (14:20)
[2019-12-18] MEDS: RT-ALBUTEROL INHALER HFA (VENTOLIN HFA) 8 GM IH SCH ×2 (14:47→14:48)
[2019-12-18] MEDS ORDERED: FURO40TA4 PO (15:04)
[2019-12-18] MEDS ORDERED: CLOP75TA69 PO (15:04)
[2019-12-18] MEDS ORDERED: TMSL.4C PO (15:04)
[2019-12-18] MEDS ORDERED: METO100T12 PO (15:04)
[2019-12-18] MEDS ORDERED: NITR0.4T39 SL (15:04)
[2019-12-18] MEDS ORDERED: POTA20TA15 PO (15:04)
[2019-12-18] MEDS ORDERED: ATOR10TA66 PO (15:04)
[2019-12-18] MEDS ORDERED: ASPI-983 PO (15:06)
--- NOTE | 2019-12-18 15:06 | NUR ---
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 I WENT THRU THE EXT MED HISTORY AND GOT A MED LIST FROM DR. ALLAN TO COMPLETE THE MED REC THE INFORMATION I ENTERED IN THE MED REC WAS MEDICATIONS AND DIRECTIONS PROVIDED FROM [facility] OFFICE- BUT PT COULD NOT TELL ME HOW HE WAS TAKING EACH MEDICATION. UNFORTUNATELY THE INFORMATION IS SIMPLY WHAT THE DR HAS WRITTEN FOR AND MAY NOT BE HOW THE PT IS ACTUALLY TAKING OTC MEDS: ASPIRIN
--- NOTE | 2019-12-18 16:30 | NUR ---
COVID testing negative. May remove patient from isolation.
--- NOTE | 2019-12-18 16:41 | Consultation-Cardiology ---
HPI-Cardiology Cardiology Consultation: Date of Consultation 12/18/19 Date of Admission Attending Physician Velma Baires MD Admitting Physician Ilir Doran DO Consulting Physician Long PEREZ MD HPI: Time Seen by a Provider: 16:41 Chief Complaint: Fever This is a 74-year-old gentleman with history of hypertension, hyperlipidemia, CAD, history of CABG, congestive heart failure, persistent atrial fibrillation. He presented to the ER with a history of fall and was found to have a fracture. In the ER he was found to have leukocytosis and a fever of 103 Fahrenheit. He was admitted for COVID testing. Overnight he was hypertensive therefore he was started on pressors and IV fluids. Working diagnosis of septic shock. When I saw the patient he was having focal chest pain. He is a poor historian, he seems to forget a lot. Likely new onset dementia. Review of Systems-Cardiology Review of Systems Constitutional: As described under HPI; No As described under HPI, No no symptoms reported, No chills; fever; No lightheadedness Eyes: No As described under HPI, No no symptoms reported, No blindness, No blurred vision, No contact lenses, No drainage, No decreased acuity, No foreign body sensation, No pain, No vision change Ears/Nose/Throat: No As described under HPI, No no symptoms reported, No chronic hearing loss, No ear discharge, No ear pain, No nasal drainage, No ulc erations Respiratory: No no symptoms reported; As described under HPI; No As described under HPI, No cough, No orthopnea, No shortness of breath, No SOB with excertion Cardiovascular: No no symptoms reported; As described under HPI; No As described under HPI; chest pain; No edema, No irregular heart rate, No lightheadedness, No palpitations Gastrointestinal: No no symptoms reported, No As described under HPI, No abdomen distended, No abdominal pain, No blood streaked bowels, No constipation, No diarrhea, No nausea, No vomiting, No stool coloration changes Genitourinary: No As described under HPI, No burning, No dysuria, No discharge, No frequency, No flank pain, No hematuria, No urgency Skin: No rash, No skin related problems, No ulcerations Psychiatric/Neurological: As described under HPI; No anxiety, No depression, No seizure, No focal weakness, No syncope Hematologic: No bleeding abnormalities All Other Systems Reviewed Negative Unless Noted: Yes SAM-[id number]-[id number] Hx Patient Social History Alcohol Use: Occasionally Uses Recreational Drug Use: No Smoking Status: Former Smoker Type Used: Cigarettes 2nd Hand Smoke Exposure: No Recent Foreign Travel: No Recent Infectious Disease Expo: No Immunizations Up To Date Tetanus Booster (TDap): Unknown Past Medical History PMH As described under Assessment. Allergies and Home Medications Allergies Coded Allergies: No Known Drug Allergies (Unverified , 12/23/14) Home Medications Aspirin 81 Mg Tablet.dr, 81 MG PO DAILY, (Reported) Atorvastatin Calcium 10 Mg Tablet, 10 MG PO HS, (Reported) Clopidogrel Bisulfate 75 Mg Tablet, 75 MG PO DAILY, (Reported) Furosemide 40 Mg Tablet, 40 MG PO DAILY, (Reported) Metoprolol Tartrate 100 Mg Tablet, 100 MG PO BID, (Reported) Nitroglycerin 0.4 Mg Tab.subl, 0.4 MG SL UD PRN for CHEST PAIN, (Reported) Potassium Chloride 20 Meq Tab.er.prt, 20 MEQ PO DAILY, (Reported) Tamsulosin HCl 0.4 Mg Cap, 0.4 MG PO DAILY AFTER PM MEAL, (Reported) TAKE 30 MINUTES AFTER EVENING MEAL Patient Home Medication List Home Medication List Reviewed: Yes Physical Exam-Cardiology Physical Exam Vital Signs/I&O 12/20/19 12/20/19 12/20/19 12/20/19 02:00 02:50 03:00 04:00 Pulse 101 93 101 Resp 18 14 13 B/P (MAP) 109/90 (96) 109/64 (79) 73/58 (63) Pulse Ox 91 97 95 95 O2 Delivery Room Air Room Air Room Air Room Air 12/20/19 12/20/19 12/20/19 12/20/19 04:00 04:16 05:00 06:00 Temp 37.0 Pulse 101 109 Resp 12 11 B/P (MAP) 108/61 (77) 84/62 (69) Pulse Ox 96 94 O2 Delivery Room Air Room Air Room Air 12/20/19 12/20/19 12/20/19 12/20/19 07:00 07:00 07:12 07:49 Temp 36.7 Pulse 111 109 Resp 12 B/P (MAP) 95/69 (78) Pulse Ox 94 95 O2 Delivery Room Air Room Air 6/5/12/20/19 12/20/19 12/20/19 08:00 08:00 08:41 09:00 Pulse 106 107 Resp 13 15 B/P (MAP) 129/110 (116) 99/80 (86) Pulse Ox 96 96 O2 Delivery Room Air Nasal Cannula Nasal Cannula Nasal Cannula O2 Flow Rate 2.00 2.00 2.00 12/20/19 12/20/19 12/20/19 12/20/19 10:00 10:55 11:00 12:00 Temp 36.4 Pulse 101 109 Resp 17 31 B/P (MAP) 116/77 (90) 96/83 (87) Pulse Ox 97 95 O2 Delivery Nasal Cannula Room Air Nasal Cannula O2 Flow Rate 2.00 2.00 12/20/19 12:00 Pulse 126 Resp 19 B/P (MAP) 97/94 (95) Pulse Ox 91 O2 Delivery Nasal Cannula O2 Flow Rate 2.00 12/19/19 23:59 Intake Total 3790 ml Output Total 775 ml Balance 3015 ml Capillary Refill : Less Than 3 SecondsLess Than 3 Seconds Constitutional: appears stated age; No apparent distress; well-developed, well- nourished HEENT: PERRL; No discharge; hearing is well preserved, oral hygience is good; No ulceration, No xanthelasmas are seen Neck: No carotid bruit; carotid pulses are 2 + bilaterally Respiratory: chest is bilaterally symmetric, lungs clear to auscultation Cardiovascular: irregularly irregular, S1 and S2 Gastrointestinal: soft, audible bowel sounds; No spleenomegaly Rectal: deferred Extremities: No clubbing, No cyanosis; no lower extremity edema bilateral; No significant edema Neurologic/Psychiatric: no motor/sensory deficits, alert, normal mood/affect, power is 5/5 both on sides Skin: normal color, warm/dry Data Review Labs Laboratory Tests 12/20/19 03:35: White Blood Count 6.4, Red Blood Count 3.22L, Hemoglobin 10.2L, Hematocrit 30L, Mean Corpuscular Volume 92, Mean Corpuscular Hemoglobin 32, Mean Corpuscular Hemoglobin Concent 34, Red Cell Distribution Width 12.9, Platelet Count 183, Mean Platelet Volume 9.7, Neutrophils (%) (Auto) 81H, Lymphocytes (%) (Auto) 11L , Monocytes (%) (Auto) 7, Eosinophils (%) (Auto) 0, Basophils (%) (Auto) 0, Neutrophils # (Auto) 5.2, Lymphocytes # (Auto) 0.7L, Monocytes # (Auto) 0.5, Eosinophils # (Auto) 0.0, Basophils # (Auto) 0.0, Sodium Level 128L, Potassium Level 3.8, Chloride Level 105, Carbon Dioxide Level 15L, Anion Gap 8, Blood Urea Nitrogen 13, Creatinine 0.86, Estimat Glomerular Filtration Rate > 60, BUN/Creatinine Ratio 15, Glucose Level 107H, Calcium Level 7.2L, Phosphorus Level 2.6, Magnesium Level 1.6 12/20/19 07:09: Blood Gas Puncture Site LT RAD, Blood Gas Patient Temperature 36.3, Arterial Blood pH 7.28*L, Arterial Blood Partial Pressure CO2 36, Arterial Blood Partial Pressure O2 82, Arterial Blood HCO3 16*L, Arterial Blood Total CO2 17.5L, Arterial Blood Oxygen Saturation 94, Arterial Blood Base Excess -9.2L, Chaitanya Test YES-POS, Blood Gas Ventilator Setting NO, Blood Gas Inspired Oxygen ROOM AIR Microbiology 12/17/19 Urine Culture - Final, Complete Corynebacterium species 12/17/19 Blood Culture - Preliminary, Resulted No growth 12/17/19 Influenza Types A,B Antigen (NORM) - Final, Complete ECG Impression ECG Initial ECG Impression: Atrial Fibrillation A/P-Cardiology Assessment/Admission Diagnosis Septic shock, Rib fracture, Non-STEMI, History of CAD/CABG, Persistent atrial fibrillation, Ischemic cardiomyopathy, New onset dementia, History of hypertension, History of hyperlipidemia. Plan Septic shock, on IV fluids and vasopressors. Broad-spectrum antibiotics. COVID-19 negative. Rib fracture, Non-STEMI, IV heparin. Patient has dementia and keeps on forgetting. Family will need to be involved to decide future predisposition. History of CAD/CABG, Persistent atrial fibrillation, beta blockers held due to hypotension. Ischemic cardiomyopathy, request echocardiogram. New onset dementia, defer to the primary team. History of hypertension, currently off antihypertensive agents. History of hyperlipidemia. Statin therapy. Thank you for your consultation. Please call me if you have any questions. Jada Perez MD, FACP, FACC, FSCAI, FHRS, CCDS Interventional Cardiology Cardiac Electrophysiology Vascular Medicine and Endovascular Interventions Clinical Quality Measures DVT/VTE Risk/Contraindication: Risk Factor Score Per Nursin RFS Level Per Nursing on Admit: 4+=Very High Long PEREZ MD Dec 18, 2019 16:41
[2019-12-18] MEDS ORDERED: DexMEDEtomidine 250 ML DRIP 250 ML IV SCH (20:00)
[2019-12-19] VITALS (24 sets, daily range): BP systolic 80–125; BP diastolic 57–94
[2019-12-19] MEDS: HEParin DRIP 25000 UNIT/500ML 500 ML IV SCH (00:19)
[2019-12-19] MEDS: NOREPINEPHRINE 4 MG/250 ML 250 ML IV SCH (00:55)
[2019-12-19] MEDS: NS IV 1000 ML 1,000 ML IV SCH ×4 (01:46→22:29)
[2019-12-19] MEDS: PIPERACILLIN/TAZOBACTAM (BULK) 4.5 GM in NS (IVPB) 100 ML IV SCH ×3 (01:46→18:43)
[2019-12-19 03:39] LABS: BASOPHILS % (AUTO) 0 % (0-10); EOSINOPHILS % (AUTO) 0 % (0-10); HEMATOCRIT 32 % (40-54); HEMOGLOBIN 10.6 G/DL (13.3-17.7); LYMPHOCYTES # (AUTO) 0.8 X 10^3 (1.0-4.0); LYMPHOCYTES % (AUTO) 12 % (12-44); MEAN CORPUSCULAR HEMOGLOBIN 31 PG (25-34); MEAN CORPUSCULAR HGB CONC 33 G/DL (32-36); MEAN CORPUSCULAR VOLUME 93 FL (80-99); MEAN PLATELET VOLUME 9.6 FL (7.4-10.4); MONOCYTES # (AUTO) 0.6 X 10^3 (0.0-1.0); MONOCYTES % (AUTO) 9 % (0-12); NEUTROPHILS # (AUTO) 5.7 X 10^3 (1.8-7.8); NEUTROPHILS % (AUTO) 80 % (42-75); PLATELET COUNT 172 10^3/uL (130-400); RED CELL DISTRIBUTION WIDTH 13.2 % (10.0-14.5); WHITE BLOOD COUNT 7.1 10^3/uL (4.3-11.0)
[2019-12-19 04:02] LABS: BUN/CREATININE RATIO 13; CALCIUM 7.3 MG/DL (8.5-10.1); CARBON DIOXIDE 17 MMOL/L (21-32); CHLORIDE 104 MMOL/L (98-107); CREATININE SERUM 0.84 MG/DL (0.60-1.30); GFR ESTIMATED > 60; GLUCOSE 101 MG/DL (70-105); MAGNESIUM 2.6 MG/DL (1.6-2.4); POTASSIUM 4.2 MMOL/L (3.6-5.0); SODIUM 128 MMOL/L (135-145)
[2019-12-19] MEDS: MAGNESIUM 1 GM/100 ML IVPB 100 ML IV SCH (04:39)
[2019-12-19] MEDS ORDERED: SODIUM PHOSPHATE INJ 30 MM in NS (IVPB) 250 ML IV ONE (05:15)
--- NOTE | 2019-12-19 05:17 | Pulmonary Progress Note ---
Subjective Time Seen by a Provider: 05:14 Subjective/Events-last exam Pt appears to be doing well. Sepsis Event Evaluation Height, Weight, BMI Height: 5'4.00" Weight: 165lbs. 0oz. [id number]; 26.12 BMI Method:Stated Focused Exam Lactate Level 12/17/19 18:29: Lactic Acid Level 2.29*H 12/17/19 21:08: Lactic Acid Level 2.00 12/18/19 05:40: Lactic Acid Level 0.97 Time of Focused Exam: 07:00 Exam Exam Vital Signs Date Time Temp Pulse Resp B/P (MAP) Pulse Ox O2 Delivery O2 Flow Rate FiO2 12/19/19 05:00 76 19 112/93 (99) 96 Room Air 12/19/19 04:00 71 18 111/82 (92) 96 Room Air 12/19/19 04:00 Room Air 12/19/19 03:48 37.3 12/19/19 03:20 Room Air 12/19/19 03:00 61 17 101/70 (80) 98 Nasal Cannula 1.00 12/19/19 02:00 74 19 95/57 (70) 96 Nasal Cannula 1.00 12/19/19 01:50 Nasal Cannula 1.00 12/19/19 01:00 70 12/19/19 01:00 70 19 106/77 (87) 100 Nasal Cannula 2.00 12/19/19 00:00 Nasal Cannula 2.00 12/19/19 00:00 70 19 90/63 (72) 100 Nasal Cannula 2.00 12/19/19 00:00 Nasal Cannula 2.00 12/18/19 23:00 36.8 12/18/19 23:00 66 21 108/67 (81) 99 Nasal Cannula 2.00 12/18/19 22:00 64 21 93/65 (74) 100 Nasal Cannula 2.00 12/18/19 21:00 85 22 80/59 (66) 100 Nasal Cannula 2.00 12/18/19 20:24 116 121/89 12/18/19 20:00 120 23 99/77 (84) 95 Nasal Cannula 2.00 12/18/19 20:00 Nasal Cannula 2.00 12/18/19 20:00 Nasal Cannula 2.00 12/18/19 19:00 89 26 119/84 (96) 98 Nasal Cannula 2.00 12/18/19 19:00 103 12/18/19 18:00 102 27 120/105 (110) 100 Nasal Cannula 2.00 12/18/19 17:00 87 32 124/104 (111) 100 Nasal Cannula 2.00 12/18/19 16:00 100 14 134/99 (111) 95 Nasal Cannula 2.00 12/18/19 16:00 Nasal Cannula 2.00 12/18/19 16:00 Nasal Cannula 2.00 12/18/19 15:00 84 18 113/89 (97) 100 Nasal Cannula 2.00 12/18/19 14:41 102/77 12/18/19 14:00 88 29 105/93 (97) 96 Nasal Cannula 2.00 12/18/19 13:05 87 12/18/19 13:00 81 15 122/81 (95) 100 Nasal Cannula 2.00 12/18/19 12:00 Nasal Cannula 2.00 12/18/19 12:00 Nasal Cannula 2.00 12/18/19 12:00 95 12 102/74 (83) 97 Nasal Cannula 2.00 12/18/19 11:14 100 Nasal Cannula 2.00 12/18/19 11:00 87 7 97/77 (84) 100 Nasal Cannula 2.00 12/18/19 10:00 85 16 76/44 (55) 100 Nasal Cannula 2.00 12/18/19 09:00 76 10 112/78 (89) 100 Nasal Cannula 2.00 12/18/19 08:00 80 11 108/88 (95) 99 Nasal Cannula 2.00 12/18/19 08:00 Nasal Cannula 2.00 12/18/19 08:00 37.1 12/18/19 08:00 Nasal Cannula 2.00 12/18/19 07:00 81 17 108/78 (88) 99 Nasal Cannula 2.00 12/18/19 07:00 97 12/18/19 06:00 97 17 117/87 (97) 99 Nasal Cannula 2.00 12/18/19 05:51 36.6 I & O 12/19/19 07:00 Intake Total 6770 ml Output Total 1025 ml Balance 5745 ml Height & Weight Height: 5'4.00" Weight: 165lbs. 0oz. [id number]; 26.12 BMI Method:Stated General Appearance: No Apparent Distress HEENT: PERRL/EOMI Neck: Full Range of Motion Respiratory: Chest Non Tender, Normal Breath Sounds, Rhonci Cardiovascular: Regular Rate, Rhythm, No Murmur Capillary Refill: Less Than 3 Seconds Gastrointestinal: normal bowel sounds, non tender, soft Extremity: Normal Capillary Refill Neurologic/Psychiatric: Alert, Abnormal Cerebellar Tests Lymphatic: No Adenopathy Results Lab Laboratory Tests 12/17/19 15:32 12/17/19 15:57 12/18/19 01:17 12/18/19 05:40 12/19/19 03:25 Assessment/Plan Assessment/Plan sepsis - improving -[place]ridge cultures -Zosyn Confusion, psychosis -Start Risperdal -Hadol PRN -Hold precedex Hyponatremia -Monitor -Continue NS Afib -Currently on Hep gtt -Cardiology following S/p fall -CT head is neg for acute change 8 and 9 rib fractures -pain control -IS FADI NEGRON DO Dec 19, 2019 05:17
[2019-12-19] MEDS: POTASSIUM CL 10MEQ/50ML IVPB 50 ML IV SCH (05:20)
[2019-12-19] MEDS: KCL 20 MEQ TAB (K-DUR) PO SCH ×2 (05:21→22:29)
[2019-12-19] MEDS: fentaNYL INJECTION 100 MCG/2 ML AMP IV PRN ×2 (06:02→19:38)
--- NOTE | 2019-12-19 06:55 | Diagnostic Imaging Report ---
INDICATION: Dyspnea. Comparison made with prior examination 12/18/2019. FINDINGS: There is cardiomegaly. There has been previous median sternotomy. There are patchy bibasilar infiltrates. There is no pleural effusion or pneumothorax. Mediastinum is unremarkable. IMPRESSION: Cardiomegaly and patchy bibasilar infiltrates right greater than left. Dictated by: Dictated on workstation # [id number]
[2019-12-19] MEDS: RT-ALBUTEROL INHALER HFA (VENTOLIN HFA) 8 GM IH SCH ×3 (07:21→14:13)
[2019-12-19] MEDS: HYDROcodone/APAP 10 MG/325 MG (LORTAB) TAB PO PRN ×2 (08:06→16:54)
[2019-12-19] MEDS: risperiDONE 1 MG (RisperDAL) TAB PO SCH ×2 (08:06→19:37)
[2019-12-19] MEDS: ASPIRIN 81 MG CHEW (CHILDREN'S ASA) PO SCH (08:07)
--- NOTE | 2019-12-19 08:10 | Progress Note - Hospitalist ---
Subjective HPI/CC On Admission Date Seen by Provider: Dec 19, 2019 Time Seen by Provider: 08:04 Pt is a 74yoCM with a PMH of HTN, HLD, CAD, CHF, a-fib who presented to the ER due to a fall. He is unable to tell me any details regarding what brought him to the ER. Reportedly he fell at some point . ER note states he was brought in by family after being found on the floor. He was incidentally found to have a fever of 103 and leukocytosis. No direct source of infection could be found and he was not a reliable historian so COVID testing was done. He has no new complaints this morning other than rib pain. Overnight he became hypotensive and was transferred to the ICU as he necessitated pressors. Subjective/Events-last exam Pt reports phlegm in throat. States he is "choking to ." He was not coughing at all and was communicating clearly despite this globus sensation. His oxygen saturations were normal as well. Despite this I immediately called for nursing to bring prachi to room. Focused Exam Lactate Level 12/17/19 18:29: Lactic Acid Level 2.29*H 12/17/19 21:08: Lactic Acid Level 2.00 12/18/19 05:40: Lactic Acid Level 0.97 Time of Focused Exam: 07:00 Objective Exam Vital Signs Vital Signs Date Time Temp Pulse Resp B/P (MAP) Pulse Ox O2 Delivery O2 Flow Rate FiO2 12/19/19 07:22 95 Room Air 12/19/19 07:00 72 15 91/65 (74) 12/19/19 03:48 37.3 12/19/19 03:00 1.00 Capillary Refill : Less Than 3 SecondsLess Than 3 Seconds General Appearance: No Apparent Distress, Chronically ill Respiratory: Lungs Clear, No Respiratory Distress, Decreased Breath Sounds Cardiovascular: Regular Rate, Rhythm, No Murmur Gastrointestinal: Normal Bowel Sounds, Non Tender, Soft Extremity: No Calf Tenderness, No Pedal Edema Neurologic/Psychiatric: Alert, Other (oriented to person and place, otherwise confused) Results/Procedures Lab Laboratory Tests 12/19/19 03:25 Patient resulted labs reviewed. Imaging: Reviewed Imaging Report Assessment/Plan Assessment and Plan Assess & Plan/Chief Complaint Septic Shock Blood culture with coag negative staph x1, sent for ID since no other source identified but likely a contaminant Continue abx COVIDnegative Off pressors [place]- resolved Hyponatremia Hypokalemia hypomagnesemia Improved with IVF Replace electrolytes as needed trend A-fib Elevated troponin- likely Type II MS from septic shock CAD CHF Continue heparin gtt Cardiology consulted, appreciate recs Troponin trended down Falls and Debility Rib Fractures IS PT/OT Trauma surgery consulted Lidocaine patch added for pain Diagnosis/Problems Diagnosis/Problems (1) Septic shock Status: Acute (2) Hypomagnesemia Status: Acute (3) Dementia Status: Chronic Qualifiers: Dementia type: unspecified type Dementia behavioral disturbance: without behavioral disturbance Qualified Codes: F03.90 - Unspecified dementia without behavioral disturbance (4) Hyponatremia Status: Acute (5) Acute kidney injury Status: Acute (6) Hypokalemia Status: Acute (7) Rib fractures Status: Acute Qualifiers: Encounter type: initial encounter Rib fracture type: multiple ribs Fracture type: closed Laterality: right Qualified Codes: S22.41XA - Multiple fractures of ribs, right side, initial encounter for closed fracture (8) Fall on same level Status: Acute Qualifiers: Encounter type: initial encounter Qualified Codes: W18.30XA - Fall on same level, unspecified, initial encounter (9) Atrial fibrillation Status: Acute Qualifiers: Atrial fibrillation type: unspecified Qualified Codes: I48.91 - Unspecified atrial fibrillation (10) Elevated troponin Status: Acute Clinical Quality Measures DVT/VTE Risk/Contraindication: Risk Factor Score Per Nursin RFS Level Per Nursing on Admit: 4+=Very High JAY MCCLELLAN MD Dec 19, 2019 08:10
--- NOTE | 2019-12-19 08:45 | NUR ---
DR MCCARTY AT BEDSIDE TO SPEAK WITH PATIENT REGARDING HEART CATH. PT UNABLE TO REMEMBER CONVERSATION JUST WHILE THIS RN AND DR IN THE ROOM. PT STATES HE "DOESN'T THINK HE WILL COME OUT" IF HE HAS THE PROCEDURE AND STATES MULTIPLE TIMES THAT HE DOESN'T "THINK" HE WANTS TO HAVE THE PROCEDURE. PT IS A/OX1 ONLY THIS SHIFT. THIS RN ATTEMPTED TO CALL PATIENTS SON, TRUNG, TO SPEAK REGARDING POSSIBLE PENDING PROCEDURE. VO FOR MED CHANGES, SEE ORDERS/EMAR. DR MCCLELLAN NOTIFIED OF CHANGES DR MCCARTY WANTS AND IS AGREEABLE TO CHANGES.
[2019-12-19] MEDS: meTOproloL SUCCINATE 50 MG (TOPROL XL) TAB PO SCH (08:56)
[2019-12-19] MEDS: LIDOCAINE 4% (SALONPAS) PATCH TOP SCH (09:38)
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
[2019-12-19] MEDS: ENOXAPARIN 80 MG/0.8 ML (LOVENOX) SYR SC SCH ×2 (11:18→22:29)
[2019-12-19] MEDS: CLOPIDOGREL 75 MG (PLAVIX) TABLET PO SCH (11:18)
--- NOTE | 2019-12-19 11:24 | Physical Therapy Evaluation ---
PT Evaluation-General Medical Diagnosis Admission Date Dec 17, 2019 at 21:27 Medical Diagnosis: sepsis; s/p fall with R 8-9th rib fx Onset Date: Dec 17, 2019 Therapy Diagnosis Therapy Diagnosis: debility/weakness Height/Weight Height (Feet): 5 Height (Inches): 4.00 Weight (Pounds): 165 Weight (Ounces): 0 Precautions Precautions/Isolations: Fall Prevention, Standard Precautions Weight Bear Status Right Lower Extremity: Right Weight Bearing/Tolerated Left Lower Extremity: Left Weight Bearing/Tolerated Referral Physician: Velma Baires MD Reason for Referral: Evaluation/Treatment Medical History Pertinent Medical History: Atrial Fib, Alcoholism, CABG, CAD, Dementia, Heart Failure, HTN, [place] Current History EMS secondary to family found him on the floor at home. Strong urine smell in home and on patient per EMS report. Reviewed History: Yes Social History Home: Single Level Current Living Status: Alone Entry Into Home: Stairs With Railing PT Steps Into Home: 1 Prior Prior Level of Function SCALE: Activities may be completed with or without assistive devices. 4-Mndhnrenpp-vbfwzyu completes the activity by him/herself with no assistance from a helper. 5-Set-up or Clean-up Assistance-helper sets up or cleans up; patient completes activity. [place] assists only prior to or following the activity. 4-Supervision or Touching Assistance-helper provides verbal cues and/or touching/steadying and/or contact guard assistance as patient completes activity. Assistance may be provided throughout the activity or intermittently. 3-Partial/Moderate Assistance-helper does LESS THAN HALF the effort. [place] lifts, holds or supports trunk or limbs, but provides less than half the effort. 2-Substantial/Maximal Assistance-helper does MORE THAN HALF the effort. [place] lifts or holds trunk or limbs and provides more than half the effort. 3-Anxcwaerg-fwulin does ALL the effort. Patient does none of the effort to complete the activity. Or, the assistance of 2 or more helpers is required for the patient to complete the activity. If activity was not attempted, code reason: 7-Patient Refused. 9-Not Applicable-not attempted and the patient did not perform the activity before the current illness, exacerbation or injury. 10-Not Attempted due to Environmental Limitations-(lack of equipment, weather restraints, etc.). 88-Not Attempted due to Medical Conditions or Safety Concerns. Bed Mobility: 6 Transfers (B,C,W/C): 6 Gait: 6 Stairs: 6 Indoor Mobility (Ambulation): Independent Stairs: Independent Prior Devices Use: Other-see list below "walking stick" PT Evaluation-Current Subjective Patient requires much encouragement to participate with therapy. Patient becomes increasingly agitated with request of OOB activity. Reluctantly agrees. Pain Numeric Pain Scale: 10-Worst Possible Pain Location: Right Location Body Site: Side Pain Description: Acute Comment: FLACC Objective Patient Orientation: Confused Attachments: Oxygen, Arce Catheter, IV ROM/Strength ROM Lower Extremities bilateral LE WFL Strength Lower Extremities 3/5 grossly bilateral LE Integumentary/Posture Integumentary refer to nursing notes Bladder Incontinence: Arce Cath Posture severe trunk flexed posture in sit and stand with FWW Neuromuscular (Tone, Coordination, Reflexes) grossly intact Sensory Vision: Functional Hearing: Impaired Hand Dominance: Right Sensation Right Lower Extremit: Intact Sensation Left Lower Extremity: Intact Transfers Roll Left to Right (QC): 2 Lying to Sitting/Side of Bed(Q: 2 Sit to Stand (QC): 2 Chair/Snh-xn-Uoqan Xfer(QC): 2 Gait Does the Patient Walk?: No and Walking Goal IS indicated Mode of Locomotion: Walk Anticipated Mode of Locomotion: Walk Distance: 3 steps Gait Assistive Device: FWW Comments/Gait Description place hands on front of FWW not on hand pads. Patient adamant to not use FWW correctly and becomes highly agitates. Balance Sitting Static: Fair Sitting Dynamic: Fair Standing Static: Fair Standing Dynamic: Fair Assessment/Needs 74 y.o. male, will benefit from skilled PT To address functional strength and mobility to improve current LOF. Patient is highly confused and agitated and requires constant redirection to remain on task. Rehab Potential: Fair Post Rehab Potential-Barriers: compliance PT Group Home Goals Group Home Goals PT Group Home Goals Time Frame: Jan 04, 2020 Roll Left & Right (QC): 4 Sit to Lying (QC): 4 Lying-Sitting on Side/Bed(QC): 4 Sit to Stand (QC): 4 Chair/Jlh-lc-Qeqdk Xfer(QC): 4 Toilet Transfer (QC): 4 Does the Patient Walk: Yes Walk 10 feet (QC): 4 Walk 50ft with 2 Turns (QC): 4 PT Plan Problem List Problem List: Activity Tolerance, Functional Strength, Safety, Balance, Gait, Transfer, Bed Mobility Treatment/Plan Treatment Plan: Continue Plan of Care Treatment Plan: Bed Mobility, Education, Functional Activity [place], Functional Strength, Gait, Safety, Therapeutic Exercise, Transfers Treatment Duration: Jan 04, 2020 Frequency: 6 times per week Estimated Hrs Per Day: .25 hour per day Patient and/or Family Agrees t: Yes Discharge Recommendations Therapy Discharge Recommendati: Other, See Comments ([facility]pc facility) Time/GCodes Time In: 1040 Time Out: 1055 Total Billed Treatment Time: 15 Total Billed Treatment 1 visit EVMod 15 min GUILHERME JARRELL PT Dec 19, 2019 11:24
--- NOTE | 2019-12-19 11:30 | NUR ---
Pastoral care visit.
--- NOTE | 2019-12-19 11:39 | NUR ---
SPOKE WITH PATIENTS SON, EUSEBIO, VIA TELEPHONE AFTER PASSWORD GIVEN. ADVISED EUSEBIO OF DR MCCARTY RECOMMENDATION OF HEART CATH AND POSSIBLE COMPLICATIONS INCLUDING NEEDING INTUBATED SECONDARY TO INABILITY TO FOLLOW DIRECTIONS. ADVISED EUSEBIO THAT HEART CATH COULD INCLUDE STENTING OR INABILITY TO FIX GRAFTING FROM OLD CABG OR MANAGING CONSERVATIVELY WITHOUT CATHETERIZATION. EUSEBIO STATED THAT HE UNDERSTOOD AND HE WILL SPEAK WILL ALL HIS SIBLINGS AND LET US KNOW WHAT THEY DECIDE. I DID ADVISE EUSEBIO THAT THE PATIENT HAS STATED SEVERAL TIMES TO THIS NURSE THAT HE DID NOT WANT TO HAVE THE PROCEDURE AND THAT HE ALSO STATED THERE WAS NO WAY HE WOULD LAY FLAT FOR THAT LONG. EUSEBIO STATED THAT HE UNDERSTOOD AND WILL LET ME KNOW WHAT FAMILY DECIDES.
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
--- NOTE | 2019-12-19 15:51 | Cardiology Progress Note ---
Cardiology SOAP Progress Note Subjective: Complains of rib pain. Objective: I&O/Vital Signs 12/20/19 12/20/19 12/20/19 12/20/19 02:00 02:50 03:00 04:00 Pulse 101 93 101 Resp 18 14 13 B/P (MAP) 109/90 (96) 109/64 (79) 73/58 (63) Pulse Ox 91 97 95 95 O2 Delivery Room Air Room Air Room Air Room Air 12/20/19 12/20/19 12/20/19 12/20/19 04:00 04:16 05:00 06:00 Temp 37.0 Pulse 101 109 Resp 12 11 B/P (MAP) 108/61 (77) 84/62 (69) Pulse Ox 96 94 O2 Delivery Room Air Room Air Room Air 12/20/19 12/20/19 12/20/19 12/20/19 07:00 07:00 07:12 07:49 Temp 36.7 Pulse 111 109 Resp 12 B/P (MAP) 95/69 (78) Pulse Ox 94 95 O2 Delivery Room Air Room Air 12/20/19 12/20/19 12/20/19 12/20/19 08:00 08:00 08:41 09:00 Pulse 106 107 Resp 13 15 B/P (MAP) 129/110 (116) 99/80 (86) Pulse Ox 96 96 O2 Delivery Room Air Nasal Cannula Nasal Cannula Nasal Cannula O2 Flow Rate 2.00 2.00 2.00 12/20/19 12/20/19 12/20/19 12/20/19 10:00 10:55 11:00 12:00 Temp 36.4 Pulse 101 109 Resp 17 31 B/P (MAP) 116/77 (90) 96/83 (87) Pulse Ox 97 95 O2 Delivery Nasal Cannula Room Air Nasal Cannula O2 Flow Rate 2.00 2.00 12/20/19 12:00 Pulse 126 Resp 19 B/P (MAP) 97/94 (95) Pulse Ox 91 O2 Delivery Nasal Cannula O2 Flow Rate 2.00 12/19/19 23:59 Intake Total 3790 ml Output Total 775 ml Balance 3015 ml Weight (Pounds): 165 Weight (Ounces): 0 Weight (Calculated Kilograms): 74.338255 Constitutional: appears stated age, well-developed Respiratory: chest is bilaterally symmetric, lungs clear to auscultation Cardiovascular: irregularly irregular, S1 and S2 Gastrointestional: soft, audible bowel sounds Extremities: normal range of motion, non-tender, normal inspection, no lower ex tremity edema bilateral Neurologic/Psychiatric: no motor/sensory deficits, alert, normal mood/affect Skin: normal color, warm/dry Results/Procedures: Labs Laboratory Tests 12/20/19 03:35: White Blood Count 6.4, Red Blood Count 3.22L, Hemoglobin 10.2L, Hematocrit 30L, Mean Corpuscular Volume 92, Mean Corpuscular Hemoglobin 32, Mean Corpuscular Hemoglobin Concent 34, Red Cell Distribution Width 12.9, Platelet Count 183, Mean Platelet Volume 9.7, Neutrophils (%) (Auto) 81H, Lymphocytes (%) (Auto) 11L , Monocytes (%) (Auto) 7, Eosinophils (%) (Auto) 0, Basophils (%) (Auto) 0, Neutrophils # (Auto) 5.2, Lymphocytes # (Auto) 0.7L, Monocytes # (Auto) 0.5, Eosinophils # (Auto) 0.0, Basophils # (Auto) 0.0, Sodium Level 128L, Potassium Level 3.8, Chloride Level 105, Carbon Dioxide Level 15L, Anion Gap 8, Blood Urea Nitrogen 13, Creatinine 0.86, Estimat Glomerular Filtration Rate > 60, BUN/Creatinine Ratio 15, Glucose Level 107H, Calcium Level 7.2L, Phosphorus Level 2.6, Magnesium Level 1.6 12/20/19 07:09: Blood Gas Puncture Site LT RAD, Blood Gas Patient Temperature 36.3, Arterial Blood pH 7.28*L, Arterial Blood Partial Pressure CO2 36, Arterial Blood Partial Pressure O2 82, Arterial Blood HCO3 16*L, Arterial Blood Total CO2 17.5L, Arterial Blood Oxygen Saturation 94, Arterial Blood Base Excess -9.2L, Chaitanya Test YES-POS, Blood Gas Ventilator Setting NO, Blood Gas Inspired Oxygen ROOM AIR Microbiology 12/17/19 Urine Culture - Final, Complete Corynebacterium species 12/17/19 Blood Culture - Preliminary, Resulted No growth 12/17/19 Influenza Types A,B Antigen (NORM) - Final, Complete A/P: Assessment/Dx: Septic shock, Rib fracture, Non-STEMI, History of CAD/CABG, Persistent atrial fibrillation, Ischemic cardiomyopathy, New onset dementia, History of hypertension, History of hyperlipidemia. Plan: Septic shock, on IV fluids and vasopressors. Broad-spectrum antibiotics. COVID-19 negative. Rib fracture, Non-STEMI, low molecular weight heparin. Patient has dementia and keeps on forgetting. Family will need to be involved to decide future predisposition. When I speak to him he was against doing anything aggressive. Therefore we are postponing coronary angiography to the patient and family's on the same page. History of CAD/CABG, started on aspirin and Plavix. Persistent atrial fibrillation, beta blockers held due to hypotension. Ischemic cardiomyopathy, echocardiogram read 12/19/2019 shows an EF of 10 percent. ?life vest - if patient and family agree to a full code and request everything to be done. New onset dementia, defer to the primary team. History of hypertension, currently off antihypertensive agents. History of hyperlipidemia. Statin therapy. Thank you for your consultation. Please call me if you have any questions. Jada Perez MD, FACP, FACC, FSCAI, FHRS, CCDS Interventional Cardiology Cardiac Electrophysiology Vascular Medicine and Endovascular Interventions Focused Exam Lactate Level 12/17/19 18:29: Lactic Acid Level 2.29*H 12/17/19 21:08: Lactic Acid Level 2.00 12/18/19 05:40: Lactic Acid Level 0.97 Time of Focused Exam: 07:00 Long PEREZ MD Dec 19, 2019 15:51
[2019-12-19] MEDS: RT-ALBUTEROL INHALER HFA (VENTOLIN HFA) 8 GM IH PRN ×2 (19:00→22:26)
[2019-12-19] MEDS: HALOPERIDOL 5 MG/ML (HALDOL) AMP IM PRN (19:38)
[2019-12-19] MEDS: LIDOCAINE PATCH REMOVAL TP SCH (21:36)
[2019-12-20] VITALS (24 sets, daily range): BP systolic 73–152; BP diastolic 54–128
[2019-12-20] MEDS: HYDROcodone/APAP 10 MG/325 MG (LORTAB) TAB PO PRN ×2 (02:13→12:26)
[2019-12-20] MEDS: PIPERACILLIN/TAZOBACTAM (BULK) 4.5 GM in NS (IVPB) 100 ML IV SCH ×3 (02:13→18:20)
[2019-12-20] MEDS: RT-ALBUTEROL INHALER HFA (VENTOLIN HFA) 8 GM IH PRN ×3 (02:50→10:55)
[2019-12-20 03:51] LABS: BASOPHILS % (AUTO) 0 % (0-10); EOSINOPHILS % (AUTO) 0 % (0-10); HEMATOCRIT 30 % (40-54); HEMOGLOBIN 10.2 G/DL (13.3-17.7); LYMPHOCYTES # (AUTO) 0.7 X 10^3 (1.0-4.0); LYMPHOCYTES % (AUTO) 11 % (12-44); MEAN CORPUSCULAR HEMOGLOBIN 32 PG (25-34); MEAN CORPUSCULAR HGB CONC 34 G/DL (32-36); MEAN CORPUSCULAR VOLUME 92 FL (80-99); MEAN PLATELET VOLUME 9.7 FL (7.4-10.4); MONOCYTES # (AUTO) 0.5 X 10^3 (0.0-1.0); MONOCYTES % (AUTO) 7 % (0-12); NEUTROPHILS # (AUTO) 5.2 X 10^3 (1.8-7.8); NEUTROPHILS % (AUTO) 81 % (42-75); PLATELET COUNT 183 10^3/uL (130-400); RED CELL DISTRIBUTION WIDTH 12.9 % (10.0-14.5); WHITE BLOOD COUNT 6.4 10^3/uL (4.3-11.0)
[2019-12-20 04:02] LABS: CHLORIDE 105 MMOL/L (98-107); POTASSIUM 3.8 MMOL/L (3.6-5.0); SODIUM 128 MMOL/L (135-145)
[2019-12-20 04:03] LABS: CALCIUM 7.2 MG/DL (8.5-10.1)
[2019-12-20 04:04] LABS: GLUCOSE 107 MG/DL (70-105)
[2019-12-20 04:05] LABS: CARBON DIOXIDE 15 MMOL/L (21-32)
[2019-12-20 04:07] LABS: PHOSPHORUS 2.6 MG/DL (2.3-4.7)
[2019-12-20 04:08] LABS: BUN/CREATININE RATIO 15; CREATININE SERUM 0.86 MG/DL (0.60-1.30); GFR ESTIMATED > 60
[2019-12-20 04:10] LABS: MAGNESIUM 1.6 MG/DL (1.6-2.4)
--- NOTE | 2019-12-20 05:06 | Pulmonary Progress Note ---
Subjective Time Seen by a Provider: 05:01 Subjective/Events-last exam Plan is for heart cath today Sepsis Event Evaluation Height, Weight, BMI Height: 5'4.00" Weight: 165lbs. 0oz. 74.578492ix; 26.12 BMI Method:Stated Focused Exam Lactate Level 12/17/19 18:29: Lactic Acid Level 2.29*H 12/17/19 21:08: Lactic Acid Level 2.00 12/18/19 05:40: Lactic Acid Level 0.97 Time of Focused Exam: 07:00 Exam Exam Vital Signs Date Time Temp Pulse Resp B/P (MAP) Pulse Ox O2 Delivery O2 Flow Rate FiO2 12/20/19 04:16 37.0 12/20/19 04:00 Room Air 12/20/19 04:00 101 13 73/58 (63) 95 Room Air 12/20/19 03:00 93 14 109/64 (79) 95 Room Air 12/20/19 02:50 97 Room Air 12/20/19 02:00 101 18 109/90 (96) 91 Room Air 12/20/19 01:00 102 13 111/84 (93) 96 Room Air 12/20/19 01:00 103 12/20/19 00:00 94 10 76/54 (61) 98 Room Air 12/20/19 00:00 Room Air 12/19/19 23:54 36.8 12/19/19 23:00 103 11 96/68 (77) 95 Room Air 12/19/19 22:48 Room Air 12/19/19 22:26 93 Room Air 12/19/19 22:00 80 18 106/64 (78) Nasal Cannula 2.00 12/19/19 21:00 88 11 86/65 (72) 97 Nasal Cannula 2.00 12/19/19 20:28 37.0 12/19/19 20:00 91 18 98/73 (81) 97 Nasal Cannula 2.00 12/19/19 20:00 Nasal Cannula 1.00 12/19/19 19:01 94 Nasal Cannula 1.00 12/19/19 19:00 Nasal Cannula 1.00 12/19/19 19:00 101 20 107/86 (93) 100 Nasal Cannula 2.00 12/19/19 19:00 94 12/19/19 18:00 88 18 104/94 (97) 99 Nasal Cannula 2.00 12/19/19 17:00 80 12 111/66 (81) 100 Nasal Cannula 2.00 12/19/19 16:05 Room Air 12/19/19 16:00 73 18 98/72 (81) 99 Nasal Cannula 2.00 12/19/19 15:43 36.9 12/19/19 15:00 80 17 85/57 (66) 99 Nasal Cannula 2.00 12/19/19 14:13 100 Nasal Cannula 1.00 12/19/19 14:00 73 13 125/66 (85) 100 Nasal Cannula 2.00 12/19/19 13:00 82 24 80/64 (69) 100 Nasal Cannula 2.00 12/19/19 12:27 78 12/19/19 12:15 Room Air 12/19/19 12:00 84 13 93/87 (89) 99 Nasal Cannula 2.00 12/19/19 11:12 36.7 12/19/19 11:00 80 20 111/84 (93) 97 Nasal Cannula 2.00 12/19/19 10:11 96 Room Air 12/19/19 10:00 82 14 101/81 (88) 99 Nasal Cannula 2.00 12/19/19 10:00 80 20 111/84 (93) 97 Nasal Cannula 2.00 12/19/19 09:00 71 31 112/87 (95) 96 Nasal Cannula 2.00 12/19/19 08:42 Nasal Cannula 2.00 12/19/19 08:00 82 9 108/71 (83) 95 Room Air 12/19/19 07:45 Room Air 12/19/19 07:22 95 Room Air 12/19/19 07:12 36.9 12/19/19 07:00 72 15 91/65 (74) 94 Room Air 12/19/19 07:00 84 12/19/19 06:00 79 28 91/57 (68) 96 Room Air I & O 12/20/19 07:00 Intake Total 4290 ml Output Total 1350 ml Balance 2940 ml Height & Weight Height: 5'4.00" Weight: 165lbs. 0oz. 74.777953ye; 26.12 BMI Method:Stated General Appearance: No Apparent Distress, Chronically ill HEENT: PERRL/EOMI Neck: Full Range of Motion Respiratory: Lungs Clear, No Respiratory Distress, Decreased Breath Sounds Cardiovascular: Regular Rate, Rhythm, No Murmur Capillary Refill: Less Than 3 Seconds Gastrointestinal: normal bowel sounds, non tender, soft Extremity: No Calf Tenderness, No Pedal Edema Neurologic/Psychiatric: Alert, Other (oriented to person and place, otherwise confused) Lymphatic: No Adenopathy Results Lab Laboratory Tests 12/18/19 05:40 12/19/19 03:25 12/20/19 03:35 Assessment/Plan Assessment/Plan sepsis - improving -Zosyn Confusion, psychosis -Risperdal -Hadol PRN Metabolic acidosis -Check ABG Hyponatremia -Monitor -Currently NS at 150 Afib -Currently on Hep gtt -Cardiology following S/p fall -CT head is neg for acute change 8 and 9 rib fractures -pain control -IS FADI NEGRON DO Dec 20, 2019 05:06
[2019-12-20] MEDS: NS IV 1000 ML 1,000 ML IV SCH (05:17)
--- NOTE | 2019-12-20 05:49 | Diagnostic Imaging Report ---
EXAMINATION: Portable erect AP chest at 3:26 AM INDICATION: Severe sepsis The cardiomegaly and the mild bibasilar atelectasis/infiltrate seen on the prior exam of 12/19/2019 are again evident and no different. The upper lungs remain clear. There may be a very small amount of fluid in each lung base as well. The mediastinum is not widened. The osseous structures are intact. Sternotomy wires and surgical clips are again noted. Surgical clips are also seen overlying the right neck. IMPRESSION: Stable chest. There has been no adverse change since the prior exam. Dictated by: Dictated on workstation # [id number]
[2019-12-20] MEDS: KCL 20 MEQ TAB (K-DUR) PO SCH ×2 (06:54→21:27)
[2019-12-20] MEDS: POTASSIUM CL 10MEQ/50ML IVPB 50 ML IV SCH (06:54)
[2019-12-20] MEDS: MAGNESIUM 1 GM/100 ML IVPB 100 ML IV SCH (06:54)
[2019-12-20 07:17] LABS: ABG BASE EXCESS -9.2 MMOL/L (-2.5-2.5); ABG OXYGEN SATURATION 94 % (94-100); ABG PCO2 36 MMHG (35-45); ABG PO2 82 MMHG (79-93); ABG TCO2 17.5 MMOL/L (21.0-31.0)
[2019-12-20 07:19] LABS: ABG PH 7.28 (7.37-7.43); ALLENS TEST YES-POS
[2019-12-20 07:20] LABS: INSPIRED O2 ROOM AIR; PATIENT TEMP 36.3; VENTILATOR NO
[2019-12-20] MEDS ORDERED: SODIUM BICARB 8.4% 50 MEQ/50 ML VIAL IV ONE (07:30)
[2019-12-20] MEDS ORDERED: SODIUM BICARB 8.4% 50 MEQ/50 ML VIAL ONE (07:37)
[2019-12-20] MEDS: risperiDONE 1 MG (RisperDAL) TAB PO SCH ×2 (07:41→21:27)
[2019-12-20] MEDS: meTOproloL SUCCINATE 50 MG (TOPROL XL) TAB PO SCH (07:41)
[2019-12-20] MEDS: LIDOCAINE 4% (SALONPAS) PATCH TOP SCH (07:41)
--- NOTE | 2019-12-20 08:37 | NUR ---
PT VERY AGITATED THIS AM. WANTS TO EAT AND DRINK. WHEN EXPLAINING TO PATIENT WHY HE CANNOT EAT AND DRINK. PT STATES THAT "LAST I CHECKED I'M IN [place] AND I CAN SAY NO AND HELL NO. WHEN ASKED WHAT HE WAS SAYING NO TO, PT STATED "FOR MY HEART". PT IS ABLE TO ANSWER WHO HE IS AND WHERE HE IS AT BUT UNABLE TO RECALL YEAR. WHEN ASKED WHO THE PRESIDENT IS HE STATED "I DON'T CARE". PT RECALLS CHILDRENS NAMES AND STATED THAT TRUNG "WANTED HIM GONE". HE STATED MANY TIMES THAT HE WAS IN [place] AND HE COULD SAY HELL NO IF HE WANTED TO. AGREE'D WITH PATIENT. MANY ATTEMPTS TO REORIENT PATIENT TO SITUATION BUT HE CONTINUES TO ASK THE SAME QUESTIONS REPEATEDLY. THIS RN DID GIVE PATIENT SMALL SIP OF WATER FOR PO MEDICATIONS. RIGHT CHEST/SIDE PAINFUL AND MEDICATIONS ADMINISTERED.
--- NOTE | 2019-12-20 09:01 | Progress Note - Hospitalist ---
Subjective HPI/CC On Admission Date Seen by Provider: Dec 20, 2019 Time Seen by Provider: 08:55 Pt is a 74yoCM with a PMH of HTN, HLD, CAD, CHF, a-fib who presented to the ER due to a fall. He is unable to tell me any details regarding what brought him to the ER. Reportedly he fell at some point . ER note states he was brought in by family after being found on the floor. He was incidentally found to have a fever of 103 and leukocytosis. No direct source of infection could be found and he was not a reliable historian so COVID testing was done. He has no new complaints this morning other than rib pain. Overnight he became hypotensive and was transferred to the ICU as he necessitated pressors. Subjective/Events-last exam Pt had no specific complaints today. When asked how he was doing he hit himself on the forehead and said "I'm alive." Discussed plan for cardiac cath today. Focused Exam Lactate Level 12/17/19 18:29: Lactic Acid Level 2.29*H 12/17/19 21:08: Lactic Acid Level 2.00 12/18/19 05:40: Lactic Acid Level 0.97 Time of Focused Exam: 07:00 Objective Exam Vital Signs Vital Signs Date Time Temp Pulse Resp B/P (MAP) Pulse Ox O2 Delivery O2 Flow Rate FiO2 12/20/19 08:41 Nasal Cannula 2.00 12/20/19 08:00 106 13 96 12/20/19 07:49 36.7 Capillary Refill : Less Than 3 SecondsLess Than 3 Seconds General Appearance: No Apparent Distress, Chronically ill Respiratory: Lungs Clear, No Respiratory Distress Cardiovascular: No Murmur, Tachycardia Gastrointestinal: Normal Bowel Sounds, Non Tender, Soft Genital/Rectal: Other (covarrubias in place) Extremity: No Calf Tenderness, No Pedal Edema Results/Procedures Lab Laboratory Tests 12/20/19 03:35 Patient resulted labs reviewed. Imaging: Reviewed Imaging Report Assessment/Plan Assessment and Plan Assess & Plan/Chief Complaint Shock Blood culture with coag negative staph x1, sent for ID since no other source identified but likely a contaminant No source identified and EF of 10% so concerning for cardiogenic shock Cardiology consulted, appreciate recsf Plan for cath today Continue abx for now COVID negative [place]- resolved Hyponatremia Hypokalemia hypomagnesemia Improving with IVF Replace electrolytes as needed trend A-fib Elevated troponin- likely Type II [place] from septic shock CAD CHF- EF of 10% Transitioned to lovenox Cardiology consulted, appreciate recs Troponin trended down Plan for cath today as above Falls and Debility Rib Fractures IS PT/OT Trauma surgery consulted Lidocaine patch added for pain Diagnosis/Problems Diagnosis/Problems (1) Septic shock Status: Acute (2) Hypomagnesemia Status: Acute (3) Dementia Status: Chronic Qualifiers: Dementia type: unspecified type Dementia behavioral disturbance: without behavioral disturbance Qualified Codes: F03.90 - Unspecified dementia without behavioral disturbance (4) Hyponatremia Status: Acute (5) Acute kidney injury Status: Acute (6) Hypokalemia Status: Acute (7) Rib fractures Status: Acute Qualifiers: Encounter type: initial encounter Rib fracture type: multiple ribs Fracture type: closed Laterality: right Qualified Codes: S22.41XA - Multiple fractures of ribs, right side, initial encounter for closed fracture (8) Fall on same level Status: Acute Qualifiers: Encounter type: initial encounter Qualified Codes: W18.30XA - Fall on same level, unspecified, initial encounter (9) Atrial fibrillation Status: Acute Qualifiers: Atrial fibrillation type: unspecified Qualified Codes: I48.91 - Unspecified atrial fibrillation (10) Elevated troponin Status: Acute Clinical Quality Measures DVT/VTE Risk/Contraindication: Risk Factor Score Per Nursin RFS Level Per Nursing on Admit: 4+=Very High JAY MCCLELLAN MD Dec 20, 2019 09:01
[2019-12-20] MEDS ORDERED: FUROSEMIDE 40 MG/4 ML INJ (LASIX) IVP NR (09:30)
[2019-12-20] MEDS: ASPIRIN 81 MG CHEW (CHILDREN'S ASA) PO SCH (09:48)
[2019-12-20] MEDS: CLOPIDOGREL 75 MG (PLAVIX) TABLET PO SCH (09:48)
--- NOTE | 2019-12-20 09:51 | NUR ---
CM/SS follow up. The patient was in his bed drinking coffee. The patients nurse gave this ss and update about patients recent episode of agitation as did the patient physician. The patients nurse stated they have just given medicine and the patient is appearing calmer. CM/SS walked in the room and re-introduced herself. The patient asked this ss if he had stayed the night here. He reports he believes he is in [facility]. CM/SS informed him he was in the hospital. The patient could not tell this ss what day it was. CM/SS attempted to redirect patient during conversation due to his confusion. CM/SS informed the patient of his behavior and he wanted this ss to apologize to the physician for him as he did not remember this episode. CM/SS discussed with the patient options for if he did not have the surgery. The patient reported surgery was "off the table". CM/SS discussed Hospice with the patient. He stated he would not want them in his home due to his attitude and he "rather drop at home alone". CM/SS waiting for physician to talk to the patients DPOA. Will continue to follow.
[2019-12-20] MEDS: ENOXAPARIN 80 MG/0.8 ML (LOVENOX) SYR SC SCH ×2 (10:17→21:26)
--- NOTE | 2019-12-20 11:21 | Occupational Ther Daily Note ---
OT Current Status-Daily Note Subjective Nursing agrees to OT session this date. Pt seen in bed, awake/ alert. Pt continues to be confused, repeats self at times, becomes agitated at times, redirection required. Pt states he is getting "out of here, nobody can keep me here." Pt educated on self care skills and mobility status at this time and need to be safe at home, pt agrees to OT session to complete ADL tasks. ADL-Treatment Therapy Code Descriptions/Definitions Functional [place] Measure: 0=Not Assessed/NA 4=Minimal Assistance 1=Total Assistance 5=Supervision or Setup 2=Maximal Assistance 6=Modified [place] 3=Moderate Assistance 7=Complete IndependenceSCALE: Activities may be completed with or without assistive devices. 4-Yrzbyuuttv-yjeclvw completes the activity by him/herself with no assistance from a helper. 5-Set-up or Clean-up Assistance-helper sets up or cleans up; patient completes activity. [place] assists only prior to or following the activity. 4-Supervision or Touching Assistance-helper provides verbal cues and/or touching/steadying and/or contact guard assistance as patient completes activ ity. Assistance may be provided throughout the activity or intermittently. 3-Partial/Moderate Assistance-helper does LESS THAN HALF the effort. [place] lifts, holds or supports trunk or limbs, but provides less than half the effort. 2-Substantial/Maximal Assistance-helper does MORE THAN HALF the effort. [place] lifts or holds trunk or limbs and provides more than half the effort. 0-Wmmkcnmas-aslogb does ALL the effort. Patient does none of the effort to complete the activity. Or, the assistance of 2 or more helpers is required for the patient to complete the activity. If activity was not attempted, code reason: 7-Patient Refused. 9-Not Applicable-not attempted and the patient did not perform the activity before the current illness, exacerbation or injury. 10-Not Attempted due to Environmental Limitations-(lack of equipment, weather restraints, etc.). 88-Not Attempted due to Medical Conditions or Safety Concerns. Eating (QC): 4 (CGA for cup to mouth x1, SBA x2 for drinking as limited UE strength) Bathing Location: Chest, Abdomen, Perineal Area Shower/Bathe Self (QC): 2 (max A- pt able to complete chest face, and groin while in bed max A required for all remaining areas, unable to complete AROM of LUE shoulder flexion (requires AAROM with R arm assist- so unable to complete washing underarms bilaterally).pt able to roll to L side while in bed for OT to complete bottom hygiene. Pt's testicles bloody post-session, wiped up. Pt's nurse notified. Appeared pt scratched area.) Upper Body Dressing (QC): 3 (mod A) Toileting Hygiene (QC): 2 (TD bottom hygiene, pt able to roll to L side) Other Treatment Pt agrees to sponge bath. Completed with wipes, requires redirection for attention through session. Pt completes all in bed, denies OOB. pt able to roll to L and bring torso from reclined to seated position with SBA. At end of session pt requires cues for rest as pt's HR jumps from 118-148 BPM while attempting to readjust. Pt left in room with all needs met, call light in reach, nursing notified of testicles as above. Education OT Patient Education: Correct positioning, Energy conservation, Modified ADL techniques, Progress toward Goal/Update tx plan, Purpose of tx/functional activities, Safety issues Teaching Recipient: Patient Teaching Methods: Demonstration, Discussion Response to Teaching: Verbalize Understanding, Return Demonstration, Reinforcement Needed OT Elementary Tutor Goals Fdc Goals Time Frame: Dec 26, 2019 Eating (QC): 6 Oral Hygiene (QC): 6 Toileting Hygiene (QC): 6 Shower/Bathe Self (QC): 6 Upper Body Dressing (QC): 6 Lower Body Dressing (QC): 6 On/Off Footwear (QC): 6 Additional Goals: 1-Demonstrate ADL Tasks, 2-Verbalize Understanding, 3- ImproveStrength/[place]omer 1=Demonstrate adherence to instructed precautions during ADL tasks. 2=Patient will verbalize/demonstrate understanding of assistive devices/modifications for ADL. 3=Patient will improve strength/tolerance for activity to enable patient to perform ADL's. OT Education/Plan Problem List/Assessment Assessment: Decreased Activ Tolerance, Decreased UE Strength, Dependent Transfers, Impaired Cognition, Impaired Coordination, Impaired I ADL's, Impaired Self-Care Skills, Restricted Funct UE ROM Discharge Recommendations Plan/Recommendations: Continue POC Therapy Discharge Recommendati: 24 Hour Supervision, Post Acute OT Treatment Plan/Plan of Care Treatment,Training & Education: Yes Patient would benefit from OT for education, treatment and training to promote independence in ADL's, mobility, safety and/or upper extremity function for ADL's. Plan of Care: ADL Retraining, Functional Mobility, UE Funct Exercise/Act Treatment Duration: Dec 26, 2019 Frequency: 5 times per week Estimated Hrs Per Day: .25 hour per day Agreement: Yes Rehab Potential: Fair Time/GCodes Start Time: 09:56 Stop Time: 10:26 Total Time Billed (hr/min): 30 Billed Treatment Time 1, ADL x2 (30) RAJINDER CELESTIN OTR Dec 20, 2019 11:21
--- NOTE | 2019-12-20 11:41 | Physical Therapy Daily Note ---
PT Daily Note-Current Subjective Pt is alert and mildly confused on arrival. He is concerned that he is being incarcerated not hospitalized. Mental Status Patient Orientation: Confused, Unable to Assess Transfers SCALE: Activities may be completed with or without assistive devices. 8-Hypimnilma-tnuvszz completes the activity by him/herself with no assistance from a helper. 5-Set-up or Clean-up Assistance-helper sets up or cleans up; patient completes activity. [place] assists only prior to or following the activity. 4-Supervision or Touching Assistance-helper provides verbal cues and/or touching/steadying and/or contact guard assistance as patient completes activity. Assistance may be provided throughout the activity or intermittently. 3-Partial/Moderate Assistance-helper does LESS THAN HALF the effort. [place] lifts, holds or supports trunk or limbs, but provides less than half the effort. 2-Substantial/Maximal Assistance-helper does MORE THAN HALF the effort. [place] lifts or holds trunk or limbs and provides more than half the effort. 6-Fbxoswcfe-hekrfg does ALL the effort. Patient does none of the effort to complete the activity. Or, the assistance of 2 or more helpers is required for the patient to complete the activity. If activity was not attempted, code reason: 7-Patient Refused. 9-Not Applicable-not attempted and the patient did not perform the activity before the current illness, exacerbation or injury. 10-Not Attempted due to Environmental Limitations-(lack of equipment, weather restraints, etc.). 88-Not Attempted due to Medical Conditions or Safety Concerns. Weight Bearing Right Lower Extremity: Right Weight Bearing/Tolerated Left Lower Extremity: Left Weight Bearing/Tolerated Gait Training Does the Patient Walk?: No and Walking Goal IS indicated Exercises Supine Ex: LE Protocol Supine Reps: 20 Treatments performed supine (B) LE ROM and AROM. Assessment Current Status: Fair Progress Pt fatigued between exercises and had to stop and rest. May attempt sitting edge of bed tommorow. PT Retirement Goals Immunology Specialist Goals PT Retirement Goals Time Frame: Jan 04, 2020 Roll Left & Right (QC): 4 Sit to Lying (QC): 4 Lying-Sitting on Side/Bed(QC): 4 Sit to Stand (QC): 4 Chair/Hmy-hn-Qyjsi Xfer(QC): 4 Toilet Transfer (QC): 4 Does the Patient Walk: Yes Walk 10 feet (QC): 4 Walk 50ft with 2 Turns (QC): 4 PT Plan Treatment/Plan Treatment Plan: Continue Plan of Care Treatment Plan: Bed Mobility, Education, Functional Activity [place], Functional Strength, Gait, Safety, Therapeutic Exercise, Transfers Treatment Duration: Jan 04, 2020 Frequency: 6 times per week Estimated Hrs Per Day: .25 hour per day Patient and/or Family Agrees t: Yes Time/GCodes Time In: 1105 Time Out: 1120 Total Billed Treatment Time: 15 Total Billed Treatment 1, ex 15 JENNA RUSSELL PT Dec 20, 2019 11:41
[2019-12-20] MEDS: HALOPERIDOL 5 MG/ML (HALDOL) AMP IM PRN (13:36)
[2019-12-20] MEDS ORDERED: DexMEDEtomidine 250 ML DRIP 250 ML IV ONE (14:04)
--- NOTE | 2019-12-20 14:04 | Cardiology Progress Note ---
Cardiology SOAP Progress Note Subjective: Complains of rib pain. Objective: I&O/Vital Signs 12/20/19 12/20/19 12/20/19 12/20/19 02:50 03:00 04:00 04:00 Pulse 93 101 Resp 14 13 B/P (MAP) 109/64 (79) 73/58 (63) Pulse Ox 97 95 95 O2 Delivery Room Air Room Air Room Air Room Air 12/20/19 12/20/19 12/20/19 12/20/19 04:16 05:00 06:00 07:00 Temp 37.0 Pulse 101 109 111 Resp 12 11 12 B/P (MAP) 108/61 (77) 84/62 (69) 95/69 (78) Pulse Ox 96 94 94 O2 Delivery Room Air Room Air Room Air 12/20/19 12/20/19 12/20/19 12/20/19 07:00 07:12 07:49 08:00 Temp 36.7 Pulse 109 106 Resp 13 B/P (MAP) 129/110 (116) Pulse Ox 95 96 O2 Delivery Room Air Room Air 12/20/19 12/20/19 12/20/19 12/20/19 08:00 08:41 09:00 10:00 Pulse 107 101 Resp 15 17 B/P (MAP) 99/80 (86) 116/77 (90) Pulse Ox 96 97 O2 Delivery Nasal Cannula Nasal Cannula Nasal Cannula Nasal Cannula O2 Flow Rate 2.00 2.00 2.00 2.00 12/20/19 12/20/19 12/20/19 12/20/19 10:55 11:00 12:00 12:00 Temp 36.4 Pulse 109 126 Resp 31 19 B/P (MAP) 96/83 (87) 97/94 (95) Pulse Ox 95 91 O2 Delivery Room Air Nasal Cannula Nasal Cannula O2 Flow Rate 2.00 2.00 12/19/19 23:59 Intake Total 3790 ml Output Total 775 ml Balance 3015 ml Weight (Pounds): 165 Weight (Ounces): 0 Weight (Calculated Kilograms): 74.385112 Constitutional: appears stated age, well-developed Respiratory: chest is bilaterally symmetric, lungs clear to auscultation Cardiovascular: irregularly irregular, S1 and S2 Gastrointestional: soft, audible bowel sounds Extremities: normal range of motion, non-tender, normal inspection, no lower extremity edema bilateral Neurologic/Psychiatric: no motor/sensory deficits, alert, normal mood/affect Skin: normal color, warm/dry Results/Procedures: Labs Laboratory Tests 12/20/19 03:35: White Blood Count 6.4, Red Blood Count 3.22L, Hemoglobin 10.2L, Hematocrit 30L, Mean Corpuscular Volume 92, Mean Corpuscular Hemoglobin 32, Mean Corpuscular Hemoglobin Concent 34, Red Cell Distribution Width 12.9, Platelet Count 183, Mean Platelet Volume 9.7, Neutrophils (%) (Auto) 81H, Lymphocytes (%) (Auto) 11L , Monocytes (%) (Auto) 7, Eosinophils (%) (Auto) 0, Basophils (%) (Auto) 0, Neutrophils # (Auto) 5.2, Lymphocytes # (Auto) 0.7L, Monocytes # (Auto) 0.5, Eosinophils # (Auto) 0.0, Basophils # (Auto) 0.0, Sodium Level 128L, Potassium Level 3.8, Chloride Level 105, Carbon Dioxide Level 15L, Anion Gap 8, Blood Urea Nitrogen 13, Creatinine 0.86, Estimat Glomerular Filtration Rate > 60, BUN/Creatinine Ratio 15, Glucose Level 107H, Calcium Level 7.2L, Phosphorus Level 2.6, Magnesium Level 1.6 12/20/19 07:09: Blood Gas Puncture Site LT RAD, Blood Gas Patient Temperature 36.3, Arterial Blood pH 7.28*L, Arterial Blood Partial Pressure CO2 36, Arterial Blood Partial Pressure O2 82, Arterial Blood HCO3 16*L, Arterial Blood Total CO2 17.5L, Arterial Blood Oxygen Saturation 94, Arterial Blood Base Excess -9.2L, Chaitanya Test YES-POS, Blood Gas Ventilator Setting NO, Blood Gas Inspired Oxygen ROOM AIR Microbiology 12/17/19 Urine Culture - Final, Complete Corynebacterium species 12/17/19 Blood Culture - Preliminary, Resulted No growth 12/17/19 Influenza Types A,B Antigen (NORM) - Final, Complete A/P: Assessment/Dx: Septic shock, Rib fracture, Non-STEMI, History of CAD/CABG, Persistent atrial fibrillation, Ischemic cardiomyopathy, New onset dementia, History of hypertension, History of hyperlipidemia. Plan: Septic shock, on IV fluids and vasopressors. Broad-spectrum antibiotics. COVID-19 negative. Rib fracture, Non-STEMI, low molecular weight heparin. Patient has dementia and keeps on forgetting. Family will need to be involved to decide future predisposition. When I speak to him he was against doing anything aggressive. Therefore we are postponing coronary angiography to the patient and family's on the same page. I have called the son Tommie this afternoon at his number [phone] however I got his voicemail I have left a long message describing what ever concerns are especially with the patient's dementia and unclear wishes. I have told him that the patient has a weak heart and a heart attack. History of CAD/CABG, started on aspirin and Plavix. Persistent atrial fibrillation, beta blockers held due to hypotension. Ischemic cardiomyopathy, echocardiogram read 12/19/2019 shows an EF of 10 percent. ?life vest - if patient and family agree to a full code and request everything to be done. New onset dementia, defer to the primary team. History of hypertension, currently off antihypertensive agents. History of hyperlipidemia. Statin therapy. Complicated patient with multiple cardiac issues. I have signed out to Dr. Yu. Thank you for your consultation. Please call me if you have any questions. Jada Perez MD, FACP, FACC, FSCAI, FHRS, CCDS Interventional Cardiology Cardiac Electrophysiology Vascular Medicine and Endovascular Interventions Focused Exam Lactate Level 12/17/19 18:29: Lactic Acid Level 2.29*H 12/17/19 21:08: Lactic Acid Level 2.00 12/18/19 05:40: Lactic Acid Level 0.97 Time of Focused Exam: 07:00 Long PEREZ MD Dec 20, 2019 14:04
[2019-12-20] MEDS: RT-ALBUTEROL INHALER HFA (VENTOLIN HFA) 8 GM IH SCH ×6 (14:23→21:34)
[2019-12-20] MEDS: DexMEDEtomidine 250 ML DRIP 250 ML IV SCH ×2 (18:19→19:52)
[2019-12-20] MEDS: LIDOCAINE PATCH REMOVAL TP SCH (21:27)
[2019-12-21] VITALS (24 sets, daily range): BP systolic 90–127; BP diastolic 63–94
[2019-12-21] MEDS: PIPERACILLIN/TAZOBACTAM (BULK) 4.5 GM in NS (IVPB) 100 ML IV SCH ×3 (01:13→18:15)
[2019-12-21] MEDS: HYDROcodone/APAP 10 MG/325 MG (LORTAB) TAB PO PRN (01:13)
[2019-12-21] MEDS: RT-ALBUTEROL INHALER HFA (VENTOLIN HFA) 8 GM IH SCH ×6 (02:25→22:10)
[2019-12-21 03:20] LABS: CHLORIDE 102 MMOL/L (98-107); POTASSIUM 4.1 MMOL/L (3.6-5.0); SODIUM 128 MMOL/L (135-145)
[2019-12-21 03:21] LABS: CALCIUM 7.6 MG/DL (8.5-10.1)
[2019-12-21 03:22] LABS: GLUCOSE 103 MG/DL (70-105)
[2019-12-21 03:23] LABS: CARBON DIOXIDE 19 MMOL/L (21-32)
[2019-12-21 03:25] LABS: PHOSPHORUS 2.5 MG/DL (2.3-4.7)
[2019-12-21 03:26] LABS: CREATININE SERUM 0.82 MG/DL (0.60-1.30); GFR ESTIMATED > 60
[2019-12-21 03:27] LABS: BUN/CREATININE RATIO 15
[2019-12-21 03:28] LABS: MAGNESIUM 1.6 MG/DL (1.6-2.4)
[2019-12-21] MEDS: POTASSIUM CL 10MEQ/50ML IVPB 50 ML IV SCH (03:29)
[2019-12-21] MEDS: KCL 20 MEQ TAB (K-DUR) PO SCH ×2 (03:29→21:04)
[2019-12-21] MEDS: MAGNESIUM 1 GM/100 ML IVPB 100 ML IV SCH ×2 (03:29→03:40)
[2019-12-21 03:52] LABS: BASOPHILS % (AUTO) 0 % (0-10); EOSINOPHILS # (AUTO) 0.1 10^3/uL (0.0-0.3); EOSINOPHILS % (AUTO) 2 % (0-10); HEMATOCRIT 31 % (40-54); HEMOGLOBIN 10.3 G/DL (13.3-17.7); LYMPHOCYTES # (AUTO) 0.9 X 10^3 (1.0-4.0); LYMPHOCYTES % (AUTO) 17 % (12-44); MEAN CORPUSCULAR HEMOGLOBIN 31 PG (25-34); MEAN CORPUSCULAR HGB CONC 33 G/DL (32-36); MEAN CORPUSCULAR VOLUME 93 FL (80-99); MEAN PLATELET VOLUME 10.5 FL (7.4-10.4); MONOCYTES # (AUTO) 0.4 X 10^3 (0.0-1.0); MONOCYTES % (AUTO) 8 % (0-12); NEUTROPHILS % (AUTO) 74 % (42-75); PLATELET COUNT 199 10^3/uL (130-400); RED CELL DISTRIBUTION WIDTH 13.3 % (10.0-14.5); WHITE BLOOD COUNT 5.5 10^3/uL (4.3-11.0)
--- NOTE | 2019-12-21 08:35 | Diagnostic Imaging Report ---
EXAMINATION: Chest radiograph, portable AP view. DATE: 12/21/2019 4:13 AM hours. INDICATION: 74-year-old male, sepsis. Rib fracture. COMPARISON: December 20, 2019. FINDINGS: There are median sternotomy wires. Stable overall appearance of the cardiomediastinal silhouette. The left-sided central venous line with tip overlying the upper SVC. There is no identified pneumothorax. There is nonspecific bibasilar airspace consolidation. Lung volumes are somewhat low. There are streaky opacities in the right midlung. IMPRESSION: 1. Nonspecific bibasilar airspace consolidation which may relate to atelectasis, infiltrate, and/or effusions. 2. Streaky opacities in the right midlung which may relate to atelectasis and/or infiltrate. Dictated by: Dictated on workstation # [id number]
--- NOTE | 2019-12-21 09:40 | Progress Note - Hospitalist ---
Subjective HPI/CC On Admission Date Seen by Provider: Dec 21, 2019 Time Seen by Provider: 09:37 Pt is a 74yoCM with a PMH of HTN, HLD, CAD, CHF, a-fib who presented to the ER due to a fall. He is unable to tell me any details regarding what brought him to the ER. Reportedly he fell at some point . ER note states he was brought in by family after being found on the floor. He was incidentally found to have a fever of 103 and leukocytosis. No direct source of infection could be found and he was not a reliable historian so COVID testing was done. He has no new complaints this morning other than rib pain. Overnight he became hypotensive and was transferred to the ICU as he necessitated pressors. Subjective/Events-last exam Pt is laying in bed sleeping. Arouse to verbal stimuli but falls back asleep. Discussed with RN. No concerns. Focused Exam Time of Focused Exam: 07:00 Objective Exam Vital Signs Vital Signs Date Time Temp Pulse Resp B/P (MAP) Pulse Ox O2 Delivery O2 Flow Rate FiO2 12/21/19 07:54 98 Nasal Cannula 2.00 12/21/19 07:45 36.8 12/21/19 06:00 56 12 97/73 (81) Capillary Refill : Less Than 3 SecondsLess Than 3 Seconds General Appearance: No Apparent Distress, Chronically ill Cardiovascular: Regular Rate, Rhythm, No Murmur Gastrointestinal: Normal Bowel Sounds, Soft Genital/Rectal: Other (covarrubias in place) Results/Procedures Lab Laboratory Tests 12/21/19 02:58 12/21/19 03:00 Patient resulted labs reviewed. Imaging: Reviewed Imaging Report Assessment/Plan Assessment and Plan Assess & Plan/Chief Complaint Shock Blood culture with coag negative staph x1, sent for ID since no other source identified but likely a contaminant No source identified and EF of 10% so concerning for cardiogenic shock Cardiology consulted, appreciate recs Pt confused and unable to consent to cath, cardiology called son who is POA to discuss plan and there was no answer Continue conservative management at this time Continue abx for now COVID negative [place]- resolved Hyponatremia- chronic Hypokalemia hypomagnesemia Improving with IVF Replace electrolytes as needed trend A-fib Elevated troponin- likely Type II [place] from septic shock CAD CHF- EF of 10% Continue lovenox Cardiology consulted, appreciate recs Troponin trended down Plans undetermined at this time Falls and Debility Rib Fractures IS PT/OT- will likely need SNF at discharge Lidocaine patch for pain Diagnosis/Problems Diagnosis/Problems (1) Septic shock Status: Acute (2) Hypomagnesemia Status: Acute (3) Dementia Status: Chronic Qualifiers: Dementia type: unspecified type Dementia behavioral disturbance: without behavioral disturbance Qualified Codes: F03.90 - Unspecified dementia without behavioral disturbance (4) Hyponatremia Status: Acute (5) Acute kidney injury Status: Acute (6) Hypokalemia Status: Acute (7) Rib fractures Status: Acute Qualifiers: Encounter type: initial encounter Rib fracture type: multiple ribs Fracture type: closed Laterality: right Qualified Codes: S22.41XA - Multiple fractures of ribs, right side, initial encounter for closed fracture (8) Fall on same level Status: Acute Qualifiers: Encounter type: initial encounter Qualified Codes: W18.30XA - Fall on same level, unspecified, initial encounter (9) Atrial fibrillation Status: Acute Qualifiers: Atrial fibrillation type: unspecified Qualified Codes: I48.91 - Unspecified atrial fibrillation (10) Elevated troponin Status: Acute Clinical Quality Measures DVT/VTE Risk/Contraindication: Risk Factor Score Per Nursin RFS Level Per Nursing on Admit: 4+=Very High JAY MCCLELLAN MD Dec 21, 2019 09:40
--- NOTE | 2019-12-21 09:46 | NUR ---
PT RESTING COMFORTABLY UPON START OF SHIFT, DID OPEN EYES TO NAME. PRECEDEX TITRATED DOWN AND EVENTUALLY HELD TO CHECK MENTATION. AFTER APPROX 30 MINUTES ON HOLD, PT IS AWAKE AND YELLING IN ROOM. PT IS A/0 TO SELF ONLY. HE IS AGITATED AND ATTEMPTING TO EXIT THE BED. PRECEDEX RESUMED AT 0.3 MCG/KG/HR AND PATIENT BEGAN TO REST COMFORTABLY. WILL MONITOR HIM CLOSELY. VITALS STABLE AT THIS TIME.
--- NOTE | 2019-12-21 12:07 | Physical Therapy Progress Note ---
Therapy Progress Note Pt is heavily sedated and nursing requested to allow pt to remain at rest. Will resume Monday. JENNA RUSSELL PT Dec 21, 2019 12:07
--- NOTE | 2019-12-21 12:13 | Cardiology Progress Note ---
Subjective Date Seen by Provider: Dec 21, 2019 Time Seen by Provider: 12:10 Subjective/Events-last exam Patient is sleeping on Precedex, reported that he becomes agitated easily then go back to sleep and does not respond. All the information obtained by reviewing his records. Unable to obtain any history from the patient directly Review of Systems General: Other (Unable to provide review of systems) Focused Exam Time of Focused Exam: 07:00 Objective-Cardiology Exam Last Set of Vital Signs Vital Signs 12/21/19 12/21/19 11:00 11:23 Temp 37.3 Pulse 61 Resp 15 B/P (MAP) 112/84 (93) Pulse Ox 94 O2 Delivery Nasal Cannula O2 Flow Rate 2.00 Capillary Refill : Less Than 3 SecondsLess Than 3 Seconds I&O Intake and Output 12/21/19 00:00 Intake Total 3970 ml Output Total 2675 ml Balance 1295 ml Intake Oral 1350 ml IV Total 2620 ml Output Urine Total 2675 ml General: Other (Sleeping not in acute distress) HEENT: Atraumatic Neck: Supple Lungs: Normal Air Movement Heart: Regular Rate, Normal S1, Normal S2 Abdomen: Normal Bowel Sounds Extremities: No Clubbing, No Cyanosis Skin: No Rashes Neuro: Other (Sleeping) Psych/Mental Status: Other (Sleeping) Results Lab Laboratory Tests 12/21/19 02:58 12/21/19 03:00 A/P-Cardiology Admission Diagnosis Sepsis Congestive heart failure Acute renal failure Assessment/Plan Sepsis, workup is in progress, COVID testing negative, patient has been confused. Managed by primary care team next Congestive heart failure, acute left ventricular systolic dysfunction, ejection fraction 10 percent, probably ischemic in nature, Dr. Perez has been managing him and discussed the patient in length with him and his son, it appear that he had left a phone message recently his son describing his condition. It was reported to me that the family are considering comfort care and they will come to discuss it later today or tomorrow. Status post acute renal failure. Continue to monitor renal function Dementia, confusion. Unable to provide history. Electrolytes abnormality, being corrected followed by primary care team Clinical Quality Measures DVT/VTE Risk/Contraindication: Risk Factor Score Per Nursin RFS Level Per Nursing on Admit: 4+=Very High DOUGLAS TREVIZO MD Dec 21, 2019 12:13
[2019-12-21] MEDS: ENOXAPARIN 80 MG/0.8 ML (LOVENOX) SYR SC SCH ×2 (12:25→21:04)
[2019-12-21] MEDS: ASPIRIN 81 MG CHEW (CHILDREN'S ASA) PO SCH (12:26)
[2019-12-21] MEDS: meTOproloL SUCCINATE 50 MG (TOPROL XL) TAB PO SCH (12:26)
[2019-12-21] MEDS: LIDOCAINE 4% (SALONPAS) PATCH TOP SCH (12:26)
[2019-12-21] MEDS: CLOPIDOGREL 75 MG (PLAVIX) TABLET PO SCH (12:26)
[2019-12-21] MEDS: risperiDONE 1 MG (RisperDAL) TAB PO SCH ×2 (12:26→20:53)
[2019-12-21] MEDS: DexMEDEtomidine 250 ML DRIP 250 ML IV SCH (16:21)
[2019-12-21] MEDS: LIDOCAINE PATCH REMOVAL TP SCH (20:53)
[2019-12-22] VITALS (16 sets, daily range): BP systolic 88–126; BP diastolic 60–80
[2019-12-22] MEDS: RT-ALBUTEROL INHALER HFA (VENTOLIN HFA) 8 GM IH SCH ×6 (02:21→22:31)
[2019-12-22] MEDS: PIPERACILLIN/TAZOBACTAM (BULK) 4.5 GM in NS (IVPB) 100 ML IV SCH ×3 (02:40→18:37)
[2019-12-22 02:42] LABS: BASOPHILS % (AUTO) 0 % (0-10); EOSINOPHILS # (AUTO) 0.1 10^3/uL (0.0-0.3); EOSINOPHILS % (AUTO) 2 % (0-10); HEMATOCRIT 34 % (40-54); HEMOGLOBIN 11.5 G/DL (13.3-17.7); LYMPHOCYTES # (AUTO) 0.9 X 10^3 (1.0-4.0); LYMPHOCYTES % (AUTO) 15 % (12-44); MEAN CORPUSCULAR HEMOGLOBIN 31 PG (25-34); MEAN CORPUSCULAR HGB CONC 34 G/DL (32-36); MEAN CORPUSCULAR VOLUME 92 FL (80-99); MEAN PLATELET VOLUME 9.8 FL (7.4-10.4); MONOCYTES # (AUTO) 0.5 X 10^3 (0.0-1.0); MONOCYTES % (AUTO) 9 % (0-12); NEUTROPHILS # (AUTO) 4.8 X 10^3 (1.8-7.8); NEUTROPHILS % (AUTO) 75 % (42-75); PLATELET COUNT 217 10^3/uL (130-400); RED CELL DISTRIBUTION WIDTH 12.9 % (10.0-14.5); WHITE BLOOD COUNT 6.4 10^3/uL (4.3-11.0)
[2019-12-22 02:54] LABS: CHLORIDE 102 MMOL/L (98-107); POTASSIUM 4.4 MMOL/L (3.6-5.0); SODIUM 128 MMOL/L (135-145)
[2019-12-22 02:55] LABS: CALCIUM 7.7 MG/DL (8.5-10.1)
[2019-12-22 02:56] LABS: GLUCOSE 84 MG/DL (70-105)
[2019-12-22 02:57] LABS: CARBON DIOXIDE 18 MMOL/L (21-32)
[2019-12-22 02:59] LABS: PHOSPHORUS 2.4 MG/DL (2.3-4.7)
[2019-12-22 03:00] LABS: BUN/CREATININE RATIO 13; CREATININE SERUM 0.68 MG/DL (0.60-1.30); GFR ESTIMATED > 60
[2019-12-22 03:02] LABS: MAGNESIUM 1.4 MG/DL (1.6-2.4)
[2019-12-22] MEDS: MAGNESIUM 1 GM/100 ML IVPB 100 ML IV SCH ×3 (03:13→07:51)
--- NOTE | 2019-12-22 04:39 | NUR ---
This nurse called [facility] and spoke with . I reported to him that patient was having pauses in his HR and that his HR dipped down to 29 once, but immediately came back up, HR is running upper 40's to 60's. stated to turn Precedex off att. Will continue to closely monitor.
--- NOTE | 2019-12-22 07:08 | Diagnostic Imaging Report ---
INDICATION: Sepsis. Comparison made with prior examination of 12/21/2019. FINDINGS: There is cardiomegaly. There is some venous congestion. Patchy right basilar infiltrate. There is no pneumothorax. Mediastinum is unremarkable. IMPRESSION: Patchy right basilar infiltrate. Cardiomegaly. Dictated by: Dictated on workstation # [id number]
[2019-12-22] MEDS: meTOproloL SUCCINATE 50 MG (TOPROL XL) TAB PO SCH (07:45)
[2019-12-22] MEDS: ASPIRIN 81 MG CHEW (CHILDREN'S ASA) PO SCH (07:45)
[2019-12-22] MEDS: CLOPIDOGREL 75 MG (PLAVIX) TABLET PO SCH (07:45)
[2019-12-22] MEDS: LIDOCAINE 4% (SALONPAS) PATCH TOP SCH (07:46)
[2019-12-22] MEDS: risperiDONE 1 MG (RisperDAL) TAB PO SCH ×2 (07:46→21:15)
[2019-12-22] MEDS: HYDROcodone/APAP 10 MG/325 MG (LORTAB) TAB PO PRN ×3 (07:46→21:15)
[2019-12-22] MEDS: POTASSIUM CL 10MEQ/50ML IVPB 50 ML IV SCH (07:51)
[2019-12-22] MEDS: KCL 20 MEQ TAB (K-DUR) PO SCH ×2 (07:52→21:15)
--- NOTE | 2019-12-22 08:05 | NUR ---
PT SITTING UP IN BED IN NAD. PAINFUL TO RIGHT RIBS WITH MOVEMENT. PT CALM AT THIS TIME. ASSISTED PATIENT UP IN BED TO EAT BREAKFAST. PT TOOK MORNING PILLS WITHOUT DIFFICULTIES. PT IS A/OX1. WILL MONITOR.
--- NOTE | 2019-12-22 09:28 | Cardiology Progress Note ---
Subjective Date Seen by Provider: Dec 22, 2019 Time Seen by Provider: 09:26 Subjective/Events-last exam Patient is laying down in bed, eating breakfast, I visited with him and his daughter in length, Dr. Giles treatment options as described below Review of Systems General: No Chills, No Night Sweats; Fatigue, Malaise; No Appetite, No Other HEENT: No Head Aches, No Visual Changes, No Eye Pain, No Ear Pain, No Dysphasia, No Sinus Congestion, No Post Nasal Drip, No Sore Throat, No Other Pulmonary: Dyspnea; No Cough, No Pleuritic Chest Pain, No Other Cardiovascular: No: Chest Pain, Palpitations, Orthopnea, Paroxysmal Noc. Dyspnea, Edema, Lt Headedness, Other Focused Exam Time of Focused Exam: 07:00 Objective-Cardiology Exam Last Set of Vital Signs Vital Signs 12/22/19 12/22/19 12/22/19 12/22/19 06:00 06:40 08:00 08:03 Temp 37.3 Pulse 69 Resp 16 B/P (MAP) 104/60 (75) Pulse Ox 99 O2 Delivery Nasal Cannula O2 Flow Rate 2.00 Capillary Refill : Less Than 3 SecondsLess Than 3 Seconds I&O Intake and Output 12/22/19 00:00 Intake Total 1790 ml Output Total 950 ml Balance 840 ml Intake Oral 1200 ml IV Total 590 ml Output Urine Total 950 ml General: Alert, Cooperative, Mild Distress HEENT: Atraumatic Neck: Supple, No JVD Lungs: Clear to Auscultation, Normal Air Movement Heart: Regular Rate, Normal S1, Normal S2 Abdomen: Normal Bowel Sounds Extremities: No Clubbing, No Cyanosis Skin: No Rashes Neuro: Normal Speech Psych/Mental Status: Mood NL Results Lab Laboratory Tests 12/22/19 02:35 A/P-Cardiology Admission Diagnosis Sepsis Congestive heart failure Acute renal failure Assessment/Plan Sepsis, improving, managed by primary care team Congestive heart failure, acute left ventricular systolic dysfunction, ejection fraction 10 percent, probably ischemic in nature, Dr. Perez has been managing him and discussed the patient in length with him and his son, it appear that he had left a phone message recently his son describing his condition. I visited in length with the patient and his daughter, discussed the need for cardiac catheterization if we are going with the aggressive treatment option especially with severe cardiomyopathy that is probably ischemic. Patient and his daughter are not sure if they want to proceed with the procedure, they will discuss this and let us know. We'll continue with conservative management for now Status post acute renal failure. Continue to monitor renal function Dementia, confusion. Unable to provide history. Electrolytes abnormality, being corrected followed by primary care team Clinical Quality Measures DVT/VTE Risk/Contraindication: Risk Factor Score Per Nursin RFS Level Per Nursing on Admit: 4+=Very High DOUGLAS TREVIZO MD Dec 22, 2019 09:27
--- NOTE | 2019-12-22 10:21 | Progress Note - Hospitalist ---
Subjective HPI/CC On Admission Date Seen by Provider: Dec 22, 2019 Time Seen by Provider: 10:13 Pt is a 74yoCM with a PMH of HTN, HLD, CAD, CHF, a-fib who presented to the ER due to a fall. He is unable to tell me any details regarding what brought him to the ER. Reportedly he fell at some point . ER note states he was brought in by family after being found on the floor. He was incidentally found to have a fever of 103 and leukocytosis. No direct source of infection could be found and he was not a reliable historian so COVID testing was done. He has no new complaints this morning other than rib pain. Overnight he became hypotensive and was transferred to the ICU as he necessitated pressors. Subjective/Events-last exam Pt reports doing well. More alert today. No complaints. Daughter at bedside. Dr Yu has already rounded and discussed with patient and his daughter about indications for cardiac cath. They are still discussing if they want this done. Focused Exam Time of Focused Exam: 07:00 Objective Exam Vital Signs Vital Signs Date Time Temp Pulse Resp B/P (MAP) Pulse Ox O2 Delivery O2 Flow Rate FiO2 12/22/19 08:03 99 Nasal Cannula 2.00 12/22/19 08:00 37.3 12/22/19 06:40 69 12/22/19 06:00 16 104/60 (75) Capillary Refill : Less Than 3 SecondsLess Than 3 Seconds General Appearance: No Apparent Distress, Chronically ill Respiratory: Lungs Clear, No Respiratory Distress Cardiovascular: Regular Rate, Rhythm, No Murmur Genital/Rectal: Other (covarrubias cath in place) Neurologic/Psychiatric: Alert, Oriented x3 Results/Procedures Lab Laboratory Tests 12/22/19 02:35 Patient resulted labs reviewed. Imaging: Reviewed Imaging Report Assessment/Plan Assessment and Plan Assess & Plan/Chief Complaint Shock- cardiogenic Blood culture with multiple staph species in 1 tube, likely a contaminant No source identified and EF of 10% so was likely cardiogenic shock and not septic shock Cardiology consulted, appreciate recs Continue conservative management at this time COVID negative Patient orientation much improved Discussed with patient and daughter about plans for further work up and treatment, would like to remain a full code and still deciding about LifeVest and cardiac cath [place]- resolved Hyponatremia- chronic Hypokalemia hypomagnesemia Improving with IVF Replace electrolytes as needed trend A-fib Elevated troponin- likely Type II IL from septic shock CAD CHF- EF of 10% Continue lovenox Cardiology consulted, appreciate recs Troponin trended down Plans undetermined at this time ass above Falls and Debility Rib Fractures IS PT/OT- will likely need SNF at discharge, informed patient and daughter this today and he was agreeable Lidocaine patch for pain Diagnosis/Problems Diagnosis/Problems (1) Septic shock Status: Acute (2) Hypomagnesemia Status: Acute (3) Dementia Status: Chronic Qualifiers: Dementia type: unspecified type Dementia behavioral disturbance: without behavioral disturbance Qualified Codes: F03.90 - Unspecified dementia without behavioral disturbance (4) Hyponatremia Status: Acute (5) Acute kidney injury Status: Acute (6) Hypokalemia Status: Acute (7) Rib fractures Status: Acute Qualifiers: Encounter type: initial encounter Rib fracture type: multiple ribs Fracture type: closed Laterality: right Qualified Codes: S22.41XA - Multiple fractures of ribs, right side, initial encounter for closed fracture (8) Fall on same level Status: Acute Qualifiers: Encounter type: initial encounter Qualified Codes: W18.30XA - Fall on same level, unspecified, initial encounter (9) Atrial fibrillation Status: Acute Qualifiers: Atrial fibrillation type: unspecified Qualified Codes: I48.91 - Unspecified atrial fibrillation (10) Elevated troponin Status: Acute Clinical Quality Measures DVT/VTE Risk/Contraindication: Risk Factor Score Per Nursin RFS Level Per Nursing on Admit: 4+=Very High JAY MCCLELLAN MD Dec 22, 2019 10:21
[2019-12-22] MEDS: ENOXAPARIN 80 MG/0.8 ML (LOVENOX) SYR SC SCH ×2 (10:40→21:15)
--- NOTE | 2019-12-22 16:30 | NUR ---
PTS SON, CARLOS ZAMORA", SPOKE WITH THIS RN AT NURSES STATION. STATED THAT HE THOUGHT PATIENT WAS RECEIVING EXCELLENT CARE BUT DEMANDED THAT THE PATIENT BE TRANSFERRED TO [facility] BECAUSE HIS INFECTION CONTROL COORDINATOR WAS THERE AND HE DID NOT AGREE WITH OUR VISITING POLICY. HE STATED THAT IT WAS UNACCEPTABLE FOR ONLY ONE VISITOR TO BE ALLOWED IN AND THAT WOULD NOT WORK FOR HIS LARGE FAMILY. HE ALSO STATED THAT HE HAD ALREADY CALLED [facility] AND THEY STATED THEY WOULD LET ANYONE IN INCLUDING GRANDCHILDREN. THIS RN ALLOWED PATIENT TO SPEAK HE WAS VISIBLY UPSET. ADVISED MR ADDISON THAT I COULD NOT INITIATE A TRANSFER MYSELF BUT WOULD CALL AND LET DR MCCLELLAN KNOW OF HIS REQUEST. THIS INTERACTION WAS WITNESSED BY Jorge ARVIZU RN AND ANUJ MELGOZA. PT LEFT IMMEDIATELY BEFORE ANY FURTHER DISCUSSION COULD BE HAD. PT DOES HAVE HISTORY OF AGGRESSIVE BEHAVIOR WITH THREATENING WORDS AT THE ED ENTRANCE BECAUSE OF VISITING RESTRICTIONS. PT THREATENED TO CALL HIS HEAD BOYS GOLF COACH SECONDARY TO VISITING RESTRICTIONS. THIS RN CALLED DR MCCLELLAN IMMEDIATELY AND ADVISED OF THIS INTERACTION. I THEN ASKED THE PATIENT IF HE WISHED TO TRANSFER, HE COULD ONLY STATE "I DON'T KNOW". AT THIS TIME, PATIENT IS A/0X2. HE KNOWS WHO HE IS AND WHERE HE IS AT BUT DOES NOT KNOW THE YEAR. HE DOES NOT REMEMBER WHY HE IS IN THE HOSPITAL. HE DOES NOT RECALL TALKING ABOUT MAKING A DECISION ABOUT HAVING A HEART CATH THIS MORNING. DR MCCLELLAN AWARE AND BECAUSE OF PATIENTS CONFUSION AND DPOA'S DEMAND TO TRANSFER, SHE WILL CALL [facility] TO SEE IF THEY WILL ACCEPT PATIENT A TRANSFER.
--- NOTE | 2019-12-22 17:03 | Discharge Summary ---
Diagnosis/Chief Complaint Date of Admission Dec 17, 2019 at 21:27 Date of Discharge Admission Diagnosis Septic Shock Primary Care Ilir Doran DO Discharge Diagnosis (1) Septic shock Status: Acute (2) Hypomagnesemia Status: Acute (3) Dementia Status: Chronic (4) Hyponatremia Status: Acute (5) Acute kidney injury Status: Acute (6) Hypokalemia Status: Acute (7) Rib fractures Status: Acute (8) Fall on same level Status: Acute (9) Atrial fibrillation Status: Acute (10) Elevated troponin Status: Acute Discharge Summary Procedures/Consulations Cardiology- Dr Perez and Dr Yu Discharge Physical Exam Allergies: Coded Allergies: No Known Drug Allergies (Unverified , 12/23/14) Vitals & I&Os Vital Signs Date Time Temp Pulse Resp B/P (MAP) Pulse Ox O2 Delivery O2 Flow Rate FiO2 12/22/19 16:10 97 Room Air 12/22/19 16:00 37.0 12/22/19 15:45 80 15 118/75 (89) 2.00 General Appearance: No Apparent Distress, Chronically ill Cardiovascular: Regular Rate, Rhythm, No Murmur Hospital Course Pt was admitted due to what was thought ot be septic shock but no source was ever identified though and upon further work up it was deemed that his hypotension was likely due to cardiogenic shock as he had an elevated troponin and echo revealed at EF of 10%. He was offered a cardiac cath but was unsure if he wanted to pursue that originally. After discussion with his family he requested transfer to [place] where his radiographer mammographer is for further workup and evaluation. I called and discussed this with Dr Hernandez who accepted him in transfer. Labs (last 24 hrs) Laboratory Tests 12/22/19 02:35: White Blood Count 6.4, Red Blood Count 3.67L, Hemoglobin 11.5L, Hematocrit 34L, Mean Corpuscular Volume 92, Mean Corpuscular Hemoglobin 31, Mean Corpuscular Hemoglobin Concent 34, Red Cell Distribution Width 12.9, Platelet Count 217, Mean Platelet Volume 9.8, Neutrophils (%) (Auto) 75, Lymphocytes (%) (Auto) 15, Monocytes (%) (Auto) 9, Eosinophils (%) (Auto) 2, Basophils (%) (Auto) 0, Neutrophils # (Auto) 4.8, Lymphocytes # (Auto) 0.9L, Monocytes # (Auto) 0.5, Eosinophils # (Auto) 0.1, Basophils # (Auto) 0.0, Sodium Level 128L, Potassium Level 4.4, Chloride Level 102, Carbon Dioxide Level 18L, Anion Gap 8, Blood Urea Nitrogen 9, Creatinine 0.68, Estimat Glomerular Filtration Rate > 60, BUN/Cre atinine Ratio 13, Glucose Level 84, Calcium Level 7.7L, Phosphorus Level 2.4, Magnesium Level 1.4L Microbiology 12/17/19 Urine Culture - Final, Complete Corynebacterium species 12/17/19 Blood Culture - Final, Complete No growth 12/17/19 Influenza Types A,B Antigen (NORM) - Final, Complete Patient resulted labs reviewed. Imaging: Reviewed Imaging Report Discussion & Recommendations Discharge Planning: >30 minutes discharge planning Discharge Home Medications: Active Scripts Active Reported Aspirin EC (Aspirin) 81 Mg Tablet.dr 81 Mg PO DAILY Nitroglycerin 0.4 Mg Tab.subl 0.4 Mg SL UD PRN Flomax (Tamsulosin HCl) 0.4 Mg Cap 0.4 Mg PO DAILY AFTER PM MEAL TAKE 30 MINUTES AFTER EVENING MEAL Potassium Chloride 20 Meq Tab.er.prt 20 Meq PO DAILY Furosemide 40 Mg Tablet 40 Mg PO DAILY Metoprolol Tartrate 100 Mg Tablet 100 Mg PO BID Atorvastatin Calcium 10 Mg Tablet 10 Mg PO HS Plavix (Clopidogrel Bisulfate) 75 Mg Tablet 75 Mg PO DAILY Instructions to patient/family Please see electronic discharge instructions given to patient. Clinical Quality Measures DVT/VTE Risk/Contraindication: Risk Factor Score Per Nursin RFS Level Per Nursing on Admit: 4+=Very High Problem Qualifiers (1) Dementia: Dementia type: unspecified type Dementia behavioral disturbance: without behavioral disturbance Qualified Codes: F03.90 - Unspecified dementia without behavioral disturbance (2) Rib fractures: Encounter type: initial encounter Rib fracture type: multiple ribs Fracture type: closed Laterality: right Qualified Codes: S22.41XA - Multiple fractures of ribs, right side, initial encounter for closed fracture (3) Fall on same level: Encounter type: initial encounter Qualified Codes: W18.30XA - Fall on same level, unspecified, initial encounter (4) Atrial fibrillation: Atrial fibrillation type: unspecified Qualified Codes: I48.91 - Unspecified atrial fibrillation JAY MCCLELLAN MD Dec 22, 2019 17:03
--- NOTE | 2019-12-22 19:30 | NUR ---
MULTIPLE ATTEMPTS TO CONTACT TRANSPORTATION MADE, NOC NURSE WILL ATTEMPT TO FIND TRANSPORTATION. PTS SON, TRUNG NOTIFIED OF PATIENT TRANSFER, ADVISED HIM WE WILL CALL WHEN HE LEAVES WITH A ROOM NUMBER. REPORT WAS CALLED TO DARRYL WADSWORTH.
--- NOTE | 2019-12-22 20:48 | NUR ---
SPOKE TO [facility], THEY ACCEPTED PT TRANSFER TO [facility] BUT WILL NOT BE ABLE TO PICK PT UP UNTIL AROUND MIDNIGHT.
[2019-12-22] MEDS: LIDOCAINE PATCH REMOVAL TP SCH (21:15)
--- NOTE | 2019-12-23 00:02 | NUR ---
[facility] HERE TO TRANSFER PT TO [facility]. PT WORRIED ABOUT THE WHEREABOUTS OF HIS WALLET. SPOKE TO TRUNG (SON-DPOA), PTS LANDYET IS WITH PTS DAUGHTER DOUG.
== END 2019-12-23 00:02 | disposition short-term general hospital (02) | DRG 871 ==
LOC: EDUNIT# 15:03 → ER 15:05 → CSD 21:27 → ICU 12-18 01:31
PROVIDERS: ADMIT Family Medicine; ATTEND Family Medicine
PROC: 02HV33Z Insertion of Infusion Device into Superior Vena Cava, Percutaneous Approach (ICD-10-PCS; principal; 2019-12-18)
DX: A41.9 Sepsis, unspecified organism (principal); R65.21 Severe sepsis with septic shock; J18.9 Pneumonia, unspecified organism; N39.0 Urinary tract infection, site not specified; S22.41XA Multiple fractures of ribs, right side, initial encounter for closed fracture; N17.9 Acute kidney failure, unspecified; E87.1 Hypo-osmolality and hyponatremia; E87.2 Acidosis; I48.19 Other persistent atrial fibrillation; I11.0 Hypertensive heart disease with heart failure; I50.21 Acute systolic (congestive) heart failure; I21.A1 Myocardial infarction type 2; I25.10 Atherosclerotic heart disease of native coronary artery without angina pectoris; I25.2 Old myocardial infarction; E78.00 Pure hypercholesterolemia, unspecified; E78.5 Hyperlipidemia, unspecified; I95.9 Hypotension, unspecified; R41.0 Disorientation, unspecified; R32 Unspecified urinary incontinence; E87.6 Hypokalemia; E83.42 Hypomagnesemia; F03.90 Unspecified dementia, unspecified severity, without behavioral disturbance, psychotic disturbance, mood disturbance, and anxiety; I25.5 Ischemic cardiomyopathy; R40.2410 Glasgow coma scale score 13-15, unspecified time; W18.30XA Fall on same level, unspecified, initial encounter; Y92.009 Unspecified place in unspecified non-institutional (private) residence as the place of occurrence of the external cause; Z95.1 Presence of aortocoronary bypass graft; Z95.5 Presence of coronary angioplasty implant and graft; Z87.891 Personal history of nicotine dependence; Z20.828 Contact with and (suspected) exposure to other viral communicable diseases
CPT/HCPCS: 36415; 36600; 70450; 71045; 71250; 74176; 80048; 80053; 81000; 82805; 83605; 83735; 83880; 84100; 84145; 84484; 85007; 85025; 85027; 85610; 85730; 86141; 87040; 87077; 87088; 87186; 87635; 87804; 93005; 93306; 94640; 94664; 94760; 96361; 96365; 96367; 96375

== ENCOUNTER 2020-03-14 14:31 | Inpatient (IN) | payer MEDICARE, MEDICAID ==
[~2020-03-14] VITALS: Ht 172.7 cm; Wt 72.9 kg
[~2020-03-14 14:31] MED LIST changes: -ACET325T49 PO; -ATOR40TA70 PO; -CARV6.25 PO; -DIVA125T2 PO; -ESCI10TA PO; -ESCI20TA45 PO; -FLUP5TAB13 PO; -LACT20SO2 PO; -LORA-405 PO; -LORA-405 SL; -LORA10TA7 PO; -LOSA25TA41 PO; -MELA3CAP2 PO; -MELA3TAB39 PO; -NF-NACL1GT PO; -NITR-65 PO; -QUET25TA PO; -SIMV40TA25 PO; -SPIR25TA5 PO; -TRAM50TA3 PO; -TRZ50T PO
[2020-03-14 15:04] LABS: HEMOGLOBIN 9.3 G/DL (13.3-17.7); MEAN PLATELET VOLUME 8.8 FL (7.4-10.4); RED CELL DISTRIBUTION WIDTH 15.1 % (10.0-14.5)
--- NOTE | 2020-03-14 15:04 | ED General ---
General Stated Complaint: LOW HEMAGLOBIN Source of Information: Patient, EMS Exam Limitations: Other (cognitive impairment, dementia) [facility] History of Present Illness Date Seen by Provider: Mar 14, 2020 Time Seen by Provider: 14:31 Initial Comments This is a 74 y/o male with dementia who presents to the ED via EMS from [facility] for low hemoglobin. Per EMS, pt suddenly pulled out his catheter last night which caused him to start bleeding. Pt has hx of Afib and is on ASA 81mg and Clopedogril. Pt denies any sx at this time. Obtaining HPI is limited 2/2 dementia. Timing/Duration: 1 Day Modifying Factors: improves with Other (N/A) Associated Systoms: No Chest Pain, No Cough, No Diaphoresis, No Fever/Chills, No Headaches; Other (hematuria, retention) ([facility]) Timing/Duration: 12-24 Hours Associated Systoms: No Chest Pain, No Cough, No Fever/Chills, No Headaches (PA ROJAS MD) Allergies and Home Medications Allergies Coded Allergies: No Known Drug Allergies (Unverified , 12/23/14) Home Medications Aspirin 81 Mg Tablet.dr, 81 MG PO DAILY, (Reported) Atorvastatin Calcium 10 Mg Tablet, 10 MG PO HS, (Reported) Clopidogrel Bisulfate 75 Mg Tablet, 75 MG PO DAILY, (Reported) Furosemide 40 Mg Tablet, 40 MG PO DAILY, (Reported) Metoprolol Tartrate 100 Mg Tablet, 100 MG PO BID, (Reported) Nitroglycerin 0.4 Mg Tab.subl, 0.4 MG SL UD PRN for CHEST PAIN, (Reported) Potassium Chloride 20 Meq Tab.er.prt, 20 MEQ PO DAILY, (Reported) Tamsulosin HCl 0.4 Mg Cap, 0.4 MG PO DAILY AFTER PM MEAL, (Reported) TAKE 30 MINUTES AFTER EVENING MEAL Patient Home Medication List Home Medication List Reviewed: Yes (PA ROJAS MD) Review of Systems Review of Systems Constitutional: see HPI Genitourinary: hematuria, other (retention) Unable to perform ROS 2/2 congnitive status ([facility]) Constitutional: see HPI Cardiovascular: No chest pain; Hx of Intervention Genitourinary: see HPI, hematuria, other (retention) Musculoskeletal: no symptoms reported ([facility] ROJAS MD) Past Qcwvqsq-Gbabrx-Itkfgx Hx Past Med/Social Hx: Reviewed Nursing Past Med/Soc Hx (PA ROJAS MD) Patient Social History Alcohol Beverage of Choice: Beer Type Used: Cigarettes Former Smoker, Quit: Aug 29, 2000 2nd Hand Smoke Exposure: No Recent Hopitalizations: No ([facility]) Immunizations Up To Date Tetanus Booster (TDap): Unknown ([facility]) Seasonal Allergies Seasonal Allergies: No ([facility]) Past Medical History Surgeries: Yes (BYPASS X5, CAROTID ARTERY.) Cardiac, CABG, Coronary Stent, Vascular Surgery Respiratory: Yes (Chronic shortness of air) Cardiac: Yes Atrial Fibrillation Neurological: No Dementia Reproductive Disorders: No Sexually Transmitted Disease: No HIV/AIDS: No Genitourinary: No Gastrointestinal: No Musculoskeletal: No Endocrine: No HEENT: No Cancer: No Psychosocial: No Integumentary: No Blood Disorders: No Adverse Reaction/Blood Tranf: No ([facility]) Family Medical History Reviewed Nursing Family Hx (PA ROJAS MD) No Pertinent Family Hx ([facility]) Physical Exam Vital Signs Vital Signs - First Documented 03/14/20 14:32 Temp 36.8 Pulse 87 Resp 21 B/P (MAP) 118/99 (105) (PA ROJAS MD) Vital Signs Capillary Refill : ([facility]) Height, Weight, BMI Height: 5'4.00" Weight: 165lbs. 0oz. 74.538878if; 26.12 BMI Method:Stated General Appearance: No Apparent Distress, WD/WN Respiratory: Chest Non Tender, Lungs Clear Cardiovascular: No Edema, Normal Peripheral Pulses, Irregularly Irregular Gastrointestinal: Normal Bowel Sounds, Non Tender Back: Normal Inspection, No Vertebral Tenderness Neurologic/Psychiatric: Alert; No Oriented x3 (oriented to self and place, but not to time) Skin: Normal Color, Warm/Dry Lymphatic: No Adenopathy ([facility]) General Appearance: No Apparent Distress, WD/WN HEENT: PERRL/EOMI, Pharynx Normal Neck: Supple Respiratory: Lungs Clear, Normal Breath Sounds Cardiovascular: No Murmur, Normal Peripheral Pulses, Irregularly Irregular Gastrointestinal: Non Tender, Soft Back: Normal Inspection, No CVA Tenderness, No Vertebral Tenderness Neurologic/Psychiatric: Alert, Other (oriented to self) Skin: Normal Color, Warm/Dry (PA ROJAS MD) Progress/Results/Core Measures Suspected Sepsis SIRS Temperature: Pulse: Respiratory Rate: Laboratory Tests 03/14/20 14:50: White Blood Count 4.0L Blood Pressure / Mean: Laboratory Tests 03/14/20 14:50: Creatinine 1.04, Platelet Count 255, Total Bilirubin 0.3 ([facility]) Results/Orders Lab Results Laboratory Tests Test 03/14/20 14:50 Range/Units White Blood Count 4.0 L 4.3-11.0 10^3/uL Red Blood Count 2.97 L 4.35-5.85 10^6/uL Hemoglobin 9.3 #L 13.3-17.7 G/DL Hematocrit 30 L 40-54 % Mean Corpuscular Volume 99 80-99 FL Mean Corpuscular Hemoglobin 31 25-34 PG Mean Corpuscular Hemoglobin Concent 32 32-36 G/DL Red Cell Distribution Width 15.1 H 10.0-14.5 % Platelet Count 255 130-400 10^3/uL Mean Platelet Volume 8.8 7.4-10.4 FL Sodium Level 140 135-145 MMOL/L Potassium Level 4.6 3.6-5.0 MMOL/L Chloride Level 104 98-107 MMOL/L Carbon Dioxide Level 25 21-32 MMOL/L Anion Gap 11 5-14 MMOL/L Blood Urea Nitrogen 25 H 7-18 MG/DL Creatinine 1.04 0.60-1.30 MG/DL Estimat Glomerular Filtration Rate > 60 BUN/Creatinine Ratio 24 Glucose Level 88 70-105 MG/DL Calcium Level 8.8 8.5-10.1 MG/DL Corrected Calcium 9.4 8.5-10.1 MG/DL Total Bilirubin 0.3 0.1-1.0 MG/DL Aspartate Amino Transf (AST/SGOT) 19 5-34 U/L Alanine Aminotransferase (ALT/SGPT) 10 0-55 U/L Alkaline Phosphatase 68 40-136 U/L Total Protein 7.1 6.4-8.2 GM/DL Albumin 3.3 3.2-4.5 GM/DL (PA ROJAS MD) My Orders Orders - PA ROJAS MD Cbc No Diff (03/14/20 14:57) Comprehensive Metabolic Panel (03/14/20 14:57) Red Cells Leukocytes Reduced (03/14/20 14:57) Ed Iv/Invasive Line Start (03/14/20 14:57) Catheter(Urinary) Insert & Ass 03,15 (03/14/20 14:57) Type And Screen (03/14/20 14:57) Ns Iv 1000 Ml (Sodium Chloride 0.9%) (03/14/20 15:30) (PA ROJAS MD) Vital Signs/I&O 03/14/20 14:32 Temp 36.8 Pulse 87 Resp 21 B/P (MAP) 118/99 (105) (PA ROJAS MD) Vital Signs/I&O Capillary Refill : ([facility]) Progress Note : Time: 14:31 Progress Note Seen and Evaluated. Pt with reports of "low hgb" per EMS 2/2 pulling his urinary catheter out last night. We put a three-way catheter in at the ED. Have drained 1.300L of blood tinged urine out so far. ([facility]) Progress Note : Progress Note I have seen and evaluated the patient and agree with above except as indicated. I have directed the plan of care. Patient is here with bleeding urethral after pulling his own catheter out last night inadvertently. Has not urinated for a while. Sent over after blood draw at long term noted hemoglobin in the 6 range. This was several hours ago. IV, labs and three-way catheter initiated. Repeat hemoglobin 9.3. Unsure of the difference but patient does not appear to be significantly anemic on physical exam. Catheter did drain approximately 1 L of urine and blood or blood clots. Continuous bladder irrigation initiated. 1620: I did discuss the case with Dr. Baires and she accepts patient for admission, inpatient status. We will continue IV fluids and repeat labs in the morning. Continuous bladder irrigation to be continued. Currently no indication of infection. We will continue IV fluids to allow for continuous urine flows as well. 1645: Family demanding transfer to another facility. Discussed with family that would be lateral transfer and EMS would not be covered as he is within the capability to be cared for here. Family states they're going to come and get him and take him to [place]. Admitting physician updated. 1702: I have rediscussed this with the family and they had a misunderstanding related to patient's current condition and thought he was actively dying and wanted to be in a place for they could visit him. He is currently very stable without significant persistent bleeding and repeat hemoglobin was in his normal range. This was discussed with the son who is then encouraged and is okay with admission. Admitting physician updated and still accepts patient for admission. (PA ROJAS MD) Departure Impression Primary Impression: Hematuria Qualified Codes: R31.0 - Gross hematuria Additional Impressions: Urinary retention Urethral trauma Qualified Codes: S37.30XA - Unspecified injury of urethra, initial encounter Disposition: ADMITTED INPATIENT Condition: Stable Admissions Decision to Admit Reason: Admit from ER (General) Decision to Admit/Date: Mar 14, 2020 Time/Decision to Admit Time: 16:20 (PA ROJAS MD) Departure-Patient Inst. Referrals: PRO ALLAN DO (PCP/Family) Primary Care Physician [facility] Mar 14, 2020 15:04 PA ROJAS MD Mar 14, 2020 16:24
[2020-03-14 15:17] LABS: ALBUMIN 3.3 GM/DL (3.2-4.5)
[2020-03-14 15:18] LABS: CHLORIDE 104 MMOL/L (98-107); POTASSIUM 4.6 MMOL/L (3.6-5.0); SODIUM 140 MMOL/L (135-145)
[2020-03-14 15:19] LABS: CALCIUM 8.8 MG/DL (8.5-10.1)
[2020-03-14 15:20] LABS: GLUCOSE 88 MG/DL (70-105); TOTAL PROTEIN 7.1 GM/DL (6.4-8.2)
[2020-03-14 15:21] LABS: CARBON DIOXIDE 25 MMOL/L (21-32)
[2020-03-14 15:22] LABS: BILIRUBIN,TOTAL 0.3 MG/DL (0.1-1.0)
[2020-03-14 15:23] LABS: ALKALINE PHOSPHATASE 68 U/L (40-136); CREATININE SERUM 1.04 MG/DL (0.60-1.30); GFR ESTIMATED > 60
[2020-03-14 15:25] LABS: BUN/CREATININE RATIO 24
[2020-03-14 15:26] LABS: ALANINE AMINOTRANSFERASE 10 U/L (0-55)
[2020-03-14] MEDS ORDERED: NS IV 1000 ML 1,000 ML ONE (15:30)
--- NOTE | 2020-03-14 15:44 | NUR ---
CBI STARTED W NS ORDERED. APPROX 1000CC OF BLOODY URINE EMPTIED FROM CATHETER
--- NOTE | 2020-03-14 16:46 | NUR ---
CALLED SON TO UPDATE ON PT CARE, SON STATES WANTS PT TRANSFERRED TO [facility], STATES WILL PICK PATIENT UP AND TRANSFER HIM TO [facility] HIM[facility]LF. STATES [facility] WAS TOLD TO TRANSFER TO [facility] UNLESS LIFE OR SITUATION. EXPLAINED TO PT THAT PT HBG WAS LOW AND BLEEDING FROM HIS PENIS AND NEEDED TO BE SEEN IN ED. SON DEMANDING AND UPSET ABOUT ANOTHER VISIT EXPLAINED TO SON THAT I COULD NOT PERSONALLY DO ANYTHING CO PREVIOUS VISIT TO FIX WHO THE PT WAS ASSIGNED TO
--- NOTE | 2020-03-14 16:58 | NUR ---
[facility] HAS DECIDED TO ALLOW PT TO BE ADMITTED TO HOSPITAL
--- NOTE | 2020-03-14 17:30 | NUR ---
CARLOS ADDISON SR admitted to room 405-1, with an admitting diagnosis of hematuria/ urethral trauma, on 03/14/20 from AM via stretcher, accompanied by staff.CARLOS ADDISON SR introduced to surroundings, call light, bed controls, phone, TV, temperature control, lights, meal times, smoking policy, visitor policy, side rail policy, bathrooms and showers. Patient Rights given to patient in the handbook. CARLOS ADDISON SR verbalizes understanding that [facility] is not responsible for the loss or damage to any personal effects or valuables that are kept in the patients posession during their hospitalization. CARLOS ADDISON SR verbalizes understanding of Interdisciplinary Patient Education. Patient and/or family were informed about the Rapid Response Team and its purpose.
[2020-03-14 17:58] VITALS: BP 168/84
--- NOTE | 2020-03-14 18:00 | NUR ---
This RN was unable to complete a detailed physical assessment due to patients increased agitation. patient was cursing at this RN and trying to hit this RN. bruising noted to patients upper extremities and patient is currently on room air
[2020-03-14] MEDS ORDERED: ATOR10TA66 PO (18:10)
[2020-03-14] MEDS ORDERED: MELA3CAP2 PO (18:10)
[2020-03-14] MEDS ORDERED: DIVA125T2 PO (18:10)
[2020-03-14] MEDS ORDERED: SIMV40TA25 PO (18:10)
[2020-03-14] MEDS ORDERED: QUET25TA PO (18:10)
[2020-03-14] MEDS ORDERED: TRAM50TA3 PO (18:10)
[2020-03-14] MEDS ORDERED: LORA-405 SL (18:10)
[2020-03-14] MEDS ORDERED: TRZ50T PO (18:10)
[2020-03-14] MEDS: LORazepam INJ 2 MG/ML (ATIVAN) VIAL IVP PRN (18:14)
[2020-03-14] MEDS ORDERED: ESCI10TA PO (18:33)
[2020-03-14] MEDS ORDERED: CARV6.25 PO (18:33)
[2020-03-14] MEDS ORDERED: NF-NACL1GT PO (18:33)
[2020-03-14] MEDS ORDERED: LACT20SO2 PO (18:33)
[2020-03-14] MEDS ORDERED: NON-FORMULARY MEDICATION 1 EA EA (Melatonin 3 MG) PO PRN (18:45)
[2020-03-14] MEDS ORDERED: LORazepam 1 MG (ATIVAN) TAB PO SCH (18:45)
--- NOTE | 2020-03-14 18:45 | NUR ---
1730 very confused at this time requesting to go to the bathroom and pee even though he has a covarrubias 1800 agitation continues patient now cursing at staff, clinching his fists at staff, mumbling and continues to try to get out of bed 1830 patient agitated more at this time, trying to hit staff, cursing, screaming help, pulling at Covarrubias catheter . DR peralta notified of patient behavior and ordered IV Ativan at this time and instructed this RN to review patients home meds for reordering 1845 IV ativan given due to patient agitation. patient calmed down post admission and is resting with eyes closed at this time
[2020-03-14 19:35] VITALS: BP 103/59
[2020-03-14] MEDS ORDERED: MELATONIN 3 MG TABLET PO PRN (20:00)
--- NOTE | 2020-03-14 20:02 | History & Physical-Hospitalist ---
History of Present Illness HPI/Chief Complaint Pt is a 74yoCM with a PMH of dementia, CAD,systolic CHF who presented to the ER due to low hemoglobin. Reportedly he had a catheter in place and pulled it out last night causing hematuria. He is on ASA and plavix currently. Bloodwork was done due to the bleeding and he was found to have a hemoglobin of 6.7 prompting evaluation here. A 3 way catheter was placed here which resulted in significant bloody urine return. Repeat hemoglobin was done and was 9.3. Due to significant of hematuria and questionable hemoglobin decision was made to admit him for CBI and close monitoring. On my exam he is laying in bed comfortably. He attempted to grab my stethoscope and serenade me with "[place] In." He denied any complaints but also states he does not remember any events of the day. He is unsure why he is here. Source: patient Exam Limitations: clinical condition Date Seen 03/14/20 Time Seen by a Provider: 19:56 Attending Physician Jay Baires MD PCP Ilir Doran DO Referring Physician Date of Admission Mar 14, 2020 at 4:18 pm Home Medications & Allergies Home Medications Reviewed patient Home Medication Reconciliation performed by pharmacy medication reconciliations certified medication technician and/or nursing. Patients Allergies have been reviewed. Allergies Allergies Coded Allergies No Known Drug Allergies (Unverified12/23/14) Past Rmxswzw-Boqzvl-Xyqhmo Hx Past Med/Social Hx: Reviewed Nursing Past Med/Soc Hx Patient Social History Employed/Student: retired Smoking Status: Unknown if Ever Smoked Former Smoker, Quit: Aug 29, 2000 Type Used: Cigarettes 2nd Hand Smoke Exposure: No Recent Foreign Travel: No Contact w/other who traveled: No Recent Hopitalizations: No Recent Infectious Disease Expo: No Immunizations Up To Date Tetanus Booster (TDap): Unknown Seasonal Allergies Seasonal Allergies: No Past Medical History Surgeries: Cardiac, CABG, Coronary Stent, Vascular Surgery Cardiac: Atrial Fibrillation, Cardiomyopathy, Coronary Artery Disease Neurological: Dementia Reproductive: No Sexually Transmitted Disease: No HIV/AIDS: No History of Blood Disorders: No Adverse Reaction to Blood Barrera: No Family History Reviewed Nursing Family Hx No Pertinent Family Hx Review of Systems ROS-Unable to Obtain: limited by dementia, see HPI Physical Exam Physical Exam Vital Signs Vital Signs - First Documented 8/29/20 8/29/20 14:32 16:59 Temp 36.8 Pulse 87 Resp 21 B/P (MAP) 118/99 (105) Pulse Ox 98 O2 Delivery Room Air Capillary Refill : Less Than 3 Seconds Height, Weight, BMI Height: 5'4.00" Weight: 165lbs. 0oz. 74.172809th; 24.44 BMI Method:Stated General Appearance: No Apparent Distress, WD/WN HEENT: PERRL/EOMI, Moist Mucous Membranes; No Scleral Icterus (L), No Scleral Icterus (R) Neck: Normal Inspection, Supple Respiratory: Lungs Clear, No Accessory Muscle Use, No Respiratory Distress Cardiovascular: Regular Rate, Rhythm, No JVD, No Murmur Gastrointestinal: Normal Bowel Sounds, Non Tender, Soft Rectal: Other (3 way catheter in place, ) Extremity: Normal Capillary Refill, No Calf Tenderness, No Pedal Edema Neurologic/Psychiatric: Alert; No Aphasia; Disoriented, Other (pleasanty confused) Skin: Normal Color, Warm/Dry Results Results/Procedures Labs Laboratory Tests 03/14/20 14:50 Patient resulted labs reviewed. Assessment/Plan Admission Diagnosis Hematuria Admission Status: Inpatient Order (span 2 midnights) Reason for Inpatient Admission: anemia, hematuria, CBI Assessment and Plan Hematuria Anemia Continue CBI as started in the ER Hold antiplatelets Consult Urology CAD HTN systolic congestive heart failure Was transferred from here on 12/21 for cardiac evaluation at [facility] Will request records as unsure if he had a stent Dementia Continue home meds COVID exposure Found out tonight that he resides in the same court as someone who tested positive for COVID at the [facility] Due to exposure will test for COVID, discussed with RN and House sup that 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 transplanted heart: [place] heart Associated angina: without angina Qualified Codes: I25.10 - Atherosclerotic heart disease of [place] coronary artery without angina pectoris (2) Urethral trauma Status: Acute Qualifiers: Encounter type: initial encounter Qualified Codes: S37.30XA - Unspecified injury of urethra, initial encounter (3) Hematuria Status: Acute Qualifiers: Hematuria type: gross Qualified Codes: R31.0 - Gross hematuria (4) Dementia Status: Chronic Qualifiers: Dementia type: unspecified type Dementia behavioral disturbance: without behavioral disturbance Qualified Codes: F03.90 - Unspecified dementia without behavioral disturbance Clinical Quality Measures DVT/VTE Risk/Contraindication: Risk Factor Score Per Nursin RFS Level Per Nursing on Admit: 2=Moderate JAY BAIRES MD Mar 14, 2020 20:02
[2020-03-14] MEDS ORDERED: DIVALPROEX SODIUM 125 MG PO SCH (21:00)
[2020-03-14] MEDS ORDERED: LORazepam 1 MG (ATIVAN) TAB PO PRN (21:30)
[2020-03-14] MEDS: traZODone 50 MG (DESYREL) TAB PO SCH (21:54)
[2020-03-14] MEDS: DIVALPROX SPRINKLE 125 MG (DEPAKOTE) CAP PO SCH (21:55)
[2020-03-14] MEDS: QUEtiapine 25 MG (SEROquel) TAB IMMEDIATE RELEASE PO SCH (21:55)
[2020-03-14] MEDS: CARVEDILOL 6.25 MG (COREG) TAB PO SCH (21:56)
[2020-03-14] MEDS: SIMvastatin 40 MG (ZOCOR) TAB PO SCH (21:57)
[2020-03-14] MEDS: NS IV 1000 ML 1,000 ML IV SCH (21:58)
[2020-03-14 22:03] VITALS: BP 136/68
[2020-03-14 23:59] VITALS: BP 136/58
[2020-03-15] VITALS (7 sets, daily range): BP systolic 96–171; BP diastolic 53–80
[2020-03-15] MEDS: CARVEDILOL 6.25 MG (COREG) TAB PO SCH ×2 (08:29→20:23)
[2020-03-15] MEDS: traZODone 50 MG (DESYREL) TAB PO SCH ×2 (08:29→20:22)
[2020-03-15 08:58] LABS: BASOPHILS % (AUTO) 1 % (0-10); EOSINOPHILS # (AUTO) 0.1 10^3/uL (0.0-0.3); EOSINOPHILS % (AUTO) 2 % (0-10); HEMATOCRIT 26 % (40-54); HEMOGLOBIN 8.1 G/DL (13.3-17.7); LYMPHOCYTES # (AUTO) 1.1 X 10^3 (1.0-4.0); LYMPHOCYTES % (AUTO) 34 % (12-44); MEAN CORPUSCULAR HEMOGLOBIN 31 PG (25-34); MEAN CORPUSCULAR HGB CONC 31 G/DL (32-36); MEAN CORPUSCULAR VOLUME 99 FL (80-99); MEAN PLATELET VOLUME 9.1 FL (7.4-10.4); MONOCYTES # (AUTO) 0.4 X 10^3 (0.0-1.0); MONOCYTES % (AUTO) 11 % (0-12); NEUTROPHILS # (AUTO) 1.7 X 10^3 (1.8-7.8); NEUTROPHILS % (AUTO) 52 % (42-75); PLATELET COUNT 236 10^3/uL (130-400); RED CELL DISTRIBUTION WIDTH 14.8 % (10.0-14.5); WHITE BLOOD COUNT 3.3 10^3/uL (4.3-11.0)
[2020-03-15] MEDS ORDERED: NON-FORMULARY MEDICATION 1 EA EA (Escitalopram Oxalate (Lexapro) 10 MG) PO SCH (09:00)
[2020-03-15 09:32] LABS: ALANINE AMINOTRANSFERASE 11 U/L (0-55); ALBUMIN 2.8 GM/DL (3.2-4.5); ALKALINE PHOSPHATASE 58 U/L (40-136); BILIRUBIN,TOTAL 0.2 MG/DL (0.1-1.0); BUN/CREATININE RATIO 29; CALCIUM 8.5 MG/DL (8.5-10.1); CARBON DIOXIDE 25 MMOL/L (21-32); CHLORIDE 106 MMOL/L (98-107); CREATININE SERUM 0.99 MG/DL (0.60-1.30); GFR ESTIMATED > 60; GLUCOSE 83 MG/DL (70-105); POTASSIUM 4.2 MMOL/L (3.6-5.0); SODIUM 139 MMOL/L (135-145); TOTAL PROTEIN 6.1 GM/DL (6.4-8.2)
--- NOTE | 2020-03-15 11:29 | Progress Note - Hospitalist ---
Subjective HPI/CC On Admission Date Seen by Provider: Mar 15, 2020 Time Seen by Provider: 11:24 Pt is a 74yoCM with a PMH of dementia, CAD,systolic CHF who presented to the ER due to low hemoglobin. Reportedly he had a catheter in place and pulled it out last night causing hematuria. He is on ASA and plavix currently. Bloodwork was done due to the bleeding and he was found to have a hemoglobin of 6.7 prompting evaluation here. A 3 way catheter was placed here which resulted in significant bloody urine return. Repeat hemoglobin was done and was 9.3. Due to significant of hematuria and questionable hemoglobin decision was made to admit him for CBI and close monitoring. On my exam he is laying in bed comfortably. He attempted to grab my stethoscope and serenade me with "[employer] [place] [employer]." He denied any complaints but also states he does not remember any events of the day. He is unsure why he is here. Subjective/Events-last exam Pt remains confused per his baseline. Has no complaints. Discussed with Shai ANDREWS and no concerns. Took his meds well in the morning. House Sup and I spoke with son regarding COVID testing due to exposure. He expressed understanding of the policy. Informed him I was hopeful that his results would be back today but it may be tomorrow. He expressed understanding of this plan. Objective Exam Vital Signs Vital Signs Date Time Temp Pulse Resp B/P (MAP) Pulse Ox O2 Delivery O2 Flow Rate FiO2 03/15/20 07:45 84 18 96/53 (67) 94 Room Air 03/15/20 04:18 36.4 Capillary Refill : Less Than 3 Seconds General Appearance: No Apparent Distress, Chronically ill Respiratory: Lungs Clear, No Respiratory Distress Cardiovascular: Regular Rate, Rhythm, No Murmur Genital/Rectal: Other (covarrubias in place, urine clearing up) Neurologic/Psychiatric: Alert, Disoriented Results/Procedures Lab Laboratory Tests 03/14/20 14:50 03/15/20 08:40 Patient resulted labs reviewed. Assessment/Plan Assessment and Plan Assess & Plan/Chief Complaint Hematuria- improving Anemia CBI discontinued this AM Hold antiplatelets Consult Urology, appreciate recs Hgb down but above 8 so will continue to trend, if drops below 8 consider tra nsfuse due to CAD CAD HTN systolic congestive heart failure Was transferred from here on 12/21 for cardiac evaluation at [facility] Will request records as unsure if he had a stent Dementia Continue home meds COVID exposure Attempted to call family on admission but no answer, was able to speak to son today and discussed exposure to COVID at the [place] and indication for testing, hopeful results will be back today or tomorrow. We will update him when they are back so he can visit. Confirmed his phone number and his 's number as well. DVT ppx: Lovenox held for hematuria Diagnosis/Problems Diagnosis/Problems (1) CAD (coronary artery disease) Qualifiers: Coronary Disease-Associated Artery/Lesion type: [place] artery [place] vs. transplanted heart: [place] heart Associated angina: without angina Qualified Codes: I25.10 - Atherosclerotic heart disease of [place] coronary artery without angina pectoris (2) Urethral trauma Status: Acute Qualifiers: Encounter type: initial encounter Qualified Codes: S37.30XA - Unspecified injury of urethra, initial encounter (3) Hematuria Status: Acute Qualifiers: Hematuria type: gross Qualified Codes: R31.0 - Gross hematuria (4) Dementia Status: Chronic Qualifiers: Dementia type: unspecified type Dementia behavioral disturbance: without behavioral disturbance Qualified Codes: F03.90 - Unspecified dementia without behavioral disturbance Clinical Quality Measures DVT/VTE Risk/Contraindication: Risk Factor Score Per Nursin RFS Level Per Nursing on Admit: 2=Moderate JAY MCCLELLAN MD Mar 15, 2020 11:29
--- NOTE | 2020-03-15 11:57 | NUR ---
ATTEMPTED TO CALL [facility] ([facility]) TO OBTAIN TELEPHONE CONSENT FOR MEDICAL RECORDS FROM [facility]. MESSAGE LEFT ON VOICE MAIL, WILL RETRY AT A LATER TIME.
[2020-03-15] MEDS: NS IV 1000 ML 1,000 ML IV SCH ×2 (12:26→12:31)
--- NOTE | 2020-03-15 13:24 | CONSULTATION REPORT ---
DATE OF SERVICE: 03/15/2020 ATTENDING PHYSICIAN: Dr. Baires. SUMMARY: After reviewing the patient's record. Essentially, the patient have dementia and is a very poor historian. He is a [facility] resident with indwelling Arce catheter. He apparently pulled it out and started developing gross hematuria being also on blood thinners that were held in the hospital. He dropped his hemoglobin, some discrepancy in numbers. He was started on CBI with 3-way Arce catheter and the urine today is scarlet clear. IMPRESSION: Urethral trauma with abrasion secondary to pulling the catheter with inflated balloon. RECOMMENDATIONS: Continue present management. I would recommend to hold the CBI and once he stays clear off the CBI, change the catheter to a 2-way 16-Arce or 18. I will send him back to the [place]. Job ID: [id number] DocumentID: [id number] Dictated Date: 03/15/2020 10:33:19 Insurance Specialist Date: 03/15/2020 13:22:52 Dictated By: GUERITA MARINELLI MD
--- NOTE | 2020-03-15 14:56 | NUR ---
PT AGITATED IN ROOM. STATES THAT HE "HAS TO GET OUT OF HERE". CONTINUES TO TALK ABOUT LEAVING BECAUSE OF A LARGE AMOUNT OF MONEY AT SOME PERSONS HOUSE. UNABLE TO CALM VERBALLY. PT EXITING BED WITHOUT ASSISTANCE. RN NOTIFIED.
[2020-03-15] MEDS: LORazepam INJ 2 MG/ML (ATIVAN) VIAL IVP PRN (15:07)
--- NOTE | 2020-03-15 18:00 | NUR ---
TELEPHONE CONSENT RECEIVED FOR CARDIOLOGY RECORDS FROM [facility] ([facility]) REQUEST FAXED TO [facility] AND PLACED IN CHART
[2020-03-15] MEDS: QUEtiapine 25 MG (SEROquel) TAB IMMEDIATE RELEASE PO SCH (20:23)
[2020-03-15] MEDS: SIMvastatin 40 MG (ZOCOR) TAB PO SCH (20:25)
[2020-03-15] MEDS: DIVALPROX SPRINKLE 125 MG (DEPAKOTE) CAP PO SCH (20:25)
--- NOTE | 2020-03-15 23:04 | NUR ---
2230:Patients urine output 225, urine reddish brown in color. This RN noticed decreased output, bladder scan performed, 475 detected on bladder scan. This RN hand irrigated catheter with normal saline, small clots evacuated. 2255:This RN contacted Dr Carrillo to inform him that patients catheter had clotted off. Orders received to resume CBI prn and also reinforced orders to hand irrigate prn. Normal saline CBI initiated 2303: Catheter flowing with clear yellow urine with tiny clots noted
[2020-03-16 04:21] VITALS: BP 104/54
[2020-03-16] MEDS: NS IV 1000 ML 1,000 ML IV SCH (04:27)
[2020-03-16 07:18] VITALS: BP 104/58
[2020-03-16] MEDS: CARVEDILOL 6.25 MG (COREG) TAB PO SCH (09:12)
[2020-03-16] MEDS: traZODone 50 MG (DESYREL) TAB PO SCH (09:13)
[2020-03-16] MEDS ORDERED: NF-NACL1GT PO (09:42)
[2020-03-16] MEDS ORDERED: ESCI20TA45 PO (09:42)
[2020-03-16] MEDS ORDERED: MELA3TAB39 PO (09:42)
[2020-03-16] MEDS ORDERED: SIMV40TA25 PO (09:42)
[2020-03-16] MEDS ORDERED: TRZ50T PO (09:42)
[2020-03-16] MEDS ORDERED: NITR0.4T39 SL (09:42)
[2020-03-16] MEDS ORDERED: FLUP5TAB13 PO (09:42)
[2020-03-16] MEDS ORDERED: ATOR40TA70 PO (09:42)
[2020-03-16] MEDS ORDERED: NITR-65 PO (09:42)
[2020-03-16] MEDS ORDERED: LORA10TA7 PO (09:42)
[2020-03-16] MEDS ORDERED: CARV6.25 PO (09:42)
[2020-03-16] MEDS ORDERED: SPIR25TA5 PO (09:42)
[2020-03-16] MEDS ORDERED: LORA-405 PO (09:42)
[2020-03-16] MEDS ORDERED: LOSA25TA41 PO (09:42)
[2020-03-16] MEDS ORDERED: CLOP75TA28 PO (09:42)
[2020-03-16] MEDS ORDERED: LACT20SO2 PO (09:42)
[2020-03-16] MEDS ORDERED: TRAM50TA3 PO (10:01)
[2020-03-16] MEDS ORDERED: ACET325T49 PO (10:24)
[2020-03-16 12:02] VITALS: BP 120/69
--- NOTE | 2020-03-16 12:03 | Progress Note - Urology ---
Progress Note-Urology Progress Notes/Assess & Plan Progress/Assessment & Plan URINE CINTHYA CLEAR. WE WILL TRY AGAIN OFF CBI AND RESUME PRN Final Diagnosis GROSS HEMATURIA GUERITA MARINELLI MD Mar 16, 2020 12:03
--- NOTE | 2020-03-16 13:05 | NUR ---
I WENT THROUGH THE MED LIST FROM [facility] IN HIS CHART, AND SPOKE WITH HIS NURSE FROM [facility] TO COMPLETE THIS MED REC. OTC: ASPIRIN ACETAMINOPHEN CLARITIN
--- NOTE | 2020-03-16 13:35 | NUR ---
"RD ASSESSMENT PMHx: dementia; CAD; CHF; afib PT INTERACTION: Note pt has dementia and is a poor historian, per chart review. Note pt is also COVID PUI, per chart review. Note all information gathered for nutrition assessment is per chart review. Note avg PO intake <25% x2d. Note no BM has been recorded, and pt not currently on bowel regimen. Note recent 10# wt loss x3mon. ABNORMAL NUTRITION-RELATED LAB VALUES LOW: Pro 6.1; alb 2.8 HIGH: BUN 29 Est. kcal needs: 1825 kcal | 25 kcal/kg Est. Pro needs: 58 g Pro | 0.8 g Pro/kg PES STATEMENT: Inadequate oral intake (NI-2.1) related to loss of appetite as evidenced by chart review | avg PO intake <25% x2d INTERVENTION: Continue with current diet order of Regular diet. Add Ensure Enlive (vary) to meals TID, for increased kcal and protein intake. Provides 350 kcal and 13 g Pro per serving. Would encourage pt to eat when able. Will continue to follow and reassess as pt needs, intake, and status change. MONITOR/EVALUATE: PO Intake; Plan of Care; Hydration Status; Weight Status; Lab Values Amy Soliz, MS, RD, LD"
--- NOTE | 2020-03-16 13:50 | NUR ---
CM/SS: Pt is from [facility] - Call to Gary (filling in for Katie till Monday) and check with her to determine that pt can return to the facility today pending negative COVID results. They are ok for pt to return today. This worker will follow up as to a time, once test results are received. Addendum: 03/16/20 at 1536 by KEYSHAWN BRIGGS SS Pt's test results are negative. Pt is able to return to the facility. Facility contacted and they can take pt back. Discharge orders/ information is faxed to the facility. attn: [place]. They will plan to merchandise pickup/receiving associate pt today at 4:00pm.
--- NOTE | 2020-03-16 14:41 | Progress Note - Hospitalist ---
Subjective HPI/CC On Admission Date Seen by Provider: Mar 16, 2020 Time Seen by Provider: 09:50 Pt is a 74yoCM with a PMH of dementia, CAD,systolic CHF who presented to the ER due to low hemoglobin. Reportedly he had a catheter in place and pulled it out last night causing hematuria. He is on ASA and plavix currently. Bloodwork was done due to the bleeding and he was found to have a hemoglobin of 6.7 prompting evaluation here. A 3 way catheter was placed here which resulted in significant bloody urine return. Repeat hemoglobin was done and was 9.3. Due to significant of hematuria and questionable hemoglobin decision was made to admit him for CBI and close monitoring. On my exam he is laying in bed comfortably. He attempted to grab my stethoscope and serenade me with "[employer] [place] [employer]." He denied any complaints but also states he does not remember any events of the day. He is unsure why he is here. Subjective/Events-last exam he denies any complaints or concerns. He knows he is in the hospital. He knows it is 2019. He is unsure why he is in the hospital. He denies any pain. Objective Exam Vital Signs Vital Signs Date Time Temp Pulse Resp B/P (MAP) Pulse Ox O2 Delivery O2 Flow Rate FiO2 03/16/20 12:02 36.1 84 18 120/69 (86) 96 Room Air Capillary Refill : Less Than 3 SecondsLess Than 3 Seconds General Appearance: No Apparent Distress, WD/WN HEENT: PERRL/EOMI, Pharynx Normal Neck: Normal Inspection, Supple Respiratory: Lungs Clear, Normal Breath Sounds, No Respiratory Distress Cardiovascular: Regular Rate, Rhythm, No Edema, No Murmur Gastrointestinal: Normal Bowel Sounds, Non Tender, Soft Extremity: Normal Inspection, Non Tender, No Pedal Edema Neurologic/Psychiatric: Alert, No Motor/Sensory Deficits, Normal Mood/Affect, Disoriented Skin: Normal Color, Warm/Dry Results/Procedures Lab Patient resulted labs reviewed. Assessment/Plan Assessment and Plan Assess & Plan/Chief Complaint Hematuria, resolved Anemia CBI discontinued Urology consulted, appreciate recs Arce in place Stable for discharge CAD HTN systolic congestive heart failure recent coronary artery stent placement resume aspirin and Plavix Dementia Continue home meds COVID exposure COVID swab pending DVT ppx: Lovenox held for hematuria Diagnosis/Problems Diagnosis/Problems (1) Hematuria Status: Acute Qualifiers: Hematuria type: gross Qualified Codes: R31.0 - Gross hematuria (2) Urethral trauma Status: Acute Qualifiers: Encounter type: initial encounter Qualified Codes: S37.30XA - Unspecified injury of urethra, initial encounter (3) Urinary retention Status: Chronic (4) CAD (coronary artery disease) Qualifiers: Coronary Disease-Associated Artery/Lesion type: [place] artery [place] vs. transplanted heart: [place] heart Associated angina: without angina Qualified Codes: I25.10 - Atherosclerotic heart disease of [place] coronary artery without angina pectoris (5) Dementia Status: Chronic Qualifiers: Dementia type: unspecified type Dementia behavioral disturbance: without behavioral disturbance Qualified Codes: F03.90 - Unspecified dementia without behavioral disturbance Clinical Quality Measures DVT/VTE Risk/Contraindication: Risk Factor Score Per Nursin RFS Level Per Nursing on Admit: 2=Moderate IAN DAVIDSON MD Mar 16, 2020 14:41
[2020-03-16] MEDS ORDERED: CLOPIDOGREL 75 MG (PLAVIX) TABLET PO NR (14:45)
[2020-03-16] MEDS ORDERED: ASPIRIN E.C. 81 MG (ECOTRIN) TAB PO NR (14:45)
[2020-03-16 16:18] VITALS: BP 104/58
--- NOTE | 2020-03-16 16:42 | NUR ---
CARLOS ADDISON SR demonstrates understanding of discharge instructions and accurately returns instructions upon questioning. Copy of Post-Discharge Instructions given to CARLOS ADDISON SR. CARLOS ADDISON SR is not able to manage continuing needs after discharge, PT RETURNING TO [facility]. Patients belongings returned to CARLOS ADDISON SR. Patient discharged from [facility] on 03/16/2020 at 1642. CARLOS ADDISON SR left floor via WHEELCHAIR, accompanied by THIS RN.
[2020-03-16 16:46] VITALS: BP 104/58
[2020-03-17] MEDS ORDERED: ASPIRIN E.C. 81 MG (ECOTRIN) TAB PO SCH (09:00)
[2020-03-17] MEDS ORDERED: CLOPIDOGREL 75 MG (PLAVIX) TABLET PO SCH (09:00)
== END 2020-03-16 16:42 | DRG 699 ==
LOC: EDUNIT# 14:31 → ER 14:32 → 4TH 16:18
PROVIDERS: ADMIT Family Medicine; ATTEND Family Medicine
DX: S37.30XA Unspecified injury of urethra, initial encounter (principal); I50.22 Chronic systolic (congestive) heart failure; R31.0 Gross hematuria; F03.90 Unspecified dementia, unspecified severity, without behavioral disturbance, psychotic disturbance, mood disturbance, and anxiety; I25.10 Atherosclerotic heart disease of native coronary artery without angina pectoris; Z20.828 Contact with and (suspected) exposure to other viral communicable diseases; I11.0 Hypertensive heart disease with heart failure; D64.9 Anemia, unspecified; R33.9 Retention of urine, unspecified
CPT/HCPCS: 36415; 51702; 80053; 85025; 85027; 86850; 86900; 86901; 86920; 87635

== ENCOUNTER → 2020-03-14 | Outpatient (CLI) | payer MEDICARE, MEDICAID ==
[~2020-03-14] MED LIST changes: +ACET325T49 PO; +ASPI-983 PO; +ATOR10TA66 PO; +ATOR40TA70 PO; +CARV6.25 PO; +CLOP75TA69 PO; +DIVA125T2 PO; +ESCI10TA PO; +ESCI20TA45 PO; +FLUP5TAB13 PO; +FURO40TA4 PO; +LACT20SO2 PO; +LORA-405 PO; +LORA-405 SL; +LORA10TA7 PO; +LOSA25TA41 PO; +MELA3CAP2 PO; +MELA3TAB39 PO; +NF-NACL1GT PO; +NITR-65 PO; +POTA20TA15 PO; +QUET25TA PO; +SIMV40TA25 PO; +SPIR25TA5 PO; +TMSL.4C PO; +TRAM50TA3 PO; +TRZ50T PO
[2020-03-14 11:52] LABS: BASOPHILS % (AUTO) 0 % (0-10); EOSINOPHILS # (AUTO) 0.1 10^3/uL (0.0-0.3); EOSINOPHILS % (AUTO) 2 % (0-10); HEMATOCRIT 22 % (40-54); LYMPHOCYTES # (AUTO) 1.2 X 10^3 (1.0-4.0); LYMPHOCYTES % (AUTO) 23 % (12-44); MEAN CORPUSCULAR HEMOGLOBIN 31 PG (25-34); MEAN CORPUSCULAR HGB CONC 31 G/DL (32-36); MEAN CORPUSCULAR VOLUME 100 FL (80-99); MONOCYTES # (AUTO) 0.9 X 10^3 (0.0-1.0); MONOCYTES % (AUTO) 17 % (0-12); NEUTROPHILS % (AUTO) 58 % (42-75); PLATELET COUNT 260 10^3/uL (130-400); WHITE BLOOD COUNT 5.1 10^3/uL (4.3-11.0)
[2020-03-14 12:15] LABS: HEMOGLOBIN 6.7 G/DL (13.3-17.7)
== END ==
LOC: LABNPT 11:47
PROVIDERS: ATTEND Internal Medicine
DX: D64.9 Anemia, unspecified (principal)
CPT/HCPCS: 85025

== ENCOUNTER 2020-03-25 11:05 | Inpatient (IN) | payer MEDICARE, MEDICAID ==
[~2020-03-25] VITALS: Ht 172.2 cm; Wt 69.5 kg
[~2020-03-25 11:05] MED LIST changes: +ACET325T49 PO; +ASPI-1238 PO; -ASPI-983 PO; +ATOR40TA70 PO; +CARV6.25 PO; +DIVA125T2 PO; +ESCI10TA PO; +ESCI20TA45 PO; +FLUP5TAB13 PO; +LACT20SO2 PO; +LORA-405 PO; +LORA-405 SL; +LORA10TA7 PO; +LOSA25TA41 PO; +MELA3CAP2 PO; +MELA3TAB39 PO; +NF-NACL1GT PO; +NITR-65 PO; +QUET25TA PO; +SIMV40TA25 PO; +SPIR25TA5 PO; +TRAM50TA3 PO; +TRZ50T PO
[2020-03-25 14:13] LABS: CLARITY,URINE OTHER; COLOR,URINE RED; GLUCOSE, URINE (UA) TRACE (NEGATIVE); KETONES,URINE 1+ (NEGATIVE); LEUKOCYTE ESTERASE ,URINE 3+ (NEGATIVE); NITRITE,URINE POSITIVE (NEGATIVE); PH,URINE 6.5 (5-9); PROTEIN,URINE 3+ (NEGATIVE)
[2020-03-25] MEDS ORDERED: NS IV 500 ML 500 ML IV ONE (14:28)
[2020-03-25 14:48] LABS: BILIRUBIN,URINE NEGATIVE (NEGATIVE)
[2020-03-25 14:49] LABS: AMORPHOUS SEDIMENT,UR MOD AMOR URATES /LPF; BACTERIA,URINE MODERATE /HPF; WBC,URINE 25-50 /HPF
[2020-03-25 14:50] LABS: RBC,URINE TNTC /HPF
[2020-03-25] MEDS ORDERED: cefTRIAXone FOR IV USE 1,000 MG in WATER (STERILE) FOR INJECTION 10 ML IV STA (15:10)
[2020-03-25 15:13] LABS: BASOPHILS % (AUTO) 0 % (0-10); EOSINOPHILS % (AUTO) 0 % (0-10); HEMATOCRIT 30 % (40-54); HEMOGLOBIN 9.6 G/DL (13.3-17.7); LYMPHOCYTES # (AUTO) 0.7 X 10^3 (1.0-4.0); LYMPHOCYTES % (AUTO) 8 % (12-44); MEAN CORPUSCULAR HEMOGLOBIN 31 PG (25-34); MEAN CORPUSCULAR HGB CONC 32 G/DL (32-36); MEAN CORPUSCULAR VOLUME 96 FL (80-99); MEAN PLATELET VOLUME 9.2 FL (7.4-10.4); MONOCYTES # (AUTO) 0.9 X 10^3 (0.0-1.0); MONOCYTES % (AUTO) 10 % (0-12); NEUTROPHILS # (AUTO) 6.9 X 10^3 (1.8-7.8); NEUTROPHILS % (AUTO) 82 % (42-75); PLATELET COUNT 386 10^3/uL (130-400); WHITE BLOOD COUNT 8.4 10^3/uL (4.3-11.0)
--- NOTE | 2020-03-25 15:19 | ED GU-Male ---
General Chief Complaint: - Urinary Nursing Triage Note: PT FROM [facility] WITH CC OF PULLING HIS CATHETER OUT YESTERDAY, BRIGHT RED BLOOD IN THE CANAS BAG. Source: patient Exam Limitations: no limitations History of Present Illness Date Seen by Provider: Mar 25, 2020 Time Seen by Provider: 13:44 Initial Comments Here with report of blood coming from catheter. Apparently patient had Canas catheter that he pulled out last night. They were able to replace it but noted blood in his catheter tubing this morning. This is not the first time in his done that. He was admitted 10 days ago for the same. Noted to have mild fever at 100.7 today on arrival. No definite COVID-19 exposure but denies cough, shortness of air, breathing problems, sore throat or runny nose. Is known to have urinary tract infections. Denies any concerns. Does have dementia which limits history. Timing/Duration: yesterday, getting worse Severity/Quality: moderate, other (hematuria) Location: urethral Radiation: none Activities at Onset: none Prior Genitourinary Problems: recent trauma, similar symptoms Modifying Factors: Improves With Resting Associated Symptoms: No abdominal pain; fever/chills; No lower back pain, No nausea/vomiting Allergies and Home Medications Allergies Coded Allergies: No Known Drug Allergies (Unverified , 12/23/14) Home Medications Acetaminophen 325 Mg Tablet, 650 MG PO Q6H PRN for PAIN-MILD (1-4), (Reported) Aspirin 81 Mg Tablet.dr, 81 MG PO DAILY, (Reported) Carvedilol 6.25 Mg Tablet, 6.25 MG PO BID WITH MEALS, (Reported) HOLD MED *NOTIFY MD* FOR SBP LESS THAN 100 OF DBP OR PULSE LESS THAN 60 Clopidogrel Bisulfate 75 Mg Tablet, 75 MG PO DAILY, (Reported) Fluphenazine HCl 5 Mg Tablet, 5 MG PO DAILY, (Reported) Furosemide 40 Mg Tablet, 40 MG PO DAILY, (Reported) Lactulose 20 Gm/30 Ml Solution, 20 GM PO BID, (Reported) Loratadine 10 Mg Tablet, 10 MG PO DAILY PRN for ALLERGIES, (Reported) Lorazepam 1 Mg Tablet, 1 MG PO Q6H PRN for ANXIETY, (Reported) Losartan Potassium 25 Mg Tablet, 12.5 MG PO DAILY, (Reported) TAKES 1/2 (25MG) TAB HOLD MED *NOTIFY MD* FOR SBP LESS THAN 100 OR DBP LESS THAN 60 Nitrofurantoin Monohyd/M-Cryst 100 Mg Capsule, 1 CAP PO BID, (Reported) START DATE 03/13/2020 END DATE 03/18/2020 Nitroglycerin 0.4 Mg Tab.subl, 0.4 MG SL UD PRN for CHEST PAIN (ANGINA), (Reported) Potassium Chloride 20 Meq Tab.er.prt, 20 MEQ PO DAILY, (Reported) Simvastatin 40 Mg Tablet, 40 MG PO HS, (Reported) Sodium Chloride 1 Gm Tab, 1 GM PO DAILY, (Reported) Spironolactone 25 Mg Tablet, 25 MG PO DAILY, (Reported) Tamsulosin HCl 0.4 Mg Cap, 0.4 MG PO DAILY, (Reported) Tramadol HCl 50 Mg Tablet, 50 MG PO BID, (Reported) Trazodone HCl 50 Mg Tablet, 50 MG PO BID, (Reported) Patient Home Medication List Home Medication List Reviewed: Yes Review of Systems Review of Systems Constitutional: see HPI, fever; No weakness EENTM: no symptoms reported Respiratory: no symptoms reported Cardiovascular: no symptoms reported Gastrointestinal: see HPI Genitourinary: see HPI; denies flank pain; hematuria Musculoskeletal: No back pain, No muscle pain Skin: no symptoms reported All Other Systemes Reviewed Negative Unless Noted: Yes Past Luwtgsw-Qwyulj-Xttplz Hx Past Med/Social Hx: Reviewed Nursing Past Med/Soc Hx Patient Social History Alcohol Use: Denies Use Number of Drinks Today: AA Alcohol Beverage of Choice: Beer Recreational Drug Use: No Smoking Status: Former Smoker Type Used: Cigarettes Former Smoker, Quit: Aug 29, 2000 2nd Hand Smoke Exposure: No Recent Foreign Travel: No Contact w/Someone Who Travel: No Recent Infectious Disease Expo: No Recent Hopitalizations: No Immunizations Up To Date Tetanus Booster (TDap): Unknown Seasonal Allergies Seasonal Allergies: No Past Medical History Surgeries: Yes (BYPASS X5, CAROTID ARTERY.) Cardiac, CABG, Coronary Stent, Vascular Surgery Respiratory: Yes (Chronic shortness of air) Cardiac: Yes Atrial Fibrillation, Cardiomyopathy, Coronary Artery Disease Neurological: No Dementia Reproductive Disorders: No Sexually Transmitted Disease: No HIV/AIDS: No Genitourinary: No Gastrointestinal: No Musculoskeletal: No Endocrine: No HEENT: No Cancer: No Psychosocial: No Integumentary: No Blood Disorders: No Adverse Reaction/Blood Tranf: No Family Medical History Reviewed Nursing Family Hx No Pertinent Family Hx Physical Exam Vital Signs Vital Signs - First Documented 03/25/20 13:15 Temp 38.1 Pulse 101 Resp 18 B/P (MAP) 135/82 (99) Pulse Ox 97 O2 Delivery Room Air Capillary Refill : Less Than 3 Seconds Height, Weight, BMI Height: 5'4.00" Weight: 165lbs. 0oz. 74.751412sg; 23.00 BMI Method:Stated General Appearance: WD/WN, no apparent distress HEENT: PERRL/EOMI, pharynx normal Neck: full range of motion, supple Cardiovascular: regular rate, rhythm, no murmur Gastrointestinal: non tender, soft Genital/Rectal: other (Canas catheter in place with bloody drainage noted in tubing) Back: normal inspection, no CVA tenderness, no vertebral tenderness Extremities: non-tender, normal inspection Neurologic/Psychiatric: alert, oriented x 3 Skin: normal color, warm/dry Focused Exam Lactate Level 03/25/20 14:53: Lactic Acid Level 1.19 Lactic Acid Level Laboratory Tests Test 03/25/20 14:53 Lactic Acid Level 1.19 MMOL/L (0.50-2.00) Progress/Results/Core Measures Suspected Sepsis Recent Fever Within 48 Hours: Yes Infection Criteria Present: Suspected New Infection New/Unexplained Altered Menta: No Sepsis Screen: Possible Severe Sepsis Risk SIRS Temperature: Pulse: 101 Respiratory Rate: 18 Laboratory Tests 03/25/20 14:53: White Blood Count 8.4 Blood Pressure 135 /82 Mean: 99 03/25/20 14:53: Lactic Acid Level 1.19 Laboratory Tests 03/25/20 14:53: Platelet Count 386 Results/Orders Lab Results Laboratory Tests Test 03/25/20 14:00 03/25/20 14:53 Range/Units Urine Color RED H Urine Clarity OTHER Urine pH 6.5 5-9 Urine Specific [place] 1.015 L 1.016-1.022 Urine Protein 3+ H NEGATIVE Urine Glucose (UA) TRACE H NEGATIVE Urine Ketones 1+ H NEGATIVE Urine Nitrite POSITIVE H NEGATIVE Urine Bilirubin NEGATIVE NEGATIVE Urine Urobilinogen 4.0 < = 1.0 MG/DL Urine Leukocyte Esterase 3+ H NEGATIVE Urine RBC (Auto) 3+ H NEGATIVE Urine RBC TNTC H /HPF Urine WBC 25-50 H /HPF Urine Squamous Epithelial Cells NONE /HPF Urine Crystals PRESENT H /LPF Urine Amorphous Sediment MOD KATYA URATES H /LPF Urine Bacteria MODERATE H /HPF Urine Casts NONE /LPF Urine Mucus NEGATIVE /LPF Urine Culture Indicated YES White Blood Count 8.4 4.3-11.0 10^3/uL Red Blood Count 3.13 L 4.35-5.85 10^6/uL Hemoglobin 9.6 L 13.3-17.7 G/DL Hematocrit 30 L 40-54 % Mean Corpuscular Volume 96 80-99 FL Mean Corpuscular Hemoglobin 31 25-34 PG Mean Corpuscular Hemoglobin Concent 32 32-36 G/DL Red Cell Distribution Width 14.0 10.0-14.5 % Platelet Count 386 130-400 10^3/uL Mean Platelet Volume 9.2 7.4-10.4 FL Neutrophils (%) (Auto) 82 H 42-75 % Lymphocytes (%) (Auto) 8 L 12-44 % Monocytes (%) (Auto) 10 0-12 % Eosinophils (%) (Auto) 0 0-10 % Basophils (%) (Auto) 0 0-10 % Neutrophils # (Auto) 6.9 1.8-7.8 X 10^3 Lymphocytes # (Auto) 0.7 L 1.0-4.0 X 10^3 Monocytes # (Auto) 0.9 0.0-1.0 X 10^3 Eosinophils # (Auto) 0.0 0.0-0.3 10^3/uL Basophils # (Auto) 0.0 0.0-0.1 10^3/uL Lactic Acid Level 1.19 0.50-2.00 MMOL/L My Orders Orders - PA ROJAS MD Catheter(Urinary) Insert & Ass 03,15 (03/25/20 13:41) Cbc With Automated Diff (03/25/20 13:41) Comprehensive Metabolic Panel (03/25/20 13:41) Ua Culture If Indicated (03/25/20 13:41) Ed Iv/Invasive Line Start (03/25/20 13:41) Hs C Reactive Protein (03/25/20 14:28) Erythrocyte Sedimentation Rate (03/25/20 14:28) Lactic Acid Analyzer (03/25/20 14:28) Blood Culture (03/25/20 14:28) Ns Iv 500 Ml (Sodium Chloride 0.9%) (03/25/20 14:28) Urine Culture (03/25/20 14:00) Ceftriaxone For Iv Use (Rocephin For I (03/25/20 15:10) Medications Given in ED Current Medications Medications Dose Ordered Sig/Mary Route Start Time Stop Time Status Last Admin Dose Admin Sodium Chloride 500 ml @ 0 mls/hr Q0M ONCE IV 03/25/20 14:28 03/25/20 14:31 DC 03/25/20 15:13 500 MLS/HR Vital Signs/I&O 03/25/20 13:15 Temp 38.1 Pulse 101 Resp 18 B/P (MAP) 135/82 (99) Pulse Ox 97 O2 Delivery Room Air Capillary Refill : Less Than 3 Seconds Blood Pressure Mean: 99 Progress Note : Progress Note Seen and evaluated. Canas catheter removed and replaced with three-way catheter for irrigation. Continuous bladder irrigation ordered and initiated with normal saline until clear. Fever noted. IV, labs, blood cultures and lactic acid ordered. UA ordered. Monitor patient. 1505: UA is positive for urinary tract infection. Rocephin 1 g IV ordered. I did discuss the case with Dr. Carrillo he agrees with continuous bladder irrigation and will see patient in consult. 1511: I did discuss the case with Dr. Root and she accepts patient for admission, inpatient status. Departure Impression Primary Impression: Urinary tract infection Qualified Codes: N30.01 - Acute cystitis with hematuria Additional Impression: Hematuria Qualified Codes: R31.0 - Gross hematuria Disposition: ADMITTED INPATIENT Condition: Stable Admissions Decision to Admit Reason: Admit from ER (General) Decision to Admit/Date: Mar 25, 2020 Time/Decision to Admit Time: 15:05 Departure-Patient Inst. Referrals: PRO ALLAN DO (PCP/Family) Primary Care Physician PA ROJAS MD Mar 25, 2020 15:19
[2020-03-25 15:32] LABS: ALANINE AMINOTRANSFERASE < 6 U/L (0-55); ALBUMIN 3.4 GM/DL (3.2-4.5); ALKALINE PHOSPHATASE 84 U/L (40-136); BILIRUBIN,TOTAL 0.7 MG/DL (0.1-1.0); BUN/CREATININE RATIO 13; CALCIUM 8.6 MG/DL (8.5-10.1); CARBON DIOXIDE 25 MMOL/L (21-32); CHLORIDE 101 MMOL/L (98-107); GFR ESTIMATED > 60; GLUCOSE 114 MG/DL (70-105); POTASSIUM 4.1 MMOL/L (3.6-5.0); SODIUM 137 MMOL/L (135-145); TOTAL PROTEIN 7.2 GM/DL (6.4-8.2)
[2020-03-25 15:45] LABS: ERYTHROCYTE SEDIMENTATION RATE 72 MM/HR (0-30)
[2020-03-25 16:30] VITALS: BP 120/70
--- NOTE | 2020-03-25 16:30 | NUR ---
CARLOS ADDISON SR admitted to room 421-1, with an admitting diagnosis of UTI AND HEMATURIA, on 03/25/20 from ED via CART, accompanied by STAFF.CARLOS ADDISON SR introduced to surroundings, call light, bed controls, phone, TV, temperature control, lights, meal times, smoking policy, visitor policy, side rail policy, bathrooms and showers. Patient Rights given to patient in the handbook. CARLOS ADDISON SR verbalizes understanding that [facility] is not responsible for the loss or damage to any personal effects or valuables that are kept in the patients posession during their hospitalization. The following Patient Care Plans were discussed with the PT: Discharge Planning AND UTI. CARLOS ADDISON SR verbalizes understanding of Interdisciplinary Patient Education. Patient and/or family were informed about the Rapid Response Team and its purpose. CBI INFUSING. URINE LIGHT RED. PATIENT DENIES PAIN. IS VERY CONFUSED AND IMPULSIVE AND SITTER AT BEDSIDE.
--- NOTE | 2020-03-25 16:30 | NUR ---
CALLED [facility] AND INFORMED MARY OF ADMITTING PT, THEN CALLED HIS SON TRUNG AT [phone], TALKED TO HIS OLIMPIA.
[2020-03-25 16:41] VITALS: BP 120/70
[2020-03-25] MEDS ORDERED: CATHETER FLUSH 10 ML SYR IV PRN (17:00)
--- NOTE | 2020-03-25 17:06 | History & Physical-Hospitalist ---
MINAL BRANDT MED STUDENT 03/25/20 1706: History of Present Illness HPI/Chief Complaint CC: UTI, Hematuria HPI: Martin is a 74yo male from [facility] being admitted for UTI/Hematuria. He pulled out his covarrubias catheter twice this week, most recently 2 days ago with resulting hemorrhage. On arrival to the ER, he had a fever(100.6) and tachycardic(101). He received bladder irrigation and Ceftriaxone, with his covarrubias draining bloody urine. Denies pain/N/V/D. He is a poor historian with a history of dementia, uncooperative, and has episodes of agitation. Source: patient, RN/MD, RN notes reviewed, old records Exam Limitations: clinical condition (dementia, confrontational and refusal of PE, cognitive decliine) Date Seen 03/25/20 Time Seen by a Provider: 16:45 Attending Physician Jazzmine Wilhelm DO PCP Fredo Dorantes MD Referring Physician Date of Admission Mar 25, 2020 at 15:05 Home Medications & Allergies Home Medications Reviewed patient Home Medication Reconciliation performed by pharmacy medication reconciliations radiocommunications technician and/or nursing. Patients Allergies have been reviewed. Allergies Allergies Coded Allergies No Known Drug Allergies (Unverified12/23/14) Past Rehygmd-Wwjmql-Nznvgs Hx Past Med/Social Hx: Reviewed Nursing Past Med/Soc Hx Patient Social History Alcohol Use: Denies Use Alcohol Beverage of Choice: Beer Recreational Drug Use: No Smoking Status: Former Smoker Former Smoker, Quit: Aug 29, 2000 Type Used: Cigarettes 2nd Hand Smoke Exposure: No Recent Foreign Travel: No Contact w/other who traveled: No Recent Hopitalizations: No Recent Infectious Disease Expo: No Immunizations Up To Date Tetanus Booster (TDap): Unknown Seasonal Allergies Seasonal Allergies: No Past Medical History Surgeries: Cardiac, CABG, Coronary Stent, Vascular Surgery Cardiac: Atrial Fibrillation, Cardiomyopathy, Coronary Artery Disease Neurological: Dementia Reproductive: No Sexually Transmitted Disease: No HIV/AIDS: No History of Blood Disorders: No Adverse Reaction to Blood Barrera: No Family History Reviewed Nursing Family Hx No Pertinent Family Hx Review of Systems Constitutional: see HPI EENTM: no symptoms reported Respiratory: no symptoms reported Cardiovascular: no symptoms reported Gastrointestinal: no symptoms reported Genitourinary: see HPI Musculoskeletal: no symptoms reported Skin: no symptoms reported Psychiatric/Neurological: See HPI All Other Systems Reviewed Negative Unless Noted: Yes Physical Exam Physical Exam Vital Signs Vital Signs - First Documented 03/25/20 13:15 Temp 38.1 Pulse 101 Resp 18 B/P (MAP) 135/82 (99) Pulse Ox 97 O2 Delivery Room Air Capillary Refill : Less Than 3 Seconds Height, Weight, BMI Height: 5'4.00" Weight: 165lbs. 0oz. 74.318496ko; 23.00 BMI Method:Stated General Appearance: No Apparent Distress, Chronically ill Eyes: Bilateral Eye Normal Inspection, Bilateral Eye PERRL HEENT: Other (normal inspection) Neck: Normal Inspection, Non Tender Respiratory: Chest Non Tender, Lungs Clear, Normal Breath Sounds, No Accessory Muscle Use, No Respiratory Distress Cardiovascular: Regular Rate, Rhythm, No Edema, No JVD, No Murmur, Normal Peripheral Pulses, Tachycardia Gastrointestinal: Non Tender, Other (normal inspection) Back: Normal Inspection Extremity: Normal Capillary Refill, Normal Inspection, Non Tender Neurologic/Psychiatric: Alert, Disoriented, Other (pt is disoriented and has episodes of agititation/wanting to leave hospital.) Skin: Normal Color, Warm/Dry Lymphatic: No Adenopathy Results Results/Procedures Labs Laboratory Tests 03/25/20 14:53 Patient resulted labs reviewed. Assessment/Plan Admission Diagnosis UTI, Hematuria Admission Status: Inpatient Order (span 2 midnights) Assessment and Plan A: UTI Hematuria Dementia Agitation Cognitive decline P: Admit for monitoring Monitor labs/pain Continue bladder irrigation Haldol/Ziprasidone/Ativan as needed for agitation Consult Urology Ambulate TID Diagnosis/Problems Diagnosis/Problems (1) Dementia Status: Chronic (2) Urinary tract infection Status: Acute Qualifiers: Urinary tract infection type: acute cystitis Hematuria presence: with hematuria Qualified Codes: N30.01 - Acute cystitis with hematuria (3) Hematuria Status: Acute Qualifiers: Hematuria type: gross Qualified Codes: R31.0 - Gross hematuria (4) CAD (coronary artery disease) JAZZMINE WILHELM DO 03/25/202042: Past Kcalygw-Vzqrac-Hdrbfb Hx Past Med/Social Hx: Reviewed Nursing Past Med/Soc Hx, Reviewed and Corrections made Patient Social History Marrital Status: single Employed/Student: retired Alcohol Use: Past History Smoking Status: Former Smoker Past Medical History Cardiac: High Cholesterol, Hypertension Neurological: Dementia Genitourinary: Bladder Infection Review of Systems Constitutional: see HPI Physical Exam Physical Exam General Appearance: Anxious, Chronically ill, Thin Respiratory: Lungs Clear, Normal Breath Sounds Cardiovascular: Regular Rate, Rhythm Neurologic/Psychiatric: Alert, Disoriented Assessment/Plan Admission Diagnosis Assessment: UTI Hematuria Dementia Plan: CBCr Carrillo IV abx Delirium treatment Admission Status: Inpatient Order (span 2 midnights) Reason for Inpatient Admission: IV abx Supervisory-Addendum Brief Verification & Attestation Participated in pt care: history, MDM, physical Personally performed: exam, history, MDM, supervision of care Care discussed with: Medical Student Procedures: n/a Results interpretation: Verified all documentation Verification and Attestation of Medical Student E/M Service A medical student performed and documented this service in my presence. I reviewed and verified all information documented by the medical student and made modifications to such information, when appropriate. I personally performed the physical exam and medical decision making. Jazzmine Wilhelm, Mar 25, 2020,20:43 MINAL BRANDT MED STUDENT Mar 25, 2020 17:06 JAZZMINE WILHELM DO Mar 25, 2020 20:43
[2020-03-25] MEDS ORDERED: ZIPRASIDONE INJECTION 20 MG in WATER (STERILE) FOR INJECTION 1.2 ML IM PRN (18:00)
[2020-03-25] MEDS ORDERED: HALOPERIDOL 5 MG/ML (HALDOL) VIAL IM PRN (18:00)
--- NOTE | 2020-03-25 18:00 | NUR ---
[facility] DENIES KNOWLEDGE OF LAST FLU AND PNEUMONIA DATES. HAVE ATTEMPTED TO CALL SON TRUNG AND DAVID TO ASK ADMISSION QUESTIONS, BUT NO ANSWER FROM THEM.
[2020-03-25] MEDS: traZODone 50 MG (DESYREL) TAB PO SCH (18:50)
--- NOTE | 2020-03-25 19:00 | NUR ---
HAS BEEN AGITATED, CLIMBING OUT OF BED, AND PULLING AT IV. MEDICATED WITH TRAZODONE. DR. WILHELM NOTIFIED AND PRN MEDS ORDERED FOR ANXIETY AND AGITATION.
[2020-03-25 19:37] VITALS: BP 128/70
[2020-03-25] MEDS: CATHETER FLUSH 10 ML SYR IV SCH (20:33)
[2020-03-25] MEDS: LORazepam INJ 2 MG/ML (ATIVAN) VIAL IVP PRN (20:33)
[2020-03-26] VITALS: BP 118/68
[2020-03-26 03:53] VITALS: BP 134/65
[2020-03-26 05:35] LABS: BASOPHILS % (AUTO) 0 % (0-10); EOSINOPHILS # (AUTO) 0.1 10^3/uL (0.0-0.3); EOSINOPHILS % (AUTO) 1 % (0-10); HEMATOCRIT 28 % (40-54); HEMOGLOBIN 8.8 G/DL (13.3-17.7); LYMPHOCYTES % (AUTO) 20 % (12-44); MEAN CORPUSCULAR HEMOGLOBIN 30 PG (25-34); MEAN CORPUSCULAR HGB CONC 32 G/DL (32-36); MEAN CORPUSCULAR VOLUME 96 FL (80-99); MEAN PLATELET VOLUME 9.1 FL (7.4-10.4); MONOCYTES # (AUTO) 0.7 X 10^3 (0.0-1.0); MONOCYTES % (AUTO) 14 % (0-12); NEUTROPHILS # (AUTO) 3.2 X 10^3 (1.8-7.8); NEUTROPHILS % (AUTO) 65 % (42-75); PLATELET COUNT 354 10^3/uL (130-400); WHITE BLOOD COUNT 4.9 10^3/uL (4.3-11.0)
[2020-03-26 06:07] LABS: ALANINE AMINOTRANSFERASE < 6 U/L (0-55); ALBUMIN 2.9 GM/DL (3.2-4.5); ALKALINE PHOSPHATASE 69 U/L (40-136); BILIRUBIN,TOTAL 0.4 MG/DL (0.1-1.0); BUN/CREATININE RATIO 14; CALCIUM 8.2 MG/DL (8.5-10.1); CARBON DIOXIDE 28 MMOL/L (21-32); CHLORIDE 104 MMOL/L (98-107); CREATININE SERUM 0.94 MG/DL (0.60-1.30); GFR ESTIMATED > 60; GLUCOSE 86 MG/DL (70-105); POTASSIUM 3.8 MMOL/L (3.6-5.0); SODIUM 138 MMOL/L (135-145); TOTAL PROTEIN 6.4 GM/DL (6.4-8.2)
[2020-03-26] MEDS: CATHETER FLUSH 10 ML SYR IV SCH ×3 (06:55→19:41)
[2020-03-26 08:00] VITALS: BP 136/84
[2020-03-26] MEDS: LORazepam INJ 2 MG/ML (ATIVAN) VIAL IVP PRN ×4 (08:11→21:29)
--- NOTE | 2020-03-26 08:13 | NUR ---
PRN ATIVAN GIVEN AT THIS TIME FOR AGITATION AND AGGRESSION TOWARDS STAFF.
--- NOTE | 2020-03-26 11:40 | CONSULTATION REPORT ---
DATE OF SERVICE: 03/26/2020 ATTENDING PHYSICIAN: Jazzmine Root DO SUMMARY: This is a readmission of this 74-year-old white man who again pulled his catheter at the skilled nursing, developed gross hematuria, not responding to Arce catheter, was admitted through the emergency room, started on a 3-way Arce catheter and CBI. His urine today is clear, no clots. He is feeling well. IMPRESSION: Gross hematuria, resolving. PLAN: Hold the CBI. Resume p.r.n. Hand irrigate p.r.n. If he continued to stay clear tomorrow, we will recommend to take the catheter out and put in a 16 or 18-Arce catheter and secured it well with the catheter morse as well as Ricardo wrap around it. I explained to the nurse how to do that and maybe that hopefully will prevent him from putting the catheter again with or accidentally and maybe also use leg bag at the skilled nursing to avoid any problem with a large bag and used a large bag at night to put too much urine at night. Job ID: [id number] DocumentID: [id number] Dictated Date: 03/26/2020 11:06:06 Mid Level Business Analyst Date: 03/26/2020 11:39:46 Dictated By: GUERITA MARINELLI MD
--- NOTE | 2020-03-26 11:44 | Progress Note - Hospitalist ---
MINAL BRANDT MED STUDENT 03/26/20 1144: Subjective HPI/CC On Admission Date Seen by Provider: Mar 26, 2020 Time Seen by Provider: 08:00 UTI, Hematuria Subjective/Events-last exam Pt is asleep w/ 1:1 sitter at bedside, NAD Arce draining clear yellow 2x episodes of agitation overnight controlled with Ativan Hgb 8.8 and Ca 8.2; continue monitoring Review of Systems General: No Chills, No Night Sweats, No Fatigue, No Malaise, No Appetite HEENT: No Head Aches, No Visual Changes, No Eye Pain, No Ear Pain, No Dysphasia, No Sinus Congestion, No Post Nasal Drip, No Sore Throat, No Other Pulmonary: No Dyspnea, No Cough, No Pleuritic Chest Pain, No Other Cardiovascular: No: Chest Pain, Palpitations, Orthopnea, Paroxysmal Noc. Dyspnea, Edema, Lt Headedness Gastrointestinal: No: Nausea, Vomiting, Abdominal Pain, Diarrhea, Constipation, Melena, Hematochezia Genitourinary: No Dysuria, No Frequency, No Incontinence, No Hematuria, No Retention, No Other Musculoskeletal: No: neck pain, shoulder pain, arm pain, back pain, hand pain, leg pain, foot pain Neurological: No: Weakness, Numbness, Incoordination, Change in speech, Confusion, Seizures, Other Focused Exam Lactate Level 03/25/20 14:53: Lactic Acid Level 1.19 Time of Focused Exam: 08:00 Respiratory: Chest Non Tender, Lungs Clear, Normal Breath Sounds, No Accessory Muscle Use, No Respiratory Distress Cardiovascular: Regular Rate, Rhythm, No Gallop, No JVD, No Murmur, Normal Peripheral Pulses Capillary Refill: Less Than 3 Seconds Peripheral Pulses: 2+ Radial Pulses (R), 2+ Radial Pulses (L) Skin: normal color, warm/dry Objective Exam Vital Signs Vital Signs Date Time Temp Pulse Resp B/P (MAP) Pulse Ox O2 Delivery O2 Flow Rate FiO2 03/26/20 08:00 36.2 82 24 136/84 (101) 96 Room Air Capillary Refill : Less Than 3 Seconds General Appearance: No Apparent Distress, Chronically ill HEENT: Normal ENT Inspection Neck: Normal Inspection Respiratory: Chest Non Tender, Lungs Clear, Normal Breath Sounds, No Accessory Muscle Use, No Respiratory Distress Cardiovascular: Regular Rate, Rhythm, No Gallop, No JVD, No Murmur, Normal Peripheral Pulses Gastrointestinal: Normal Bowel Sounds, Non Tender Back: Normal Inspection Extremity: Normal Capillary Refill, Normal Inspection Neurologic/Psychiatric: Alert, Disoriented Skin: Normal Color, Warm/Dry Results/Procedures Lab Laboratory Tests 03/25/20 14:53 03/26/20 05:10 Patient resulted labs reviewed. Assessment/Plan Assessment and Plan Assess & Plan/Chief Complaint A: UTI Hematuria Anemia Hypocalcemia Dementia Agitation Cognitive decline P: Continue monitoring labs/pain Haldol/Ziprasidone/Ativan as needed for agitation Consult Urology; discontinue CBI, irrigate prn Ambulate TID Diagnosis/Problems Diagnosis/Problems (1) Dementia Status: Chronic (2) Urinary tract infection Status: Acute Qualifiers: Qualified Codes: N30.01 - Acute cystitis with hematuria (3) Hematuria Status: Acute Qualifiers: Qualified Codes: R31.0 - Gross hematuria (4) CAD (coronary artery disease) Clinical Quality Measures DVT/VTE Risk/Contraindication: Risk Factor Score Per Nursin RFS Level Per Nursing on Admit: 4+=Very High Other: DUE TO URINARY BLEEDING JAZZMINE WILHELM DO 03/27/20 0521: Objective Exam General Appearance: No Apparent Distress, WD/WN, Chronically ill Respiratory: Lungs Clear Cardiovascular: Regular Rate, Rhythm Assessment/Plan Assessment and Plan Assess & Plan/Chief Complaint Pt requiring a lot of antipsychotics Very difficult to redirect the patient Dementia is severe 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 Carrillo consultation Diagnosis/Problems Diagnosis/Problems (1) Hematuria Status: Acute Qualifiers: Qualified Codes: R31.0 - Gross hematuria (2) Urinary tract infection Status: Acute Qualifiers: Qualified Codes: N30.01 - Acute cystitis with hematuria (3) Dementia Status: Chronic (4) CAD (coronary artery disease) Supervisory-Addendum Brief Verification & Attestation Participated in pt care: history, MDM, physical Personally performed: exam, history, MDM, supervision of care Care discussed with: Medical Student Procedures: n/a Results interpretation: Verified all documentation Verification and Attestation of Medical Student E/M Service A medical student performed and documented this service in my presence. I reviewed and verified all information documented by the medical student and made modifications to such information, when appropriate. I personally performed the physical exam and medical decision making. Jazzmine Wilhelm, Mar 27, 2020,05:20 MINAL BRANDT MED STUDENT Mar 26, 2020 11:44 JAZZMINE WILHELM DO Mar 27, 2020 05:21
[2020-03-26 12:00] VITALS: BP 117/81
[2020-03-26] MEDS ORDERED: ASPI-999 PO ×2 (13:54)
[2020-03-26] MEDS ORDERED: ATOR40TA70 PO ×2 (13:54)
[2020-03-26] MEDS ORDERED: TRZ50T PO ×4 (14:11)
--- NOTE | 2020-03-26 14:12 | NUR ---
MED REC WAS ENTERED USING THE MAR/PHYSICIANS ORDERS FROM [facility] PT WAS PREVIOUSLY ON TRAZODONE 50MG BID HOWEVER ON THE MAR IT HAS BEEN DOCUMENTED THAT THIS DOSE HAS BEEN DISCONTINUED. THERE IS AN ENTRY ON THE MAR FOR 25MG DAILY AND 75MG HS AND WHEN I SPOKE WITH THE NURSE AT [facility] SHE INDICATES THE PT STILL IS GETTING THE 50MG FROM [facility] BUT THEY ARE SPLITTING ONE TAB IN AND GIVES (25MG)TAB DAILY AND USES THE (25MG) TAB +50MG TO EQUAL 75MG HS
[2020-03-26 15:10] VITALS: BP 146/87
--- NOTE | 2020-03-26 15:49 | NUR ---
PRN ATIVAN GIVEN FOR AGGIATION
--- NOTE | 2020-03-26 18:18 | NUR ---
Patient becoming increasingly aggressive with sitter. Pulling at catheter and IV. PRN ativan given.
[2020-03-26] MEDS: traZODone 50 MG (DESYREL) TAB PO SCH (19:41)
[2020-03-26 19:43] VITALS: BP_SYST 127; BP_SYST 157; BP_DIAS 83; BP_DIAS 98
[2020-03-27 04:59] VITALS: BP 138/91
[2020-03-27] MEDS: LORazepam INJ 2 MG/ML (ATIVAN) VIAL IVP PRN (06:34)
[2020-03-27] MEDS: CATHETER FLUSH 10 ML SYR IV SCH ×2 (06:34→11:28)
--- NOTE | 2020-03-27 06:54 | NUR ---
629 Patient anxious, shouting, attempting to get out of bed, pulling at catheter. This RN attempted to redirect patient with no success. 0635 prn ativan given, see SEP 655 Patient resting with eyes closed, respirations even and non labored, no distress noted
[2020-03-27 08:00] VITALS: BP 129/63
[2020-03-27] MEDS ORDERED: TRAM50TA3 PO ×2 (10:45)
[2020-03-27] MEDS ORDERED: CEFD300C3 PO ×2 (10:45)
[2020-03-27] MEDS ORDERED: LORA-405 PO ×2 (10:45)
--- NOTE | 2020-03-27 10:46 | Discharge Inst-Skilled Nursing ---
Discharge Inst-Skilled NF Reconcile Patient Problems Problems Reviewed?: Yes Chief Complaint UTI, Hematuria Patient Instructions Patient Problems: UTI Dementia Agitation Consult/Follow Up/Orders Follow Up Appt.: [facility] rounds Skilled NF Admit to: Certification (SNF) I certify that SNF services are required to be given on an inpatient basis becau se of the above named patient's need for halfway care on a continuing basis for the conditions(s) for which he/she was receiving inpatient hospital services prior to his/her transfer to the SNF. Long-Term Facility Order: Nursing Services, Hydro Plant Technician-Evaluate & Treat, Physical Therapy-Evaluate & Treat, Speech Language-Evaluate & Treat Oxygen Delivery Method: Room Air Resuscitation Status: Full Code New & Resume Previous Orders New Medications: Cefdinir (Cefdinir) 300 Mg Capsule 300 MG PO BID, #10 CAP Continued Medications: Acetaminophen (Acetaminophen) 325 Mg Tablet 650 MG PO Q6H PRN for PAIN-MILD (1-4), TAB Aspirin (Aspirin) 81 Mg Tab.chew 81 MG PO DAILY, TAB Atorvastatin Calcium (Atorvastatin Calcium) 40 Mg Tablet 40 MG PO HS, TAB Carvedilol (Coreg) 6.25 Mg Tablet 6.25 MG PO BID WITH MEALS, TAB HOLD MED *NOTIFY MD* FOR SBP LESS THAN 100 OF DBP OR PULSE LESS THAN 60 Clopidogrel Bisulfate (Clopidogrel) 75 Mg Tablet 75 MG PO DAILY, TAB Fluphenazine HCl (Fluphenazine HCl) 5 Mg Tablet 5 MG PO DAILY, TAB Furosemide (Furosemide) 40 Mg Tablet 40 MG PO DAILY, TAB Lactulose (Lactulose) 20 Gm/30 Ml Solution 30 ML PO BID, EA Loratadine (Loratadine) 10 Mg Tablet 10 MG PO DAILY PRN for ALLERGY SYMPTOMS, TAB Lorazepam (Ativan) 1 Mg Tablet 1 MG PO Q6H PRN for ANXIETY/AGITATION, #10 TAB (This prescription has been renewed) Losartan Potassium (Losartan Potassium) 25 Mg Tablet 12.5 MG PO DAILY, TAB TAKES 1/2 (25MG) TAB HOLD MED *NOTIFY MD* FOR SBP LESS THAN 100 OR DBP LESS THAN 60 Nitroglycerin (Nitroglycerin) 0.4 Mg Tab.subl 0.4 MG SL UD PRN for CHEST PAIN (ANGINA), TAB Potassium Chloride (Potassium Chloride) 20 Meq Tab.er.prt 20 MEQ PO DAILY, TAB Sodium Chloride (Sodium Chloride) 1 Gm Tab 1 GM PO DAILY, TAB Spironolactone (Spironolactone) 25 Mg Tablet 25 MG PO DAILY, TAB Tamsulosin HCl (Flomax) 0.4 Mg Cap 0.4 MG PO DAILY, CAP Tramadol HCl (Tramadol HCl) 50 Mg Tablet 50 MG PO BID, #20 TAB (This prescription has been renewed) Trazodone HCl (Trazodone HCl) 50 Mg Tablet 75 MG PO HS, TAB TAKES 1 & (50MG) TABS Trazodone HCl (Trazodone HCl) 50 Mg Tablet 25 MG PO DAILY, TAB Jazzmine Root Mar 27, 2020 10:45 JAZZMINE ROOT DO Mar 27, 2020 10:46
--- NOTE | 2020-03-27 10:46 | Discharge Summary ---
Discharge Summary Hospital Course Was the Problem List Reviewed?: Yes Problems/Dx: (1) Hematuria Status: Acute Qualifiers: Qualified Codes: R31.0 - Gross hematuria (2) Urinary tract infection Status: Acute Qualifiers: Qualified Codes: N30.01 - Acute cystitis with hematuria (3) Dementia Status: Chronic (4) CAD (coronary artery disease) Hospital Course Date of Admission: Mar 25, 2020 at 15:05 Admission Diagnosis : Family Physician/Provider: Ilir Doran DO Date of Discharge: 03/27/20 Discharge Diagnosis: UTI, gross hematuria, dementia Hospital Course: Hospital course: Pt had a brief hospital course after he pulled out his catheter and he had gross hematuria. Urology was as consulted. Antibiotics initiated for UTI. Severe dementia with delirium managed with anti-psychotics. Overall Pt improved enough to [facility] to [facility] and urology planned for follow-up. Labs and Pending Lab Test: Microbiology 03/25/20 Blood Culture - Preliminary, Resulted No growth 03/25/20 Urine Culture - Final, Complete Escherichia coli Home Meds Active Cefdinir 300 Mg Capsule 300 Mg PO BID Tramadol HCl 50 Mg Tablet 50 Mg PO BID Ativan (Lorazepam) 1 Mg Tablet 1 Mg PO Q6H PRN Reported Trazodone HCl 50 Mg Tablet 25 Mg PO DAILY Trazodone HCl 50 Mg Tablet 75 Mg PO HS TAKES 1 & (50MG) TABS Atorvastatin Calcium 40 Mg Tablet 40 Mg PO HS Aspirin 81 Mg Tab.chew 81 Mg PO DAILY Acetaminophen 325 Mg Tablet 650 Mg PO Q6H PRN Loratadine 10 Mg Tablet 10 Mg PO DAILY PRN Nitroglycerin 0.4 Mg Tab.subl 0.4 Mg SL UD PRN Lactulose 20 Gm/30 Ml Solution 30 Ml PO BID Fluphenazine HCl 5 Mg Tablet 5 Mg PO DAILY Sodium Chloride 1 Gm Tab 1 Gm PO DAILY Spironolactone 25 Mg Tablet 25 Mg PO DAILY Clopidogrel (Clopidogrel Bisulfate) 75 Mg Tablet 75 Mg PO DAILY Losartan Potassium 25 Mg Tablet 12.5 Mg PO DAILY TAKES 1/2 (25MG) TAB HOLD MED *NOTIFY MD* FOR SBP LESS THAN 100 OR DBP LESS THAN 60 Coreg (Carvedilol) 6.25 Mg Tablet 6.25 Mg PO BID WITH MEALS HOLD MED *NOTIFY MD* FOR SBP LESS THAN 100 OF DBP OR PULSE LESS THAN 60 Flomax (Tamsulosin HCl) 0.4 Mg Cap 0.4 Mg PO DAILY Potassium Chloride 20 Meq Tab.er.prt 20 Meq PO DAILY Furosemide 40 Mg Tablet 40 Mg PO DAILY Assessment/Pt Instructions [facility] rounds Discharge Planning: <30 minutes discharge planning Discharge Instructions Discharge Diet: No Restrictions Discharge Physical Examination Vital Signs Vital Signs Date Time Temp Pulse Resp B/P (MAP) Pulse Ox O2 Delivery O2 Flow Rate FiO2 03/27/20 08:00 36.4 93 16 129/63 (85) 96 Room Air General Appearance: No Apparent Distress, WD/WN, Chronically ill Allergies: Coded Allergies: No Known Drug Allergies (Unverified , 12/23/14) Discharge Summary Date of Admission Mar 25, 2020 at 15:05 Date of Discharge Discharge Date: Mar 27, 2020 Admission Diagnosis Assessment: UTI Hematuria Dementia Plan: CBI Dr Carrillo IV abx Delirium treatment Discharge Diagnosis Pt requiring a lot of antipsychotics Very difficult to redirect the patient Dementia is severe Very poor prognosis [facility] Continuous bladder irrigation maintained Appreciate Dr. Carrillo consultation (1) Hematuria Status: Acute Qualifiers: Qualified Codes: R31.0 - Gross hematuria (2) Urinary tract infection Status: Acute Qualifiers: Qualified Codes: N30.01 - Acute cystitis with hematuria (3) Dementia Status: Chronic (4) CAD (coronary artery disease) Clinical Quality Measures DVT/VTE Risk/Contraindication: Risk Factor Score Per Nursin RFS Level Per Nursing on Admit: 4+=Very High Other: DUE TO URINARY BLEEDING TASHA WILHELM DO Mar 27, 2020 10:46
[2020-03-27 11:04] LABS: BASOPHILS % (AUTO) 0 % (0-10); EOSINOPHILS # (AUTO) 0.1 10^3/uL (0.0-0.3); EOSINOPHILS % (AUTO) 1 % (0-10); HEMATOCRIT 30 % (40-54); HEMOGLOBIN 9.6 G/DL (13.3-17.7); LYMPHOCYTES # (AUTO) 0.5 X 10^3 (1.0-4.0); LYMPHOCYTES % (AUTO) 14 % (12-44); MEAN CORPUSCULAR HEMOGLOBIN 31 PG (25-34); MEAN CORPUSCULAR HGB CONC 32 G/DL (32-36); MEAN CORPUSCULAR VOLUME 96 FL (80-99); MEAN PLATELET VOLUME 8.8 FL (7.4-10.4); MONOCYTES # (AUTO) 0.5 X 10^3 (0.0-1.0); MONOCYTES % (AUTO) 13 % (0-12); NEUTROPHILS # (AUTO) 2.7 X 10^3 (1.8-7.8); NEUTROPHILS % (AUTO) 72 % (42-75); PLATELET COUNT 359 10^3/uL (130-400); WHITE BLOOD COUNT 3.7 10^3/uL (4.3-11.0)
[2020-03-27 11:16] LABS: CHLORIDE 103 MMOL/L (98-107); POTASSIUM 3.6 MMOL/L (3.6-5.0); SODIUM 137 MMOL/L (135-145)
[2020-03-27 11:17] LABS: CALCIUM 8.1 MG/DL (8.5-10.1)
--- NOTE | 2020-03-27 11:17 | Progress Note ---
MINAL BRANDT MED STUDENT 03/27/20 1117: Progress Note D/C to [facility] Hospital course: Martin was taken to the ER on 03/25/2020 due to UTI and Hematuria after he pulled out his covarrubias catheter. Urology was consulted. He received bl adder irrigation and Ceftriaxone in the ER, and transferred inpatient. He experienced repeated bouts of agitation during his stay which was controlled with Ativan. His urine ran clear on the floor. Hgb remained stable at 8.8-9.6. Urine culture was positive for E Coli; Cefdinir prescribed as discharge medication. JAZZMINE ROOT DO 03/27/20 2118: Supervisory-Addendum Brief Verification & Attestation Participated in pt care: history, MDM, physical Personally performed: exam, history, MDM, supervision of care Care discussed with: Medical Student Procedures: n/a Results interpretation: Verified all documentation Verification and Attestation of Medical Student E/M Service A medical student performed and documented this service in my presence. I reviewed and verified all information documented by the medical student and made modifications to such information, when appropriate. I personally performed the physical exam and medical decision making. Jazzmine Root, Mar 27, 2020,21:18 MINAL BRANDT Mar 27, 2020 11:17 JAZZMINE ROOT DO Mar 27, 2020 21:18
[2020-03-27 11:19] LABS: GLUCOSE 92 MG/DL (70-105); TOTAL PROTEIN 6.6 GM/DL (6.4-8.2)
[2020-03-27 11:20] LABS: BILIRUBIN,TOTAL 0.3 MG/DL (0.1-1.0); CARBON DIOXIDE 24 MMOL/L (21-32)
[2020-03-27 11:22] LABS: ALKALINE PHOSPHATASE 72 U/L (40-136); CREATININE SERUM 0.96 MG/DL (0.60-1.30); GFR ESTIMATED > 60
[2020-03-27 11:23] LABS: BUN/CREATININE RATIO 10
[2020-03-27 11:25] LABS: ALANINE AMINOTRANSFERASE 7 U/L (0-55)
--- NOTE | 2020-03-27 11:30 | NUR ---
PT ATTEMPTING TO PULL AT CATH TUBE AND TO STAND. REDIRECTION ATTEMPTS UNSUCCESSFUL. HALDOL 2MG IMpt ADMIN TO LEFT DELTOID, PT DID NOT FIGHT RN RECEIVING INJECTION.
--- NOTE | 2020-03-27 12:14 | NUR ---
CM/SS: Pt to be discharged back to the facility today. Information and orders are faxed to the facility. They will plan to supervisor opening and picking pt at around 12:45pm.
--- NOTE | 2020-03-27 12:21 | Progress Note - Urology ---
Progress Note-Urology Progress Notes/Assess & Plan Progress/Assessment & Plan URINE CLEAR. HOME TODAY. INSTRUCTIONS GIVEN TO NURSE. SEE PRN Final Diagnosis GROSS HEMATURIA (RESOLVED) GUERITA MARINELLI MD Mar 27, 2020 12:21
--- NOTE | 2020-03-27 13:00 | NUR ---
PT DISCHARGED FROM UNIT TO [facility]IA [facility]MENT TRANSPORTATION. PT TAKEN DOWN TO [facility] W[facility]C BY PCT. 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 DEVYN GAVE IT TO MUD GRINDER, GUILHERME MCMAHON, WHO TOOK IT TO [facility] TRANSPORTATION STAFF.
--- NOTE | 2020-03-31 12:01 | Physician Query Clarification ---
PQ-Link Infection to Dev/Proc Admission/Discharge Admission Date: Mar 25, 2020 at 15:05 Discharge Date: Mar 27, 2020 at 12:45 The medical record reflects the following clinical scenario: History/Risk Factors: pulled out covarrubias Clinical Findings: gross hematuria, UA - E coli, T 100.6, R 101 Treatment: CBI, IV Ceftriaxone Question: Can you specify if the UTI is due to/associated with covarrubias catheter? Please document a response in Progress Note or Discharge Summary. 1. Yes - UTI is due to/associated with covarrubias catheter. 2. No - UTI is not due to/associated with covarrubias catheter. 3. Other, with explanation of the clinical findings. 4. Clinically undetermined, no explanation for the clinical findings. PHYSICIAN RESPONSE Specify if infection: 1 Please remember a lack of response to the above will prompt a phone page by [facility]/Coding staff. In responding to this query, please exercise your independent professional judgment. The purpose of this communication is to more accurately reflect the complexity of your patients condition. The fact that a question is asked does not imply that any particular answer is desired or expected. Thank you for your timely response to this clarification. Requestors name: Isabela THIS PHYSICIAN QUERY FORM IS A PERMANENT PART OF THE MEDICAL RECORD ISABELA MCKEON Mar 31, 2020 12:01 TASHA WILHELM DO Mar 31, 2020 21:27
== END 2020-03-27 12:45 | DRG 699 ==
LOC: EDUNIT# 11:05 → ER 11:07 → 4TH 15:05
PROVIDERS: ADMIT Internal Medicine; ATTEND Internal Medicine
DX: T83.511A Infection and inflammatory reaction due to indwelling urethral catheter, initial encounter (principal); S37.39XA Other injury of urethra, initial encounter; F03.91 Unspecified dementia, unspecified severity, with behavioral disturbance; I42.9 Cardiomyopathy, unspecified; N39.0 Urinary tract infection, site not specified; R31.0 Gross hematuria; B96.20 Unspecified Escherichia coli [E. coli] as the cause of diseases classified elsewhere; E83.51 Hypocalcemia; I48.91 Unspecified atrial fibrillation; I25.10 Atherosclerotic heart disease of native coronary artery without angina pectoris; D64.9 Anemia, unspecified; Z87.891 Personal history of nicotine dependence; Z95.1 Presence of aortocoronary bypass graft; Z95.5 Presence of coronary angioplasty implant and graft
CPT/HCPCS: 36415; 80053; 81000; 83605; 85025; 85652; 86141; 87040; 87077; 87088; 87186

== ENCOUNTER 2020-03-30 18:42 | Emergency (ER) | payer MEDICARE, MEDICAID ==
[~2020-03-30] VITALS: Ht 170 cm; Wt 81.8 kg
[~2020-03-30 18:42] MED LIST changes: +ASPI-999 PO; +CEFD300C3 PO
--- NOTE | 2020-03-30 18:59 | ED Fall/Injury ---
General Chief Complaint: Trauma-Non Activation Stated Complaint: HEAD INJ Source: EMS Exam Limitations: no limitations History of Present Illness Date Seen by Provider: Mar 30, 2020 Time Seen by Provider: 18:57 Initial Comments To ER by EMS from [facility] with reports of a fall out of his wheelchair that was unwitnessed. They believe he hit his head but are not sure. Occurred: just prior to arrival Injuries/Pain Location: neck Associated Symptoms (Fall): Denies Symptoms; No Neck Pain Allergies and Home Medications Allergies Coded Allergies: No Known Drug Allergies (Unverified , 12/23/14) Home Medications Acetaminophen 325 Mg Tablet, 650 MG PO Q6H PRN for PAIN-MILD (1-4), (Reported) Aspirin 81 Mg Tab.chew, 81 MG PO DAILY, (Reported) Atorvastatin Calcium 40 Mg Tablet, 40 MG PO HS, (Reported) Carvedilol 6.25 Mg Tablet, 6.25 MG PO BID WITH MEALS, (Reported) HOLD MED *NOTIFY MD* FOR SBP LESS THAN 100 OF DBP OR PULSE LESS THAN 60 Cefdinir 300 Mg Capsule, 300 MG PO BID Prescribed by: TASHA WILHELM on 03/27/20 1045 Clopidogrel Bisulfate 75 Mg Tablet, 75 MG PO DAILY, (Reported) Fluphenazine HCl 5 Mg Tablet, 5 MG PO DAILY, (Reported) Furosemide 40 Mg Tablet, 40 MG PO DAILY, (Reported) Lactulose 20 Gm/30 Ml Solution, 30 ML PO BID, (Reported) Loratadine 10 Mg Tablet, 10 MG PO DAILY PRN for ALLERGY SYMPTOMS, (Reported) Lorazepam 1 Mg Tablet, 1 MG PO Q6H PRN for ANXIETY/AGITATION Prescribed by: TASHA WILHELM on 03/27/20 1045 Losartan Potassium 25 Mg Tablet, 12.5 MG PO DAILY, (Reported) TAKES 1/2 (25MG) TAB HOLD MED *NOTIFY MD* FOR SBP LESS THAN 100 OR DBP LESS THAN 60 Nitroglycerin 0.4 Mg Tab.subl, 0.4 MG SL UD PRN for CHEST PAIN (ANGINA), (Reported) Potassium Chloride 20 Meq Tab.er.prt, 20 MEQ PO DAILY, (Reported) Sodium Chloride 1 Gm Tab, 1 GM PO DAILY, (Reported) Spironolactone 25 Mg Tablet, 25 MG PO DAILY, (Reported) Tamsulosin HCl 0.4 Mg Cap, 0.4 MG PO DAILY, (Reported) Tramadol HCl 50 Mg Tablet, 50 MG PO BID Prescribed by: TASHA WILHELM on 03/27/20 1045 Trazodone HCl 50 Mg Tablet, 75 MG PO HS, (Reported) TAKES 1 & (50MG) TABS Trazodone HCl 50 Mg Tablet, 25 MG PO DAILY, (Reported) Patient Home Medication List Home Medication List Reviewed: Yes Review of Systems Review of Systems Constitutional: see HPI, other (unable to obtain. EMS states the patient was very talkative on arrival but then informed EMS staff that they were being too talkative and refused to speak anymore.) Past Utalrwn-Drxawu-Qwsjvv Hx Patient Social History Alcohol Beverage of Choice: Beer Type Used: Cigarettes Former Smoker, Quit: Aug 29, 2000 2nd Hand Smoke Exposure: No Recent Hopitalizations: No Immunizations Up To Date Tetanus Booster (TDap): Unknown Seasonal Allergies Seasonal Allergies: No Past Medical History Surgeries: Yes (BYPASS X5, CAROTID ARTERY.) Cardiac, CABG, Coronary Stent, Vascular Surgery Respiratory: Yes (Chronic shortness of air) Cardiac: Yes (BYPASS X5) High Cholesterol, Hypertension Neurological: Yes Dementia Reproductive Disorders: No Sexually Transmitted Disease: No HIV/AIDS: No Genitourinary: No Bladder Infection Gastrointestinal: No Musculoskeletal: No Endocrine: No HEENT: No Cancer: No Psychosocial: Yes Violent Behavior Integumentary: No Blood Disorders: No Adverse Reaction/Blood Tranf: No Family Medical History Patient reports no known family medical history. No Pertinent Family Hx Physical Exam Vital Signs Vital Signs - First Documented 03/30/20 18:47 Temp 36.4 Pulse 100 B/P (MAP) 133/93 (106) Pulse Ox 97 O2 Delivery Room Air Capillary Refill : Height, Weight, BMI Height: 5'4.00" Weight: 165lbs. 0oz. 74.554708ce; 23.43 BMI Method:Stated General Appearance: WD/WN, no apparent distress, other (no scalp hematoma or abrasions.) HEENT: PERRL/EOMI, normal ENT inspection Neck: non-tender, full range of motion Respiratory: no respiratory distress, no accessory muscle use Gastrointestinal: normal bowel sounds, non tender, soft Extremities: normal range of motion, non-tender Neurologic/Psychiatric: alert, other (looking around the room, looks at me but doesn't speak.) Skin: normal color, warm/dry Crete Coma Score Best Eye Response: (4) Open Spontaneously Progress/Results/Core Measures Results/Orders Lab Results Laboratory Tests Test 03/30/20 18:48 03/30/20 19:15 Range/Units White Blood Count 4.7 4.3-11.0 10^3/uL Red Blood Count 3.23 L 4.35-5.85 10^6/uL Hemoglobin 9.9 L 13.3-17.7 G/DL Hematocrit 31 L 40-54 % Mean Corpuscular Volume 94 80-99 FL Mean Corpuscular Hemoglobin 31 25-34 PG Mean Corpuscular Hemoglobin Concent 33 32-36 G/DL Red Cell Distribution Width 13.9 10.0-14.5 % Platelet Count 285 130-400 10^3/uL Mean Platelet Volume 9.3 7.4-10.4 FL Neutrophils (%) (Auto) 65 42-75 % Lymphocytes (%) (Auto) 26 12-44 % Monocytes (%) (Auto) 9 0-12 % Eosinophils (%) (Auto) 1 0-10 % Basophils (%) (Auto) 0 0-10 % Neutrophils # (Auto) 3.0 1.8-7.8 X 10^3 Lymphocytes # (Auto) 1.2 1.0-4.0 X 10^3 Monocytes # (Auto) 0.4 0.0-1.0 X 10^3 Eosinophils # (Auto) 0.0 0.0-0.3 10^3/uL Basophils # (Auto) 0.0 0.0-0.1 10^3/uL Sodium Level 134 L 135-145 MMOL/L Potassium Level 4.2 3.6-5.0 MMOL/L Chloride Level 102 98-107 MMOL/L Carbon Dioxide Level 24 21-32 MMOL/L Anion Gap 8 5-14 MMOL/L Blood Urea Nitrogen 20 H 7-18 MG/DL Creatinine 1.05 0.60-1.30 MG/DL Estimat Glomerular Filtration Rate > 60 BUN/Creatinine Ratio 19 Glucose Level 107 H 70-105 MG/DL Calcium Level 8.1 L 8.5-10.1 MG/DL Corrected Calcium 8.7 8.5-10.1 MG/DL Total Bilirubin 0.3 0.1-1.0 MG/DL Aspartate Amino Transf (AST/SGOT) 28 5-34 U/L Alanine Aminotransferase (ALT/SGPT) 12 0-55 U/L Alkaline Phosphatase 83 40-136 U/L Total Protein 6.9 6.4-8.2 GM/DL Albumin 3.3 3.2-4.5 GM/DL Urine Color YELLOW Urine Clarity CLOUDY Urine pH 5.5 5-9 Urine Specific [place] 1.020 1.016-1.022 Urine Protein 2+ H NEGATIVE Urine Glucose (UA) NEGATIVE NEGATIVE Urine Ketones NEGATIVE NEGATIVE Urine Nitrite NEGATIVE NEGATIVE Urine Bilirubin NEGATIVE NEGATIVE Urine Urobilinogen 1.0 < = 1.0 MG/DL Urine Leukocyte Esterase 2+ H NEGATIVE Urine RBC (Auto) 3+ H NEGATIVE Urine RBC 10-25 H /HPF Urine WBC 25-50 H /HPF Urine Crystals PRESENT H /LPF Urine Amorphous Sediment LARGE KATYA URATES H /LPF Urine Bacteria MODERATE H /HPF Urine Casts NONE /LPF Urine Mucus SMALL H /LPF Urine Culture Indicated YES My Orders Orders - ESA MORRIS FRONT OFFICE ADMINISTRATOR Pelvis (03/30/20 18:56) Ct Head/Cervical Spine Wo (03/30/20 18:56) Cbc With Automated Diff (03/30/20 18:56) Comprehensive Metabolic Panel (03/30/20 18:56) Ed Iv/Invasive Line Start (03/30/20 18:56) Ua Culture If Indicated (03/30/20 18:56) Ns Iv 500 Ml (Sodium Chloride 0.9%) (03/30/20 19:00) Urine Culture (03/30/20 19:15) Ceftriaxone For Iv Use (Rocephin For I (03/30/20 20:15) Vital Signs/I&O 03/30/20 18:47 Temp 36.4 Pulse 100 B/P (MAP) 133/93 (106) Pulse Ox 97 O2 Delivery Room Air Departure Impression Primary Impression: Dementia Qualified Codes: F03.91 - Unspecified dementia with behavioral disturbance Additional Impressions: UTI (urinary tract infection) Qualified Codes: N30.01 - Acute cystitis with hematuria Fall at [facility] Qualified Codes: W19.XXXA - Unspecified fall, initial encounter; Y92.129 - Unspecified place in [facility] as the place of occurrence of the external cause Disposition: HOME, SELF-CARE Condition: Stable Departure-Patient Inst. Decision time for Depature: 20:14 Referrals: DAVIAN CARLOS MD (PCP) Primary Care Physician PRO ALLAN DO (Family) Primary Care Physician Patient Instructions: Urinary Tract Infection, Adult (DC) Add. Discharge Instructions: All discharge instructions reviewed with patient and/or family. Voiced un derstanding. Scripts Cefuroxime Axetil (Cefuroxime) 250 Mg Tablet 250 MG PO BID, #10 TAB Prov: ESA MORRIS APRN 03/30/20 ESA MORRIS APRN Mar 30, 2020 18:59
[2020-03-30] MEDS ORDERED: NS IV 500 ML 500 ML IV SCH (19:00)
[2020-03-30 19:05] LABS: BASOPHILS % (AUTO) 0 % (0-10); EOSINOPHILS % (AUTO) 1 % (0-10); HEMATOCRIT 31 % (40-54); HEMOGLOBIN 9.9 G/DL (13.3-17.7); LYMPHOCYTES # (AUTO) 1.2 X 10^3 (1.0-4.0); LYMPHOCYTES % (AUTO) 26 % (12-44); MEAN CORPUSCULAR HEMOGLOBIN 31 PG (25-34); MEAN CORPUSCULAR HGB CONC 33 G/DL (32-36); MEAN CORPUSCULAR VOLUME 94 FL (80-99); MEAN PLATELET VOLUME 9.3 FL (7.4-10.4); MONOCYTES # (AUTO) 0.4 X 10^3 (0.0-1.0); MONOCYTES % (AUTO) 9 % (0-12); NEUTROPHILS % (AUTO) 65 % (42-75); PLATELET COUNT 285 10^3/uL (130-400); WHITE BLOOD COUNT 4.7 10^3/uL (4.3-11.0)
--- NOTE | 2020-03-30 19:06 | NUR ---
REPORT TO ALEXANDRA
[2020-03-30 19:19] LABS: ALANINE AMINOTRANSFERASE 12 U/L (0-55); ALBUMIN 3.3 GM/DL (3.2-4.5); ALKALINE PHOSPHATASE 83 U/L (40-136); BILIRUBIN,TOTAL 0.3 MG/DL (0.1-1.0); BUN/CREATININE RATIO 19; CALCIUM 8.1 MG/DL (8.5-10.1); CARBON DIOXIDE 24 MMOL/L (21-32); CHLORIDE 102 MMOL/L (98-107); CREATININE SERUM 1.05 MG/DL (0.60-1.30); GFR ESTIMATED > 60; GLUCOSE 107 MG/DL (70-105); POTASSIUM 4.2 MMOL/L (3.6-5.0); SODIUM 134 MMOL/L (135-145); TOTAL PROTEIN 6.9 GM/DL (6.4-8.2)
[2020-03-30 19:24] LABS: BILIRUBIN,URINE NEGATIVE (NEGATIVE); CLARITY,URINE CLOUDY; COLOR,URINE YELLOW; GLUCOSE, URINE (UA) NEGATIVE (NEGATIVE); KETONES,URINE NEGATIVE (NEGATIVE); LEUKOCYTE ESTERASE ,URINE 2+ (NEGATIVE); NITRITE,URINE NEGATIVE (NEGATIVE); PH,URINE 5.5 (5-9); PROTEIN,URINE 2+ (NEGATIVE)
[2020-03-30 20:08] LABS: WBC,URINE 25-50 /HPF
--- NOTE | 2020-03-30 20:08 | Diagnostic Imaging Report ---
INDICATION: Trauma protocol. Pain EXAMINATION: Pelvis 03/30/2020 FINDINGS: Single view pelvis There is marked degenerative disease and deformity of the left hip joint, likely all chronic in nature. No definite displaced fractures are seen on these single views. Right hip joint intact. IMPRESSION: 1. Marked chronic disease in the left hip. If there is continued pain or patient cannot bear weight, dedicated imaging of the hips recommended. Dictated by: Dictated on workstation # [id number]
[2020-03-30 20:09] LABS: AMORPHOUS SEDIMENT,UR LARGE AMOR URATES /LPF; BACTERIA,URINE MODERATE /HPF
[2020-03-30] MEDS ORDERED: cefTRIAXone FOR IV USE 1,000 MG in WATER (STERILE) FOR INJECTION 10 ML IV ONE (20:15)
--- NOTE | 2020-03-30 20:31 | Diagnostic Imaging Report ---
PROCEDURE: CT head and CT cervical spine without contrast, 03/30/2020. TECHNIQUE: Multiple contiguous axial images were obtained through the brain and cervical spine without the use of intravenous contrast. Sagittal and coronal reformations through the cervical spine were then performed. Auto Exposure Controls were utilized during the CT exam to meet ALARA standards for radiation dose reduction. INDICATION: Trauma protocol. Found down on floor. FINDINGS: BRAIN: There is diffuse chronic ischemic disease in a periventricular distribution. Atrophy is noted with secondary prominence of the ventricles. No hemorrhage, mass, mass effect or midline shift. No acute infarct. Calvarium is intact. Paranasal sinuses and mastoid air cells demonstrate no acute disease. IMPRESSION: 1. Chronic findings. No acute process. CT CERVICAL SPINE: There is normal height and alignment of the vertebral bodies. Changes about the dens consistent with chronic degenerative disease, possibly pannus. There is intervertebral disc space narrowing, anterior and posterior spurring throughout the mid and lower cervical spine. No acute fractures or subluxations. Multilevel facet hypertrophy is seen throughout the spine causing multilevel bilateral neural foraminal narrowing. There are multilevel spur disc complexes, as well, causing areas of at least moderate stenosis, most marked at C5-C6 and C6-C7. Lung apices are clear. Prevertebral soft tissues are unremarkable for acute process. IMPRESSION: 1. Multilevel diffuse degenerative disease. No acute process appreciated. Dictated by: Dictated on workstation # [id number]
[2020-03-30] MEDS ORDERED: CEFU250T80 PO (20:53)
[2020-03-30] MEDS ORDERED: LORazepam 0.5 MG (ATIVAN) TABLET PO ONE (22:15)
[2020-03-30 23:17] VITALS: BP 128/89
== END 2020-03-30 23:17 | disposition home or self-care (01) ==
LOC: EDUNIT# 18:42 → ER 18:43
DX: F03.90 Unspecified dementia, unspecified severity, without behavioral disturbance, psychotic disturbance, mood disturbance, and anxiety (principal); N39.0 Urinary tract infection, site not specified; E78.00 Pure hypercholesterolemia, unspecified; I10 Essential (primary) hypertension; R40.2140 Coma scale, eyes open, spontaneous, unspecified time; Z95.5 Presence of coronary angioplasty implant and graft; Z95.1 Presence of aortocoronary bypass graft; Z87.891 Personal history of nicotine dependence; Z79.82 Long term (current) use of aspirin; W05.0XXA Fall from non-moving wheelchair, initial encounter
CPT/HCPCS: 36415; 70450; 72125; 72170; 80053; 81000; 85025; 87088

== ENCOUNTER 2020-06-04 14:23 | Emergency (ER) | payer MEDICARE, MEDICAID ==
[~2020-06-04] VITALS: Ht 172.7 cm; Wt 79.3 kg
[2020-06-04 14:23] VITALS: BP 121/63
[~2020-06-04 14:23] MED LIST changes: +CEFU250T80 PO
--- NOTE | 2020-06-04 14:38 | ED GU-Male ---
General Stated Complaint: CATHETER PROBLEMS Source: patient Exam Limitations: no limitations History of Present Illness Date Seen by Provider: Jun 04, 2020 Time Seen by Provider: 14:34 Initial Comments Demented male from [facility] presents to ER by EMS after having pulled out his Arce catheter. He has done this several times and has hypospadias and the ventral surface of the penis is filleted open chronically. Timing/Duration: constant Severity/Quality: cramping Activities at Onset: none Prior Genitourinary Problems: none Associated Symptoms: denies symptoms Allergies and Home Medications Allergies Coded Allergies: No Known Drug Allergies (Unverified , 12/23/14) Home Medications Acetaminophen 325 Mg Tablet, 650 MG PO Q6H PRN for PAIN-MILD (1-4), (Reported) Aspirin 81 Mg Tab.chew, 81 MG PO DAILY, (Reported) Atorvastatin Calcium 40 Mg Tablet, 40 MG PO HS, (Reported) Carvedilol 6.25 Mg Tablet, 6.25 MG PO BID WITH MEALS, (Reported) HOLD MED *NOTIFY MD* FOR SBP LESS THAN 100 OF DBP OR PULSE LESS THAN 60 Cefdinir 300 Mg Capsule, 300 MG PO BID Prescribed by: TASHA WILHELM on 03/27/201044 Cefuroxime Axetil 250 Mg Tablet, 250 MG PO BID Prescribed by: ESA MORRIS on 03/30/202052 Clopidogrel Bisulfate 75 Mg Tablet, 75 MG PO DAILY, (Reported) Fluphenazine HCl 5 Mg Tablet, 5 MG PO DAILY, (Reported) Furosemide 40 Mg Tablet, 40 MG PO DAILY, (Reported) Lactulose 20 Gm/30 Ml Solution, 30 ML PO BID, (Reported) Loratadine 10 Mg Tablet, 10 MG PO DAILY PRN for ALLERGY SYMPTOMS, (Reported) Lorazepam 1 Mg Tablet, 1 MG PO Q6H PRN for ANXIETY/AGITATION Prescribed by: TASHA WILHELM on 03/27/20 104 Losartan Potassium 25 Mg Tablet, 12.5 MG PO DAILY, (Reported) TAKES 1/2 (25MG) TAB HOLD MED *NOTIFY MD* FOR SBP LESS THAN 100 OR DBP LESS THAN 60 Nitroglycerin 0.4 Mg Tab.subl, 0.4 MG SL UD PRN for CHEST PAIN (ANGINA), (Reported) Potassium Chloride 20 Meq Tab.er.prt, 20 MEQ PO DAILY, (Reported) Sodium Chloride 1 Gm Tab, 1 GM PO DAILY, (Reported) Spironolactone 25 Mg Tablet, 25 MG PO DAILY, (Reported) Tamsulosin HCl 0.4 Mg Cap, 0.4 MG PO DAILY, (Reported) Tramadol HCl 50 Mg Tablet, 50 MG PO BID Prescribed by: TASHA WILHELM on 03/27/20 1045 Trazodone HCl 50 Mg Tablet, 75 MG PO HS, (Reported) TAKES 1 & (50MG) TABS Trazodone HCl 50 Mg Tablet, 25 MG PO DAILY, (Reported) Patient Home Medication List Home Medication List Reviewed: Yes Review of Systems Review of Systems Constitutional: see HPI EENTM: see HPI Respiratory: no symptoms reported Cardiovascular: no symptoms reported Genitourinary: see HPI Musculoskeletal: see HPI Skin: no symptoms reported Psychiatric/Neurological: No Symptoms Reported Endocrine: No Symptoms Reported Hematologic/Lymphatic: No Symptoms Reported Past Tpsgrmv-[id number]-Pjpwji Hx Patient Social History Alcohol Beverage of Choice: Beer Type Used: Cigarettes Former Smoker, Quit: Aug 29, 2000 2nd Hand Smoke Exposure: No Recent Hopitalizations: No Immunizations Up To Date Tetanus Booster (TDap): Unknown Seasonal Allergies Seasonal Allergies: No Past Medical History Surgeries: Yes (BYPASS X5, CAROTID ARTERY.) Cardiac, CABG, Coronary Stent, Vascular Surgery Respiratory: Yes (Chronic shortness of air) Cardiac: Yes (BYPASS X5) High Cholesterol, Hypertension Neurological: Yes Dementia Reproductive Disorders: No Sexually Transmitted Disease: No HIV/AIDS: No Genitourinary: No Bladder Infection Gastrointestinal: No Musculoskeletal: No Endocrine: No HEENT: No Cancer: No Psychosocial: Yes Violent Behavior Integumentary: No Blood Disorders: No Adverse Reaction/Blood Tranf: No Family Medical History Patient reports no known family medical history. No Pertinent Family Hx Physical Exam Vital Signs Capillary Refill : Height, Weight, BMI Height: 5'4.00" Weight: 165lbs. 0oz. [id number]; 28.00 BMI Method:Stated General Appearance: WD/WN, no apparent distress HEENT: PERRL/EOMI, normal ENT inspection Respiratory: no respiratory distress, no accessory muscle use Male: other (Portacatheter the ventral surface of the penis has a chronic appearing opening of about 5 cm of urethra to the midshaft of the penis where the orifice is seen.) Extremities: normal range of motion, non-tender Skin: normal color, warm/dry Progress/Results/Core Measures Suspected Sepsis SIRS Temperature: Pulse: Respiratory Rate: Blood Pressure / Mean: Results/Orders Vital Signs/I&O Capillary Refill : Departure Communication (Admissions) 18Fr Arce cath easily reinserted. Impression Primary Impression: Dementia Qualified Codes: F03.91 - Unspecified dementia with behavioral disturbance Additional Impressions: Penile trauma Urethral injury Disposition: HOME, SELF-CARE Condition: Stable Departure-Patient Inst. Decision time for Depature: 14:37 Referrals: DAVIAN CARLOS MD (PCP) Primary Care Physician PRO ALLAN DO (Family) Primary Care Physician GUERITA MARINELLI MD Patient Instructions: Dementia (DC), NO INSTRUCTIONS GIVEN Add. Discharge Instructions: 1. Call Dr Marinelli for follow up. 2. Return to ER for any concerns ESA MORRIS APRN Jun 04, 2020 14:38
--- NOTE | 2020-06-04 14:44 | NUR ---
[facility] called for transportation
== END 2020-06-04 15:16 | disposition home or self-care (01) ==
LOC: EDUNIT# 14:23 → ER 14:27
DX: F03.90 Unspecified dementia, unspecified severity, without behavioral disturbance, psychotic disturbance, mood disturbance, and anxiety (principal); S39.94XA Unspecified injury of external genitals, initial encounter; S37.30XA Unspecified injury of urethra, initial encounter; E78.00 Pure hypercholesterolemia, unspecified; I10 Essential (primary) hypertension; Z20.828 Contact with and (suspected) exposure to other viral communicable diseases; Z87.891 Personal history of nicotine dependence; Z95.1 Presence of aortocoronary bypass graft; Z95.5 Presence of coronary angioplasty implant and graft; Z79.82 Long term (current) use of aspirin; X58.XXXA Exposure to other specified factors, initial encounter
CPT/HCPCS: 51702